=== PATIENT | female | born 1960 | race Caucasian/White ===

== ENCOUNTER 2019-12-24 17:53 | Inpatient (IN) ==
--- OUTSIDE RECORDS SUMMARY | 2019-12-24 17:55 | External Medical Summary | Continuity of Care Document ---
:1960 Author Name Joanna Hahn, Provider Address Unavailable Unavailable , Care Team Providers Name Role Phone Modesto Hahn, [email or web address] Jaramillo Unavailable Unavailable Problems Atrial flutter (427.32) (I48.92) Acute cholecystitis (575.0) (K81.0) Hypertension (401.9) (I10) Hyperlipidemia (272.4) (E78.5) Diabetes (250.00) (E11.9) Allergies and Adverse Reactions Lisinopril TABS (Allergy) Medications amLODIPine Besylate 2.5 MG Oral Tablet; TAKE 1 TABLET DAILY. Start: 27-Feb-2018 Refills: 0 Aspirin Low Dose 81 MG Oral Tablet Delayed Release; TAKE 1 T ABLET DAILY. Start: 27-Feb-2018 Refills: 0 Vitamin D3 75 MCG (3000 UT) Oral Tablet; daily Start: 27-Feb-2018 Refills: 0 Ciprofloxacin HCl - 500 MG Oral Tablet; TAKE 1 TABLET EVERY 12 HOURS DAILY. Start: 27-Feb-2018 Quantity: 20 Refills: 0 Doxepin HCl - 150 MG Oral Capsule; TAKE 1 CAPSULE AT BEDTIME NIGHTLY. Start: 27-Feb-2018 Refills: 0 Ferrous Sulfate 325 (65 Fe) MG Oral Tabl et Delayed Release; TAKE 1 TABLET DAILY. Start: 27-Feb-2018 Refills: 0 metFORMIN HCl - 1000 MG Oral Tablet; TAKE 1 TABLET EVERY 12 HOURS. Start: 27-Feb-2018 Refills: 0 Omeprazole 20 MG Oral Capsule Delayed Release; TAKE 1 CAPSUL E TWICE DAILY. Start: 27-Feb-2018 Refills: 0 Vitamin B Complex Oral Tablet; TAKE 1 TABLET DAILY. Start: 27-Feb-2018 Refills: 0 oxyCODONE HCl - 30 MG Oral Tablet; Twice daily Start: 27-Feb-2018 Refills: 0 Procedures History of Laparoscopic Cholecystectomy With Status: Completed 23-Feb-2018 0:00 Cholangiography Immunizations Immunizations not documented Family History Mother Family history of diabetes mellitus (V18.0) (Z83.3) Status: Active Father Family history of diabetes mellitus (V18.0) (Z83.3) Status: Active Social History - Smoking Status Never smoked tobacco Plan of Treatment Planned Observations Planned Goals not documented Results No Known Results Results not documented Encounters Appointment; Jarrod Salvador M.D. 04-Jun-2018 10:45 Encounter Diagnosis: Problem not documented Appointment; Franc Thorpe M.D. 27-Feb-2018 11:40 Encounter Diagnosis: Problem not documented Appointment; Jarrod Salvador M.D. 28-Jun-2018 14:15 Encounter Diagnosis: Problem not documented
--- OUTSIDE RECORDS SUMMARY | 2019-12-24 17:55 | External Medical Summary | Continuity of Care Document ---
:1960 Author Name Joanna Hahn, Provider Address Unavailable Unavailable , Care Team Providers Name Role Phone Modesto Hahn, [email or web address] Jaramillo Unavailable Unavailable Problems Acute cholecystitis (575.0) (K81.0) Diabetes (250.00) (E11.9) Hyperlipidemia (272.4) (E78.5) Hypertension (401.9) (I10) Atrial flutter (427.32) (I48.92) Allergies and Adverse Reactions Lisinopril TABS (Allergy) [...]
[2019-12-24] MEDS ORDERED: SODIUM CHLORIDE 0.9% 1000ML 1,000 ML IV ONE ×2 (18:12→20:00)
--- NOTE | 2019-12-24 18:15 | Emergency Department Note ---
Impression & Plan Acute pancreatitis, Leukocytosis, Abdominal pain, MIS (acute kidney injury) ED Provider Note NAME: ARIEL MENDOZA AGE: 59 SEX: F : 1960 ARRIVES VIA: Walk-In INFORMANT: Patient ED PROVIDER(S): Jarred Caballero DO CHIEF COMPLAINT: Abdominal pain HPI: Patient is a 59-year-old female who presents the ER for abdominal pain. It has been present since this past Sunday. She notes she feels as though she has to have a bowel movement but cannot. She gave herself an enema on Sunday and had a small bowel movement but still feels bloated and tender. Pain is periu mbilical. Patient denies any headache or neck pain. No chest pain or shortness of breath. No dysuria urgency or frequency. Patient notes that she did trip on the staff prior to arrival and fell. She did hit her head. She has no new pain that she can think of but notes that she has chronic head pain and neck pain and is tough to tell the difference. ROS: See above HPI for pertinent positives & negatives. A total of 10 systems reviewed and were otherwise negative. PAST MEDICAL HISTORY:See Below PAST SURGICAL HISTORY:See Below FAMILY HISTORY:See Below SOCIAL HISTORY:See Below HOME MEDICATIONS:See Below ALLERGIES:See Below VITALS:See Below PHYSICAL EXAMINATION: GENERAL: Sitting up in bed, alert, well appearing, well nourished, no distress, non-toxic HEAD: NC/AT EYE EXAM: normal conjunctiva. PERRL and EOM's grossly intact. OROPHARYNX: no exudate, no erythema, lips, buccal mucosa, and tongue normal and mucous membranes are moist NECK: supple, no nuchal rigidity, no adenopathy, non-tender LUNGS: Clear to auscultation. Normal chest wall mechanics HEART: no murmurs, S1 normal and S2 normal ABDOMEN: abdomen soft, non-tender, normo-active bowel sounds, no masses, no rebound or guarding. BACK: Back is symmetrical on inspection and there is no deformity, no midline tenderness, no CVA tenderness. SKIN: no rashes and no bruising UPPER EXTREMITIES: upper extremities are grossly normal. Abrasion over the left elbow. Full active and passive range of motion of bilateral shoulders, elbows wrist and grasp. No tenderness throughout the humerus or forearm. LOWER EXTREMITIES: No pitting edema. NEURO EXAM: Normal sensorium, cranial nerves II-XII grossly intact, normal speech, no gross weakness of arms, no gross weakness of legs. MEDICAL DECISION MAKING: Patient is a 59-year-old female presents ER for abdominal pain associated with nausea not feeling as though she wants to eat. Pain has been gradually getting worse. IV was established blood work was obtained. Labs show a leukocytosis of nearly 18,000. No significant anemia. BMP with mild hypokalemia. Creatinine was elevated at 1.8 of a baseline about 1. CO2 slightly low. Lipase was elev ated at 600. CT abdomen pelvis consistent with acute pancreatitis. UA was negative. Patient was given IV fluids and 2 dose of IV narcotics. She was updated bedside. Discussed with hospitalist admitted for further work-up. Triage Nursing notes reviewed. Prior medical records reviewed Vital Signs: reviewed and remarkable for Tachy Differential diagnosis: Differential diagnoses includes but is not limited to gastritis, peptic ulcer disease, GERD, gallbladder disease, pancreatitis, small bowel obstruction, acute coronary syndrome, pericarditis, ischemic bowel, irritable bowel disease, irritable bowel syndrome, appendicitis, diverticulitis, malignancy, hernia, urinary tract infection, torsion, perforation, trauma, infectious. ER treatment provided: See below Diagnostics interpreted by me: ECG: none Cardiac Monitoring: An order was placed for continuous cardiac monitoring. The monitor shows a rate of 92 with sinus rhythm. Laboratory studies: As stated above and show below. Imaging studies: Abdomen pelvis confirms acute pancreatitis Consultation(s): Discussed with the hospitalist for further evaluation ED COURSE: Procedures: none Critical Care: None Past Med/Surg History Medical History (Updated 12/24/19 @ 23:56 by Jarred Caballero DO) Chronic pain Diabetes GERD (gastroesophageal reflux disease) HTN (hypertension) Hyperlipidemia Hypertension associated with chronic kidney disease due to type 2 diabetes mellitus Obesity Peripheral autonomic neuropathy due to diabetes mellitus Surgical History (Updated 02/23/18 @ 13:27 by Oneil Wallace MD) H/O cervical spine surgery Previous section Status post lumbar spine surgery for decompression of spinal cord Social History Smoking Status: Never smoker Hx Alcohol Use: No Hx Substance Use: No Preferred Language: Fijian Communication Ability: Effective Active Directory Architect Required: No Beliefs That Will Affect Care: None Current Living Situation: Alone Other Information That Helps Us Care for You: No Feels Safe at Home: Yes Safety Concerns: Feels Safe At This Time Assistive Devices: None Allergies Allergies Allergy/AdvReac Type Severity Reaction Status Date / Time lisinopril AdvReac Unknown weight Verified 12/24/19 20:34 gain Home Meds Home Medications Medication Instructions Recorded Confirmed cholecalciferol (vitamin D3) 3,000 unit PO DAILY 02/23/18 12/24/19 doxepin 150 mg PO HS 02/23/18 12/24/19 ferrous sulfate [iron] 325 mg PO TID 02/23/18 12/24/19 metformin 1,000 mg PO BID 02/23/18 12/24/19 omeprazole 20 mg PO BID 02/23/18 12/24/19 alprazolam 0.5 mg PO DAILY PRN 12/24/19 12/24/19 aspirin [Aspirin Low Dose] 81 mg PO QAM 12/24/19 12/24/19 oxycodone [OxyContin] 30 mg PO Q12H 12/24/19 12/24/19 Results & Data (ED) Vital Signs Vital Signs - 24 hr 12/24/19 17:57 12/24/19 18:35 12/24/19 19:20 Temperature 36.8 C Temperature Source Oral Pulse Rate 120 H Pulse Rate [Apical] 90 Respiratory Rate 18 18 Blood Pressure 125/76 Blood Pressure [Right Arm] 169/96 H Blood Pressure Mean 92 Blood Pressure Mean [Right Arm] 120 Pulse Oximetry 96 97 Oxygen Delivery Method Room Air Room Air Room Air Sepsis Recent Fever Within 48 Hours No Sepsis New/Unexplained Change in Mental Status No Sepsis Action Taken by Nursing No Action Required 12/24/19 21:13 Temperature Temperature Source Pulse Rate Pulse Rate [Apical] 87 Respiratory Rate 18 Blood Pressure Blood Pressure [Right Arm] 147/89 H Blood Pressure Mean Blood Pressure Mean [Right Arm] 108 Pulse Oximetry 97 Oxygen Delivery Method Room Air Sepsis Recent Fever Within 48 Hours Sepsis New/Unexplained Change in Mental Status Sepsis Action Taken by Nursing Laboratory Data Result diagrams: 12/24/19 18:36 12/24/19 18:36 Lab Results 12/24/19 12/24/19 12/24/19 Range/Units 18:36 18:36 18:36 WBC 17.69 H (4.8-10.8) K/uL RBC 5.16 (4.2-5.4) M/uL Hgb 15.7 (12.0-16.0) g/dL Hct 45.2 (37-47) % MCV 87.6 (80-100) fL MCH 30.4 (25-34) pg MCHC 34.7 (32-36) g/dL RDW Std Deviation 44.8 (36.4-46.3) fL RDW Coeff of Génesis 14.9 H (11.5-14.5) % Plt Count 273 (130-400) K/uL MPV 10.2 (7.4-10.4) fL Immature Gran % (Auto) 0.5 % Neut % (Auto) 82.9 % Lymph % (Auto) 9.0 % [place] % (Auto) 7.4 % Eos % (Auto) 0.1 % Baso % (Auto) 0.1 % Neut # (Auto) 14.66 H (1.4-6.5) K/uL Lymph # (Auto) 1.60 (1.2-3.4) K/uL [place] # (Auto) 1.31 H (0.11-0.59) K/uL Eos # (Auto) 0.02 (0-0.5) K/uL Baso # (Auto) 0.02 (0-0.2) K/uL Immature Gran # (Auto) 0.08 H (0.00-0.02) K/uL Sodium 133 L (136-145) mmol/L Potassium 3.7 (3.5-5.1) mmol/L Chloride 99 (98-107) mmol/L Carbon Dioxide 20 L (21-32) mmol/L Anion Gap 14.0 H (3-11) BUN 19 H (7-18) mg/dl Creatinine 1.88 H (0.6-1.2) mg/dl Est Cr Clr Drug Dosing 33.8 ml/min Est GFR ( Amer) 33.5 Est GFR (Non-Af Amer) 28.9 BUN/Creatinine Ratio 9.9 L (10-20) Glucose 268 H (70-99) mg/dl Calcium 10.0 (8.5-10.1) mg/dl Total Bilirubin 0.6 (0.2-1) mg/dl AST 27 (15-37) U/L ALT 61 (12-78) U/L Alkaline Phosphatase 167 H (45-117) U/L Total Protein 8.4 H (6.4-8.2) gm/dl Albumin 3.4 (3.4-5.0) gm/dl Globulin 5.0 H (2.5-4.0) gm/dl Albumin/Globulin Ratio 0.7 L (0.9-2) Lipase 601 H (73-393) U/L Urine Color Dark Yellow Urine Appearance Cloudy A (Clear) Urine pH 5.0 (4.5-7.5) Ur Specific [place] 1.026 (1.000-1.030) Urine Protein 2+ H (Negative) Urine Glucose (UA) 2+ H (Negative) Urine Ketones 1+ H (Negative) Urine Blood Negative (Negative) Urine Nitrite Negative (Negative) Urine Bilirubin 2+ H (Negative) Urine Urobilinogen Negative (Negative) Ur Leukocyte Esterase Negative (Negative) Urine WBC (Auto) 1-5 (0-5) /hpf Urine RBC (Auto) 10-30 H (0-4) /hpf U Hyaline Cast (Auto) 1-5 (0-5) /lpf U Epithel Cells (Auto) >30 H (0-5) /lpf Urine Bacteria (Auto) Negative (Negative) Granular Casts 1-5 H (0) /lpf Administered Medications Hydromorphone HCl (Hydromorphone Inj 1 Mg/Ml Syringe) 1 mg IV Q2H PRN PRN Reason: Pain Stop: 01/07/20 21:44 Last Admin: 12/24/19 22:47 Dose: 1 mg Documented by: [id number] Lactated Ringer's (Lr) 1,000 mls @ 215 mls/hr IV .Q4H40M JACQUELINE Stop: 01/23/20 21:44 Last Admin: 12/24/19 22:35 Dose: 215 mls/hr Documented by: [id number] Discontinued Medications Hydromorphone HCl (Hydromorphone Inj 1 Mg/Ml Syringe) 1 mg IV NOW STA Stop: 12/24/19 20:56 Last Admin: 12/24/19 20:58 Dose: 1 mg Documented by: [id number] Sodium Chloride (Nss 1000ml) 1,000 mls @ 999 mls/hr IV .Q1H1M ONE Stop: 12/24/19 19:12 Last Infusion: 12/24/19 20:01 Dose: 0 mls/hr Documented by: [id number] Admin: 12/24/19 18:44 Dose: 999 mls/hr Documented by: [id number] Sodium Chloride (Nss 1000ml) 1,000 mls @ 999 mls/hr IV .Q1H1M ONE Stop: 12/24/19 21:00 Last Infusion: 12/24/19 21:09 Dose: 0 mls/hr Documented by: [id number] Admin: 12/24/19 20:06 Dose: 999 mls/hr Documented by: [id number] Morphine Sulfate (Morphine Sulfate 10 Mg/Ml Carp/Vial) 6 mg IV NOW STA Stop: 12/24/19 20:01 Last Admin: 12/24/19 20:06 Dose: 6 mg Documented by: [id number] Discharge Plan Visit Data Chief Complaint: Abdominal Pain Stated Complaint: BLOCKAGE IN COLON, REF BY ED Provider: Jarred Caballero Discharge Problem: Acute pancreatitis, Leukocytosis, Abdominal pain, MIS (acute kidney injury) Patient Disposition: Admitted As Inpatient Discharge Instructions Interventions: ED Discharge Assessment Last Done: 12/24/19 22:57 Discharge Problem: Acute pancreatitis Qualifiers: Pancreatitis type: unspecified pancreatitis type Acute pancreatitis complication: unspecified Qualified Code(s): K85.90 - Acute pancreatitis without necrosis or infection, unspecified Leukocytosis Qualifiers: Leukocytosis type: unspecified Qualified Code(s): D72.829 - Elevated white blood cell count, unspecified Abdominal pain Qualifiers: Abdominal location: unspecified location Qualified Code(s): R10.9 - Unspecified abdominal pain
[2019-12-24 18:45] LABS: Basophils # (auto) 0.02 K/uL (0-0.2); Basophils % (auto) 0.1 %; Eosinophils # (auto) 0.02 K/uL (0-0.5); Eosinophils % (auto) 0.1 %; Hematocrit (blood only) 45.2 % (37-47); Hemoglobin 15.7 g/dL (12.0-16.0); Immature Granulocytes # (auto) 0.08 K/uL (0.00-0.02); Immature Granulocytes % (auto) 0.5 %; Mean Corpuscular Hemoglobin 30.4 pg (25-34); Mean Corpuscular Hgb Conc 34.7 g/dL (32-36); Mean Corpuscular Volume 87.6 fL (80-100); Mean Platelet Volume 10.2 fL (7.4-10.4); Monocytes # (auto) 1.31 K/uL (0.11-0.59); Monocytes % (auto) 7.4 %; Neutrophils # (auto) 14.66 K/uL (1.4-6.5); Neutrophils % (auto) 82.9 %; Platelet Count 273 K/uL (130-400); RDW Coefficient of Variation 14.9 % (11.5-14.5); RDW Standard Deviation 44.8 fL (36.4-46.3); Red Blood Count 5.16 M/uL (4.2-5.4); White Blood Count 17.69 K/uL (4.8-10.8)
[2019-12-24 18:48] LABS: Appearance Urine Cloudy (Clear); Bacteria Urine Automated Negative (Negative); Blood Urine Negative (Negative); Color Urine Dark Yellow; Epithelial Cell Urine Auto >30 /lpf (0-5); Glucose Urine UA 2+ (Negative); Ketones Urine 1+ (Negative); Leukocyte Esterase Urine Negative (Negative); Nitrite Urine Negative (Negative); Protein Urine 2+ (Negative); Specific Gravity Urine 1.026 (1.000-1.030); Urobilinogen Urine Negative (Negative)
[2019-12-24 18:56] LABS: Bilirubin Urine 2+ (Negative); Ictotest Urine Positive (Negative)
[2019-12-24 19:01] LABS: Albumin Level 3.4 gm/dl (3.4-5.0); BUN Creatinine Ratio 9.9 (10-20); Creatinine Clr Calc Pharmacy 33.8 ml/min; Est GFR (African American) 33.5; Est GFR (Non-African American) 28.9; Potassium 3.7 mmol/L (3.5-5.1)
[2019-12-24 19:04] LABS: Albumin Globulin Ratio 0.7 (0.9-2); Bilirubin,Total 0.6 mg/dl (0.2-1); Total Protein 8.4 gm/dl (6.4-8.2)
--- NOTE | 2019-12-24 19:47 | CT Scan Report ---
CT head/brain wo con CLINICAL HISTORY: Head pain status post trauma COMPARISON STUDY: No previous studies for comparison. TECHNIQUE: Axial CT of the brain is performed from the vertex to the skull base. IV contrast was not administered for this examination. A dose lowering technique was utilized adhering to the principles of ALARA. CT DOSE: FINDINGS: No intra or extra-axial mass lesions are visualized. There is no CT evidence of acute cortical infarc tion. There is no evidence of midline shift. There is no acute hemorrhage. No calvarial fractures ar e visualized. There are minor white matter hypodensities likely on a small vessel basis. There is mild frontal lobe atrophy There is no evidence of pathologic ventricular dilatation. There is no evidence of acute sinusitis IMPRESSION: No acute intracranial findings ACT 112: Negative or not required by law. Electronically signed by: Oracio Perez M.D. 12/24/2019 7:46 PM
--- NOTE | 2019-12-24 19:49 | CT Scan Report ---
CT OF THE CERVICAL SPINE CLINICAL HISTORY: Neck pain status post trauma COMPARISON STUDY: No previous studies for comparison. CT DOSE: TECHNIQUE: CT scan of the cervical spine was performed from the skull base to the thoracic inlet. Joelle ges are reviewed in the axial, sagittal, and coronal planes. IV contrast was not administered for thi s examination. A dose lowering technique was utilized adhering to the principles of ALARA. FINDINGS: The visualized portions of the lung apices reveal no evidence of pneumothorax. The prevertebral soft tissues are normal. No fractures or subluxations are visualized. There are multilevel degenerative changes. There are postsurgical changes of a C5-6 fusion. IMPRESSION: No evidence of acute fracture or traumatic subluxation. ACT 112: Negative or not required by law. Electronically signed by: Oracio Perez M.D. 12/24/2019 7:48 PM
--- NOTE | 2019-12-24 19:55 | CT Scan Report ---
CT SCAN OF THE ABDOMEN AND PELVIS WITHOUT CONTRAST CLINICAL HISTORY: Abdominal pain status post trauma COMPARISON STUDY: CT scan dated 02/23/2018 TECHNIQUE: CT scan of the abdomen and pelvis was performed from the lung bases to the proximal femurs . Images are reviewed in the axial, sagittal, and coronal planes. IV contrast was not administered fo r this examination. A dose lowering technique was utilized adhering to the principles of ALARA. CT DOSE: 2035.07 mGy.cm FINDINGS: Lower chest: There are basilar atelectatic changes. There is mild elevation of the right hemidiaphrag m Liver: There is hepatic steatosis. There is a 1 cm left lobe hepatic hypodensity, unchanged from Dece mber 2018, likely representing a cyst. Gallbladder: Surgically absent. There is mild prominence of the common bile duct likely secondary to a reservoir effect Spleen: Normal in size and attenuation. Pancreas: Atrophic. There is infiltration of peripancreatic fat suspicious for pancreatitis. Please c orrelate with amylase and lipase Adrenal glands: Unremarkable. Kidneys: No renal, ureteral, or bladder calculi are visualized Bowel: There are no transition zones indicate bowel obstruction. The appendix appears normal. There i s no acute diverticulitis. There are scattered colonic diverticula Peritoneum: There is no intraperitoneal free air or abdominal ascites. Vasculature: The abdominal aorta is normal in course and caliber. Adenopathy: None. Pelvic viscera: The pelvic viscera are unremarkable in appearance Skeletal structures: No acute fractures are visualized. There is a chronic bony defect involving the right iliac wing. IMPRESSION: 1. No evidence of acute intra-abdominal or pelvic injury given the limitations of a noncontrast study 2. No evidence of bowel obstruction. No evidence of free air 3. Diverticulosis. No evidence of acute diverticulitis 4. Normal appendix 5. Pancreatic atrophy. Infiltration of the peripancreatic fat suspicious for acute pancreatitis. Rosina elation with lipase and amylase recommended 6. Hepatic steatosis ACT 112: Negative or not required by law. Electronically signed by: Oracio Perez M.D. 12/24/2019 7:53 PM
[2019-12-24] MEDS ORDERED: MoRPHine SULFATE 10 MG/ML CARP/VIAL IV STA (20:00)
[2019-12-24] MEDS ORDERED: HYDROmorphone INJ 1 MG/ML SYRINGE IV STA (20:55)
--- NOTE | 2019-12-24 20:59 | XRay Report ---
XR chest 1V portable CLINICAL HISTORY: Renal failure COMPARISON STUDY: February 23, 2018 FINDINGS: There is elevation/eventration right hemidiaphragm. The heart is normal in size. There is n o failure. There is no focal pulmonary consolidation. There are mild right basilar atelectatic change s. IMPRESSION: 1. Elevation/eventration right hemidiaphragm 2. Otherwise unremarkable AP portable chest ACT 112: Negative or not required by law. Electronically signed by: Oracio Perez M.D. 12/24/2019 8:58 PM
[2019-12-24] MEDS ORDERED: ACETAMINOPHEN 325 MG TAB PO PRN (21:30)
[2019-12-24] MEDS ORDERED: ONDANSETRON INJ 2 MG/ML 2 ML VIAL IV PRN (21:30)
[2019-12-24] MEDS ORDERED: ENOXAPARIN INJ 40 MG/0.4 ML SYR SQ SCH (21:45)
[2019-12-24] MEDS: LACTATED RINGER'S 1,000 ML IV SCH (22:35)
[2019-12-24] MEDS: HYDROmorphone INJ 1 MG/ML SYRINGE IV PRN (22:47)
[2019-12-25] MEDS: HYDROmorphone INJ 1 MG/ML SYRINGE IV PRN ×6 (00:39→17:59)
[2019-12-25] MEDS: ALPRAZolam 0.5 MG TABLET PO PRN (02:30)
[2019-12-25] MEDS: LACTATED RINGER'S 1,000 ML IV SCH ×5 (03:45→22:29)
--- NOTE | 2019-12-25 03:54 | History & Physical Report ---
Date of Service December 25, 2019 Assessment & Plan (1) Leukocytosis: Adwoa Méndez is a 59 year old woman with PMH of anxiety depression, cholecystits s.p cholecystectomy in 2018 who presents with abdominal pain and constipation Abdominal pain Appears to be secondary to pancreatitis, evidence of acute pancreatitis on CT scan and also similar symptoms in the past and atrophy of pancreas may be an acute on chronic exacerbation, no alcohol use, no gall bladder, no recent covid diagnosis Will order MRCP to evaluate for CBD sludge stone, or stricture NPO, LR at 215 mls/hour dilaudid for pain control Will schedule miralax for her constipation Will slowly advance diet as tolerated npo currently sips and chips MIS Likely pre renal seconary to patient's decreased PO intake Aggressively rehydrating will recheck BMP in am Chest discomfort palpitations Will admit to telemetry and check a troponin Patient actively exhibiting symptoms and normal on monitor resolved with her home alprazolam, will continue ot monitor DVT PPx: Lovenox F/E/N: LR 215 mls/hour Dispo: Admit to telemetry for monitoring of her palpitations will slowly advance diet as tolerated (2) MIS (acute kidney injury): (3) Acute pancreatitis: (4) HTN (hypertension): (5) Electrolyte imbalance: (6) Elevated lipase: Admission and Anticipated Discharge Date Admission Date: December 24, 2019 History of Present Illness Chief Complaint: Abdominal pain Primary Care Provider: Hanna Powers Adwoa Méndez is a 59 year old woman with a past medical history significant for anxiety and depression, chronic pain on 90 MME per day. history of being on over 200 MME's per day who presents with abdominal pain. Patient has had about a week of abdominal pain, pain is epigastric but has moved around her abdomen, occasionally moving to her back. She has also not had a bowel movement in several days despite normally having trouble controlling her bowels. She has not been eating or drinking much, did have a singe non bloody non bilious vomiting episode. Has no other concerns at present. She does relate that she has had almost identical symptoms several times since her gallbladder was removed in 2018. On presentation to ED patient was tachycardic otherwise vital signs WNL. Labwork significant for elevated white count of 17.69, creatinine and BUN mildy elevated at 1.88 and 19 respectively, alk phos elevated at 167, lipase elevated to 601. Urine protein ketones and bilirubin.CT scan significant for Pancreatic atrophy. Infiltration of the peripancreatic fat suspicious for acute pancreatitis. She denies fevers, chills, shortness of breath, chest pain, cough, sick contacts, or any other concerning symptoms on review. On second evaluation of patient she tells me that for a long time she has had palpitations at night and she has been feeling very anxious and having palpitations, on monitor she is sinus rhythm in the 80's-90's ECG without any acute or concerning changes. Allergies Allergy/AdvReac Type Severity Reaction Status Date / Time lisinopril AdvReac Unknown weight Verified 12/24/19 20:34 gain Home Medications Home Medications Medication Instructions Recorded Confirmed Type cholecalciferol (vitamin D3) 3,000 unit PO DAILY 02/23/18 12/24/19 History doxepin 150 mg PO HS 02/23/18 12/24/19 History ferrous sulfate [iron] 325 mg PO TID 02/23/18 12/24/19 History metformin 1,000 mg PO BID 02/23/18 12/24/19 History omeprazole 20 mg PO BID 02/23/18 12/24/19 History alprazolam 0.5 mg PO DAILY PRN 12/24/19 12/24/19 History aspirin [Aspirin Low Dose] 81 mg PO QAM 12/24/19 12/24/19 History oxycodone [OxyContin] 30 mg PO Q12H 12/24/19 12/24/19 History Past Med/Surg History Medical History Chronic pain Diabetes GERD (gastroesophageal reflux disease) HTN (hypertension) Hyperlipidemia Hypertension associated with chronic kidney disease due to type 2 diabetes mellitus Obesity Peripheral autonomic neuropathy due to diabetes mellitus Surgical History H/O cervical spine surgery Previous section Status post lumbar spine surgery for decompression of spinal cord Family History Other Family history non-contributory Social History Smoking Status: Never smoker Hx Alcohol Use: No Hx Substance Use: No Preferred Language: Telugu Communication Ability: Effective 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: No Beliefs That Will Affect Care: None Current Living Situation: Alone Other Information That Helps Us Care for You: No Feels Safe at Home: Yes Safety Concerns: Feels Safe At This Time Assistive Devices: None Review of Systems Review of Systems: All systems reviewed & are unremarkable except as noted in HPI & below Physical Exam Physical Exam: Constitutional: Anxious appearing obese woman appearing stated age resting uncomfortably in bed, No AMS Eyes: PERRLA, EOMMI bilaterally ENMT: NAD Respiratory: Regular rate, no increased work of breathing, lung sounds vesicular in all lung [place] Cardiovascular: Regular rate and rhythm, no murmurs, rubs skips or gallops no peripheral edema GI: Abdomen soft but quite exquisitely tender particular epigastrically but pain globally, no rebound tenderness no masses palpated Skin: Warm dry well perfused no rashes Neuro: AA&Ox4 no focal abnormalities walking and moving all four limbs equally, no deficits Results & Data Results & Data ([facility]) Vital Signs (Past 12 Hours) Vital Signs Temp Pulse Pulse Resp BP BP Pulse Ox 12/25/19 02:27 36.7 C 94 H 16 185/113 H 98 12/25/19 01:20 94 H 12/25/19 01:00 160/88 H 12/24/19 23:28 36.4 C L 92 H 20 185/124 H 96 12/24/19 22:57 95 H 18 179/127 H 98 12/24/19 22:50 94 H 18 181/127 H 98 12/24/19 22:12 91 H 18 185/118 H 98 12/24/19 21:13 87 18 147/89 H 97 12/24/19 19:20 90 18 169/96 H 97 12/24/19 17:57 36.8 C 120 H 18 125/76 96 Code Status & VTE Plan VTE Prophylaxis Plan VTE Prophylaxis will be ordered: Yes Supervising Physician Co-Signing Physician Notes Attending Attestation & Admission Note: Pt seen/examined, chart reviewed, admission care plan d/w resident Amor Naqvi MD. I agree w/ the zamora components of admission documentation. 59yo female with history of cholecystectomy presents with several days of constant upper abdominal pain. Associated with anorexia and nausea. Patient retrospectively realizes she has had several episodes of abdominal pain since her cholecystectomy that are similar to her current symptoms. However, the pain over the last few days has been the most severe episode in the last 2 years. Denies etoh use. Additionally c/o tachycardia, palpitations, and irregular heart beating. Episodes can last minutes to nearly all day. She has an associated chest discomfort with these spells. Has never had outpatient monitoring for such. PMH, PSH, allergies, meds, sochx, famhx - reviewed VSS, no fever gen - uncomfortable appearing, dehydrated mouth - MM extremely dry heart - RRR, s1 s2, no murmur chest - mildly reproducible chest wall tenderness to palpation lungs - CTA b/l abd - very tender to palpation over the RUQ and epigastric region, no peritoneal signs, mildly distended, BS+, no HSM ext - no edema labs - lipase 600 leukocytosis LFTs wnl except alk phos mildly high u/a notable for POSITIVE BILIRUBIN which would support biliary cause of pancreatitis CT abd/pelvis - peripancreatic inflammation A/P: 1. acute pancreatitis, etiology uncertain, ?CBD stone or stricture or other biliary tract pathology? 2. chronic, frequent episodes of palpitations 3. chronic, frequent episodes of chest pain associated with #2 4. anxiety 5. cholecystectomy state; of note - op note from 02/2018 shows that she had intra-op cholangiogram with concern for distal CBD stone; this was followed by MRCP which was nondiagnostic; never had an ERCP per records 6. DM #1 - copious LR; NPO; lipase in am; triglycerides in am; MRCP now - r/o CBD ston e, stricture, etc. May need GI consult and consideration of ERCP if MRCP shows CBD abnormalities. #2 - telemetry, repeat trop in am; suggest 30-day event monitor if telemetry fails to reveal any dysrhythmia while here Andrew Pantoja MD Resident Activity Tracking Resident Involvement: Resident Care Provided Care Provided: Adult Hospital Medicine (1) Leukocytosis Leukocytosis type: unspecified Qualified Code(s): D72.829 - Elevated white blood cell count, unspecified (2) Acute pancreatitis Acute pancreatitis complication: unspecified Pancreatitis type: unspecified pancreatitis type Qualified Code(s): K85.90 - Acute pancreatitis without necrosis or infection, unspecified
[2019-12-25 04:51] LABS: Basophils # (auto) 0.02 K/uL (0-0.2); Basophils % (auto) 0.1 %; Eosinophils # (auto) 0.05 K/uL (0-0.5); Eosinophils % (auto) 0.3 %; Hematocrit (blood only) 37.7 % (37-47); Hemoglobin 12.7 g/dL (12.0-16.0); Immature Granulocytes # (auto) 0.05 K/uL (0.00-0.02); Immature Granulocytes % (auto) 0.3 %; Lymphocytes # (auto) 1.56 K/uL (1.2-3.4); Lymphocytes % (auto) 9.9 %; Mean Corpuscular Hemoglobin 29.9 pg (25-34); Mean Corpuscular Hgb Conc 33.7 g/dL (32-36); Mean Corpuscular Volume 88.7 fL (80-100); Mean Platelet Volume 9.9 fL (7.4-10.4); Monocytes # (auto) 1.06 K/uL (0.11-0.59); Monocytes % (auto) 6.7 %; Neutrophils # (auto) 13.07 K/uL (1.4-6.5); Neutrophils % (auto) 82.7 %; Platelet Count 225 K/uL (130-400); RDW Coefficient of Variation 14.9 % (11.5-14.5); RDW Standard Deviation 46.9 fL (36.4-46.3); Red Blood Count 4.25 M/uL (4.2-5.4); White Blood Count 15.81 K/uL (4.8-10.8)
[2019-12-25 05:30] LABS: Alanine Aminotransferase 43 U/L (12-78); Albumin Globulin Ratio 0.6 (0.9-2); Albumin Level 2.5 gm/dl (3.4-5.0); Alkaline Phosphatase 129 U/L (45-117); Aspartate Aminotransferase 20 U/L (15-37); Bilirubin,Total 0.5 mg/dl (0.2-1); Blood Urea Nitrogen 15 mg/dl (7-18); Calcium 8.7 mg/dl (8.5-10.1); Carbon Dioxide 23 mmol/L (21-32); Chloride 105 mmol/L (98-107); Creatinine Clr Calc Pharmacy 56.4 ml/min; Est GFR (Non-African American) 53.5; Globulin 3.9 gm/dl (2.5-4.0); Glucose 170 mg/dl (70-99); Sodium 137 mmol/L (136-145); Total Protein 6.4 gm/dl (6.4-8.2); Troponin I < 0.015 ng/ml (0-0.045)
--- NOTE | 2019-12-25 07:38 | Billing Data ---
Date of Service December 24, 2019 Coding Level of Care Code 36301 Initial Inpt Care Lvl 3
--- NOTE | 2019-12-25 07:55 | Magnetic Resonance Report ---
MRCP CLINICAL HISTORY: Pancreatitis. COMPARISON STUDY: Abdominal CT dated 12/24/2019. MRCP dated 02/23/2018. TECHNIQUE: Abdominal MRCP is performed utilizing various T2-weighted sequences in the axial and coron al planes. 3-D reformats are created and assessed. IV contrast was not administered for this examinat ion. FINDINGS: The gallbladder is surgically absent. There is mild intrahepatic biliary ductal dilatation. The commo n bile duct is dilated measuring up to 1.3 cm in diameter. No intraluminal filling defects are identi fied to suggest choledocholithiasis. A small dilated cystic duct remnant is noted. Pancreas divisum i s noted. The pancreatic duct is normal in caliber. The liver is enlarged measuring 19.9 cm in length. The unenhanced spleen, adrenal glands, and kidneys are grossly normal. The pancreas is atrophic. Mild peripancreatic infiltration and fluid is consiste nt with the reported history of acute pancreatitis. No peripancreatic Fluid collection is seen. There is no upper abdominal ascites. The abdominal aorta is normal in caliber. No bowel obstruction is see n. Heart is normal in size and without pericardial effusion. No pleural effusion is identified. The b kim structures are grossly unremarkable. IMPRESSION: 1. Status post cholecystectomy. 2. There is intra- and extrahepatic biliary ductal dilatation, likely related to previous cholecystec maria [place] carmen. 3. There is no evidence of choledocholithiasis. 4. Pancreas divisum. 5. Findings are consistent with acute pancreatitis. Dictated: 12/25/2019 7:13 AM Transcribed: 12/25/2019 7:51 AM Gemma [id number] [email or web address] Electronically signed by: Austyn Neil M.D. 12/25/2019 7:54 AM
[2019-12-25 08:21] LABS: Estimated Average Glucose 214 mg/dl; Hemoglobin A1C 9.1 % (4.5-5.6)
[2019-12-25] MEDS ORDERED: GLUCOSE 40% GEL 15 GM TUBE PO PRN (08:57)
[2019-12-25] MEDS ORDERED: GLUCAGON FOR INJ 1 MG VIAL SQ PRN (08:57)
[2019-12-25] MEDS ORDERED: DEXTROSE 50% 50 ML SYRINGE IV PRN (08:57)
[2019-12-25] MEDS ORDERED: CARBOHYDRATES FOR HYPOGLYCEMIA PO PRN (08:57)
[2019-12-25] MEDS ORDERED: GLUCOSE 10 TABS/TUBE PO PRN (08:57)
[2019-12-25] MEDS ORDERED: Nursing to Pharmacy Communication SCH (09:45)
[2019-12-25] MEDS ORDERED: oxyCODONE HCL 15 MG TABCR (OxyCONTIN) PO SCH (10:00)
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
[2019-12-25] MEDS: INSULIN GLARGINE SOLOSTAR 100 UNITS/ML 3 ML PEN SC SCH (10:16)
[2019-12-25] MEDS: ENOXAPARIN INJ 40 MG/0.4 ML SYR SQ SCH (10:16)
[2019-12-25] MEDS: PANTOprazole 40 MG TAB PO SCH ×2 (10:17→21:00)
[2019-12-25] MEDS: ASPIRIN 81 MG ECTAB PO SCH (10:18)
[2019-12-25] MEDS: CHOLECALCIFEROL 1,000 UNITS 25 MCG TAB PO SCH (10:18)
[2019-12-25] MEDS ORDERED: HYDROmorphone INJ 0.5 MG/0.5 ML SYR IV STA (10:27)
[2019-12-25] MEDS ORDERED: INSULIN ASPART 100 UNITS/ML 3 ML PEN SC SCH (11:30)
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
[2019-12-25] MEDS: POLYETHYLENE (MIRALAX) 17 GM PACK PO SCH (13:11)
[2019-12-25] MEDS: INSULIN ASPART 100 UNITS/ML 3 ML PEN SC SCH ×3 (13:14→23:55)
[2019-12-25] MEDS: oxyCODONE HCL 15 MG TABCR (OxyCONTIN) PO SCH ×2 (15:01→21:00)
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
[2019-12-25] MEDS ORDERED: NALOXONE HCL 0.4 MG/1 ML VIAL/CARP IV PRN (15:54)
[2019-12-25] MEDS ORDERED: hydrALAZINE HCL 20 MG/ML VIAL IV PRN (15:55)
--- NOTE | 2019-12-25 17:44 | Electrocardiogram Report ---
Test Reason : Blood Pressure : / mmHG Vent. Rate : 091 BPM Atrial Rate : 091 BPM P-R Int : 126 ms QRS Dur : 086 ms QT Int : 354 ms P-R-T Axes : 020 032 040 degrees QTc Int : 435 ms Normal sinus rhythm Nonspecific T wave abnormality Abnormal ECG When compared with ECG of 23-FEB-2018 00:38, No significant change was found Confirmed by Jarrod Salvador ([id number]) on 12/25/2019 5:44:07 PM Referred By: Hanna Powers Confirmed By:Irvin Salvador
[2019-12-25] MEDS: DOXEPIN HCL 75 MG CAPSULE PO SCH (20:59)
[2019-12-26] MEDS: LACTATED RINGER'S 1,000 ML IV SCH ×5 (02:41→23:54)
[2019-12-26] MEDS: HYDROmorphone INJ 1 MG/ML SYRINGE IV PRN ×6 (02:41→23:58)
[2019-12-26] MEDS: INSULIN ASPART 100 UNITS/ML 3 ML PEN SC SCH ×4 (06:21→21:21)
[2019-12-26 08:10] LABS: Basophils # (auto) 0.03 K/uL (0-0.2); Basophils % (auto) 0.3 %; Eosinophils # (auto) 0.17 K/uL (0-0.5); Eosinophils % (auto) 1.8 %; Hematocrit (blood only) 34.6 % (37-47); Hemoglobin 11.5 g/dL (12.0-16.0); Immature Granulocytes # (auto) 0.03 K/uL (0.00-0.02); Immature Granulocytes % (auto) 0.3 %; Lymphocytes # (auto) 1.57 K/uL (1.2-3.4); Lymphocytes % (auto) 16.5 %; Mean Corpuscular Hemoglobin 29.6 pg (25-34); Mean Corpuscular Hgb Conc 33.2 g/dL (32-36); Mean Corpuscular Volume 89.2 fL (80-100); Monocytes # (auto) 0.64 K/uL (0.11-0.59); Monocytes % (auto) 6.7 %; Neutrophils # (auto) 7.07 K/uL (1.4-6.5); Neutrophils % (auto) 74.4 %; Platelet Count 207 K/uL (130-400); RDW Coefficient of Variation 14.6 % (11.5-14.5); RDW Standard Deviation 46.5 fL (36.4-46.3); Red Blood Count 3.88 M/uL (4.2-5.4); White Blood Count 9.51 K/uL (4.8-10.8)
[2019-12-26 08:45] LABS: Albumin Level 2.1 gm/dl (3.4-5.0); BUN Creatinine Ratio 11.9 (10-20); Bilirubin Direct 0.1 mg/dl (0-0.2); Bilirubin,Total 0.4 mg/dl (0.2-1); Calcium 8.9 mg/dl (8.5-10.1); Creatinine Clr Calc Pharmacy 81.7 ml/min; Est GFR (African American) 97.1; Est GFR (Non-African American) 83.8; Magnesium 1.4 mg/dl (1.8-2.4); Phosphorus 2.7 mg/dl (2.5-4.9); Potassium 3.4 mmol/L (3.5-5.1); Total Protein 5.5 gm/dl (6.4-8.2)
[2019-12-26] MEDS: oxyCODONE HCL 15 MG TABCR (OxyCONTIN) PO SCH ×3 (08:50→20:51)
[2019-12-26] MEDS: PANTOprazole 40 MG TAB PO SCH ×2 (08:51→20:52)
[2019-12-26] MEDS: ASPIRIN 81 MG ECTAB PO SCH (08:51)
[2019-12-26] MEDS: ENOXAPARIN INJ 40 MG/0.4 ML SYR SQ SCH (08:51)
[2019-12-26] MEDS: POLYETHYLENE (MIRALAX) 17 GM PACK PO SCH (08:52)
[2019-12-26] MEDS: CHOLECALCIFEROL 1,000 UNITS 25 MCG TAB PO SCH (08:52)
[2019-12-26 08:58] LABS: Folate (Folic Acid) 12.18 ng/ml (>5.38)
[2019-12-26] MEDS: POTASSIUM CHLORIDE / WTR 10 MEQ/100 ML PLCT IV SCH ×2 (10:34→12:05)
[2019-12-26] MEDS: MAGNESIUM SULFATE / D5W 1 GM/100 ML BAG IV SCH ×2 (10:34→12:08)
[2019-12-26] MEDS: INSULIN GLARGINE SOLOSTAR 100 UNITS/ML 3 ML PEN SC SCH (10:35)
--- NOTE | 2019-12-26 11:48 | Electrocardiogram Report ---
Test Reason : Blood Pressure : / mmHG Vent. Rate : 084 BPM Atrial Rate : 084 BPM P-R Int : 128 ms QRS Dur : 094 ms QT Int : 362 ms P-R-T Axes : 029 045 050 degrees QTc Int : 427 ms Sinus rhythm with Premature atrial complexes Incomplete right bundle branch block Nonspecific T wave abnormality Abnormal ECG When compared with ECG of 25-DEC-2019 02:22, Premature atrial complexes are now Present Incomplete right bundle branch block is now Present Confirmed by Jarrod Salvador ([id number]) on 12/26/2019 11:48:40 AM Referred By: Hanna Powers Confirmed By:Irvin Salvador
--- NOTE | 2019-12-26 13:32 | Gastroenterology Progress Note ---
Date of Service December 26, 2019 Assessment & Plan (1) Acute pancreatitis: Improving. NPO until not needing IV narcotics then start clears Pdivisum can increase risk of pancreatitis but nothing acute to do. Trigs normal. ETOH none. Metformin and Crestor can cause but only case reports so doubt etiology. . On DC recommend going to [facility] for EUS to look for pancreas lesion and they can address Pdivisum also (pt has a fhx of pancreas cancer also). . Admission and Anticipated Discharge Date Admission Date: December 24, 2019 Subjective cc abd pain HPI Pt states overall abd pain improved but still needing IV narcotics to keep under control. Urine output 61 ml/hour in last 24 hours. Physical Exam Gastrointestinal (Abdomen): pos bs soft, no guarding nor rebound Results & Data ([facility]) Vital Signs (Past 12 Hours) Vital Signs Temp Pulse Resp BP Pulse Ox 12/26/19 07:24 37.1 C 82 18 159/88 H 96 (1) Acute pancreatitis Acute pancreatitis complication: unspecified Pancreatitis type: unspecified pancreatitis type Qualified Code(s): K85.90 - Acute pancreatitis without necrosis or infection, unspecified
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
[2019-12-26] MEDS ORDERED: Nursing to Pharmacy Communication SCH (15:15)
[2019-12-26] MEDS: METOPROLOL TARTRATE 25 MG TAB PO SCH ×2 (15:51→20:55)
[2019-12-26] MEDS: CYANOCOBALAMIN 1000 MCG/ML VIAL IM SCH (15:52)
--- NOTE | 2019-12-26 16:36 | Medical Student Progress Note ---
Date of Service December 26, 2019 Assessment & Plan (1) Acute pancreatitis: Pancreatic enzymes are back to normal levels Patient given IV fluids and pain management while in the hospital Metabolic panel ordered for tomorrow to ensure electrolytes are not being depleted. On MRI the patient has pancreas divisium Patient seen by GI who recommend: No actions can be taken right now but the patient could make an appointment with a pancreatic specialist at [place] after discharge to see what her options are. Patient can begin oral intake of clear liquids as tolerated. Acute pancreatitis complication: unspecified Pancreatitis type: unspecified pancreatitis type Qualified Code(s): K85.90 - Acute pancreatitis without necrosis or infection, unspecified (2) MIS (acute kidney injury): Most likely due to dehydration BUN and creatinine had returned to normal limits by yesterday. Continue to rehydrate and maintain fluids. Metabolic panel for tomorrow to ensure patient's electrolytes are remaining stable. (3) Heart palpitations: Begin metoprolol (4) Diabetes: Possibly poorly controlled in the past and now exacerbated by the stress on the pancreas. Diabetes management patient education. Continue on long-acting insulin (5) HTN (hypertension): Begin metoprolol (6) Chronic pain: Patient's home dose of oxycodone resumed (90mg per day) Chronic pain type: due to trauma Qualified Code(s): G89.21 - Chronic pain due to trauma (7) B12 deficiency: Patient's B12 was low at approximately 130 Begin IM injections of B12 while in the hospital Discharge with oral B12 supplements Admission and Anticipated Discharge Date Admission Date: December 24, 2019 Patient can be discharged when she no longer needs IV hydration or pain management. Subjective Patient is a 59 year old woman with a past medical history significant for anxiety and depression, chronic pain, diabetes, and cholecystectomy presented to the ED two nights ago with 4 days of severe abdominal pain. On presentation to ED patient had an elevated white count of 17.69, creatinine and BUN elevated at 1.88 and 19, and lipase elevated to 601. CT scan showed infiltration of the peripancreatic fat suspicious for acute pancreatitis. She was admitted for acute pancreatitis and has been being treated with IV fluids and IV narcotics. The patient is diabetic and her glucose was 268 on admission. After counseling and beginning long-acting insulin her fasting glucose is now at approximately 100. The patient mentioned that her primary care physician had been concerned about her B12 levels but that she had not been able to start supplements. Her B12 was checked and found to be low at 130. In the ED the patient reported that she has had heart palpitations at night for a long time, so she was admitted to telemetry. On the monitor overnight she was in sinus rhythm in the 80s-90s with no concerning changes, and she was moved to a non-telemetry floor. After being moved she reported experiencing an episode, and a second EKG was done. That EKG showed premature atrial complexes and an incomplete right bundle branch block. This morning the patient says that she is doing better compared to yesterday, but that she is still in a great deal of pain and that her pain medication is wearing off quickly. She is most concerned with her pain, and also wants to know what can be done to prevent episodes like this from recurring in the future. She says that she intends to maintain her health better and to take her medications in the future. Review of Systems Respiratory: The patient reports no shortness of breath, but some lightheadedness when she sits up, which she attributes to having spent so much time lying down. Cardiovascular: Additional Comments: Patient was very distressed by her overnight episode of premature atrial contraction, but other than that incident reports no chest pain or palpitations. Gastrointestinal: Patient reports still feeling a great deal of epigastric pain. Genitourinary: Patient is urinating frequently. She reports no pain, itching, or burning with urination. Musculoskeletal: Patient's back is very painful, both from her chronic pain and from her recent fall. Physical Exam Constitutional: WD/WN, vitals as above Eyes: PERRL, conjunctivae normal, anicteric sclerae Neck: normal visual inspection and trachea midline Respiratory: normal respiratory effort, lungs clear to auscultation Cardiovascular: RRR, no murmur, no edema Gastrointestinal (Abdomen): Still very tender to palpation globally, and particularly epigastrically. Soft with no guarding. Musculoskeletal: Patient has some bruises and scrapes from her fall, but no difficulty moving. Her cervical spine CT showed no fractures. Neurologic: PERRL, EOMI, accommodation nl, no face palsy, no dysarthria Psychiatric: A+Ox3, euthymic affect Patient somewhat anxious about her health. Results & Data ([facility]) Vital Signs (Past 12 Hours) Vital Signs Temp Pulse Resp BP Pulse Ox 12/26/19 15:30 36.8 C 92 H 16 157/79 H 97 12/26/19 07:24 37.1 C 82 18 159/88 H 96
[2019-12-26] MEDS: DOXEPIN HCL 75 MG CAPSULE PO SCH (20:52)
[2019-12-27] MEDS: HYDROmorphone INJ 1 MG/ML SYRINGE IV PRN ×5 (03:24→15:41)
[2019-12-27] MEDS: LACTATED RINGER'S 1,000 ML IV SCH ×4 (03:24→16:20)
[2019-12-27 07:00] LABS: Basophils # (auto) 0.03 K/uL (0-0.2); Basophils % (auto) 0.4 %; Eosinophils # (auto) 0.22 K/uL (0-0.5); Eosinophils % (auto) 3.3 %; Hemoglobin 10.5 g/dL (12.0-16.0); Immature Granulocytes # (auto) 0.02 K/uL (0.00-0.02); Immature Granulocytes % (auto) 0.3 %; Lymphocytes # (auto) 1.56 K/uL (1.2-3.4); Lymphocytes % (auto) 23.1 %; Mean Corpuscular Hemoglobin 29.2 pg (25-34); Mean Corpuscular Hgb Conc 32.8 g/dL (32-36); Mean Corpuscular Volume 89.1 fL (80-100); Mean Platelet Volume 9.4 fL (7.4-10.4); Monocytes # (auto) 0.47 K/uL (0.11-0.59); Neutrophils # (auto) 4.44 K/uL (1.4-6.5); Neutrophils % (auto) 65.9 %; Platelet Count 195 K/uL (130-400); RDW Coefficient of Variation 14.5 % (11.5-14.5); RDW Standard Deviation 46.6 fL (36.4-46.3); Red Blood Count 3.59 M/uL (4.2-5.4); White Blood Count 6.74 K/uL (4.8-10.8)
[2019-12-27 07:29] LABS: BUN Creatinine Ratio 9.8 (10-20); Calcium 8.8 mg/dl (8.5-10.1); Creatinine Clr Calc Pharmacy 80.7 ml/min; Est GFR (African American) 95.6; Est GFR (Non-African American) 82.5; Magnesium 1.7 mg/dl (1.8-2.4); Potassium 3.5 mmol/L (3.5-5.1)
[2019-12-27] MEDS: METOPROLOL TARTRATE 25 MG TAB PO SCH ×2 (08:21→21:12)
[2019-12-27] MEDS: oxyCODONE HCL 15 MG TABCR (OxyCONTIN) PO SCH ×3 (08:21→21:16)
[2019-12-27] MEDS: POLYETHYLENE (MIRALAX) 17 GM PACK PO SCH (08:22)
[2019-12-27] MEDS: CHOLECALCIFEROL 1,000 UNITS 25 MCG TAB PO SCH (08:22)
[2019-12-27] MEDS: PANTOprazole 40 MG TAB PO SCH ×2 (08:22→21:11)
[2019-12-27] MEDS: ASPIRIN 81 MG ECTAB PO SCH (08:22)
[2019-12-27] MEDS: ENOXAPARIN INJ 40 MG/0.4 ML SYR SQ SCH (08:23)
[2019-12-27] MEDS: INSULIN GLARGINE SOLOSTAR 100 UNITS/ML 3 ML PEN SC SCH (08:34)
[2019-12-27] MEDS: INSULIN ASPART 100 UNITS/ML 3 ML PEN SC SCH ×4 (08:35→21:13)
[2019-12-27] MEDS: CYANOCOBALAMIN 1000 MCG/ML VIAL IM SCH (09:45)
[2019-12-27] MEDS ORDERED: MAGNESIUM SULFATE / D5W 1 GM/100 ML BAG IV ONE (10:15)
[2019-12-27] MEDS ORDERED: PNEUMOCOCCAL Polysaccharide Vaccine 25mcg/0.5mL vial/Syr IM ONE (10:15)
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
[2019-12-27] MEDS: ALPRAZolam 0.5 MG TABLET PO PRN (12:41)
[2019-12-27] MEDS ORDERED: LORazepam 0.5 MG/1 ML VIAL IV PRN (14:03)
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
[2019-12-27] MEDS: hydrALAZINE HCL 20 MG/ML VIAL IV PRN (14:07)
[2019-12-27] MEDS ORDERED: OPTIRAY 320 125ml IV ONE (14:52)
--- NOTE | 2019-12-27 15:14 | CT Scan Report ---
CT ANGIOGRAPHY OF THE CHEST, PULMONARY EMBOLUS PROTOCOL CLINICAL HISTORY: Chest pain. Evaluate for pulmonary embolus. COMPARISON STUDY: Chest radiograph December 24, 2019. TECHNIQUE: Following IV administration of 119 mL of Optiray-320, helical axial images of the chest we re obtained utilizing the pulmonary embolus protocol. Maximal intensity projections and sagittal and coronal reformats were viewed on an independent 3D workstation. IV contrast was administered withou t complication. Automated exposure control was utilized for the study. A dose lowering technique wa s utilized adhering to the principles of ALARA. CT DOSE: 456.33 mGy.cm FINDINGS: Elevation of the right hemidiaphragm is noted. This exam is mildly compromised by motion a rtifact however no pulmonary emboli are identified. There is no thoracic aortic dissection. The size of the heart is normal. There is no pericardial effusion. No pneumothorax is present. There is a trac e right pleural effusion. No consolidation is identified to suggest pneumonia. Mild interlobular sept al thickening is most evident within the right lower lobe. Central airways are patent. Bony thorax is unremarkable. Visualized portions of the upper abdomen demonstrate peripancreatic infiltration which is similar to prior CT. The gallbladder surgically absent. Biliary ductal dilatation is again noted. IMPRESSION: 1. No pulmonary emboli identified although exam mildly compromised by motion artifact. 2. Mild interstitial pulmonary edema. Trace right pleural effusion. 3. Peripancreatic infiltration consistent with acute pancreatitis, similar to prior CT. ACT 112: Negative or not required by law. Electronically signed by: Mynor Garza M.D. 12/27/2019 3:13 PM
[2019-12-27] MEDS ORDERED: HYDROmorphone INJ 0.5 MG/0.5 ML SYR IV STA (16:51)
[2019-12-27] MEDS ORDERED: LABETALOL HCL IV 5 MG/ML 20ML IV ONE (17:30)
[2019-12-27] MEDS ORDERED: LORazepam 0.5 MG/1 ML VIAL IV ONE (17:45)
--- NOTE | 2019-12-27 17:46 | Gastroenterology Progress Note ---
Date of Service December 27, 2019 Assessment & Plan (1) Acute pancreatitis: abd pain shortness of breath Clearly something different happening acutely this afternoon. I looked over I and O and she is positive 3 liters over 24 hours and 12 liters for the admission. She could be third spacing to the point of causing abdominal compartment syndrome which can cause abdominal pain and shortness of breath and which requires urgent surgical intervention if that is the case. Ischemic bowel is in the differential. I spoke with Dr Howe about the above gave recommendations she said she would order: surgery consult to assess for compartment syndrome along with measuring bladder pressure. Would also check CBC, CMP, lipase, lactic acid and CT a/p. LR has been cut back to 100 ml/hour already. Admission and Anticipated Discharge Date Admission Date: December 24, 2019 Subjective cc abd pain and chest pain HPI Pt states woke up this am and felt better with regard to abd pain but at about 1400 had sever chest and abd pain and shortness of breath. CTA of chest showed pancreatitis but neg for PE. She is very uncomfortable appearing. Physical Exam Gastrointestinal (Abdomen): pos bs, epigastric guarding but no rebound, moderate distension. Results & Data ([facility]) Vital Signs (Past 12 Hours) Vital Signs Temp Pulse Resp BP BP Pulse Ox 12/27/19 16:57 112 H 194/96 H 12/27/19 15:23 36.9 C 108 H 18 174/92 H 97 12/27/19 14:23 175/99 H 12/27/19 13:45 36.6 C 85 24 180/105 H 96 12/27/19 09:39 81 18 154/92 H 93 12/27/19 08:46 36.6 C 72 18 174/99 H 180/105 H 96 (1) Acute pancreatitis Acute pancreatitis complication: unspecified Pancreatitis type: unspecified pancreatitis type Qualified Code(s): K85.90 - Acute pancreatitis without necros is or infection, unspecified
[2019-12-27 18:05] LABS: Basophils # (auto) 0.02 K/uL (0-0.2); Basophils % (auto) 0.2 %; Hematocrit (blood only) 40.4 % (37-47); Hemoglobin 13.5 g/dL (12.0-16.0); Immature Granulocytes # (auto) 0.02 K/uL (0.00-0.02); Immature Granulocytes % (auto) 0.2 %; Lymphocytes # (auto) 1.12 K/uL (1.2-3.4); Lymphocytes % (auto) 11.7 %; Mean Corpuscular Hemoglobin 30.1 pg (25-34); Mean Corpuscular Hgb Conc 33.4 g/dL (32-36); Mean Corpuscular Volume 90.2 fL (80-100); Mean Platelet Volume 10.5 fL (7.4-10.4); Monocytes # (auto) 0.56 K/uL (0.11-0.59); Monocytes % (auto) 5.9 %; Neutrophils # (auto) 7.73 K/uL (1.4-6.5); Platelet Count 252 K/uL (130-400); RDW Coefficient of Variation 14.8 % (11.5-14.5); RDW Standard Deviation 47.4 fL (36.4-46.3); Red Blood Count 4.48 M/uL (4.2-5.4); White Blood Count 9.55 K/uL (4.8-10.8)
[2019-12-27 18:10] LABS: Albumin Level 2.9 gm/dl (3.4-5.0); BUN Creatinine Ratio 6.5 (10-20); Calcium 9.1 mg/dl (8.5-10.1); Creatinine Clr Calc Pharmacy 60.7 ml/min; Est GFR (African American) 67.8; Est GFR (Non-African American) 58.5; Potassium 3.3 mmol/L (3.5-5.1)
[2019-12-27 18:18] LABS: Albumin Globulin Ratio 0.8 (0.9-2); Bilirubin,Total 0.5 mg/dl (0.2-1); Globulin 3.8 gm/dl (2.5-4.0); Total Protein 6.7 gm/dl (6.4-8.2)
[2019-12-27] MEDS ORDERED: ALBUMIN 25% 50 ML IV SCH (19:30)
[2019-12-27] MEDS ORDERED: IOVERSOL 100ml IV ONE (19:59)
[2019-12-27] MEDS: TROLAMINE SALICYLATE 10% CRM 255 APPLN/85 GM TUBE EXT SCH (21:00)
--- NOTE | 2019-12-27 21:09 | Critical Care Consultation ---
Date of Consultation December 27, 2019 Assessment & Plan (1) Admitted to intensive care unit: Impression: 59-year-old female being treated for acute pancreatitis was transferred to the ICU for concern for abdominal compartment syndrome. Neuro - Anxiety and depression History of suicidal ideationwas evaluated by psychiatry on this admission and patient denies active suicidal ideation Cardiac - Chest pain/palpitationunsure of etiology at this time -EKG unremarkable, troponin negative -Maximize electrolytes -Continue to monitor on telemetry HTNwas started on MTP 12.5 twice daily, continue -PRN hydralazine and labetalol -Significant hypertension with systolics 180s has significantly improved following pain meds, was likely pain related Respiratory - No history respiratory disease, pulse ox within normal limits on room air, no respiratory distress CTA chest negative for PE, mild interstitial pulmonary edema, trace right pleural effusion No need for diuresis at this time, however patient is fluid positive several liters since admission -We will monitor closely as she is higher risk for developing ARDS-like picture with acute pancreatitis GI - Acute pancreatitisappears to be stable, likely acute on chronic as CT demonstrates pancreatic atrophy -MRCP confirmed pancreas divisum -Lipase now within normal limits -GI following, recommends follow-up with [facility] on discharge for potential EUS, patient with family history of pancreatic cancer -Continue n.p.o. -Continue IV fluid resuscitation Transaminitis -s/p cholecystectomy 03/07 -CT findings demonstrate biliary duct dilation post cholecystectomy and common bile duct measuring 15 mm. No choledocholithiasis identified. Mild fatty infiltration of the liver -MRCP 12/23 also without evidence of choledocholithiasis -No bilirubinemia; elevated AST, ALT and alkaline phosphatase -Monitoring with questionable abdominal compartment syndrome, continue to trend LFTs for now Concern for abdominal compartment syndromeevaluated by general surgery and determined to not currently be candidate for surgical intervention -Initial intra-abdominal pressure reading was 21, however repeat after patient was relaxed was 3. Question accuracy of initial reading? -We will continue to trend LFTs, lactate, and creatinine to evaluate for multisystem organ involved -Lactate has since cleared -We will continue to monitor routine intra-abdominal pressures overnight in the ICU RENAL/LYTES - Creatinine currently within normal limits, continue to monitor Monitor electrolytes with routine BMPs and replete as indicated Normosol at 150 mL/h Lactic acidosisresolved, unsure of etiology, consider transient ischemia? - Jernigan inserted for her abdominal pressure monitoringmonitor strict I's and O's ENDO - DM type II uncontrolledhemoglobin A1c 9.1 on this admission -Holding home dose metformin, transitioned to sliding scale -Currently euglycemic -ICU hyperglycemic protocol HEME - H&H within normal limits, monitor routine CBCs ID - Patient started on Zosyn after developing fever and lactic acidosis, leukocytosis -No evidence of infectious pulmonary process on CT chest -No evidence of pancreatic necrosis on CT abdomen -Blood cultures and UA pending LINES/IV ACCESS - Peripheral IVs, DVT PROPHYLAXIS - SCDs, Lovenox Thank you for allowing us to participate in the care of this patient. Please refer to my attending physician's documentation for any further recommendations. (2) Chest pain: (3) Depression with anxiety: (4) GERD (gastroesophageal reflux disease): (5) B12 deficiency: (6) Fatty liver: (7) Pancreas divisum: (8) Heart palpitations: (9) DVT prophylaxis: (10) Opioid dependence: (11) Diabetes mellitus type 2 in obese: (12) Leukocytosis: (13) MIS (acute kidney injury): (14) Acute pancreatitis: (15) HTN (hypertension): (16) Elevated lipase: (17) Abdominal pain: (18) Abnormal LFTs: (19) Diabetes: (20) Chronic pain: Supervising Physician Co-Signing Physician Notes Discussed with hospitalists and CC JULISSA. See my progress note from 12/27. Doubt ACS - bladder pressure not reliable in patients not sedated or on NM blockade and significant rapid swings not consistent. Pt without renal or respiratory failure. History of Present Illness Attending Physician: Yolette Tovar MD History of Present Illness Ms. Méndez is a 59-year-old female with PMH of HTN, cholecystectomy, uncontrolled DM type II, fibromyalgia, opioid dependence, and history of suicidal ideation who was admitted 12/23 after presenting the ED with abdominal. She was found to have acute pancreatitis on CT with elevated lipase. MRCP revealed pancreas divisum and atrophy of pancreas. She was admitted to the floor and lipase has since down trended. As of this afternoon the patient had started to report 10 out of 10 substernal chest and upper gastric abdominal pain. She was hypertensive, and was found to have elevated lactate, and up trend and LFTs. EKG was unremarkable and troponin negative. There was concern for abdominal compartment syndrome patient was transported to the ICU to obtain intra-abdominal pressure. Initial reported intra-abdominal pressure was 21 and the patient was taken to CT. Her CT abdomen/pelvis was consistent with acute pancreatitis, but otherwise unremarkable. She was exhibiting guarding on abdominal exam, and decision was made to admit patient to ICU for serial intra- abdominal pressure, and close monitoring. She was evaluated by general surgery, but no current indication for surgical intervention. On arrival to ICU, patient is fairly anxious, and reports pain in multiple areas of the chest and abdomen in which she exhibits guarding. She is very tense on abdominal exam but abdomen is soft with the patient relaxes. She reports chest shoulder and neck pain which is been ongoing from her recent fall a few weeks ago. She states that her abdominal pain is predominantly upper midline and abdomen is tender to palpation all over. She denies recent illness/sickness, headaches or dizziness, nausea or vomiting or diarrhea, current shortness of breath or cough. She does report intermittent episodes of palpitations that been ongoing for a while. She denies infections, wounds or ulcers. She denies frequency or burning in urine. She did receive pain medication shortly after arriving to the ICU and became much more relaxed. Repeat intra-abdominal pressure was taken while the patient was relaxed which read 3. Repeat labs revealed lactate of 0.7. Patient is currently hemodynamically stable and may likely downgrade from ICU status in the a.m. if there are no acute events overnight. Allergies Allergy/AdvReac Type Severity Reaction Status Date / Time lisinopril AdvReac Mild weight Verified 12/27/19 15:04 gain Home Medications Home Medications Medication Instructions Recorded Confirmed Type cholecalciferol (vitamin D3) 3,000 unit PO DAILY 02/23/18 12/24/19 History doxepin 150 mg PO HS 02/23/18 12/24/19 History ferrous sulfate [iron] 325 mg PO TID 02/23/18 12/24/19 History metformin 1,000 mg PO BID 02/23/18 12/24/19 History omeprazole 20 mg PO BID 02/23/18 12/24/19 History alprazolam 0.5 mg PO DAILY PRN 12/24/19 12/24/19 History aspirin [Aspirin Low Dose] 81 mg PO QAM 12/24/19 12/24/19 History oxycodone [OxyContin] 30 mg PO TID 12/24/19 12/25/19 History Patient History Medical History Chronic pain Depression with anxiety Diabetes Diabetes mellitus type 2 in obese Fatty liver GERD (gastroesophageal reflux disease) Heart palpitations HTN (hypertension) Hyperlipidemia Hypertension associated with chronic kidney disease due to type 2 diabetes mellitus Obesity Opioid dependence PAC (premature atrial contraction) Pancreas divisum Peripheral autonomic neuropathy due to diabetes mellitus Proteinuria Surgical History H/O cervical spine surgery Previous section Status post lumbar spine surgery for decompression of spinal cord Family History Other Family history non-contributory Social History Smoking Status: Never smoker Hx Alcohol Use: No Hx Substance Use: No Preferred Language: Vietnamese Communication Ability: Effective Curb Supervisor Required: No Beliefs That Will Affect Care: None Current Living Situation: Alone Other Information That Helps Us Care for You: No Feels Safe at Home: Yes Safety Concerns: Feels Safe At This Time Assistive Devices: Glasses Review of Systems Review of Systems: All systems reviewed & are unremarkable except as noted in HPI & below Physical Exam Constitutional: + acute distress and + disheveled Eyes: PERRL, conjunctivae normal, anicteric sclerae ENMT: external ear and nose normal, oropharynx normal Neck: trachea midline, no thyromegaly Respiratory: normal respiratory effort, lungs clear to auscultation no labored breathing, no cough and not tachypneic Auscultation: no crackles and no wheezes Cardiovascular: RRR, no murmur, no edema Heart Sounds: normal S1 and normal S2 Vessels: no JVD Extremities: no edema Gastrointestinal (Abdomen): Normal bowel sounds, abdomen soft, tender with light palpation in all 4 quadrants Skin: no rashes, warm and dry Neurologic: PERRL, EOMI, accommodation nl, no face palsy, no dysarthria Psychiatric: Orientation: oriented x 3 Affect: + anxious affect Genitourinary: Indwelling Jernigan catheter present Results & Data Results & Data ([facility]) Vital Signs (Past 12 Hours) Vital Signs Temp Pulse Resp BP BP Pulse Ox 12/27/19 20:10 38.8 C H 111 H 18 167/103 H 97 12/27/19 16:57 112 H 194/96 H 12/27/19 15:23 36.9 C 108 H 18 174/92 H 97 12/27/19 14:23 175/99 H 12/27/19 13:45 36.6 C 85 24 180/105 H 96 12/27/19 09:39 81 18 154/92 H 93 Coding Level of Care Code 77399 Office/OBS Consult Lvl 5 Diagnoses Admitted to intensive care unit Z78.9 Chest pain R07.9 Depression with anxiety F41.8 GERD (gastroesophageal reflux disease) K21.9 B12 deficiency E53.8 Fatty liver K76.0 Pancreas divisum Q45.3 Heart palpitations R00.2 DVT prophylaxis Z29.9 Opioid dependence F11.20 Diabetes mellitus type 2 in obese E11.69; E66.9 Leukocytosis D72.829 Leukocytosis type: unspecified MIS (acute kidney injury) N17.9 Acute pancreatitis K85.90 Acute pancreatitis complication: unspecified Pancreatitis type: unspecified pancreatitis type HTN (hypertension) I10 Elevated lipase R74.8 Abdominal pain R10.9 Abdominal location: unspecified location Abnormal LFTs R94.5 Diabetes E11.9 Chronic pain G89.21 Chronic pain type: due to trauma (1) Chronic pain Chronic pain type: due to trauma Qualified Code(s): G89.21 - Chronic pain due to trauma (2) Leukocytosis Leukocytosis type: unspecified Qualified Code(s): D72.829 - Elevated white blood cell count, unspecified (3) Abdominal pain Abdominal location: unspecified location Qualified Code(s): R10.9 - Unspecified abdominal pain (4) Acute pancreatitis Acute pancreatitis complication: unspecified Pancreatitis type: unspecified pancreatitis type Qualified Code(s): K85.90 - Acute pancreatitis without necrosis or infection, unspecified
[2019-12-27] MEDS: DOXEPIN HCL 75 MG CAPSULE PO SCH (21:14)
[2019-12-27] MEDS ORDERED: PIPERACILL/TAZOBAC CONSULT ACTIVE PRN (23:05)
--- NOTE | 2019-12-27 23:19 | Surgery Consultation ---
Date of Consultation December 27, 2019 Assessment & Plan (1) Pancreas divisum: This patient has pancreatitis. There is laboratory evidence of hypovolemia with an increase in her hemoglobin by 3 over the day. Her creatinine also increased. Her abdominal exam is soft. There is no distention. There is no ascites. Initially she had bladder pressures of 15-16 however it is not clear as to whether or not she was tensing her abdomen. Her repeat pressures while completely relaxed after pain medicine were 3. I very much doubt intra-abdominal compartment syndrome. I do not feel that there is any need for surgical intervention. We will continue to follow. History of Present Illness Reason for Consultation: Pancreatitis with escalating pain Requesting Physician: Yolette Tovar MD Attending Physician: Yolette Tovar MD History of Present Illness I have been asked by Dr. Tovar to see this 59-year-old female who was admitted with upper abdominal pain and found to have pancreatitis. She has pancreas divisum. Obtaining a history was difficult from the patient and the history was obtained from Dr. Tovar and from the medical record. The patient had been having some discomfort for the last 6 days. It had escalated over the last few days and she presented to the emergency room. At that time she had an elevated white blood cell count with some elevated LFTs as well as an elevated lipase and a CAT scan showed mild pancreatitis. She has been doing well until this afternoon. She began to develop pain and described in the lower sternal area and subxiphoid area. She complained that it was sharp. There was some back pain. It radiated towards the left than the right. She had nausea on occasion. There was no vomiting. Allergies Allergy/AdvReac Type Severity Reaction Status Date / Time lisinopril AdvReac Mild weight Verified 12/27/19 15:04 gain Home Medications Home Medications Medication Instructions Recorded Confirmed Type cholecalciferol (vitamin D3) 3,000 unit PO DAILY 02/23/18 12/24/19 History doxepin 150 mg PO HS 02/23/18 12/24/19 History ferrous sulfate [iron] 325 mg PO TID 02/23/18 12/24/19 History metformin 1,000 mg PO BID 02/23/18 12/24/19 History omeprazole 20 mg PO BID 02/23/18 12/24/19 History alprazolam 0.5 mg PO DAILY PRN 12/24/19 12/24/19 History aspirin [Aspirin Low Dose] 81 mg PO QAM 12/24/19 12/24/19 History oxycodone [OxyContin] 30 mg PO TID 12/24/19 12/25/19 History Patient History Medical History Chronic pain Depression with anxiety Diabetes Diabetes mellitus type 2 in obese Fatty liver GERD (gastroesophageal reflux disease) Heart palpitations HTN (hypertension) Hyperlipidemia Hypertension associated with chronic kidney disease due to type 2 diabetes mellitus Obesity Opioid dependence PAC (premature atrial contraction) Pancreas divisum Peripheral autonomic neuropathy due to diabetes mellitus Proteinuria Surgical History H/O cervical spine surgery Previous section Status post lumbar spine surgery for decompression of spinal cord Family History Other Family history non-contributory Social History Smoking Status: Never smoker Hx Alcohol Use: No Hx Substance Use: No Preferred Language: Estonian Communication Ability: Effective Administrative Processor Required: No Beliefs That Will Affect Care: None Current Living Situation: Alone Other Information That Helps Us Care for You: No Feels Safe at Home: Yes Safety Concerns: Feels Safe At This Time Assistive Devices: Glasses Physical Exam Constitutional: + ill appearing Neck: trachea midline Respiratory: normal respiratory effort, lungs clear to auscultation Cardiovascular: Rate/Rhythm: regular rate and regular rhythm Gastrointestinal (Abdomen): Patient with tense her abdomen with the exam. When I was able to distract her and get her to relax her abdomen was soft. There was tenderness in the upper abdomen but not the lower abdomen. There was no evidence of peritoneal irritation. Her bowel sounds were present. Skin: no rashes, warm and dry Lymphatic: no cervical lymphadenopathy Results & Data ([facility]) Vital Signs (Past 12 Hours) Vital Signs Temp Pulse Pulse Resp BP BP BP 12/27/19 21:00 111 H 24 168/99 H 12/27/19 20:35 37.7 C H 109 H 19 157/102 H 12/27/19 20:10 38.8 C H 111 H 18 167/103 H 12/27/19 16:57 112 H 194/96 H 12/27/19 15:23 36.9 C 108 H 18 174/92 H 12/27/19 14:23 175/99 H 12/27/19 13:45 36.6 C 85 24 180/105 H Pulse Ox 12/27/19 21:00 95 12/27/19 20:35 95 12/27/19 20:10 97 12/27/19 16:57 12/27/19 15:23 97 12/27/19 14:23 12/27/19 13:45 96
[2019-12-27 23:24] LABS: Appearance Urine Clear (Clear); Bilirubin Urine Negative (Negative); Blood Urine Negative (Negative); Color Urine Yellow; Glucose Urine UA Negative (Negative); Ketones Urine Negative (Negative); Leukocyte Esterase Urine Negative (Negative); Nitrite Urine Negative (Negative); Protein Urine Negative (Negative); Specific Gravity Urine 1.029 (1.000-1.030); Urobilinogen Urine Negative (Negative); pH Urine 8.5 (4.5-7.5)
[2019-12-27 23:40] LABS: Basophils # (auto) 0.03 K/uL (0-0.2); Basophils % (auto) 0.3 %; Eosinophils # (auto) 0.02 K/uL (0-0.5); Eosinophils % (auto) 0.2 %; Hematocrit (blood only) 32.4 % (37-47); Hemoglobin 10.9 g/dL (12.0-16.0); Immature Granulocytes # (auto) 0.01 K/uL (0.00-0.02); Immature Granulocytes % (auto) 0.1 %; Lymphocytes # (auto) 1.49 K/uL (1.2-3.4); Lymphocytes % (auto) 13.2 %; Mean Corpuscular Hemoglobin 29.8 pg (25-34); Mean Corpuscular Hgb Conc 33.6 g/dL (32-36); Mean Corpuscular Volume 88.5 fL (80-100); Mean Platelet Volume 9.6 fL (7.4-10.4); Monocytes # (auto) 0.83 K/uL (0.11-0.59); Monocytes % (auto) 7.3 %; Neutrophils # (auto) 8.92 K/uL (1.4-6.5); Neutrophils % (auto) 78.9 %; Platelet Count 208 K/uL (130-400); RDW Coefficient of Variation 14.7 % (11.5-14.5); RDW Standard Deviation 46.5 fL (36.4-46.3); Red Blood Count 3.66 M/uL (4.2-5.4)
[2019-12-27] MEDS ORDERED: PIPERACILLIN/TAZOBACTAM 4.5 GM in DEXTROSE 5% 100 ML IV ONE (23:45)
[2019-12-28] MEDS ORDERED: ICU PROTOCOL FOR HYPERGLYCEMIA PRN (00:16)
[2019-12-28] MEDS: NORMOSOL-R 1,000 ML IV SCH ×4 (00:34→21:36)
[2019-12-28] MEDS ORDERED: PIPERACILLIN/TAZOBACTAM 3.375 GM in DEXTROSE 5% 100 ML IV SCH (04:00)
[2019-12-28 05:37] LABS: Basophils # (auto) 0.03 K/uL (0-0.2); Basophils % (auto) 0.4 %; Eosinophils # (auto) 0.06 K/uL (0-0.5); Eosinophils % (auto) 0.7 %; Hemoglobin 11.8 g/dL (12.0-16.0); Immature Granulocytes # (auto) 0.03 K/uL (0.00-0.02); Immature Granulocytes % (auto) 0.4 %; Lymphocytes # (auto) 1.32 K/uL (1.2-3.4); Lymphocytes % (auto) 16.1 %; Mean Corpuscular Hemoglobin 29.4 pg (25-34); Mean Corpuscular Hgb Conc 32.8 g/dL (32-36); Mean Corpuscular Volume 89.8 fL (80-100); Mean Platelet Volume 10.2 fL (7.4-10.4); Monocytes # (auto) 0.77 K/uL (0.11-0.59); Monocytes % (auto) 9.4 %; Neutrophils # (auto) 5.99 K/uL (1.4-6.5); Platelet Count 199 K/uL (130-400); RDW Coefficient of Variation 14.9 % (11.5-14.5); RDW Standard Deviation 47.3 fL (36.4-46.3); Red Blood Count 4.01 M/uL (4.2-5.4)
[2019-12-28 06:04] LABS: Albumin Globulin Ratio 0.6 (0.9-2); Albumin Level 2.3 gm/dl (3.4-5.0); BUN Creatinine Ratio 5.8 (10-20); Bilirubin Direct 0.3 mg/dl (0-0.2); Bilirubin,Total 0.7 mg/dl (0.2-1); Calcium 8.9 mg/dl (8.5-10.1); Creatinine Clr Calc Pharmacy 59.2 ml/min; Est GFR (African American) 64.1; Est GFR (Non-African American) 55.3; Globulin 3.9 gm/dl (2.5-4.0); Magnesium 1.7 mg/dl (1.8-2.4); Phosphorus 4.4 mg/dl (2.5-4.9); Total Protein 6.2 gm/dl (6.4-8.2)
[2019-12-28] MEDS: MAGNESIUM SULFATE / D5W 1 GM/100 ML BAG IV SCH ×2 (06:37→08:40)
[2019-12-28] MEDS: INSULIN ASPART 100 UNITS/ML 3 ML PEN SC SCH ×4 (07:01→21:38)
--- NOTE | 2019-12-28 07:41 | Critical Care Progress Note ---
Date of Service December 28, 2019 Assessment & Plan (1) Admitted to intensive care unit: Impression: 59-year-old female admitted with pancreatitis. She is brought to the ICU due to increasing pain and concern for abdominal compartment syndrome. Jernigan catheter was placed on arrival. Bladder pressures were checked and initially reported at 20 however I suspect that was not accurate as when the patient was more relaxed they decreased down to 3. Her pain is resolved this morning. She had a fever overnight and was started on Zosyn Recommendations: 1. No evidence of abdominal compartment syndrome. The patient's pain is resolved. The reported increased bladder pressures are likely unreliable as the patient was not relaxed when these were checked. In order for these numbers to be valid, the patient typically has to be sedated, very low relaxed, or ideally paralyzed with neuromuscular blockade. Her wide swings in bladder pressures would argue that the level of 20 was spurious. In addition her symptoms have resolved this morning without any significant intervention which again would argue against ACS. I think she can return to the floor. No surgical intervention required. Would defer diuretics to the patient's primary service. 2. Pancreatitis: Patient does have stranding noted on her CT scan but no evidence of phlegmon. Antibiotics are typically not indicated for acute pancreatitis and will discontinue Zosyn. Fever certainly can be attributable to pancreatitis. Additional work-up management per GI and hospitalist service. 3. Chronic pain issues: Management per primary service. 4. Abdominal pain with transient lactic acidosis. Etiology is unclear at this point in time. Clearance of lactate may be adversely affected by hepatic steatohepatitis. Other etiologies including transient bowel ischemia would be on the differential and management is deferred to the hospitalist and GI service. She does not appear septic and I do not think serial lactates are warranted in the absence of abdominal pain, hypotension, or tachycardia. 5. Recommend advancing diet as tolerated. 6. Abnormal LFTs: Management per GI and hospitalist service. The patient is appropriate for transfer out of the intensive care unit. Will discuss with the hospitalist and have them reassume care. We will sign off. Feel free to contact us with questions or concerns. (2) Chest pain: (3) Depression with anxiety: (4) GERD (gastroesophageal reflux disease): (5) B12 deficiency: (6) Fatty liver: (7) Pancreas divisum: (8) Heart palpitations: (9) DVT prophylaxis: (10) Opioid dependence: (11) Diabetes mellitus type 2 in obese: (12) Leukocytosis: (13) MIS (acute kidney injury): (14) Acute pancreatitis: (15) HTN (hypertension): (16) Elevated lipase: (17) Abdominal pain: (18) Abnormal LFTs: (19) Diabetes: (20) Chronic pain: Admission and Anticipated Discharge Date Admission Date: December 24, 2019 Subjective Patient seen and examined. EMR reviewed. Discussed with patient and critical care JULISSA as well as hospitalist. The patient reports that her abdominal pain is markedly better/resolved. She is now complaining of bilateral neck pain and some pleuritic pain when she takes a deep breath. She also feels substernal discomfort and chronic back pain. She is not nauseated or vomiting. She denies any palpitations syncope or p resyncope. Review of Systems Review of Systems: Please refer to progress notes. No changes Physical Exam Constitutional: WD/WN, vitals as above Neck: trachea midline, no thyromegaly Respiratory: normal respiratory effort, lungs clear to auscultation Cardiovascular: RRR, no murmur, no edema Gastrointestinal (Abdomen): normal bowel sounds, soft, nontender, no hepatosplenomegaly Musculoskeletal: Extremities: extremities normal to inspection Skin: no rashes, warm and dry Neurologic: Nonfocal exam Lymphatic: no cervical lymphadenopathy Results & Data Results & Data ([facility]) Vital Signs (Past 12 Hours) Vital Signs Temp Pulse Pulse Resp BP BP Pulse Ox 12/28/19 06:30 83 19 95 12/28/19 06:00 81 19 141/79 H 97 12/28/19 05:30 78 20 97 12/28/19 05:00 72 16 109/66 96 12/28/19 04:30 71 17 97 12/28/19 04:00 36.7 C 72 22 122/74 96 12/28/19 03:30 70 15 95 12/28/19 03:00 69 13 121/87 95 12/28/19 02:30 67 13 97 12/28/19 02:00 68 15 117/74 96 12/28/19 01:30 72 13 97 12/28/19 01:00 70 14 115/83 96 12/28/19 00:30 74 15 94 12/28/19 00:00 37.1 C 79 15 99/67 L 94 12/27/19 23:30 80 16 94 12/27/19 23:00 83 17 88/65 L 92 12/27/19 22:30 86 17 92 12/27/19 22:00 89 16 127/78 92 12/27/19 21:30 109 H 23 94 12/27/19 21:00 111 H 24 168/99 H 95 12/27/19 20:35 37.7 C H 109 H 19 157/102 H 95 12/27/19 20:10 38.8 C H 111 H 18 167/103 H 97 Pulse Ox 12/28/19 06:30 12/28/19 06:00 12/28/19 05:30 12/28/19 05:00 12/28/19 04:30 12/28/19 04:00 12/28/19 03:30 12/28/19 03:00 12/28/19 02:30 12/28/19 02:00 12/28/19 01:30 12/28/19 01:00 12/28/19 00:30 12/28/19 00:00 12/27/19 23:30 12/27/19 23:00 12/27/19 22:30 12/27/19 22:00 12/27/19 21:30 12/27/19 21:00 95 12/27/19 20:35 12/27/19 20:10 Laboratory Results 12/28/19 05:27 12/28/19 05:27 Lactate 2.7 AST and ALT 173 and 124 respectively decreased from 289 and 138 yesterday. Alk phos down to 272 Lipase down to [address] of the abdomen reviewed. No clear pancreatic cyst or phlegmon. Per ipancreatic stranding noted. Coding Level of Care Code 28181 Subseq Hosp Care Lvl 3 Diagnoses Admitted to intensive care unit Z78.9 Chest pain R07.9 Depression with anxiety F41.8 GERD (gastroesophageal reflux disease) K21.9 B12 deficiency E53.8 Fatty liver K76.0 Pancreas divisum Q45.3 Heart palpitations R00.2 DVT prophylaxis Z29.9 Opioid dependence F11.20 Diabetes mellitus type 2 in obese E11.69; E66.9 Leukocytosis D72.829 Leukocytosis type: unspecified MIS (acute kidney injury) N17.9 Acute pancreatitis K85.90 Acute pancreatitis complication: unspecified Pancreatitis type: unspecified pancreatitis type HTN (hypertension) I10 Elevated lipase R74.8 Abdominal pain R10.9 Abdominal location: unspecified location Abnormal LFTs R94.5 Diabetes E11.9 Chronic pain G89.21 Chronic pain type: due to trauma (1) Leukocytosis Leukocytosis type: unspecified Qualified Code(s): D72.829 - Elevated white blood cell count, unspecified (2) Acute pancreatitis Acute pancreatitis complication: unspecified Pancreatitis type: unspecified pancreatitis type Qualified Code(s): K85.90 - Acute pancreatitis without necrosis or infection, unspecified (3) Abdominal pain Abdominal location: unspecified location Qualified Code(s): R10.9 - Unspecified abdominal pain (4) Chronic pain Chronic pain type: due to trauma Qualified Code(s): G89.21 - Chronic pain due to trauma
[2019-12-28] MEDS: INSULIN GLARGINE SOLOSTAR 100 UNITS/ML 3 ML PEN SC SCH ×2 (07:56→21:37)
[2019-12-28] MEDS ORDERED: Nursing to Pharmacy Communication SCH (08:00)
--- NOTE | 2019-12-28 08:28 | Hospitalist Progress Note ---
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 atelectasis. Liver: The contrast-enhanced liver is normal in size, contour, and attenuation. There is mild to moderate intrahepatic biliary ductal dilatation. The hepatic veins and portal veins are patent. Gallbladder: Surgically absent noting clips in the gallbladder fossa. Spleen: Normal in size and attenuation. Pancreas: The pancreas is edematous and heterogeneous. There is peripancreatic stranding and fluid, and the findings are consistent with acute pancreatitis. This is similar to 12/24/2019 examination. There is no evidence of necrosis. The splenic vein is patent. No organized peripancreatic fluid collection is seen. Adrenal glands: Unremarkable. Kidneys: The contrast enhanced kidneys demonstrate mild cortical atrophy and are without hydronephrosis. The kidneys enhance indication excrete symmetrically. Abdominal vasculature: The abdominal aorta is normal in course and caliber. Bowel: There is mild colonic diverticulosis without CT evidence of acute diverticulitis. No bowel obstruction is seen. Fecal retention is noted in the right colon. The appendix is well-visualized and normal. Peritoneum: There is no intraperitoneal free air or abdominal ascites. Lymphadenopathy: None. Pelvic viscera: The bladder is decompressed around a Jernigan catheter Jael Jacki evaluated. Excreted IV contrast is present within the bladder. The uterus and adnexa are normal as imaged. Skeletal structures: The skeletal structures are osteopenic. Mild lumbosacral spondylosis is observed. No lytic or blastic lesions are seen. IMPRESSION: 1. Findings are consistent with acute pancreatitis. This is similar in appearance to previous. 2. There is no CT evidence of necrosis. No organized peripancreatic fluid collection is identified. 3. Findings remain highly suggestive of pericarditis. 4. Trace pleural effusions. 5. Intrahepatic biliary ductal dilatation is unchanged. 6. Additional findings as above. PG Care Time/CCT Total # of Minutes Spent Total Time Spent with Patient: Total time spent is greater than 50% in coordination of care (as documented) at patient's floor/unit and/or counseling patient: Coding Level of Care Code 43145 Subseq Hosp Care Lvl 3 Diagnoses Acute pancreatitis K85.90 Acute pancreatitis complication: unspecified Pancreatitis type: unspecified pancreatitis type Leukocytosis D72.829 Leukocytosis type: unspecified MIS (acute kidney injury) N17.9 HTN (hypertension) I10 Electrolyte imbalance E87.8 Diabetes mellitus type 2 in obese E11.69; E66.9 Chronic pain G89.21 Chronic pain type: due to trauma Opioid dependence F11.20 Heart palpitations R00.2 Pancreas divisum Q45.3 Fatty liver K76.0 Proteinuria R80.9 Depression with anxiety F41.8 GERD (gastroesophageal reflux disease) K21.9 PAC (premature atrial contraction) I49.1 B12 deficiency E53.8 Chest pain R07.9 Hypomagnesemia E83.42 Abnormal LFTs R94.5 DVT prophylaxis Z29.9 (1) Chronic pain Chronic pain type: due to trauma Qualified Code(s): G89.21 - Chronic pain due to trauma (2) Leukocytosis Leukocytosis type: unspecified Qualified Code(s): D72.829 - Elevated white blood cell count, unspecified (3) Acute pancreatitis Acute pancreatitis complication: unspecified Pancreatitis type: unspecified pancreatitis type Qualified Code(s): K85.90 - Acute pancreatitis without necrosis or infection, unspecified
[2019-12-28] MEDS: ENOXAPARIN INJ 40 MG/0.4 ML SYR SQ SCH (08:41)
[2019-12-28] MEDS: ASPIRIN 81 MG ECTAB PO SCH (08:41)
[2019-12-28] MEDS: METOPROLOL TARTRATE 25 MG TAB PO SCH ×2 (08:41→21:35)
[2019-12-28] MEDS: CYANOCOBALAMIN 1000 MCG/ML VIAL IM SCH (08:44)
[2019-12-28] MEDS: PANTOprazole 40 MG TAB PO SCH ×2 (08:44→21:35)
[2019-12-28] MEDS: TROLAMINE SALICYLATE 10% CRM 255 APPLN/85 GM TUBE EXT SCH ×2 (08:44→21:37)
[2019-12-28] MEDS: POLYETHYLENE (MIRALAX) 17 GM PACK PO SCH (08:48)
--- NOTE | 2019-12-28 08:58 | CT Scan Report ---
CT SCAN OF THE ABDOMEN AND PELVIS WITH IV CONTRAST CLINICAL HISTORY: Pancreatitis. COMPARISON STUDY: Abdominal CT dated 12/24/2019. MRCP dated 12/24/2019. TECHNIQUE: Following the IV administration of 93 cc of Optiray 320, CT scan of the abdomen and pelvi s is performed from the lung bases to the proximal femora. Images are reviewed in the axial, sagittal , and coronal planes. IV contrast was administered without complication. A dose lowering technique wa s utilized adhering to the principles of ALARA. CT DOSE: 692.38 mGy.cm FINDINGS: Lung bases: The heart is normal in size. There is a small pleural effusion with associated pericardia l thickening and enhancement. There is mild surrounding inflammation and the appearance suggests zuleika carditis. A small hiatal hernia is observed. There are trace pleural effusions with dependent atelect asis. Liver: The contrast-enhanced liver is normal in size, contour, and attenuation. There is mild to mode rate intrahepatic biliary ductal dilatation. The hepatic veins and portal veins are patent. Gallbladder: Surgically absent noting clips in the gallbladder fossa. Spleen: Normal in size and attenuation. Pancreas: The pancreas is edematous and heterogeneous. There is peripancreatic stranding and fluid, a nd the findings are consistent with acute pancreatitis. This is similar to 12/24/2019 examination. The re is no evidence of necrosis. The splenic vein is patent. No organized peripancreatic fluid collecti on is seen. Adrenal glands: Unremarkable. Kidneys: The contrast enhanced kidneys demonstrate mild cortical atrophy and are without hydronephros is. The kidneys enhance indication excrete symmetrically. Abdominal vasculature: The abdominal aorta is normal in course and caliber. Bowel: There is mild colonic diverticulosis without CT evidence of acute diverticulitis. No bowel obs truction is seen. Fecal retention is noted in the right colon. The appendix is well-visualized and n ormal. Peritoneum: There is no intraperitoneal free air or abdominal ascites. Lymphadenopathy: None. Pelvic viscera: The bladder is decompressed around a Jernigan catheter Jael T evaluated. Excreted IV con trast is present within the bladder. The uterus and adnexa are normal as imaged. Skeletal structures: The skeletal structures are osteopenic. Mild lumbosacral spondylosis is observed . No lytic or blastic lesions are seen. IMPRESSION: 1. Findings are consistent with acute pancreatitis. This is similar in appearance to previous. 2. There is no CT evidence of necrosis. No organized peripancreatic fluid collection is identified. 3. Findings remain highly suggestive of pericarditis. 4. Trace pleural effusions. 5. Intrahepatic biliary ductal dilatation is unchanged. 6. Additional findings as above. ACT 112: Negative or not required by law. Electronically signed by: Austyn Neil M.D. 12/28/2019 8:57 AM
[2019-12-28] MEDS: oxyCODONE HCL 15 MG TABCR (OxyCONTIN) PO SCH ×3 (10:27→21:38)
--- NOTE | 2019-12-28 12:14 | Electrocardiogram Report ---
Test Reason : Blood Pressure : / mmHG Vent. Rate : 093 BPM Atrial Rate : 093 BPM P-R Int : 146 ms QRS Dur : 082 ms QT Int : 346 ms P-R-T Axes : 006 010 030 degrees QTc Int : 430 ms Normal sinus rhythm Nonspecific T wave abnormality Abnormal ECG When compared with ECG of 25-DEC-2019 21:03, Premature atrial complexes are no longer Present Incomplete right bundle branch block is no longer Present Confirmed by Jose Cruz Wheeler ([id number]) on 12/28/2019 12:14:34 PM Referred By: Hanna Powers Confirmed By:Jose Cruz Wheeler
--- NOTE | 2019-12-28 13:28 | Surgery Progress Note ---
Date of Service December 28, 2019 Assessment & Plan (1) Acute pancreatitis: Has known pancreas divisum. CT shows no evidence of necrosis, MRCP shows no choledocholithiasis. She is s/p cholecystectomy. Main issue appears to be pain control. Currently, no indications for surgical intervention. Will sign off. Please call with questions. Present on Admission?: Yes Admission and Anticipated Discharge Date Admission Date: December 24, 2019 Subjective complaining of pain that starts in abdomen, radiates to spine in between should er blades and then up into her neck on both sides. This is worse if she tries to take a deep breath and she has only been able to take shallow breaths. No nausea. Physical Exam Constitutional: WD/WN, vitals as above Neck: trachea midline Respiratory: normal respiratory effort, lungs clear to auscultation Cardiovascular: RRR, no murmur, no edema Gastrointestinal (Abdomen): Inspection/Auscultation: abdomen normal to inspection; abdomen not distended Percussion/Palpation: + abdomen tender (epigastric with guarding) Neurologic: moves all extremities; no focal motor deficits Psychiatric: Orientation: alert and oriented x 3 Results & Data ([facility]) Vital Signs (Past 12 Hours) Vital Signs Temp Pulse Resp BP Pulse Ox 12/28/19 11:39 80 12/28/19 09:00 79 23 179/99 H 97 12/28/19 08:00 36.9 C 77 23 147/80 H 94 12/28/19 07:00 78 19 145/82 H 94 12/28/19 06:30 83 19 95 12/28/19 06:00 81 19 141/79 H 97 12/28/19 05:30 78 20 97 12/28/19 05:00 72 16 109/66 96 12/28/19 04:30 71 17 97 12/28/19 04:00 36.7 C 72 22 122/74 96 12/28/19 03:30 70 15 95 12/28/19 03:00 69 13 121/87 95 12/28/19 02:30 67 13 97 12/28/19 02:00 68 15 117/74 96 12/28/19 01:30 72 13 97 Laboratory Results Abnormal lab results 12/27/19 12/27/19 12/27/19 Range/Units 17:19 17:19 18:34 WBC (4.8-10.8) K/uL RBC (4.2-5.4) M/uL Hgb (12.0-16.0) g/dL Hct (37-47) % RDW Std Deviation 47.4 H (36.4-46.3) fL RDW Coeff of Génesis 14.8 H (11.5-14.5) % MPV 10.5 H (7.4-10.4) fL Neut # (Auto) 7.73 H (1.4-6.5) K/uL Lymph # (Auto) 1.12 L (1.2-3.4) K/uL [place] # (Auto) (0.11-0.59) K/uL Immature Gran # (Auto) (0.00-0.02) K/uL Potassium 3.3 L (3.5-5.1) mmol/L BUN (7-18) mg/dl BUN/Creatinine Ratio 6.5 L (10-20) Glucose 100 H (70-99) mg/dl POC Glucose (70-99) mg/dl Lactate 3.6 H* (0.4-2.0) mmol/L Magnesium (1.8-2.4) mg/dl Direct Bilirubin (0-0.2) mg/dl AST 289 H (15-37) U/L ALT 138 H (12-78) U/L Alkaline Phosphatase 354 H D (45-117) U/L Total Protein (6.4-8.2) gm/dl Albumin 2.9 L (3.4-5.0) gm/dl Albumin/Globulin Ratio 0.8 L (0.9-2) Urine pH (4.5-7.5) 12/27/19 12/27/19 12/28/19 Range/Units 23:00 23:27 05:10 WBC 11.30 H (4.8-10.8) K/uL RBC 3.66 L (4.2-5.4) M/uL Hgb 10.9 L (12.0-16.0) g/dL Hct 32.4 L (37-47) % RDW Std Deviation 46.5 H (36.4-46.3) fL RDW Coeff of Génesis 14.7 H (11.5-14.5) % MPV (7.4-10.4) fL Neut # (Auto) 8.92 H (1.4-6.5) K/uL Lymph # (Auto) (1.2-3.4) K/uL [place] # (Auto) 0.83 H (0.11-0.59) K/uL Immature Gran # (Auto) (0.00-0.02) K/uL Potassium (3.5-5.1) mmol/L BUN (7-18) mg/dl BUN/Creatinine Ratio (10-20) Glucose (70-99) mg/dl POC Glucose (70-99) mg/dl Lactate 2.6 H* (0.4-2.0) mmol/L Magnesium (1.8-2.4) mg/dl Direct Bilirubin (0-0.2) mg/dl AST (15-37) U/L ALT (12-78) U/L Alkaline Phosphatase (45-117) U/L Total Protein (6.4-8.2) gm/dl Albumin (3.4-5.0) gm/dl Albumin/Globulin Ratio (0.9-2) Urine pH 8.5 H (4.5-7.5) 12/28/19 12/28/19 12/28/19 Range/Units 05:27 05:27 06:46 WBC (4.8-10.8) K/uL RBC 4.01 L (4.2-5.4) M/uL Hgb 11.8 L (12.0-16.0) g/dL Hct 36.0 L (37-47) % RDW Std Deviation 47.3 H (36.4-46.3) fL RDW Coeff of Génesis 14.9 H (11.5-14.5) % MPV (7.4-10.4) fL Neut # (Auto) (1.4-6.5) K/uL Lymph # (Auto) (1.2-3.4) K/uL [place] # (Auto) 0.77 H (0.11-0.59) K/uL Immature Gran # (Auto) 0.03 H (0.00-0.02) K/uL Potassium (3.5-5.1) mmol/L BUN 6 L (7-18) mg/dl BUN/Creatinine Ratio 5.8 L (10-20) Glucose 112 H (70-99) mg/dl POC Glucose 121 H (70-99) mg/dl Lactate (0.4-2.0) mmol/L Magnesium 1.7 L (1.8-2.4) mg/dl Direct Bilirubin 0.3 H D (0-0.2) mg/dl AST 173 H (15-37) U/L ALT 124 H (12-78) U/L Alkaline Phosphatase 272 H (45-117) U/L Total Protein 6.2 L (6.4-8.2) gm/dl Albumin 2.3 L (3.4-5.0) gm/dl Albumin/Globulin Ratio 0.6 L (0.9-2) Urine pH (4.5-7.5) 12/28/19 Range/Units 12:03 WBC (4.8-10.8) K/uL RBC (4.2-5.4) M/uL Hgb (12.0-16.0) g/dL Hct (37-47) % RDW Std Deviation (36.4-46.3) fL RDW Coeff of Génesis (11.5-14.5) % MPV (7.4-10.4) fL Neut # (Auto) (1.4-6.5) K/uL Lymph # (Auto) (1.2-3.4) K/uL [place] # (Auto) (0.11-0.59) K/uL Immature Gran # (Auto) (0.00-0.02) K/uL Potassium (3.5-5.1) mmol/L BUN (7-18) mg/dl BUN/Creatinine Ratio (10-20) Glucose (70-99) mg/dl POC Glucose 171 H (70-99) mg/dl Lactate (0.4-2.0) mmol/L Magnesium (1.8-2.4) mg/dl Direct Bilirubin (0-0.2) mg/dl AST (15-37) U/L ALT (12-78) U/L Alkaline Phosphatase (45-117) U/L Total Protein (6.4-8.2) gm/dl Albumin (3.4-5.0) gm/dl Albumin/Globulin Ratio (0.9-2) Urine pH (4.5-7.5) (1) Acute pancreatitis Acute pancreatitis complication: unspecified Pancreatitis type: unspecified pancreatitis type Qualified Code(s): K85.90 - Acute pancreatitis without necrosis or infection, unspecified
--- NOTE | 2019-12-28 13:45 | Gastroenterology Progress Note ---
Date of Service December 28, 2019 Assessment & Plan (1) Acute pancreatitis: clinically pancreatisi is stable. abd pain--unclear worsening yesterday but stable today shortness of breath--unclear worsening but stable today elevated LFTs--unclear etiollogy but better today elevated lactic acid--unclear etiology--fluctutating Discussed with DR Tovar above and mention of pericarditis. Dr Tovar is ordering an echo. Admission and Anticipated Discharge Date Admission Date: December 24, 2019 Subjective cc abd pain HPI Son with patient for H and P. Abd pain and chest pain present but much better than yesterday. Per others notes the repeat bladder pressure were low. CT a/p final report pancreatitis same as admit but no fluid collections or evidence of necrotizing pancreaitis, pericarditis suggested. LFTS better this am. Lactic acid normalzed then up to 2.6 this am. Fever last night but none since. Abx given once dose last night and now DCed. Physical Exam Respiratory: normal respiratory effort, lungs clear to auscultation Gastrointestinal (Abdomen): pos bs, soft, mild epi guarding but no rebound, Results & Data ([facility]) Vital Signs (Past 12 Hours) Vital Signs Temp Pulse Resp BP Pulse Ox 12/28/19 11:39 80 12/28/19 09:00 79 23 179/99 H 97 12/28/19 08:00 36.9 C 77 23 147/80 H 94 12/28/19 07:00 78 19 145/82 H 94 12/28/19 06:30 83 19 95 12/28/19 06:00 81 19 141/79 H 97 12/28/19 05:30 78 20 97 12/28/19 05:00 72 16 109/66 96 12/28/19 04:30 71 17 97 12/28/19 04:00 36.7 C 72 22 122/74 96 12/28/19 03:30 70 15 95 12/28/19 03:00 69 13 121/87 95 12/28/19 02:30 67 13 97 12/28/19 02:00 68 15 117/74 96 (1) Acute pancreatitis Acute pancreatitis complication: unspecified Pancreatitis type: unspecified pancreatitis type Qualified Code(s): K85.90 - Acute pancreatitis without necrosis or infection, unspecified
[2019-12-28] MEDS: KETOROLAC TROMETHAMINE 15 MG/ML VIAL IV PRN (15:09)
[2019-12-28] MEDS: HYDROmorphone INJ 1 MG/ML SYRINGE IV PRN (19:27)
[2019-12-28] MEDS: DOXEPIN HCL 75 MG CAPSULE PO SCH (21:35)
[2019-12-29 00:28] LABS: Albumin Globulin Ratio 0.5 (0.9-2); Albumin Level 1.9 gm/dl (3.4-5.0); BUN Creatinine Ratio 6.9 (10-20); Bilirubin,Total 0.4 mg/dl (0.2-1); Calcium 8.3 mg/dl (8.5-10.1); Creatinine Clr Calc Pharmacy 67.1 ml/min; Est GFR (African American) 74.6; Est GFR (Non-African American) 64.4; Globulin 3.5 gm/dl (2.5-4.0); Potassium 3.3 mmol/L (3.5-5.1); Total Protein 5.4 gm/dl (6.4-8.2)
[2019-12-29] MEDS: NORMOSOL-R 1,000 ML IV SCH ×3 (05:01→20:13)
[2019-12-29] MEDS: DOCUSATE SODIUM/SENNA 50/8.6MG TAB PO SCH (08:39)
[2019-12-29] MEDS: INSULIN ASPART 100 UNITS/ML 3 ML PEN SC SCH ×4 (08:39→20:34)
[2019-12-29] MEDS: ASPIRIN 81 MG ECTAB PO SCH (08:39)
[2019-12-29] MEDS: PANTOprazole 40 MG TAB PO SCH ×2 (08:39→20:16)
[2019-12-29] MEDS: CYANOCOBALAMIN 1000 MCG/ML VIAL IM SCH (08:39)
[2019-12-29] MEDS: ENOXAPARIN INJ 40 MG/0.4 ML SYR SQ SCH (08:48)
[2019-12-29] MEDS: METOPROLOL TARTRATE 25 MG TAB PO SCH ×2 (08:50→20:16)
[2019-12-29 08:51] LABS: Basophils # (auto) 0.02 K/uL (0-0.2); Basophils % (auto) 0.3 %; Eosinophils # (auto) 0.11 K/uL (0-0.5); Eosinophils % (auto) 1.6 %; Hematocrit (blood only) 32.6 % (37-47); Hemoglobin 10.5 g/dL (12.0-16.0); Immature Granulocytes # (auto) 0.04 K/uL (0.00-0.02); Immature Granulocytes % (auto) 0.6 %; Lymphocytes # (auto) 1.13 K/uL (1.2-3.4); Lymphocytes % (auto) 16.7 %; Mean Corpuscular Hemoglobin 29.2 pg (25-34); Mean Corpuscular Hgb Conc 32.2 g/dL (32-36); Mean Corpuscular Volume 90.6 fL (80-100); Monocytes # (auto) 0.59 K/uL (0.11-0.59); Monocytes % (auto) 8.7 %; Neutrophils # (auto) 4.89 K/uL (1.4-6.5); Neutrophils % (auto) 72.1 %; Platelet Count 188 K/uL (130-400); RDW Coefficient of Variation 14.7 % (11.5-14.5); RDW Standard Deviation 47.3 fL (36.4-46.3); White Blood Count 6.78 K/uL (4.8-10.8)
[2019-12-29] MEDS: oxyCODONE HCL 15 MG TABCR (OxyCONTIN) PO SCH ×3 (08:52→20:14)
[2019-12-29] MEDS: KETOROLAC TROMETHAMINE 15 MG/ML VIAL IV PRN ×2 (08:52→16:41)
[2019-12-29] MEDS: POLYETHYLENE (MIRALAX) 17 GM PACK PO SCH (09:03)
[2019-12-29 09:22] LABS: BUN Creatinine Ratio 7.3 (10-20); Calcium 8.7 mg/dl (8.5-10.1); Creatinine Clr Calc Pharmacy 67.1 ml/min; Est GFR (African American) 74.6; Est GFR (Non-African American) 64.4; Potassium 3.6 mmol/L (3.5-5.1)
--- NOTE | 2019-12-29 09:24 | Gastroenterology Progress Note ---
Date of Service December 29, 2019 Assessment & Plan (1) Acute pancreatitis: clinically pancreatitis is stable. abd pain--denies pain, mild generalized tenderness with exam shortness of breath--denies elevated LFTs--unclear etiology but improved today - AST 80, ALT 103, Alk phos 266 elevated lactic acid--unclear etiology--normal today Please refer to supervising physician addendum for further recommendations. Admission and Anticipated Discharge Date Admission Date: December 24, 2019 Supervising Physician Co-Signing Physician Notes I have seen and examined the patient. I agree with CHANDAN Falcon note except as below. Pt states abd pain improved and she is tolerating diet. She states has seen what she thought was eggs in stool that might be parasites couple times in the past. Abd pos bs, soft, mild epi guarding but no rebound pancreaitis--improved-outpt EUS ? stool parasite--check stool for O/P Subjective Patient sleeping and wakens without difficulty. Denies GI complaints. Denies abdominal pain, nausea, vomiting. Last bowel movement on 12/28/2019 without melena or hematachezia. Denies fever or chills. Labs as below. Biggest complaints this morning of neck and back pain. Pericarditis suggested on CT A/P - patient reports toradol has been helpful for pain. Review of Systems Review of Systems: All systems reviewed & are unremarkable except as noted in Subjective Physical Exam Constitutional: WD/WN, vitals as above Neck: normal visual inspection and trachea midline Respiratory: normal respiratory effort, lungs clear to auscultation Cardiovascular: RRR, no murmur, no edema Gastrointestinal (Abdomen): Inspection/Auscultation: normal bowel sounds Percussion/Palpation: + abdomen tender (mild generalized tenderness with percussion and palpation) and abdomen soft; no guarding and abdomen not rigid Psychiatric: A+Ox3, euthymic affect Results & Data ([facility]) Vital Signs (Past 12 Hours) Vital Signs Temp Pulse Pulse Resp BP BP Pulse Ox 12/29/19 07:54 36.8 C 81 16 115/76 97 12/29/19 07:19 75 12/29/19 03:39 36.6 C 72 18 132/68 96 12/29/19 01:31 72 12/28/19 23:11 36.9 C 78 18 124/76 93 Laboratory Results - last 24 hr 12/28/19 12/28/19 12/28/19 05:27 12:03 16:58 WBC RBC Hgb Hct MCV MCH MCHC RDW Std Deviation RDW Coeff of Génesis Plt Count MPV Immature Gran % (Auto) Neut % (Auto) Lymph % (Auto) [place] % (Auto) Eos % (Auto) Baso % (Auto) Neut # (Auto) Lymph # (Auto) [place] # (Auto) Eos # (Auto) Baso # (Auto) Immature Gran # (Auto) Sodium Potassium Chloride Carbon Dioxide Anion Gap BUN Creatinine Est Cr Clr Drug Dosing Est GFR ( Amer) Est GFR (Non-Af Amer) BUN/Creatinine Ratio Glucose POC Glucose 171 H 197 H Lactate Calcium Total Bilirubin AST ALT Alkaline Phosphatase Total Creatine Kinase Troponin I < 0.015 Total Protein Albumin Globulin Albumin/Globulin Ratio Lipase COVID-19 Eval Order COVID-19 PCR 12/28/19 12/28/19 12/28/19 20:59 21:55 21:55 WBC RBC Hgb Hct MCV MCH MCHC RDW Std Deviation RDW Coeff of Génesis Plt Count MPV Immature Gran % (Auto) Neut % (Auto) Lymph % (Auto) [place] % (Auto) Eos % (Auto) Baso % (Auto) Neut # (Auto) Lymph # (Auto) [place] # (Auto) Eos # (Auto) Baso # (Auto) Immature Gran # (Auto) Sodium Potassium Chloride Carbon Dioxide Anion Gap BUN Creatinine Est Cr Clr Drug Dosing Est GFR ( Amer) Est GFR (Non-Af Amer) BUN/Creatinine Ratio Glucose POC Glucose 144 H Lactate Calcium Total Bilirubin AST ALT Alkaline Phosphatase Total Creatine Kinase Troponin I Total Protein Albumin Globulin Albumin/Globulin Ratio Lipase COVID-19 Eval Order Covid19 Done at [facility] COVID-19 PCR NEGATIVE 12/28/19 12/29/19 12/29/19 23:46 08:41 08:41 WBC 6.78 RBC 3.60 L Hgb 10.5 L Hct 32.6 L MCV 90.6 MCH 29.2 MCHC 32.2 RDW Std Deviation 47.3 H RDW Coeff of Génesis 14.7 H Plt Count 188 MPV 10.0 Immature Gran % (Auto) 0.6 Neut % (Auto) 72.1 Lymph % (Auto) 16.7 [place] % (Auto) 8.7 Eos % (Auto) 1.6 Baso % (Auto) 0.3 Neut # (Auto) 4.89 Lymph # (Auto) 1.13 L [place] # (Auto) 0.59 Eos # (Auto) 0.11 Baso # (Auto) 0.02 Immature Gran # (Auto) 0.04 H Sodium 140 141 Potassium 3.3 L D 3.6 Chloride 107 109 H Carbon Dioxide 26 25 Anion Gap 8.0 8.0 BUN 7 7 Creatinine 0.97 0.97 Est Cr Clr Drug Dosing 67.1 67.1 Est GFR ( Amer) 74.6 74.6 Est GFR (Non-Af Amer) 64.4 64.4 BUN/Creatinine Ratio 6.9 L 7.3 L Glucose 138 H 113 H POC Glucose Lactate Calcium 8.3 L 8.7 Total Bilirubin 0.4 Pending AST 127 H 80 H ALT 114 H 103 H Alkaline Phosphatase 263 H Pending Total Creatine Kinase 117 Troponin I Total Protein 5.4 L Pending Albumin 1.9 L 2.0 L Globulin 3.5 Pending Albumin/Globulin Ratio 0.5 L Pending Lipase 117 COVID-19 Eval Order COVID-19 PCR 12/29/19 12/29/19 08:41 08:43 WBC RBC Hgb Hct MCV MCH MCHC RDW Std Deviation RDW Coeff of Génesis Plt Count MPV Immature Gran % (Auto) Neut % (Auto) Lymph % (Auto) [place] % (Auto) Eos % (Auto) Baso % (Auto) Neut # (Auto) Lymph # (Auto) [place] # (Auto) Eos # (Auto) Baso # (Auto) Immature Gran # (Auto) Sodium Potassium Chloride Carbon Dioxide Anion Gap BUN Creatinine Est Cr Clr Drug Dosing Est GFR ( Amer) Est GFR (Non-Af Amer) BUN/Creatinine Ratio Glucose POC Glucose 125 H Lactate 0.8 Calcium Total Bilirubin AST ALT Alkaline Phosphatase Total Creatine Kinase Troponin I Total Protein Albumin Globulin Albumin/Globulin Ratio Lipase COVID-19 Eval Order COVID-19 PCR (1) Acute pancreatitis Acute pancreatitis complication: unspecified Pancreatitis type: unspecified pancreatitis type Qualified Code(s): K85.90 - Acute pancreatitis without necrosis or infection, unspecified
[2019-12-29 09:25] LABS: Albumin Globulin Ratio 0.6 (0.9-2); Bilirubin,Total 0.4 mg/dl (0.2-1); Globulin 3.6 gm/dl (2.5-4.0); Total Protein 5.6 gm/dl (6.4-8.2)
[2019-12-29] MEDS: TROLAMINE SALICYLATE 10% CRM 255 APPLN/85 GM TUBE EXT SCH ×2 (10:24→20:20)
[2019-12-29] MEDS ORDERED: COLCHICINE 0.6 MG TAB PO ONE (11:32)
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
--- NOTE | 2019-12-29 12:06 | XCELERA ---
[id number]
[2019-12-29 17:51] LABS: Adenovirus PCR Not Detected (NotDetected); Bordetella parapertussis PCR Not Detected (NotDetected); Bordetella pertussis PCR Not Detected (NotDetected); Chlamydia pneumoniae PCR Not Detected (NotDetected); Coronavirus 229E PCR Not Detected (NotDetected); Coronavirus CoV-2 (COVID19)PCR Not Detected (NotDetected); Coronavirus HKU1 PCR Not Detected (NotDetected); Coronavirus NL63 PCR Not Detected (NotDetected); Coronavirus OC43PCR Not Detected (NotDetected); Human Metapneumovirus PCR Not Detected (NotDetected); Influenza A PCR Not Detected (NotDetected); Influenza B PCR Not Detected (NotDetected); Mycoplasma pneumoniae PCR Not Detected (NotDetected); Parainfluenza Virus 1 PCR Not Detected (NotDetected); Parainfluenza Virus 2 PCR Not Detected (NotDetected); Parainfluenza Virus 3 PCR Not Detected (NotDetected); Parainfluenza Virus 4 PCR Not Detected (NotDetected); Respiratory Syncytial VirusPCR Not Detected (NotDetected); Rhinovirus/Enterovirus PCR Not Detected (NotDetected)
[2019-12-29] MEDS: COLCHICINE 0.6 MG TAB PO SCH (20:17)
[2019-12-29] MEDS: DOXEPIN HCL 75 MG CAPSULE PO SCH (20:17)
[2019-12-29] MEDS: IBUPROFEN 600 MG TAB PO SCH (20:18)
[2019-12-29] MEDS: INSULIN GLARGINE SOLOSTAR 100 UNITS/ML 3 ML PEN SC SCH (20:33)
[2019-12-30] MEDS: HYDROmorphone INJ 1 MG/ML SYRINGE IV PRN (03:26)
[2019-12-30] MEDS: NORMOSOL-R 1,000 ML IV SCH (05:33)
--- NOTE | 2019-12-30 08:41 | Gastroenterology Progress Note ---
Date of Service December 30, 2019 Assessment & Plan (1) Acute pancreatitis: clinically pancreatitis is stable. Needs outpatient EUS abd pain--denies pain, mild generalized tenderness with exam, pressure increases when sitting up - improved from 12/29/2019 shortness of breath--denies elevated LFTs--unclear etiology, last checked 12/29/2019 Spoke to nursing and requested next stool sample sent for o&p as ordered. Please refer to supervising physician addendum for further recommendations. Admission and Anticipated Discharge Date Admission Date: December 24, 2019 Subjective Patient sleeping and wakens without difficulty. Denies GI complaints. Denies abdominal pain, nausea, vomiting. States abdomen is tender but physical exam is improved from yesterday. Notes some pressure in abdomen when sitting up. Last bowel movement on 12/29/2019 was loose without melena or hematochezia. Stool sample was not sent for o&p testing. Denies fever or chills. Labs as below. States she would like discharged. Review of Systems Review of Systems: All systems reviewed & are unremarkable except as noted in Subjective Physical Exam Constitutional: WD/WN, vitals as above Neck: normal visual inspection and trachea midline Respiratory: normal respiratory effort, lungs clear to auscultation Cardiovascular: RRR, no murmur, no edema Gastrointestinal (Abdomen): Inspection/Auscultation: normal bowel sounds Percussion/Palpation: + abdomen tender (mild generalized tenderness w/ palpation - improved from 12/29/2019) and abdomen soft; no guarding and abdomen not rigid Psychiatric: A+Ox3, euthymic affect Results & Data ([facility]) Vital Signs (Past 12 Hours) Vital Signs Temp Pulse Pulse Resp BP BP Pulse Ox 12/30/19 07:53 36.4 C L 62 18 137/94 97 12/30/19 07:20 63 12/30/19 03:00 36.4 C L 58 L 16 106/66 96 12/30/19 01:27 58 L 12/30/19 00:22 36.3 C L 57 L 16 119/76 97 Laboratory Results - last 24 hr 12/29/19 12/29/19 12/29/19 08:41 08:41 08:41 WBC 6.78 RBC 3.60 L Hgb 10.5 L Hct 32.6 L MCV 90.6 MCH 29.2 MCHC 32.2 RDW Std Deviation 47.3 H RDW Coeff of Génesis 14.7 H Plt Count 188 MPV 10.0 Immature Gran % (Auto) 0.6 Neut % (Auto) 72.1 Lymph % (Auto) 16.7 [place] % (Auto) 8.7 Eos % (Auto) 1.6 Baso % (Auto) 0.3 Neut # (Auto) 4.89 Lymph # (Auto) 1.13 L [place] # (Auto) 0.59 Eos # (Auto) 0.11 Baso # (Auto) 0.02 Immature Gran # (Auto) 0.04 H Sodium 141 Potassium 3.6 Chloride 109 H Carbon Dioxide 25 Anion Gap 8.0 BUN 7 Creatinine 0.97 Est Cr Clr Drug Dosing 67.1 Est GFR ( Amer) 74.6 Est GFR (Non-Af Amer) 64.4 BUN/Creatinine Ratio 7.3 L Glucose 113 H POC Glucose Lactate 0.8 Calcium 8.7 Total Bilirubin 0.4 AST 80 H ALT 103 H Alkaline Phosphatase 266 H Total Protein 5.6 L Albumin 2.0 L Globulin 3.6 Albumin/Globulin Ratio 0.6 L Lipase 117 Adenovirus (PCR) B. pertussis DNA (PCR) B.parapertussis DNA PCR C. pneumoniae DNA (PCR) Coronavirus OC43 (PCR) Coronavirus HKU1 (PCR) Coronavirus 229E (PCR) COVID-19 PCR Coronavirus NL63 (PCR) Human Metapneumovir PCR Influenza Type A (PCR) Influenza Type B (PCR) M. pneumoniae (PCR) Parainfluenza 1 (PCR) Parainfluenza 2 (PCR) Parainfluenza 3 (PCR) Parainfluenza 4 (PCR) RSV (PCR) Entero/Rhino (PCR) 12/29/19 12/29/19 12/29/19 08:43 11:48 16:50 WBC RBC Hgb Hct MCV MCH MCHC RDW Std Deviation RDW Coeff of Génesis Plt Count MPV Immature Gran % (Auto) Neut % (Auto) Lymph % (Auto) [place] % (Auto) Eos % (Auto) Baso % (Auto) Neut # (Auto) Lymph # (Auto) [place] # (Auto) Eos # (Auto) Baso # (Auto) Immature Gran # (Auto) Sodium Potassium Chloride Carbon Dioxide Anion Gap BUN Creatinine Est Cr Clr Drug Dosing Est GFR ( Amer) Est GFR (Non-Af Amer) BUN/Creatinine Ratio Glucose POC Glucose 125 H 168 H 80 Lactate Calcium Total Bilirubin AST ALT Alkaline Phosphatase Total Protein Albumin Globulin Albumin/Globulin Ratio Lipase Adenovirus (PCR) B. pertussis DNA (PCR) B.parapertussis DNA PCR C. pneumoniae DNA (PCR) Coronavirus OC43 (PCR) Coronavirus HKU1 (PCR) Coronavirus 229E (PCR) COVID-19 PCR Coronavirus NL63 (PCR) Human Metapneumovir PCR Influenza Type A (PCR) Influenza Type B (PCR) M. pneumoniae (PCR) Parainfluenza 1 (PCR) Parainfluenza 2 (PCR) Parainfluenza 3 (PCR) Parainfluenza 4 (PCR) RSV (PCR) Entero/Rhino (PCR) 12/29/19 12/30/19 16:50 07:45 WBC RBC Hgb Hct MCV MCH MCHC RDW Std Deviation RDW Coeff of Génesis Plt Count MPV Immature Gran % (Auto) Neut % (Auto) Lymph % (Auto) [place] % (Auto) Eos % (Auto) Baso % (Auto) Neut # (Auto) Lymph # (Auto) [place] # (Auto) Eos # (Auto) Baso # (Auto) Immature Gran # (Auto) Sodium Potassium Chloride Carbon Dioxide Anion Gap BUN Creatinine Est Cr Clr Drug Dosing Est GFR ( Amer) Est GFR (Non-Af Amer) BUN/Creatinine Ratio Glucose POC Glucose 113 H Lactate Calcium Total Bilirubin AST ALT Alkaline Phosphatase Total Protein Albumin Globulin Albumin/Globulin Ratio Lipase Adenovirus (PCR) Not Detected B. pertussis DNA (PCR) Not Detected B.parapertussis DNA PCR Not Detected C. pneumoniae DNA (PCR) Not Detected Coronavirus OC43 (PCR) Not Detected Coronavirus HKU1 (PCR) Not Detected Coronavirus 229E (PCR) Not Detected COVID-19 PCR Not Detected Coronavirus NL63 (PCR) Not Detected Human Metapneumovir PCR Not Detected Influenza Type A (PCR) Not Detected Influenza Type B (PCR) Not Detected M. pneumoniae (PCR) Not Detected Parainfluenza 1 (PCR) Not Detected Parainfluenza 2 (PCR) Not Detected Parainfluenza 3 (PCR) Not Detected Parainfluenza 4 (PCR) Not Detected RSV (PCR) Not Detected Entero/Rhino (PCR) Not Detected (1) Acute pancreatitis Acute pancreatitis complication: unspecified Pancreatitis type: unspecified pancreatitis type Qualified Code(s): K85.90 - Acute pancreatitis without necrosis or infection, unspecified
[2019-12-30 08:49] LABS: Basophils # (auto) 0.02 K/uL (0-0.2); Basophils % (auto) 0.4 %; Eosinophils # (auto) 0.25 K/uL (0-0.5); Eosinophils % (auto) 4.6 %; Hematocrit (blood only) 33.2 % (37-47); Hemoglobin 10.3 g/dL (12.0-16.0); Immature Granulocytes # (auto) 0.03 K/uL (0.00-0.02); Immature Granulocytes % (auto) 0.5 %; Lymphocytes # (auto) 1.45 K/uL (1.2-3.4); Lymphocytes % (auto) 26.4 %; Mean Corpuscular Hemoglobin 28.6 pg (25-34); Mean Corpuscular Volume 92.2 fL (80-100); Mean Platelet Volume 10.4 fL (7.4-10.4); Monocytes # (auto) 0.43 K/uL (0.11-0.59); Monocytes % (auto) 7.8 %; Neutrophils # (auto) 3.31 K/uL (1.4-6.5); Neutrophils % (auto) 60.3 %; Platelet Count 218 K/uL (130-400); RDW Standard Deviation 49.8 fL (36.4-46.3); White Blood Count 5.49 K/uL (4.8-10.8)
[2019-12-30] MEDS: INSULIN ASPART 100 UNITS/ML 3 ML PEN SC SCH ×4 (08:58→20:53)
[2019-12-30] MEDS: ENOXAPARIN INJ 40 MG/0.4 ML SYR SQ SCH (08:59)
[2019-12-30] MEDS: PANTOprazole 40 MG TAB PO SCH ×2 (09:00→20:53)
[2019-12-30] MEDS: ASPIRIN 81 MG ECTAB PO SCH (09:00)
[2019-12-30] MEDS: DOCUSATE SODIUM/SENNA 50/8.6MG TAB PO SCH (09:01)
[2019-12-30] MEDS: METOPROLOL TARTRATE 25 MG TAB PO SCH ×2 (09:01→20:52)
[2019-12-30] MEDS: COLCHICINE 0.6 MG TAB PO SCH ×2 (09:01→20:52)
[2019-12-30] MEDS: TROLAMINE SALICYLATE 10% CRM 255 APPLN/85 GM TUBE EXT SCH ×3 (09:02→20:58)
[2019-12-30] MEDS: IBUPROFEN 600 MG TAB PO SCH ×2 (09:02→20:53)
[2019-12-30] MEDS: oxyCODONE HCL 15 MG TABCR (OxyCONTIN) PO SCH ×3 (09:09→21:37)
[2019-12-30] MEDS: POLYETHYLENE (MIRALAX) 17 GM PACK PO SCH (09:10)
[2019-12-30 09:14] LABS: Albumin Level 1.9 gm/dl (3.4-5.0); BUN Creatinine Ratio 7.6 (10-20); C Reactive Protein 12.4 mg/dl (0-0.29); Calcium 8.8 mg/dl (8.5-10.1); Creatinine Clr Calc Pharmacy 64.1 ml/min; Est GFR (African American) 68.6; Est GFR (Non-African American) 59.2; Potassium 3.5 mmol/L (3.5-5.1)
[2019-12-30 09:16] LABS: Albumin Globulin Ratio 0.5 (0.9-2); Bilirubin,Total 0.3 mg/dl (0.2-1); Globulin 3.8 gm/dl (2.5-4.0); Total Protein 5.7 gm/dl (6.4-8.2)
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
--- NOTE | 2019-12-30 13:02 | XRay Report ---
XR abdomen 2V w PA chest CLINICAL HISTORY: bloating, pain, severe constipation?? COMPARISON STUDY: No previous studies for comparison. FINDINGS: Erect chest reveals or alignment elevation of the right hemidiaphragm. There is blunting of both lateral costophrenic angles. There is no free air. Erect and supine views the abdomen reveal zapata rgical clips in the right upper quadrant consistent with a prior cholecystectomy. There are no abnorm ally dilated loops of large or small bowel. There are scattered colonic air-fluid levels on the erect study. There is a benign-appearing lytic focus/fenestration within the right iliac bone. IMPRESSION: No evidence of bowel obstruction. No evidence of free air. ACT 112: Negative or not required by law. Electronically signed by: Oracio Perez M.D. 12/30/2019 1:00 PM
[2019-12-30] MEDS ORDERED: oxyCODONE HCL IR 5 MG TAB (IMMEDIATE RELEASE) PO PRN (18:41)
[2019-12-30] MEDS: SUCRALFATE 1 GM/10 ML UDC PO SCH (20:50)
[2019-12-30] MEDS: DOXEPIN HCL 75 MG CAPSULE PO SCH (20:52)
[2019-12-30] MEDS: INSULIN GLARGINE SOLOSTAR 100 UNITS/ML 3 ML PEN SC SCH (20:54)
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
[2019-12-31 06:41] LABS: Basophils # (auto) 0.05 K/uL (0-0.2); Eosinophils # (auto) 0.16 K/uL (0-0.5); Eosinophils % (auto) 3.1 %; Hematocrit (blood only) 32.8 % (37-47); Hemoglobin 10.6 g/dL (12.0-16.0); Immature Granulocytes # (auto) 0.03 K/uL (0.00-0.02); Immature Granulocytes % (auto) 0.6 %; Lymphocytes % (auto) 33.2 %; Mean Corpuscular Hemoglobin 29.6 pg (25-34); Mean Corpuscular Hgb Conc 32.3 g/dL (32-36); Mean Corpuscular Volume 91.6 fL (80-100); Mean Platelet Volume 10.3 fL (7.4-10.4); Monocytes # (auto) 0.54 K/uL (0.11-0.59); Monocytes % (auto) 10.5 %; Neutrophils # (auto) 2.64 K/uL (1.4-6.5); Neutrophils % (auto) 51.6 %; Platelet Count 268 K/uL (130-400); RDW Coefficient of Variation 14.9 % (11.5-14.5); RDW Standard Deviation 49.1 fL (36.4-46.3); Red Blood Count 3.58 M/uL (4.2-5.4); White Blood Count 5.12 K/uL (4.8-10.8)
[2019-12-31 07:15] LABS: BUN Creatinine Ratio 6.9 (10-20); Calcium 9.1 mg/dl (8.5-10.1); Creatinine Clr Calc Pharmacy 53.8 ml/min; Est GFR (African American) 56.6; Est GFR (Non-African American) 48.8; Magnesium 1.9 mg/dl (1.8-2.4); Potassium 3.3 mmol/L (3.5-5.1)
[2019-12-31 07:18] LABS: Albumin Globulin Ratio 0.5 (0.9-2); Bilirubin,Total 0.3 mg/dl (0.2-1); Globulin 3.9 gm/dl (2.5-4.0); Total Protein 5.9 gm/dl (6.4-8.2)
[2019-12-31] MEDS ORDERED: POTASSIUM CHLORIDE CRTAB 20 MEQ TABCR PO STA (08:22)
--- NOTE | 2019-12-31 09:06 | Gastroenterology Progress Note ---
Date of Service December 31, 2019 Assessment & Plan (1) Acute pancreatitis: clinically pancreatitis is stable. Needs outpatient EUS in 4-6 weeks. Will arrange outpatient office visit for follow-up. Abd pain--denies pain, mild generalized tenderness with exam, pressure increases when sitting up, lipase WNL shortness of breath--denies elevated LFTs--unclear etiology, alk phos 243 today Stool for o&p collected - results pending Please refer to supervising physician addendum for further recommendations. Admission and Anticipated Discharge Date Admission Date: December 24, 2019 Subjective Patient sleeping and wakens without difficulty. Denies GI complaints. Denies abdominal pain, nausea, vomiting. States abdomen is tender but continues to improve. Notes some pressure in abdomen when sitting up. Reports increased abdominal tenderness last night. Has been tolerating po regular diet. She has not eaten yet this morning as she reports she did not sleep well last night. Last bowel movement on 12/30/2019 was loose without melena or hematochezia. Denies fever. Reports she feels cold this morning "in her bones". Review of Systems Review of Systems: All systems reviewed & are unremarkable except as noted in Subjective Physical Exam Constitutional: WD/WN, vitals as above Neck: normal visual inspection and trachea midline Respiratory: normal respiratory effort, lungs clear to auscultation Cardiovascular: RRR, no murmur, no edema Gastrointestinal (Abdomen): Inspection/Auscultation: normal bowel sounds Percussion/Palpation: + abdomen tender (mild generalized tenderness w/ palpation - improved from 12/29/2019) and abdomen soft; no guarding and abdomen not rigid Psychiatric: A+Ox3, euthymic affect Results & Data ([facility]) Vital Signs (Past 12 Hours) Vital Signs Temp Pulse Pulse Resp BP BP Pulse Ox 12/31/19 07:44 36.5 C 72 16 185/111 H 97 12/31/19 07:24 62 12/31/19 07:20 79 12/31/19 04:00 36.5 C 62 18 150/99 H 97 12/31/19 01:28 63 12/30/19 23:21 36.7 C 64 18 122/71 95 Abnormal lab results 12/30/19 12/30/19 12/30/19 Range/Units 08:26 11:38 16:42 RBC (4.2-5.4) M/uL Hgb (12.0-16.0) g/dL Hct (37-47) % RDW Std Deviation (36.4-46.3) fL RDW Coeff of Génesis (11.5-14.5) % Immature Gran # (Auto) (0.00-0.02) K/uL Potassium (3.5-5.1) mmol/L Chloride 111 H (98-107) mmol/L Creatinine (0.6-1.2) mg/dl BUN/Creatinine Ratio 7.6 L (10-20) Glucose 151 H (70-99) mg/dl POC Glucose 140 H 115 H (70-99) mg/dl Alkaline Phosphatase 251 H (45-117) U/L C-Reactive Protein 12.40 H (0-0.29) mg/dl Total Protein 5.7 L (6.4-8.2) gm/dl Albumin 1.9 L (3.4-5.0) gm/dl Albumin/Globulin Ratio 0.5 L (0.9-2) 12/31/19 12/31/19 12/31/19 Range/Units 06:18 06:18 07:59 RBC 3.58 L (4.2-5.4) M/uL Hgb 10.6 L (12.0-16.0) g/dL Hct 32.8 L (37-47) % RDW Std Deviation 49.1 H (36.4-46.3) fL RDW Coeff of Génesis 14.9 H (11.5-14.5) % Immature Gran # (Auto) 0.03 H (0.00-0.02) K/uL Potassium 3.3 L (3.5-5.1) mmol/L Chloride 113 H (98-107) mmol/L Creatinine 1.22 H (0.6-1.2) mg/dl BUN/Creatinine Ratio 6.9 L (10-20) Glucose (70-99) mg/dl POC Glucose 100 H (70-99) mg/dl Alkaline Phosphatase 243 H (45-117) U/L C-Reactive Protein (0-0.29) mg/dl Total Protein 5.9 L (6.4-8.2) gm/dl Albumin 2.0 L (3.4-5.0) gm/dl Albumin/Globulin Ratio 0.5 L (0.9-2) 12/30/2019: chest/abdomen x-ray obtained due to complaints of bloating demonstrated no evidence of bowel obstruction. No evidence of free air. (1) Acute pancreatitis Acute pancreatitis complication: unspecified Pancreatitis type: unspecified pancreatitis type Qualified Code(s): K85.90 - Acute pancreatitis without necrosis or infection, unspecified
[2019-12-31] MEDS: COLCHICINE 0.6 MG TAB PO SCH (09:23)
[2019-12-31] MEDS: PANTOprazole 40 MG TAB PO SCH (09:23)
[2019-12-31] MEDS: IBUPROFEN 600 MG TAB PO SCH (09:24)
[2019-12-31] MEDS: ASPIRIN 81 MG ECTAB PO SCH (09:24)
[2019-12-31] MEDS: DOCUSATE SODIUM/SENNA 50/8.6MG TAB PO SCH (09:24)
[2019-12-31] MEDS: METOPROLOL TARTRATE 25 MG TAB PO SCH (09:24)
[2019-12-31] MEDS: INSULIN ASPART 100 UNITS/ML 3 ML PEN SC SCH ×2 (09:25→12:06)
[2019-12-31] MEDS: SUCRALFATE 1 GM/10 ML UDC PO SCH ×2 (09:25→13:25)
[2019-12-31] MEDS: POLYETHYLENE (MIRALAX) 17 GM PACK PO SCH (09:26)
[2019-12-31] MEDS: ENOXAPARIN INJ 40 MG/0.4 ML SYR SQ SCH (09:26)
[2019-12-31] MEDS: TROLAMINE SALICYLATE 10% CRM 255 APPLN/85 GM TUBE EXT SCH (09:27)
[2019-12-31] MEDS: oxyCODONE HCL 15 MG TABCR (OxyCONTIN) PO SCH ×2 (09:32→13:49)
--- NOTE | 2019-12-31 09:44 | Cardiology Progress Note ---
Date of Service December 31, 2019 Assessment & Plan (1) Chest pain: Ms. Méndez is a 59 year old female with a history of Hypertension, Type 2 Diabetes Mellitus, Depression, Anxiety, GERD, Chronic Pain Syndrome, Opioid Dependence, s/p Cholecystectomy, and Obesity who was admitted to [facility] on with an acute pancreatitis. Yesterday I met this patient for the first time. She described to me 3 different types of chest pain - sharp chest pain at the medial and lateral border of the left breast -- comes and goes at random, no associated symptoms, and not exertional. She also described a more generalized chest pain that occurs after she would have one of her "breathing spells" and this discomfort could be very intense and last up to 24 hours and it was reproducible when she touched or pushed on her chest. No associated nausea, vomiting, or diaphoresis. It was not worse with exertion, but could on occasion have a pleuritic component -- but not on a consistent basis. Her third chest discomfort is described as palpitations and she describes it as her "heart booming" -- usually wake her up from sleep. No associated symptoms with these palpitations. Her Non-Cardiac Chest Pain appears to be predominantly musculoskeletal in origin. Any semblance to pericarditis/serositis may be related to the inflammatory process associated with pancreatitis or other auto-immune / auto- inflammatory conditions -- which would respond to NSAIDs. Her C-reactive protein and ESR were elevated yesterday. Further evaluation is underway for auto-immune and inflammatory conditions. Recommend the following: -- Continue Ibuprofen 600 mg t.i.d. x 4 to 6 weeks. -- Continue Colchicine 0.6 mg q day to b.i.d. for the time being. (2) Heart palpitations: -- Appear to correlate with both PAC's and NSR at normal rates. -- Continue beta shira therapy. (3) Premature atrial contractions: -- Increase Metoprolol Tartrate to 50 mg b.i.d. to lessen PAC's / palpitations and to treat elevated BP. Admission and Anticipated Discharge Date Admission Date: December 24, 2019 Subjective Ms. Méndez is being seen in [facility], and is currently lying in bed. She continues to experience midepigastric fullness that gets worse when she sits upright -- it feels like "everything is being squashed together in there". Her lower anterior chest is still sore to the touch. Patient feels that her palpitations are better with Metoprolol. Telemetry demonstrated an occasional PAC overnight. Physical Exam Physical Exam: GENERAL: Patient in no acute distress, lying in bed flat on her back with minimal elevation of the head of the bed. HEENT: Head is atraumatic, normocephalic. EOM's intact. Facies symmetric. No perioral cyanosis. NECK: No JVD. JVP is at the level of the clavicle sitting upright. Carotid upstrokes are + 2 bilaterally. No bruits are noted. CHEST/LUNGS: Clear to auscultation throughout all lung [place]. No wheezes, rales, or crackles. CVS: S1 and S2 are regular without obvious murmurs, gallops, or rubs. PMI is nonpalpable. No lifts, heaves, or thrills. No abdominal aortic or renal bruits. Diffuse tenderness to palpation in the lower anterior chest. ABDOMINAL EXAM: Bowel sounds are present. Tenderness to palpation in the mid- epigastrium. EXTREMITIES: No clubbing or cyanosis. No edema. NEUROLOGIC EXAM: Patient is awake, alert, interactive, and oriented. Answers questions appropriately. Speech is clear. Results & Data ([facility]) Vital Signs (Past 12 Hours) Vital Signs Temp Pulse Pulse Resp BP BP Pulse Ox 12/31/19 07:44 36.5 C 72 16 185/111 H 97 12/31/19 07:24 62 12/31/19 07:20 79 12/31/19 04:00 36.5 C 62 18 150/99 H 97 12/31/19 01:28 63 12/30/19 23:21 36.7 C 64 18 122/71 95 Laboratory Results Laboratory Results - last 24 hr 12/30/19 12/30/19 12/30/19 10:00 11:38 16:42 WBC RBC Hgb Hct MCV MCH MCHC RDW Std Deviation RDW Coeff of Génesis Plt Count MPV Immature Gran % (Auto) Neut % (Auto) Lymph % (Auto) [place] % (Auto) Eos % (Auto) Baso % (Auto) Neut # (Auto) Lymph # (Auto) [place] # (Auto) Eos # (Auto) Baso # (Auto) Immature Gran # (Auto) Sodium Potassium Chloride Carbon Dioxide Anion Gap BUN Creatinine Est Cr Clr Drug Dosing Est GFR ( Amer) Est GFR (Non-Af Amer) BUN/Creatinine Ratio Glucose POC Glucose 140 H 115 H Calcium Magnesium Total Bilirubin AST ALT Alkaline Phosphatase Total Protein Albumin Globulin Albumin/Globulin Ratio Lipase Stool Comments Pending PATSY Screen 12/31/19 12/31/19 12/31/19 06:18 06:18 06:18 WBC 5.12 RBC 3.58 L Hgb 10.6 L Hct 32.8 L MCV 91.6 MCH 29.6 MCHC 32.3 RDW Std Deviation 49.1 H RDW Coeff of Génesis 14.9 H Plt Count 268 MPV 10.3 Immature Gran % (Auto) 0.6 Neut % (Auto) 51.6 Lymph % (Auto) 33.2 [place] % (Auto) 10.5 Eos % (Auto) 3.1 Baso % (Auto) 1.0 Neut # (Auto) 2.64 Lymph # (Auto) 1.70 [place] # (Auto) 0.54 Eos # (Auto) 0.16 Baso # (Auto) 0.05 Immature Gran # (Auto) 0.03 H Sodium 144 Potassium 3.3 L Chloride 113 H Carbon Dioxide 26 Anion Gap 6.0 BUN 8 Creatinine 1.22 H Est Cr Clr Drug Dosing 53.8 Est GFR ( Amer) 56.6 Est GFR (Non-Af Amer) 48.8 BUN/Creatinine Ratio 6.9 L Glucose 91 POC Glucose Calcium 9.1 Magnesium 1.9 Total Bilirubin 0.3 AST 34 ALT 66 Alkaline Phosphatase 243 H Total Protein 5.9 L Albumin 2.0 L Globulin 3.9 Albumin/Globulin Ratio 0.5 L Lipase 208 Stool Comments PATSY Screen Pending 12/31/19 07:59 WBC RBC Hgb Hct MCV MCH MCHC RDW Std Deviation RDW Coeff of Génesis Plt Count MPV Immature Gran % (Auto) Neut % (Auto) Lymph % (Auto) [place] % (Auto) Eos % (Auto) Baso % (Auto) Neut # (Auto) Lymph # (Auto) [place] # (Auto) Eos # (Auto) Baso # (Auto) Immature Gran # (Auto) Sodium Potassium Chloride Carbon Dioxide Anion Gap BUN Creatinine Est Cr Clr Drug Dosing Est GFR ( Amer) Est GFR (Non-Af Amer) BUN/Creatinine Ratio Glucose POC Glucose 100 H Calcium Magnesium Total Bilirubin AST ALT Alkaline Phosphatase Total Protein Albumin Globulin Albumin/Globulin Ratio Lipase Stool Comments PATSY Screen Medications Administered Active Medications Generic Name Dose Route Start Last Admin Trade Name Flashq PRN Reason Stop Dose Admin Aspirin 81 mg 12/25/19 09:00 12/31/19 09:24 Aspirin 81 Mg Ectab PO 01/24/20 08:59 81 mg QAM JACQUELINE Administration Colchicine 0.6 mg 12/29/19 21:00 12/31/19 09:23 Colchicine 0.6 Mg Tab PO 01/28/20 20:59 0.6 mg BID JACQUELINE Administration Dextrose 25 - 50 ml 12/25/19 08:57 Dextrose 50% 50 Ml Syringe IV 01/24/20 08:56 UD PRN Hypoglycemia Protocol Protocol Doxepin HCl 150 mg 12/25/19 21:00 12/30/19 20:52 Doxepin Hcl 75 Mg Capsule PO 01/24/20 20:59 150 mg HS JACQUELINE Administration Enoxaparin Sodium 40 mg 12/25/19 09:00 12/31/19 09:26 Enoxaparin Inj 40 Mg/0.4 Ml Syr SQ 01/24/20 08:59 40 mg Q24H JACQUELINE Administration Glucagon 1 mg 12/25/19 08:57 Glucagon For Inj 1 Mg Vial SQ 01/24/20 08:56 UD PRN Hypoglycemia Protocol Protocol Glucose 4 - 8 tabs 12/25/19 08:57 Glucose 10 Tabs/Tube PO 01/24/20 08:56 UD PRN Hypoglycemia Protocol Protocol Glucose 15 - 30 gm 12/25/19 08:57 Glucose 40% Gel 15 Gm Tube PO 01/24/20 08:56 UD PRN Hypoglycemia Protocol Protocol Hydralazine HCl 10 mg 12/27/19 14:04 12/27/19 14:07 Hydralazine Hcl 20 Mg/Ml Vial IV 01/24/20 15:54 10 mg Q8 PRN Administration SBP>180 Lorazepam 0.5 mg in 1 mls @ 1 mls/min 12/27/19 14:03 12/27/19 15:41 Ativan IV 01/26/20 14:02 1 mls/min Q4H PRN Administration anxiety Ibuprofen 600 mg 12/29/19 21:00 12/31/19 09:24 Ibuprofen 600 Mg Tab PO 01/28/20 20:59 600 mg BID JACQUELINE Administration Insulin Aspart 0 units 12/26/19 16:30 12/31/19 09:25 Insulin Aspart 100 Units/Ml 3 Ml Pen SC 01/25/20 16:29 Not Given ACHS JACQUELINE Insulin Glargine 8 units 12/28/19 21:00 12/30/19 20:54 Insulin Glargine Solostar 100 Units/Ml 3 Ml Pen SC 01/27/20 20:59 8 units HS JACQUELINE Administration Metoprolol Tartrate 25 mg 12/28/19 21:00 12/31/19 09:24 Metoprolol Tartrate 25 Mg Tab PO 01/27/20 20:59 25 mg BID JACQUELINE Administration Miscellaneous 15 - 30 gm 12/25/19 08:57 Carbohydrates For Hypoglycemia PO 01/24/20 08:56 UD PRN Hypoglycemia Protocol Naloxone HCl 0.4 mg 12/25/19 15:54 Naloxone Hcl 0.4 Mg/1 Ml Vial/Carp IV 01/24/20 15:53 Q15M PRN opioid overdose Ondansetron HCl 4 mg 12/24/19 21:30 Ondansetron Inj 2 Mg/Ml 2 Ml Vial IV 01/23/20 21:29 Q6H PRN Nausea Oxycodone HCl 30 mg 12/25/19 14:00 12/31/19 09:32 Oxycodone Hcl 15 Mg Tabcr (Oxycontin) PO 01/08/20 13:59 30 mg TID JACQUELINE Administration Oxycodone HCl 5 mg 12/30/19 18:41 12/30/19 19:44 Oxycodone Hcl Ir 5 Mg Tab (Immediate Release) PO 01/13/20 18:40 5 mg Q4H PRN Administration Pain Pantoprazole Sodium 40 mg 12/25/19 09:00 12/31/19 09:23 Pantoprazole 40 Mg Tab PO 01/24/20 08:59 40 mg BID JACQUELINE Administration Polyethylene Glycol 17 gm 12/25/19 09:00 12/31/19 09:26 Polyethylene (Miralax) 17 Gm Pack PO 01/24/20 08:59 Not Given DAILY JACQUELINE Senna/Docusate Sodium 1 tab 12/29/19 09:00 12/31/19 09:24 Docusate Sodium/Senna 50/8.6mg Tab PO 01/28/20 08:59 Not Given QAM JACQUELINE Sucralfate 1 gm 10/13/20 21:00 12/31/19 09:25 Sucralfate 1 Gm/10 Ml Udc PO 01/29/20 20:59 1 gm QID JACQUELINE Administration Trolamine Salicylate 1 appln 12/27/19 18:10 12/31/19 09:27 Trolamine Salicylate 10% Crm 255 Appln/85 Gm Tube EXT 01/26/20 18:09 Not Given BID JACQUELINE PG Care Time/CCT Total # of Minutes Spent Total Time Spent with Patient: Total time spent is greater than 50% in coordination of care (as documented) at patient's floor/unit and/or counseling patient: Coding Level of Care Code 09712 Subseq Hosp Care Lvl 3 Diagnoses Chest pain R07.81 Chest pain type: pleurodynia Heart palpitations R00.2 Premature atrial contractions I49.1 (1) Chest pain Chest pain type: pleurodynia Qualified Code(s): R07.81 - Pleurodynia
[2019-12-31] MEDS: hydrALAZINE HCL 20 MG/ML VIAL IV PRN (11:22)
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
[2020-01-01 15:21] LABS: Anti Nuclear Antibody Screen POSITIVE (NEGATIVE)
[2020-01-02 14:02] LABS: ANA Pattern Nuclear, Speckled; ANA Pattern 2 Nuclear, Homogeneous; ANA Titer 1:40 titer; ANA Titer 2 1:40 titer
--- NOTE | 2020-01-13 10:05 | Coding Query ---
To promote full compliance with coding requirements relating to patient care, provider participation is requested in all cases of vehicle service attendant uncertainty. Please assist us with the question(s) below: Coding Question(s): The diagnosis below was documented in the Addendum on Progress Note 12/25/19, then subsequently fell off all further documentation. Please indicate if it is still a possible diagnosis or ruled out. Physician's Response(s): SIRS of non-infectious origin w acute organ dysfunction evidenced by ARF ( x ) Diagnosed and POA ( ) Diagnosed and not POA ( ) Ruled out ( ) Other (please specify) MTDD
== END 2019-12-31 14:49 | disposition home or self-care (01) | DRG 438 ==
LOC: ED 17:53 → SUATTDRO 21:46 → 2S 21:46 → 3N 12-25 15:26 → 2S 12-27 18:45 → 1E 12-27 20:32 → 2W 12-28 08:26

== ENCOUNTER 2021-02-03 17:55 | Inpatient (IN) ==
[2021-02-03 18:50] LABS: Basophils # (auto) 0.05 K/uL (0-0.2); Basophils % (auto) 0.8 %; Eosinophils % (auto) 1.7 %; Hemoglobin 11.8 g/dL (12.0-16.0); Immature Granulocytes # (auto) 0.01 K/uL (0.00-0.02); Immature Granulocytes % (auto) 0.2 %; Lymphocytes # (auto) 0.93 K/uL (1.2-3.4); Lymphocytes % (auto) 15.7 %; Mean Corpuscular Hemoglobin 29.1 pg (25-34); Mean Corpuscular Hgb Conc 32.8 g/dL (32-36); Mean Corpuscular Volume 88.7 fL (80-100); Mean Platelet Volume 10.3 fL (7.4-10.4); Monocytes # (auto) 0.31 K/uL (0.11-0.59); Monocytes % (auto) 5.2 %; Neutrophils # (auto) 4.54 K/uL (1.4-6.5); Neutrophils % (auto) 76.4 %; Platelet Count 258 K/uL (130-400); RDW Coefficient of Variation 14.5 % (11.5-14.5); Red Blood Count 4.06 M/uL (4.2-5.4); White Blood Count 5.94 K/uL (4.8-10.8)
[2021-02-03 18:58] LABS: Alanine Aminotransferase 16 U/L (12-78); Albumin Level 2.9 gm/dl (3.4-5.0); Aspartate Aminotransferase 17 U/L (15-37); BUN Creatinine Ratio 6.3 (10-20); Blood Urea Nitrogen 10 mg/dl (7-18); Calcium 6.8 mg/dl (8.5-10.1); Carbon Dioxide 23 mmol/L (21-32); Chloride 107 mmol/L (98-107); Est GFR (African American) 42.7 ml/min; Est GFR (Non-African American) 36.8 ml/min; Glucose 169 mg/dl (70-99); Potassium 3.7 mmol/L (3.5-5.1); Sodium 139 mmol/L (136-145)
[2021-02-03 19:12] LABS: Albumin Globulin Ratio 0.8 (0.9-2); Alkaline Phosphatase 83 U/L (45-117); Bilirubin,Total 0.3 mg/dl (0.2-1); Globulin 3.7 gm/dl (2.5-4.0); Total Protein 6.6 gm/dl (6.4-8.2); Troponin I < 0.015 ng/ml (0-0.045)
--- NOTE | 2021-02-03 19:12 | Emergency Department Note ---
History of Present Illness General Chief complaint: Syncope Stated complaint: TINGLING & NUMBNESS ALL OVER, Time Seen by Provider: 02/03/21 18:48 Source: patient Mode of arrival: ambulatory Limitations: no limitations History of Present Illness Provider complaint: Paresthesias, syncope Onset (ago): day(s) 6 Treatments prior to arrival: none This is a 60-year-old female presents the emergency department with multiple complaints. Patient states over the weekend her heart rate was very high and she began having episodes of passing out. Patient believes she passed at least five times. She states since those episodes she has had a slight dull headache as well as numbness and tingling all over her body. She states the tingling initially started in one of her arms, however quickly became diffuse. She denies any recent change in medications or diet. Patient states her sugar last night was 120. Patient states she now feels "foggy" and feels as though she is "out of her body". Patient lives alone, none the syncopal events are witnessed. Patient states the all happened with changing from sitting to a standing position, and she would very quickly feel lightheaded, vision would go black and next thing she knew she was on the floor. Patient denies waking up noting any incontinence or soreness to her tongue as if she had bit it. Patient denies any history of seizures. Pt seen during a time of high acuity and national emergency pandemic while wearing PPE. Home Medications Medication Instructions Recorded Confirmed Type doxepin 75 mg capsule 150 mg PO HS 02/23/18 02/03/21 History metformin 1,000 mg tablet 1,000 mg PO BID 02/23/18 02/03/21 History alprazolam 0.5 mg tablet 0.5 mg PO DAILY PRN 12/24/19 02/03/21 History blood sugar diagnostic (OneTouch #10 ea 12/31/19 02/03/21 Rx Verio test strips) lancets 33 gauge (OneTouch Delica #100 ea 12/31/19 02/03/21 Rx Lancets) oxycodone 5 mg tablet 5 mg PO Q4H PRN #20 tab 12/31/19 02/03/21 Rx pen needle, diabetic 32 gauge x #100 ea 12/31/19 02/03/21 Rx 5/32" (BD Nati 2nd Gen Pen Needle) polyethylene glycol 3350 17 gram 17 g PO DAILY #30 packet 12/31/19 02/03/21 Rx oral powder packet (Miralax) aspirin 81 mg tablet,delayed 81 mg PO DAILY 02/03/21 02/03/21 History release omeprazole 20 mg capsule,delayed 20 mg PO BID 02/03/21 02/03/21 History release oxycodone 30 mg tablet,crush 30 mg PO Q8 02/03/21 02/03/21 History resistant,extended release 12 hr (OxyContin) Allergies Allergy/AdvReac Type Severity Reaction Status Date / Time lisinopril AdvReac Mild weight Verified 02/03/21 20:24 gain Past Med/Surg History Medical History (Updated 02/05/21 @ 18:57 by Saskia Calixto DO) Abnormal LFTs Acute cholecystitis due to biliary calculus Acute pancreatitis B12 deficiency Chronic pain Hyperlipidemia Hypertension associated with chronic kidney disease due to type 2 diabetes mellitus Obesity Pericarditis Peripheral autonomic neuropathy due to diabetes mellitus Surgical History H/O cervical spine surgery Previous section Status post lumbar spine surgery for decompression of spinal cord Family History Other Family history non-contributory Social History Smoking Status: Never smoker Hx Alcohol Use: No Hx Substance Use: No Preferred Language: Greenlandic Communication Ability: Effective Associate Professor Of Kinesiology Required: No Beliefs That Will Affect Care: None Current Living Situation: Family Feels Safe at Home: Yes Safety Concerns: Feels Safe At This Time Assistive Devices: None Review of Systems A total of 10 systems reviewed and were otherwise negative All systems reviewed & are unremarkable except as noted in HPI & below Physical Exam Vital Signs Vital Signs - 24 hr 02/04/21 20:00 02/04/21 21:40 02/04/21 22:19 Temperature 36.6 C 36.6 C Temperature Source Oral Oral Pulse Rate - Lying Pulse Rate - Sitting Pulse Rate - Standing Pulse Rate 78 Pulse Rate [Left] 75 73 Respiratory Rate 20 18 Respiratory Pattern Blood Pressure - Lying Blood Pressure - Sitting Blood Pressure- Standing Blood Pressure [Left Arm] 132/87 159/103 H Blood Pressure Mean [Left Arm] 102 121 Blood Pressure Position [Left Arm] Lying Lying Pulse Oximetry 97 94 Oxygen Delivery Method Room Air Room Air 02/04/21 22:20 02/04/21 23:36 02/05/21 03:11 Temperature Temperature Source Pulse Rate - Lying Pulse Rate - Sitting Pulse Rate - Standing Pulse Rate 72 Pulse Rate [Left] 68 Respiratory Rate Respiratory Pattern Regular Blood Pressure - Lying Blood Pressure - Sitting Blood Pressure- Standing Blood Pressure [Left Arm] 96/64 L Blood Pressure Mean [Left Arm] 74 Blood Pressure Position [Left Arm] Lying Pulse Oximetry 94 Oxygen Delivery Method Room Air Room Air 02/05/21 03:31 02/05/21 07:45 02/05/21 11:06 Temperature 36.4 C L 36.6 C 36.7 C Temperature Source Oral Oral Oral Pulse Rate - Lying 67 Pulse Rate - Sitting 73 Pulse Rate - Standing 72 Pulse Rate Pulse Rate [Left] 67 67 64 Respiratory Rate 20 18 16 Respiratory Pattern Blood Pressure - Lying 98/67 L Blood Pressure - Sitting 112/79 Blood Pressure- Standing 115/80 Blood Pressure [Left Arm] 98/67 L 117/76 97/63 L Blood Pressure Mean [Left Arm] 77 89 74 Blood Pressure Position [Left Arm] Lying Lying Lying Pulse Oximetry 97 97 95 Oxygen Delivery Method Room Air Room Air Room Air 02/05/21 15:05 Temperature 37.0 C Temperature Source Oral Pulse Rate - Lying Pulse Rate - Sitting Pulse Rate - Standing Pulse Rate Pulse Rate [Left] 72 Respiratory Rate 18 Respiratory Pattern Blood Pressure - Lying Blood Pressure - Sitting Blood Pressure- Standing Blood Pressure [Left Arm] 123/91 Blood Pressure Mean [Left Arm] 101 Blood Pressure Position [Left Arm] Lying Pulse Oximetry 96 Oxygen Delivery Method Room Air GENERAL: alert, anxious appearing, well nourished, no distress, non-toxic EYE EXAM: normal conjunctiva, PERRL and EOM's grossly intact OROPHARYNX: no exudate, no erythema, lips, buccal mucosa, and tongue normal and mucous membranes are moist NECK: supple, no nuchal rigidity, no adenopathy, non-tender LUNGS: Clear to auscultation. Normal chest wall mechanics, no w/r/r HEART: no murmurs, S1 normal and S2 normal ABDOMEN: abdomen soft, non-tender, normo-active bowel sounds, no masses, no rebound or guarding. BACK: Back is symmetrical on inspection and there is no deformity, no midline tenderness, no CVA tenderness. SKIN: no rashes and no bruising UPPER EXTREMITIES: upper extremities are grossly normal. FROM, nml pulses b/l. LOWER EXTREMITIES: No pitting edema. FROM, nml pulses b/l. NEURO EXAM: Normal sensorium, cranial nerves II-XII grossly intact, normal speech, no gross weakness of arms, no gross weakness of legs. Gross sensation intact. Course Course 2214: Pt updated on results at this time. IV Magnesium being started. DIscussed need for additional imaging given finding of PE on imaging of neck. Given normal renal function and pt being hydrated with IVF, I do feel it is safe to give additional IV dye to determine extent of PE mentioned. Trop negative, VS stable otherwise. I do not suspect saddle or massive PE at this time or right heart strain. Case discussed with hospitalist. Will defer initiation of anticoagulation pending additional imaging and their evaluation. Patient admits to noncompliance with prior recommendations of PCP and prior ER evaluations. Administered Medications Acetaminophen (Acetaminophen 325 Mg Tab) 650 mg PO Q4H PRN PRN Reason: Pain or Fever Stop: 03/06/21 00:20 Last Admin: 02/04/21 05:43 Dose: 650 mg Documented by: [id number] Aspirin (Aspirin 81 Mg Ectab) 81 mg PO DAILY JACQUELINE Stop: 03/06/21 08:59 Last Admin: 02/05/21 09:15 Dose: 81 mg Documented by: [id number] Admin: 02/04/21 09:04 Dose: 81 mg Documented by: [id number] Doxepin HCl (Doxepin Hcl 75 Mg Capsule) 150 mg PO HS JACQUELINE Stop: 03/06/21 20:59 Last Admin: 02/04/21 22:13 Dose: 150 mg Documented by: [id number] Fluoxetine HCl (Fluoxetine Hcl 10 Mg Cap) 10 mg PO QAM JACQUELINE Stop: 03/06/21 08:59 Last Admin: 02/05/21 09:13 Dose: Not Given Documented by: [id number] Admin: 02/04/21 09:04 Dose: Not Given Documented by: [id number] Insulin Aspart (Insulin Aspart 100 Units/Ml 3 Ml Pen) 0 units SC ACHS JACQUELINE Stop: 03/06/21 07:29 Last Admin: 02/05/21 17:12 Dose: 3 units Documented by: [id number] Cosigned by: [id number] Admin: 02/05/21 13:37 Dose: 3 units Documented by: [id number] Cosigned by: [id number] Admin: 02/05/21 09:19 Dose: 3 units Documented by: [id number] Cosigned by: [id number] Admin: 02/04/21 22:16 Dose: 1 units Documented by: [id number] Cosigned by: [id number] Admin: 02/04/21 17:09 Dose: 2 units Documented by: [id number] Cosigned by: [id number] Admin: 02/04/21 13:39 Dose: 1 units Documented by: [id number] Cosigned by: [id number] Admin: 02/04/21 08:53 Dose: 2 units Documented by: [id number] Cosigned by: [id number] Metoprolol Tartrate (Metoprolol Tartrate 25 Mg Tab) 25 mg PO BID JACQUELINE Stop: 03/06/21 09:59 Last Admin: 02/05/21 09:16 Dose: 25 mg Documented by: [id number] Admin: 02/04/21 22:14 Dose: 25 mg Documented by: [id number] Admin: 02/04/21 10:29 Dose: 25 mg Documented by: [id number] Oxycodone HCl (Oxycodone Hcl 20 Mg Tabcr (Oxycontin)) 60 mg PO BID JACQUELINE Stop: 02/18/21 08:59 Last Admin: 02/05/21 09:14 Dose: 60 mg Documented by: [id number] Admin: 02/04/21 20:17 Dose: 60 mg Documented by: [id number] Admin: 02/04/21 09:49 Dose: 60 mg Documented by: [id number] Polyethylene Glycol (Polyethylene (Miralax) 17 Gm Pack) 17 gm PO DAILY JACQUELINE Stop: 03/06/21 08:59 Last Admin: 02/05/21 09:15 Dose: 17 gm Documented by: [id number] Admin: 02/04/21 09:04 Dose: Not Given Documented by: [id number] Pravastatin Sodium (Pravastatin Sod 40 Mg Tab) 40 mg PO DAILY@1700 JACQUELINE Stop: 03/07/21 16:59 Last Admin: 02/05/21 17:11 Dose: 40 mg Documented by: [id number] Rivaroxaban (Rivaroxaban 15 Mg Tab) 15 mg PO BID JACQUELINE Stop: 02/24/21 21:01 Last Admin: 02/05/21 09:16 Dose: 15 mg Documented by: [id number] Admin: 02/04/21 22:15 Dose: 15 mg Documented by: [id number] Admin: 02/04/21 09:04 Dose: 15 mg Documented by: [id number] Discontinued Medications Ergocalciferol (Ergocalciferol 50,000 Units 1250 Mcg Cap) 50,000 units PO NOW STA Stop: 02/04/21 17:07 Last Admin: 02/04/21 22:40 Dose: 50,000 units Documented by: [id number] Gadobutrol (Gadobutrol 65ml Vial) 8.5 ml IV ONCE ONE Stop: 02/04/21 01:04 Last Admin: 02/04/21 01:03 Dose: 8.5 ml Documented by: [id number] Hydralazine HCl (Hydralazine Hcl 20 Mg/Ml Vial) 5 mg IV NOW STA Stop: 02/03/21 22:59 Last Admin: 02/03/21 23:37 Dose: 5 mg Documented by: [id number] Sodium Chloride (Nss 1000ml) 1,000 mls @ 125 mls/hr IV .Q8H JACQUELINE Stop: 03/05/21 19:14 Last Infusion: 02/04/21 15:54 Dose: 0 mls/hr Documented by: [id number] Admin: 02/04/21 13:38 Dose: 125 mls/hr Documented by: [id number] Infusion: 02/04/21 13:29 Dose: 125 mls/hr Documented by: [id number] Admin: 02/04/21 05:29 Dose: 125 mls/hr Documented by: [id number] Infusion: 02/04/21 03:54 Dose: 125 mls/hr Documented by: [id number] Admin: 02/03/21 19:54 Dose: 125 mls/hr Documented by: [id number] Magnesium Sulfate/Dextrose (Magnesium Sulfate / D5w) 1 gm in 100 mls @ 100 mls/hr IV Q1H JACQUELINE Stop: 02/03/21 23:20 Last Infusion: 02/04/21 00:39 Dose: 0 mls/hr Documented by: [id number] Admin: 02/03/21 22:57 Dose: 100 mls/hr Documented by: [id number] Infusion: 02/03/21 22:57 Dose: 0 mls/hr Documented by: [id number] Admin: 02/03/21 21:43 Dose: 100 mls/hr Documented by: [id number] Heparin Sodium/Dextrose (Heparin Sodium/Dextrose) 25,000 units in 500 mls @ 23 mls/hr IV .[id number] JACQUELINE; Protocol Stop: 03/06/21 02:29 Last Admin: 02/04/21 03:21 Dose: Not Given Documented by: [id number] Calcium Gluconate 2,000 mg/ (Sodium Chloride) 70 mls @ 240 mls/hr IV NOW STA Stop: 02/04/21 17:28 Last Infusion: 02/04/21 23:21 Dose: 0 mls/hr Documented by: [id number] Admin: 02/04/21 22:41 Dose: 240 mls/hr Documented by: [id number] Magnesium Sulfate/Dextrose (Magnesium Sulfate / D5w) 1 gm in 100 mls @ 50 mls/hr IV Q2H [facility] Stop: 02/04/21 21:14 Last Admin: 02/05/21 07:21 Dose: Not Given Documented by: [id number] Admin: 02/05/21 07:21 Dose: Not Given Documented by: [id number] Calcium Gluconate 2,000 mg/ (Sodium Chloride) 70 mls @ 240 mls/hr IV NOW STA Stop: 02/04/21 22:00 Last Infusion: 02/04/21 22:35 Dose: 0 mls/hr Documented by: [id number] Admin: 02/04/21 22:10 Dose: 240 mls/hr Documented by: [id number] Magnesium Sulfate/Dextrose (Magnesium Sulfate / D5w) 1 gm in 100 mls @ 50 mls/hr IV Q2H [facility] Stop: 02/05/21 01:59 Last Infusion: 02/05/21 02:40 Dose: 0 mls/hr Documented by: [id number] Admin: 02/05/21 00:39 Dose: 50 mls/hr Documented by: [id number] Infusion: 02/05/21 00:39 Dose: 0 mls/hr Documented by: [id number] Infusion: 02/04/21 23:20 Dose: 50 mls/hr Documented by: [id number] Admin: 02/04/21 22:31 Dose: 50 mls/hr Documented by: [id number] Influenza Virus Vaccine Quadrival (Fluarix Quadrivalent 0.5 Ml Syr) 0.5 ml IM .ONCE ONE Stop: 02/04/21 08:01 Last Admin: 02/05/21 15:09 Dose: Not Given Documented by: [id number] Ioversol (Optiray 320 125ml) 121 ml IV ONCE ONE Stop: 02/03/21 20:11 Last Admin: 02/03/21 20:11 Dose: 1 ml Documented by: [id number] Ioversol (Optiray 320 125ml) 120 ml IV ONCE ONE Stop: 02/04/21 01:48 Last Admin: 02/04/21 01:47 Dose: 120 ml Documented by: [id number] Critical Care Time Critical Care Time: Yes Total Critical Care Time: 42 Critical care of 42 min performed to assess and manage high likelihood of life- threatening syncope, pulmonary embolism, hypomagnesemia, involving labs and imaging performed with assessment to evaluate syncope diagnosis with frequent reassessment. This time includes bedside time, treatment discussions with patient/family/consultants, documentation time and excludes procedure time. Medical Decision Making Differential Diagnosis Differential diagnosis includes etiologies such as vasovagal event, infection, hypoglycemia, electrolyte abnormalities, cardiac sources, intracerebral event, toxicologic, neurologic, as well as others were entertained. Medical Records Attestation: I reviewed the patient's medical records. Home Medications Current Medication List: was personally reviewed by me Laboratory Data Attestation: I reviewed the patient's lab results. Result diagrams: 02/05/21 03:38 02/05/21 17:21 Lab Results 02/03/21 02/03/21 02/03/21 Range/Units 02:41 18:13 18:13 WBC 5.94 (4.8-10.8) K/uL RBC 4.06 L (4.2-5.4) M/uL Hgb 11.8 L (12.0-16.0) g/dL Hct 36.0 L (37-47) % MCV 88.7 (80-100) fL MCH 29.1 (25-34) pg MCHC 32.8 (32-36) g/dL RDW Std Deviation 47.0 H (36.4-46.3) fL RDW Coeff of Génesis 14.5 (11.5-14.5) % Plt Count 258 (130-400) K/uL MPV 10.3 (7.4-10.4) fL Immature Gran % (Auto) 0.2 % Neut % (Auto) 76.4 % Lymph % (Auto) 15.7 % [place] % (Auto) 5.2 % Eos % (Auto) 1.7 % Baso % (Auto) 0.8 % Neut # (Auto) 4.54 (1.4-6.5) K/uL Lymph # (Auto) 0.93 L (1.2-3.4) K/uL [place] # (Auto) 0.31 (0.11-0.59) K/uL Eos # (Auto) 0.10 (0-0.5) K/uL Baso # (Auto) 0.05 (0-0.2) K/uL Immature Gran # (Auto) 0.01 (0.00-0.02) K/uL ESR (0-30) mm/hr APTT 26.9 (21.0-31.0) Seconds PTT Ratio 1.0 Sodium 139 (136-145) mmol/L Potassium 3.7 (3.5-5.1) mmol/L Chloride 107 (98-107) mmol/L Carbon Dioxide 23 (21-32) mmol/L Anion Gap 9.0 (3-11) BUN 10 (7-18) mg/dl Creatinine 1.53 H (0.6-1.2) mg/dl Est Cr Clr Drug Dosing 42.0 ml/min Est GFR ( Amer) 42.7 ml/min Est GFR (Non-Af Amer) 36.8 ml/min BUN/Creatinine Ratio 6.3 L (10-20) Glucose 169 H (70-99) mg/dl POC Glucose (70-99) mg/dl Estimat Average Glucose mg/dl Hemoglobin A1c (4.5-5.6) % Calcium 6.8 L (8.5-10.1) mg/dl Ionized Calcium (1.12-1.32) mmol/L Phosphorus (2.5-4.9) mg/dl Magnesium 0.8 L* (1.8-2.4) mg/dl Iron (35-150) mcg/dl TIBC (250-450) mcg/dl Transferrin (200-360) mg/dl Ferritin (8-388) ng/ml Total Bilirubin 0.3 (0.2-1) mg/dl AST 17 (15-37) U/L ALT 16 (12-78) U/L Alkaline Phosphatase 83 (45-117) U/L Troponin I < 0.015 (0-0.045) ng/ml C-Reactive Protein 0.89 H (0-0.29) mg/dl Total Protein 6.6 (6.4-8.2) gm/dl Albumin 2.9 L (3.4-5.0) gm/dl Globulin 3.7 (2.5-4.0) gm/dl Albumin/Globulin Ratio 0.8 L (0.9-2) Prealbumin (20-40) mg/dl Triglycerides (0-150) mg/dl Cholesterol (0-200) mg/dl LDL Cholesterol, Calc mg/dl VLDL Cholesterol, Calc mg/dl HDL Cholesterol mg/dl Cholesterol/HDL Ratio Lipase (73-393) U/L Vitamin B12 (193-986) pg/ml 25-OH Vitamin D Total (30-100) ng/ml Folate (>5.38) ng/ml TSH 1.730 (0.300-4.500) uIu/ml PTH Intact (18.4-80.1) pg/ml Urine Color Urine Appearance (Clear) Urine pH (4.5-7.5) Ur Specific [place] (1.000-1.030) Urine Protein (Negative) Urine Glucose (UA) (Negative) Urine Ketones (Negative) Urine Blood (Negative) Urine Nitrite (Negative) Urine Bilirubin (Negative) Urine Urobilinogen (Negative) Ur Leukocyte Esterase (Negative) SARS-CoV-2, RNA, NAAT (NEGATIVE) 02/03/21 02/03/21 02/03/21 Range/Units 18:13 19:25 22:20 WBC (4.8-10.8) K/uL RBC (4.2-5.4) M/uL Hgb (12.0-16.0) g/dL Hct (37-47) % MCV (80-100) fL MCH (25-34) pg MCHC (32-36) g/dL RDW Std Deviation (36.4-46.3) fL RDW Coeff of Génesis (11.5-14.5) % Plt Count (130-400) K/uL MPV (7.4-10.4) fL Immature Gran % (Auto) % Neut % (Auto) % Lymph % (Auto) % [place] % (Auto) % Eos % (Auto) % Baso % (Auto) % Neut # (Auto) (1.4-6.5) K/uL Lymph # (Auto) (1.2-3.4) K/uL [place] # (Auto) (0.11-0.59) K/uL Eos # (Auto) (0-0.5) K/uL Baso # (Auto) (0-0.2) K/uL Immature Gran # (Auto) (0.00-0.02) K/uL ESR 15 (0-30) mm/hr APTT (21.0-31.0) Seconds PTT Ratio Sodium (136-145) mmol/L Potassium (3.5-5.1) mmol/L Chloride (98-107) mmol/L Carbon Dioxide (21-32) mmol/L Anion Gap (3-11) BUN (7-18) mg/dl Creatinine (0.6-1.2) mg/dl Est Cr Clr Drug Dosing ml/min Est GFR ( Amer) ml/min Est GFR (Non-Af Amer) ml/min BUN/Creatinine Ratio (10-20) Glucose (70-99) mg/dl POC Glucose (70-99) mg/dl Estimat Average Glucose mg/dl Hemoglobin A1c (4.5-5.6) % Calcium (8.5-10.1) mg/dl Ionized Calcium (1.12-1.32) mmol/L Phosphorus (2.5-4.9) mg/dl Magnesium (1.8-2.4) mg/dl Iron (35-150) mcg/dl TIBC (250-450) mcg/dl Transferrin (200-360) mg/dl Ferritin (8-388) ng/ml Total Bilirubin (0.2-1) mg/dl AST (15-37) U/L ALT (12-78) U/L Alkaline Phosphatase (45-117) U/L Troponin I (0-0.045) ng/ml C-Reactive Protein (0-0.29) mg/dl Total Protein (6.4-8.2) gm/dl Albumin (3.4-5.0) gm/dl Globulin (2.5-4.0) gm/dl Albumin/Globulin Ratio (0.9-2) Prealbumin (20-40) mg/dl Triglycerides (0-150) mg/dl Cholesterol (0-200) mg/dl LDL Cholesterol, Calc mg/dl VLDL Cholesterol, Calc mg/dl HDL Cholesterol mg/dl Cholesterol/HDL Ratio Lipase (73-393) U/L Vitamin B12 (193-986) pg/ml 25-OH Vitamin D Total (30-100) ng/ml Folate (>5.38) ng/ml TSH (0.300-4.500) uIu/ml PTH Intact (18.4-80.1) pg/ml Urine Color Yellow Urine Appearance Clear (Clear) Urine pH 6.5 (4.5-7.5) Ur Specific [place] 1.004 (1.000-1.030) Urine Protein Negative (Negative) Urine Glucose (UA) Negative (Negative) Urine Ketones Negative (Negative) Urine Blood Negative (Negative) Urine Nitrite Negative (Negative) Urine Bilirubin Negative (Negative) Urine Urobilinogen Negative (Negative) Ur Leukocyte Esterase Negative (Negative) SARS-CoV-2, RNA, NAAT NEGATIVE (NEGATIVE) 02/04/21 02/04/21 02/04/21 Range/Units 05:30 06:29 06:29 WBC 7.18 (4.8-10.8) K/uL RBC 3.99 L (4.2-5.4) M/uL Hgb 11.5 L (12.0-16.0) g/dL Hct 35.2 L (37-47) % MCV 88.2 (80-100) fL MCH 28.8 (25-34) pg MCHC 32.7 (32-36) g/dL RDW Std Deviation 47.4 H (36.4-46.3) fL RDW Coeff of Génesis 14.6 H (11.5-14.5) % Plt Count 269 (130-400) K/uL MPV 9.9 (7.4-10.4) fL Immature Gran % (Auto) 0.3 % Neut % (Auto) 66.7 % Lymph % (Auto) 23.4 % [place] % (Auto) 7.7 % Eos % (Auto) 1.3 % Baso % (Auto) 0.6 % Neut # (Auto) 4.80 (1.4-6.5) K/uL Lymph # (Auto) 1.68 (1.2-3.4) K/uL [place] # (Auto) 0.55 (0.11-0.59) K/uL Eos # (Auto) 0.09 (0-0.5) K/uL Baso # (Auto) 0.04 (0-0.2) K/uL Immature Gran # (Auto) 0.02 (0.00-0.02) K/uL ESR (0-30) mm/hr APTT (21.0-31.0) Seconds PTT Ratio Sodium 137 (136-145) mmol/L Potassium 3.5 (3.5-5.1) mmol/L Chloride 104 (98-107) mmol/L Carbon Dioxide 22 (21-32) mmol/L Anion Gap 11.0 (3-11) BUN 8 (7-18) mg/dl Creatinine 1.25 H (0.6-1.2) mg/dl Est Cr Clr Drug Dosing 49.0 ml/min Est GFR ( Amer) 54.5 ml/min Est GFR (Non-Af Amer) 47.0 ml/min BUN/Creatinine Ratio 6.1 L (10-20) Glucose 125 H (70-99) mg/dl POC Glucose 133 H (70-99) mg/dl Estimat Average Glucose mg/dl Hemoglobin A1c (4.5-5.6) % Calcium 6.7 L (8.5-10.1) mg/dl Ionized Calcium (1.12-1.32) mmol/L Phosphorus 4.3 (2.5-4.9) mg/dl Magnesium 1.7 L (1.8-2.4) mg/dl Iron (35-150) mcg/dl TIBC (250-450) mcg/dl Transferrin (200-360) mg/dl Ferritin (8-388) ng/ml Total Bilirubin 0.4 (0.2-1) mg/dl AST 17 (15-37) U/L ALT 15 (12-78) U/L Alkaline Phosphatase 69 (45-117) U/L Troponin I (0-0.045) ng/ml C-Reactive Protein (0-0.29) mg/dl Total Protein 6.2 L (6.4-8.2) gm/dl Albumin 2.7 L (3.4-5.0) gm/dl Globulin 3.5 (2.5-4.0) gm/dl Albumin/Globulin Ratio 0.8 L (0.9-2) Prealbumin (20-40) mg/dl Triglycerides 111 (0-150) mg/dl Cholesterol 217 H (0-200) mg/dl LDL Cholesterol, Calc 110 mg/dl VLDL Cholesterol, Calc 22 mg/dl HDL Cholesterol 85 mg/dl Cholesterol/HDL Ratio 3 Lipase 72 L (73-393) U/L Vitamin B12 (193-986) pg/ml 25-OH Vitamin D Total (30-100) ng/ml Folate (>5.38) ng/ml TSH (0.300-4.500) uIu/ml PTH Intact (18.4-80.1) pg/ml Urine Color Urine Appearance (Clear) Urine pH (4.5-7.5) Ur Specific [place] (1.000-1.030) Urine Protein (Negative) Urine Glucose (UA) (Negative) Urine Ketones (Negative) Urine Blood (Negative) Urine Nitrite (Negative) Urine Bilirubin (Negative) Urine Urobilinogen (Negative) Ur Leukocyte Esterase (Negative) SARS-CoV-2, RNA, NAAT (NEGATIVE) 02/04/21 02/04/21 02/04/21 Range/Units 06:29 08:26 12:09 WBC (4.8-10.8) K/uL RBC (4.2-5.4) M/uL Hgb (12.0-16.0) g/dL Hct (37-47) % MCV (80-100) fL MCH (25-34) pg MCHC (32-36) g/dL RDW Std Deviation (36.4-46.3) fL RDW Coeff of Génesis (11.5-14.5) % Plt Count (130-400) K/uL MPV (7.4-10.4) fL Immature Gran % (Auto) % Neut % (Auto) % Lymph % (Auto) % [place] % (Auto) % Eos % (Auto) % Baso % (Auto) % Neut # (Auto) (1.4-6.5) K/uL Lymph # (Auto) (1.2-3.4) K/uL [place] # (Auto) (0.11-0.59) K/uL Eos # (Auto) (0-0.5) K/uL Baso # (Auto) (0-0.2) K/uL Immature Gran # (Auto) (0.00-0.02) K/uL ESR (0-30) mm/hr APTT (21.0-31.0) Seconds PTT Ratio Sodium (136-145) mmol/L Potassium (3.5-5.1) mmol/L Chloride (98-107) mmol/L Carbon Dioxide (21-32) mmol/L Anion Gap (3-11) BUN (7-18) mg/dl Creatinine (0.6-1.2) mg/dl Est Cr Clr Drug Dosing ml/min Est GFR ( Amer) ml/min Est GFR (Non-Af Amer) ml/min BUN/Creatinine Ratio (10-20) Glucose (70-99) mg/dl POC Glucose 124 H 138 H (70-99) mg/dl Estimat Average Glucose 171 mg/dl Hemoglobin A1c 7.6 H (4.5-5.6) % Calcium (8.5-10.1) mg/dl Ionized Calcium (1.12-1.32) mmol/L Phosphorus (2.5-4.9) mg/dl Magnesium (1.8-2.4) mg/dl Iron (35-150) mcg/dl TIBC (250-450) mcg/dl Transferrin (200-360) mg/dl Ferritin (8-388) ng/ml Total Bilirubin (0.2-1) mg/dl AST (15-37) U/L ALT (12-78) U/L Alkaline Phosphatase (45-117) U/L Troponin I (0-0.045) ng/ml C-Reactive Protein (0-0.29) mg/dl Total Protein (6.4-8.2) gm/dl Albumin (3.4-5.0) gm/dl Globulin (2.5-4.0) gm/dl Albumin/Globulin Ratio (0.9-2) Prealbumin (20-40) mg/dl Triglycerides (0-150) mg/dl Cholesterol (0-200) mg/dl LDL Cholesterol, Calc mg/dl VLDL Cholesterol, Calc mg/dl HDL Cholesterol mg/dl Cholesterol/HDL Ratio Lipase (73-393) U/L Vitamin B12 (193-986) pg/ml 25-OH Vitamin D Total (30-100) ng/ml Folate (>5.38) ng/ml TSH (0.300-4.500) uIu/ml PTH Intact (18.4-80.1) pg/ml Urine Color Urine Appearance (Clear) Urine pH (4.5-7.5) Ur Specific [place] (1.000-1.030) Urine Protein (Negative) Urine Glucose (UA) (Negative) Urine Ketones (Negative) Urine Blood (Negative) Urine Nitrite (Negative) Urine Bilirubin (Negative) Urine Urobilinogen (Negative) Ur Leukocyte Esterase (Negative) SARS-CoV-2, RNA, NAAT (NEGATIVE) 02/04/21 02/04/21 02/04/21 Range/Units 14:49 14:49 14:49 WBC (4.8-10.8) K/uL RBC (4.2-5.4) M/uL Hgb (12.0-16.0) g/dL Hct (37-47) % MCV (80-100) fL MCH (25-34) pg MCHC (32-36) g/dL RDW Std Deviation (36.4-46.3) fL RDW Coeff of G[place]nes[place] (11.5-14.5) % Plt Count (130-400) K/uL MPV (7.4-10.4) fL Immature Gran % (Auto) % Neut % (Auto) % Lymph % (Auto) % [place] % (Auto) % Eos % (Auto) % Baso % (Auto) % Neut # (Auto) (1.4-6.5) K/uL Lymph # (Auto) (1.2-3.4) K/uL [place] # (Auto) (0.11-0.59) K/uL Eos # (Auto) (0-0.5) K/uL Baso # (Auto) (0-0.2) K/uL Immature Gran # (Auto) (0.00-0.02) K/uL ESR (0-30) mm/hr APTT (21.0-31.0) Seconds PTT Ratio Sodium (136-145) mmol/L Potassium (3.5-5.1) mmol/L Chloride (98-107) mmol/L Carbon Dioxide (21-32) mmol/L Anion Gap (3-11) BUN (7-18) mg/dl Creatinine (0.6-1.2) mg/dl Est Cr Clr Drug Dosing ml/min Est GFR ( Amer) ml/min Est GFR (Non-Af Amer) ml/min BUN/Creatinine Ratio (10-20) Glucose (70-99) mg/dl POC Glucose (70-99) mg/dl Estimat Average Glucose mg/dl Hemoglobin A1c (4.5-5.6) % Calcium (8.5-10.1) mg/dl Ionized Calcium 0.88 L (1.12-1.32) mmol/L Phosphorus (2.5-4.9) mg/dl Magnesium (1.8-2.4) mg/dl Iron (35-150) mcg/dl TIBC (250-450) mcg/dl Transferrin (200-360) mg/dl Ferritin (8-388) ng/ml Total Bilirubin (0.2-1) mg/dl AST (15-37) U/L ALT (12-78) U/L Alkaline Phosphatase (45-117) U/L Troponin I (0-0.045) ng/ml C-Reactive Protein (0-0.29) mg/dl Total Protein (6.4-8.2) gm/dl Albumin (3.4-5.0) gm/dl Globulin (2.5-4.0) gm/dl Albumin/Globulin Ratio (0.9-2) Prealbumin (20-40) mg/dl Triglycerides (0-150) mg/dl Cholesterol (0-200) mg/dl LDL Cholesterol, Calc mg/dl VLDL Cholesterol, Calc mg/dl HDL Cholesterol mg/dl Cholesterol/HDL Ratio Lipase (73-393) U/L Vitamin B12 215 (193-986) pg/ml 25-OH Vitamin D Total 7.7 L (30-100) ng/ml Folate 7.70 (>5.38) ng/ml TSH (0.300-4.500) uIu/ml PTH Intact (18.4-80.1) pg/ml Urine Color Urine Appearance (Clear) Urine pH (4.5-7.5) Ur Specific [place] (1.000-1.030) Urine Protein (Negative) Urine Glucose (UA) (Negative) Urine Ketones (Negative) Urine Blood (Negative) Urine Nitrite (Negative) Urine Bilirubin (Negative) Urine Urobilinogen (Negative) Ur Leukocyte Esterase (Negative) SARS-CoV-2, RNA, NAAT (NEGATIVE) 02/04/21 02/04/21 02/04/21 Range/Units 14:49 16:30 16:57 WBC (4.8-10.8) K/uL RBC (4.2-5.4) M/uL Hgb (12.0-16.0) g/dL Hct (37-47) % MCV (80-100) fL MCH (25-34) pg MCHC (32-36) g/dL RDW Std Deviation (36.4-46.3) fL RDW Coeff of Génesis (11.5-14.5) % Plt Count (130-400) K/uL MPV (7.4-10.4) fL Immature Gran % (Auto) % Neut % (Auto) % Lymph % (Auto) % [place] % (Auto) % Eos % (Auto) % Baso % (Auto) % Neut # (Auto) (1.4-6.5) K/uL Lymph # (Auto) (1.2-3.4) K/uL [place] # (Auto) (0.11-0.59) K/uL Eos # (Auto) (0-0.5) K/uL Baso # (Auto) (0-0.2) K/uL Immature Gran # (Auto) (0.00-0.02) K/uL ESR (0-30) mm/hr APTT (21.0-31.0) Seconds PTT Ratio Sodium (136-145) mmol/L Potassium (3.5-5.1) mmol/L Chloride (98-107) mmol/L Carbon Dioxide (21-32) mmol/L Anion Gap (3-11) BUN (7-18) mg/dl Creatinine (0.6-1.2) mg/dl Est Cr Clr Drug Dosing ml/min Est GFR ( Amer) ml/min Est GFR (Non-Af Amer) ml/min BUN/Creatinine Ratio (10-20) Glucose (70-99) mg/dl POC Glucose 171 H (70-99) mg/dl Estimat Average Glucose mg/dl Hemoglobin A1c (4.5-5.6) % Calcium (8.5-10.1) mg/dl Ionized Calcium (1.12-1.32) mmol/L Phosphorus (2.5-4.9) mg/dl Magnesium (1.8-2.4) mg/dl Iron (35-150) mcg/dl TIBC (250-450) mcg/dl Transferrin (200-360) mg/dl Ferritin (8-388) ng/ml Total Bilirubin (0.2-1) mg/dl AST (15-37) U/L ALT (12-78) U/L Alkaline Phosphatase (45-117) U/L Troponin I 1.130 H* (0-0.045) ng/ml C-Reactive Protein (0-0.29) mg/dl Total Protein (6.4-8.2) gm/dl Albumin (3.4-5.0) gm/dl Globulin (2.5-4.0) gm/dl Albumin/Globulin Ratio (0.9-2) Prealbumin (20-40) mg/dl Triglycerides (0-150) mg/dl Cholesterol (0-200) mg/dl LDL Cholesterol, Calc mg/dl VLDL Cholesterol, Calc mg/dl HDL Cholesterol mg/dl Cholesterol/HDL Ratio Lipase (73-393) U/L Vitamin B12 (193-986) pg/ml 25-OH Vitamin D Total (30-100) ng/ml Folate (>5.38) ng/ml TSH (0.300-4.500) uIu/ml PTH Intact 421.7 H (18.4-80.1) pg/ml Urine Color Urine Appearance (Clear) Urine pH (4.5-7.5) Ur Specific [place] (1.000-1.030) Urine Protein (Negative) Urine Glucose (UA) (Negative) Urine Ketones (Negative) Urine Blood (Negative) Urine Nitrite (Negative) Urine Bilirubin (Negative) Urine Urobilinogen (Negative) Ur Leukocyte Esterase (Negative) SARS-CoV-2, RNA, NAAT (NEGATIVE) 02/04/21 02/04/21 02/04/21 Range/Units 16:57 20:33 20:33 WBC (4.8-10.8) K/uL RBC (4.2-5.4) M/uL Hgb (12.0-16.0) g/dL Hct (37-47) % MCV (80-100) fL MCH (25-34) pg MCHC (32-36) g/dL RDW Std Deviation (36.4-46.3) fL RDW Coeff of Génesis (11.5-14.5) % Plt Count (130-400) K/uL MPV (7.4-10.4) fL Immature Gran % (Auto) % Neut % (Auto) % Lymph % (Auto) % [place] % (Auto) % Eos % (Auto) % Baso % (Auto) % Neut # (Auto) (1.4-6.5) K/uL Lymph # (Auto) (1.2-3.4) K/uL [place] # (Auto) (0.11-0.59) K/uL Eos # (Auto) (0-0.5) K/uL Baso # (Auto) (0-0.2) K/uL Immature Gran # (Auto) (0.00-0.02) K/uL ESR (0-30) mm/hr APTT (21.0-31.0) Seconds PTT Ratio Sodium 140 (136-145) mmol/L Potassium 4.1 D (3.5-5.1) mmol/L Chloride 110 H (98-107) mmol/L Carbon Dioxide 21 (21-32) mmol/L Anion Gap 9.0 (3-11) BUN 9 (7-18) mg/dl Creatinine 1.41 H (0.6-1.2) mg/dl Est Cr Clr Drug Dosing 43.4 ml/min Est GFR ( Amer) 47.1 ml/min Est GFR (Non-Af Amer) 40.7 ml/min BUN/Creatinine Ratio 6.5 L (10-20) Glucose 143 H (70-99) mg/dl POC Glucose (70-99) mg/dl Estimat Average Glucose mg/dl Hemoglobin A1c (4.5-5.6) % Calcium 7.8 L D (8.5-10.1) mg/dl Ionized Calcium 1.00 L (1.12-1.32) mmol/L Phosphorus (2.5-4.9) mg/dl Magnesium 1.7 L (1.8-2.4) mg/dl Iron 53 (35-150) mcg/dl TIBC 188 L (250-450) mcg/dl Transferrin 151 L (200-360) mg/dl Ferritin 244.6 (8-388) ng/ml Total Bilirubin (0.2-1) mg/dl AST (15-37) U/L ALT (12-78) U/L Alkaline Phosphatase (45-117) U/L Troponin I 1.060 H* (0-0.045) ng/ml C-Reactive Protein (0-0.29) mg/dl Total Protein (6.4-8.2) gm/dl Albumin (3.4-5.0) gm/dl Globulin (2.5-4.0) gm/dl Albumin/Globulin Ratio (0.9-2) Prealbumin 14.7 L (20-40) mg/dl Triglycerides (0-150) mg/dl Cholesterol (0-200) mg/dl LDL Cholesterol, Calc mg/dl VLDL Cholesterol, Calc mg/dl HDL Cholesterol mg/dl Cholesterol/HDL Ratio Lipase (73-393) U/L Vitamin B12 (193-986) pg/ml 25-OH Vitamin D Total (30-100) ng/ml Folate (>5.38) ng/ml TSH (0.300-4.500) uIu/ml PTH Intact (18.4-80.1) pg/ml Urine Color Urine Appearance (Clear) Urine pH (4.5-7.5) Ur Specific [place] (1.000-1.030) Urine Protein (Negative) Urine Glucose (UA) (Negative) Urine Ketones (Negative) Urine Blood (Negative) Urine Nitrite (Negative) Urine Bilirubin (Negative) Urine Urobilinogen (Negative) Ur Leukocyte Esterase (Negative) SARS-CoV-2, RNA, NAAT (NEGATIVE) 02/05/21 02/05/21 02/05/21 Range/Units 03:38 03:38 03:38 WBC 7.66 (4.8-10.8) K/uL RBC 3.90 L (4.2-5.4) M/uL Hgb 11.8 L (12.0-16.0) g/dL Hct 34.9 L (37-47) % MCV 89.5 (80-100) fL MCH 30.3 (25-34) pg MCHC 33.8 (32-36) g/dL RDW Std Deviation 48.3 H (36.4-46.3) fL RDW Coeff of Génesis 15.0 H (11.5-14.5) % Plt Count 292 (130-400) K/uL MPV 10.0 (7.4-10.4) fL Immature Gran % (Auto) 0.3 % Neut % (Auto) 52.5 % Lymph % (Auto) 39.0 % [place] % (Auto) 5.9 % Eos % (Auto) 1.6 % Baso % (Auto) 0.7 % Neut # (Auto) 4.03 (1.4-6.5) K/uL Lymph # (Auto) 2.99 (1.2-3.4) K/uL [place] # (Auto) 0.45 (0.11-0.59) K/uL Eos # (Auto) 0.12 (0-0.5) K/uL Baso # (Auto) 0.05 (0-0.2) K/uL Immature Gran # (Auto) 0.02 (0.00-0.02) K/uL ESR (0-30) mm/hr APTT (21.0-31.0) Seconds PTT Ratio Sodium 139 (136-145) mmol/L Potassium 4.2 (3.5-5.1) mmol/L Chloride 109 H (98-107) mmol/L Carbon Dioxide 22 (21-32) mmol/L Anion Gap 8.0 (3-11) BUN 13 (7-18) mg/dl Creatinine 1.62 H (0.6-1.2) mg/dl Est Cr Clr Drug Dosing 37.8 ml/min Est GFR ( Amer) 39.9 ml/min Est GFR (Non-Af Amer) 34.4 ml/min BUN/Creatinine Ratio 7.8 L (10-20) Glucose 167 H (70-99) mg/dl POC Glucose (70-99) mg/dl Estimat Average Glucose mg/dl Hemoglobin A1c (4.5-5.6) % Calcium 8.4 L (8.5-10.1) mg/dl Ionized Calcium (1.12-1.32) mmol/L Phosphorus (2.5-4.9) mg/dl Magnesium Cancelled (1.8-2.4) mg/dl Iron (35-150) mcg/dl TIBC (250-450) mcg/dl Transferrin (200-360) mg/dl Ferritin (8-388) ng/ml Total Bilirubin 0.3 (0.2-1) mg/dl AST 17 (15-37) U/L ALT 16 (12-78) U/L Alkaline Phosphatase 69 (45-117) U/L Troponin I 0.869 H* (0-0.045) ng/ml C-Reactive Protein (0-0.29) mg/dl Total Protein 6.0 L (6.4-8.2) gm/dl Albumin 2.6 L (3.4-5.0) gm/dl Globulin 3.4 (2.5-4.0) gm/dl Albumin/Globulin Ratio 0.8 L (0.9-2) Prealbumin (20-40) mg/dl Triglycerides (0-150) mg/dl Cholesterol (0-200) mg/dl LDL Cholesterol, Calc mg/dl VLDL Cholesterol, Calc mg/dl HDL Cholesterol mg/dl Cholesterol/HDL Ratio Lipase (73-393) U/L Vitamin B12 (193-986) pg/ml 25-OH Vitamin D Total (30-100) ng/ml Folate (>5.38) ng/ml TSH (0.300-4.500) uIu/ml PTH Intact (18.4-80.1) pg/ml Urine Color Urine Appearance (Clear) Urine pH (4.5-7.5) Ur Specific [place] (1.000-1.030) Urine Protein (Negative) Urine Glucose (UA) (Negative) Urine Ketones (Negative) Urine Blood (Negative) Urine Nitrite (Negative) Urine Bilirubin (Negative) Urine Urobilinogen (Negative) Ur Leukocyte Esterase (Negative) SARS-CoV-2, RNA, NAAT (NEGATIVE) 02/05/21 02/05/21 02/05/21 Range/Units 03:38 08:42 11:35 WBC (4.8-10.8) K/uL RBC (4.2-5.4) M/uL Hgb (12.0-16.0) g/dL Hct (37-47) % MCV (80-100) fL MCH (25-34) pg MCHC (32-36) g/dL RDW Std Deviation (36.4-46.3) fL RDW Coeff of Génesis (11.5-14.5) % Plt Count (130-400) K/uL MPV (7.4-10.4) fL Immature Gran % (Auto) % Neut % (Auto) % Lymph % (Auto) % [place] % (Auto) % Eos % (Auto) % Baso % (Auto) % Neut # (Auto) (1.4-6.5) K/uL Lymph # (Auto) (1.2-3.4) K/uL [place] # (Auto) (0.11-0.59) K/uL Eos # (Auto) (0-0.5) K/uL Baso # (Auto) (0-0.2) K/uL Immature Gran # (Auto) (0.00-0.02) K/uL ESR (0-30) mm/hr APTT (21.0-31.0) Seconds PTT Ratio Sodium (136-145) mmol/L Potassium (3.5-5.1) mmol/L Chloride (98-107) mmol/L Carbon Dioxide (21-32) mmol/L Anion Gap (3-11) BUN (7-18) mg/dl Creatinine (0.6-1.2) mg/dl Est Cr Clr Drug Dosing ml/min Est GFR ( Amer) ml/min Est GFR (Non-Af Amer) ml/min BUN/Creatinine Ratio (10-20) Glucose (70-99) mg/dl POC Glucose 180 H (70-99) mg/dl Estimat Average Glucose mg/dl Hemoglobin A1c (4.5-5.6) % Calcium (8.5-10.1) mg/dl Ionized Calcium 1.09 L (1.12-1.32) mmol/L Phosphorus (2.5-4.9) mg/dl Magnesium (1.8-2.4) mg/dl Iron (35-150) mcg/dl TIBC (250-450) mcg/dl Transferrin (200-360) mg/dl Ferritin (8-388) ng/ml Total Bilirubin (0.2-1) mg/dl AST (15-37) U/L ALT (12-78) U/L Alkaline Phosphatase (45-117) U/L Troponin I 0.543 H* (0-0.045) ng/ml C-Reactive Protein (0-0.29) mg/dl Total Protein (6.4-8.2) gm/dl Albumin (3.4-5.0) gm/dl Globulin (2.5-4.0) gm/dl Albumin/Globulin Ratio (0.9-2) Prealbumin (20-40) mg/dl Triglycerides (0-150) mg/dl Cholesterol (0-200) mg/dl LDL Cholesterol, Calc mg/dl VLDL Cholesterol, Calc mg/dl HDL Cholesterol mg/dl Cholesterol/HDL Ratio Lipase (73-393) U/L Vitamin B12 (193-986) pg/ml 25-OH Vitamin D Total (30-100) ng/ml Folate (>5.38) ng/ml TSH (0.300-4.500) uIu/ml PTH Intact (18.4-80.1) pg/ml Urine Color Urine Appearance (Clear) Urine pH (4.5-7.5) Ur Specific [place] (1.000-1.030) Urine Protein (Negative) Urine Glucose (UA) (Negative) Urine Ketones (Negative) Urine Blood (Negative) Urine Nitrite (Negative) Urine Bilirubin (Negative) Urine Urobilinogen (Negative) Ur Leukocyte Esterase (Negative) SARS-CoV-2, RNA, NAAT (NEGATIVE) ECG Data Attestation: I personally reviewed and interpreted this ECG as follows: Indication: + syncope and + weakness Rate (beats per minute): 89 Rhythm: + normal sinus ECG Intervals/blocks: + Normal QRS and + Normal QT ECG [place]: + Normal ECG ST segments: + Nonspecific ST abnormalities MDM Narrative This is a 60-year-old female presents emergency department complaining of multiple syncopal events over the weekend and persistent weakness and paresthesias. Patient found to have abnormal electrolytes including significant hypomagnesemia. She did appear clinically dehydrated initially was started on IV fluids, IV magnesium was added. Initial neuro imaging performed to rule out [employer] etiology of the syncope did reveal a narrowed area however no acute ICH or CVA. There was mention on the angiography of the neck of a PE. Given need for admission, case was discussed with hospitalist however I did add a CT angiography of the chest to better evaluate the PE. Initiation of anticoagulati on was deferred until results of this were known and the hospitalist planned to follow this up. No ectopy or dysrhythmia noted on telemetry despite patient reporting a sense of racing heart over the weekend. It is unclear if the episodes of syncope could have been precipitated by dysrhythmia. Mild elevation of the patient's creatinine likely consistent with dehydration as she reports poor p.o. intake. I am less suspicious of recurrent seizures over the weekend. No tachycardia or hypoxia noted while monitored in the emergency room, troponin negative. I do not suspect saddle PE or right heart strain. No evidence for bacteremia/sepsis. An order was placed for continuous cardiac monitoring. The monitor shows a rate of _88__ with _normal sinus_ rhythm. Impression & Plan Syncope, Hypomagnesemia, Pulmonary embolism, Hypocalcemia, Palpitations Discharge Plan Visit Data Chief Complaint: Syncope Stated Complaint: [employer]INGL[employer] NUMBNESS ALL OVER, Discharge Problem: Syncope, Hypomagnesemia, Pulmonary embolism, Hypocalcemia, Palpitations Patient Disposition: Admitted As Inpatient Discharge Instructions Interventions: ED Discharge Assessment Last Done: 02/04/21 00:33
[2021-02-03 19:37] LABS: Appearance Urine Clear (Clear); Bilirubin Urine Negative (Negative); Blood Urine Negative (Negative); Color Urine Yellow; Glucose Urine UA Negative (Negative); Ketones Urine Negative (Negative); Leukocyte Esterase Urine Negative (Negative); Nitrite Urine Negative (Negative); Protein Urine Negative (Negative); Specific Gravity Urine 1.004 (1.000-1.030); Urobilinogen Urine Negative (Negative); pH Urine 6.5 (4.5-7.5)
[2021-02-03 19:42] LABS: Magnesium 0.8 mg/dl (1.8-2.4)
[2021-02-03] MEDS: SODIUM CHLORIDE 0.9% 1000ML 1,000 ML IV SCH (19:54)
[2021-02-03] MEDS ORDERED: OPTIRAY 320 125ml IV ONE (20:10)
--- NOTE | 2021-02-03 20:30 | CT Scan Report ---
UNENHANCED CT OF THE BRAIN; CT ANGIOGRAM OF THE BRAIN; CT ANGIOGRAM OF THE NECK CLINICAL HISTORY: Syncope. Paresthesias. COMPARISON STUDY: CT of the brain dated 12/24/2019. TECHNIQUE: Unenhanced axial CT scan of the brain is performed. Subsequently, following the IV adminis tration of 121 of [address] [address], CT angiogram of the head and neck was performed from the aortic arch t o the vertex. Images are reviewed in the axial, sagittal, and coronal planes. 3-D MIPS images are cre ated and assessed. IV contrast was administered without complication. All measurements were calculate d based on NASCET criteria. A dose lowering technique was utilized adhering to the principles of ALA RA. CT DOSE: 1138.24 mGy.cm FINDINGS: Brain parenchyma: The brain parenchyma is normal in appearance. There is no hemorrhage, mass effect, or evidence of acute territorial ischemia by CT criteria. There is no evidence of enhancing mass lesi on on the angiogram phase images. The ventricles, sulci, and cisterns are normal in configuration. Gr ay-white matter differentiation is preserved. No extra-axial fluid collection is seen. Thoracic aorta: Visualized portions of the thoracic aorta are normal in caliber. The aortic arch demo nstrates bovine variant anatomy. Right carotid arterial system: The right common carotid artery is widely patent, as are the right int ernal and external carotid arteries. Left carotid arterial system: The left common carotid artery is widely patent, as are the left international guest coordinator al and external carotid arteries. Vertebral arteries: The vertebral arteries are widely patent bilaterally and codominant. Subclavian arteries: Widely patent bilaterally. Intracranial vasculature: The internal carotid arteries are patent at the skull base, as are the ante rior and middle cerebral arteries bilaterally. There is focal high-grade stenosis within the A2 segme nt of the left anterior cerebral artery, best seen on axial image #130. The vertebrobasilar system an d posterior cerebral arteries are widely patent. The vertebral arteries are codominant. 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 No focal vess el cut off is seen throughout the intracranial circulation. Jugular veins: Patent bilaterally. Dural sinuses: Patent. Upper chest: Segmental and subsegmental pulmonary emboli are seen within branches of the right upper lobe pulmonary artery (axial image #40 of the neck angiogram). Upper lobe lung parenchyma is clear as imaged. Soft tissues: The visualized pharyngeal soft tissues are normal in appearance noting angiographic pha se technique. The oropharyngeal airway appears widely patent. The salivary and thyroid glands are nor mal in appearance. No cervical lymphadenopathy is seen. Skeletal structures: The calvarium appears intact. The cervical spine is maintained noting mild spond ylosis. There is bony fusion at C5-C6. No lytic or blastic lesion is seen. Orbits: The bony orbits are intact. Orbital contents are normal as visualized. Sinuses and mastoids: The paranasal sinuses are clear. There are trace mastoid effusions. IMPRESSION: 1. There are pulmonary emboli within segmental and subsegmental branches of the right upper lobe pulm onary artery. 2. There is no hemorrhage, mass effect, or evidence of acute territorial ischemia by CT criteria. 3. Unremarkable CT angiogram of the neck. 4. 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 5. 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 6. The remaining intracranial vessels are patent. ACT 112: Negative or not required by law. Electronically signed by: Austyn Neil M.D. 02/03/2021 8:29 PM
[2021-02-03] MEDS: MAGNESIUM SULFATE / D5W 1 GM/100 ML BAG IV SCH ×2 (21:43→22:57)
[2021-02-03] MEDS ORDERED: hydrALAZINE HCL 20 MG/ML VIAL IV STA (22:58)
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
[2021-02-04 00:18] LABS: C Reactive Protein 0.89 mg/dl (0-0.29)
[2021-02-04] MEDS ORDERED: ALPRAZolam 0.5 MG TABLET PO PRN (00:21)
[2021-02-04] MEDS ORDERED: ONDANSETRON INJ 2 MG/ML 2 ML VIAL IV PRN (00:21)
[2021-02-04] MEDS ORDERED: NITROGLYCERIN SL 0.4 MG/TAB TAB SL PRN (00:21)
[2021-02-04] MEDS ORDERED: GLUCOSE 40% GEL 15 GM TUBE PO PRN (00:21)
[2021-02-04] MEDS ORDERED: GLUCAGON FOR INJ 1 MG VIAL SQ PRN (00:21)
[2021-02-04] MEDS ORDERED: DEXTROSE 50% 50 ML SYRINGE IV PRN (00:21)
[2021-02-04] MEDS ORDERED: CARBOHYDRATES FOR HYPOGLYCEMIA PO PRN (00:21)
[2021-02-04] MEDS ORDERED: ACETAMINOPHEN 325 MG TAB PO PRN (00:21)
[2021-02-04] MEDS ORDERED: GLUCOSE 10 TABS/TUBE PO PRN (00:21)
[2021-02-04] MEDS ORDERED: GADOBUTROL 65ML VIAL IV ONE (01:03)
[2021-02-04] MEDS ORDERED: OPTIRAY 320 125ml IV ONE (01:47)
[2021-02-04] MEDS ORDERED: Heparin IV Adult Wt-Based Standard *NO* Bolus Protocol IV ONE (02:08)
[2021-02-04] MEDS ORDERED: HEPARIN SODIUM/DEXTROSE 25,000 UNITS/500 ML BAG IV SCH (02:30)
[2021-02-04 02:49] LABS: Partial Thromboplastin Time 26.9 Seconds (21.0-31.0)
[2021-02-04] MEDS: SODIUM CHLORIDE 0.9% 1000ML 1,000 ML IV SCH ×2 (05:29→13:38)
[2021-02-04 06:43] LABS: Basophils # (auto) 0.04 K/uL (0-0.2); Basophils % (auto) 0.6 %; Eosinophils # (auto) 0.09 K/uL (0-0.5); Eosinophils % (auto) 1.3 %; Hematocrit (blood only) 35.2 % (37-47); Hemoglobin 11.5 g/dL (12.0-16.0); Immature Granulocytes # (auto) 0.02 K/uL (0.00-0.02); Immature Granulocytes % (auto) 0.3 %; Lymphocytes # (auto) 1.68 K/uL (1.2-3.4); Lymphocytes % (auto) 23.4 %; Mean Corpuscular Hemoglobin 28.8 pg (25-34); Mean Corpuscular Hgb Conc 32.7 g/dL (32-36); Mean Corpuscular Volume 88.2 fL (80-100); Mean Platelet Volume 9.9 fL (7.4-10.4); Monocytes # (auto) 0.55 K/uL (0.11-0.59); Monocytes % (auto) 7.7 %; Neutrophils % (auto) 66.7 %; Platelet Count 269 K/uL (130-400); RDW Coefficient of Variation 14.6 % (11.5-14.5); RDW Standard Deviation 47.4 fL (36.4-46.3); Red Blood Count 3.99 M/uL (4.2-5.4); White Blood Count 7.18 K/uL (4.8-10.8)
[2021-02-04 07:13] LABS: Potassium 3.5 mmol/L (3.5-5.1)
--- NOTE | 2021-02-04 07:58 | Ultrasound Report ---
US venous doppler LE BI CLINICAL HISTORY: PE, dvt COMPARISON: None available at the time of this dictation. TECHNIQUE: Bilateral lower extremity real-time compression venous ultrasound with Color Doppler imagi ng. Utilizing real-time ultrasonic imaging multiple real time high-resolution ultrasonic images with comp ression and noncompression maneuvers of the deep venous system in addition to color doppler imaging w ere performed from the common femoral vein through the proximal calf veins. FINDINGS: Currently there is normal compressibility of the deep venous system from the common femoral vein thro ugh the proximal calf veins. No current evidence of acute thrombosis is identified. Impression: No evidence of deep venous thrombus. ACT 112: Negative or not required by law. Electronically signed by: Diogo Leal M.D. 02/04/2021 7:57 AM
[2021-02-04] MEDS ORDERED: FLUARIX QUADRIVALENT 0.5 ML SYR IM ONE (08:00)
--- NOTE | 2021-02-04 08:17 | Magnetic Resonance Report ---
MRI OF THE BRAIN COMBO CLINICAL HISTORY: Visual changes. COMPARISON STUDY: CT of the brain dated 02/03/2021. TECHNIQUE: MRI of the brain was performed utilizing various T1 and T2-weighted sequences in the axial , sagittal, and coronal planes. Contrast-enhanced sequences were acquired following the administratio n of 8.5 cc of Gadavist. FINDINGS: Brain parenchyma: There is mild microangiopathic change. The brain parenchyma is otherwise normal in appearance. There is no hemorrhage or mass effect. There is no restricted diffusion to suggest acute ischemia. No enhancing mass lesion is identified on the postcontrast images. Dewey-white matter differ entiation is preserved. No extra-axial fluid collection is seen. The cerebellar tonsils are normal in configuration. Ventricles, sulci, and cisterns: Normal in configuration. Pituitary and sella: Partially empty sella is incidentally noted. Intracranial vasculature: Normal flow voids are maintained at the skull base. Orbits: The bony orbits are grossly intact. Orbital contents are normal in appearance. Sinuses and mastoids: There is mild mucosal thickening in the right frontal sinus. The remaining para nasal sinuses are clear. There are trace mastoid effusions. Calvarium: Unremarkable. Cervical cord: Partially visualized cervical spinal cord is normal in morphology and signal intensity . IMPRESSION: No acute intracranial abnormality. ACT 112: Negative or not required by law. Electronically signed by: Austyn Neil M.D. 02/04/2021 8:15 AM
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
[2021-02-04 08:30] LABS: Albumin Level 2.7 gm/dl (3.4-5.0); BUN Creatinine Ratio 6.1 (10-20); Calcium 6.7 mg/dl (8.5-10.1); Est GFR (African American) 54.5 ml/min; Magnesium 1.7 mg/dl (1.8-2.4)
[2021-02-04 08:33] LABS: Albumin Globulin Ratio 0.8 (0.9-2); Bilirubin,Total 0.4 mg/dl (0.2-1); Globulin 3.5 gm/dl (2.5-4.0); Phosphorus 4.3 mg/dl (2.5-4.9); Total Protein 6.2 gm/dl (6.4-8.2)
[2021-02-04 08:39] LABS: Estimated Average Glucose 171 mg/dl; Hemoglobin A1C 7.6 % (4.5-5.6)
[2021-02-04] MEDS: INSULIN ASPART 100 UNITS/ML 3 ML PEN SC SCH ×4 (08:53→22:16)
[2021-02-04] MEDS: FLUoxetine HCL 10 MG CAP PO SCH (09:04)
[2021-02-04] MEDS: ASPIRIN 81 MG ECTAB PO SCH (09:04)
[2021-02-04] MEDS: RIVAROXABAN 15 MG TAB PO SCH ×2 (09:04→22:15)
[2021-02-04] MEDS: POLYETHYLENE (MIRALAX) 17 GM PACK PO SCH (09:04)
--- NOTE | 2021-02-04 09:12 | XCELERA ---
[id number]
--- NOTE | 2021-02-04 09:21 | CT Scan Report ---
CHEST CTA for PULMONARY ARTERIES CT DOSE: 322.74 mGy.cm HISTORY: Mid sternal chest pain. Assess for pulmonary embolus. TECHNIQUE: Multiaxial CT images of the chest were performed following the intravenous administration of contrast to evaluate the pulmonary arteries. Maximal intensity projection images were also obtaine d. A dose lowering technique was utilized adhering to the principles of ALARA. COMPARISON STUDY: Chest CT 08/25/2020. FINDINGS: Cholecystectomy. The visualized spleen and adrenal glands are unremarkable. Stable 1.3 cm c yst within the left hepatic lobe. No pleural effusions. The heart is normal in size. No lymphadenopat hy within the chest. Normal esophagus. Normal caliber thoracic aorta with no evidence for dissection. There is a single small acute pulmonary embolus seen within a subsegmental branch of the right upper lobe on image 208. No central pulmonary emboli identified. Trace pericardial fluid is noted. No frac tures within the visualized osseous structures. No pneumothorax. The central airways are patent. Ther e is mild diffuse bronchial wall thickening. Mild peripheral interstitial thickening with mild interl obular septal thickening at the lung bases. This could represent mild congestive change or a chronic interstitial process. IMPRESSION: 1. A single subsegmental pulmonary embolus seen within the right upper lobe. No central pulmonary emb milagros identified. 2. Mild peripheral interstitial thickening with mild interlobular thickening at the lung bases. This could represent mild congestive change or a chronic interstitial process. 3. No focal lung consolidations to suggest pneumonia. 4. Trace pericardial effusion. ACT 112: Negative or not required by law. Electronically signed by: Brigido Ontiveros M.D. 02/04/2021 9:20 AM
[2021-02-04] MEDS: oxyCODONE HCL 20 MG TABCR (OxyCONTIN) PO SCH ×2 (09:49→20:17)
--- NOTE | 2021-02-04 09:56 | Cardiology Consultation ---
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 02/03/21 21:52 CHEST CTA for PULMONARY ARTERIES CT DOSE: 322.74 mGy.cm HISTORY: Mid sternal chest pain. Assess for pulmonary embolus. TECHNIQUE: Multiaxial CT images of the chest were performed following the intravenous administration of contrast to evaluate the pulmonary arteries. Maximal intensity projection images were also obtained. A dose lowering technique was utilized adhering to the principles of ALARA. COMPARISON STUDY: Chest CT 08/25/2020. FINDINGS: Cholecystectomy. The visualized spleen and adrenal glands are unremarkable. Stable 1.3 cm cyst within the left hepatic lobe. No pleural effusions. The heart is normal in size. No lymphadenopathy within the chest. Normal esophagus. Normal caliber thoracic aorta with no evidence for dissection. There is a single small acute pulmonary embolus seen within a subsegmental branch of the right upper lobe on image 208. No central pulmonary emboli identified. Trace pericardial fluid is noted. No fractures within the visualized osseous structures. No pneumothorax. The central airways are patent. There is mild diffuse bronchial wall thickening. Mild peripheral interstitial thickening with mild interlobular septal thickening at the lung bases. This could represent mild congestive change or a chronic interstitial process. IMPRESSION: 1. A single subsegmental pulmonary embolus seen within the right upper lobe. No central pulmonary emboli identified. 2. Mild peripheral interstitial thickening with mild interlobular thickening at the lung bases. This could represent mild congestive change or a chronic interstitial process. 3. No focal lung consolidations to suggest pneumonia. 4. Trace pericardial effusion. Venous Doppler Study 02/03/21 23:27 US venous doppler LE BI CLINICAL HISTORY: PE, dvt COMPARISON: None available at the time of this dictation. TECHNIQUE: Bilateral lower extremity real-time compression venous ultrasound with Color Doppler imaging. Utilizing real-time ultrasonic imaging multiple real time high-resolution ultrasonic images with compression and noncompression maneuvers of the deep venous system in addition to color doppler imaging were performed from the common femoral vein through the proximal calf veins. FINDINGS: Currently there is normal compressibility of the deep venous system from the common femoral vein through the proximal calf veins. No current evidence of acute thrombosis is identified. Impression: No evidence of deep venous thrombus. Brain MRI 02/04/21 23:09 MRI OF THE BRAIN COMBO CLINICAL HISTORY: Visual changes. COMPARISON STUDY: CT of the brain dated 02/03/2021. TECHNIQUE: MRI of the brain was performed utilizing various T1 and T2-weighted sequences in the axial, sagittal, and coronal planes. Contrast-enhanced sequences were acquired following the administration of 8.5 cc of Gadavist. FINDINGS: Brain parenchyma: There is mild microangiopathic change. The brain parenchyma is otherwise normal in appearance. There is no hemorrhage or mass effect. There is no restricted diffusion to suggest acute ischemia. No enhancing mass lesion is identified on the postcontrast images. Dewey-white matter differentiation is preserved. No extra-axial fluid collection is seen. The cerebellar tonsils are normal in configuration. Ventricles, sulci, and cisterns: Normal in configuration. Pituitary and sella: Partially empty sella is incidentally noted. Intracranial vasculature: Normal flow voids are maintained at the skull base. Orbits: The bony orbits are grossly intact. Orbital contents are normal in appearance. Sinuses and mastoids: There is mild mucosal thickening in the right frontal sinus. The remaining paranasal sinuses are clear. There are trace mastoid effusions. Calvarium: Unremarkable. Cervical cord: Partially visualized cervical spinal cord is normal in morphology and signal intensity. IMPRESSION: No acute intracranial abnormality. Telemetry: Sinus rhythm with PVCs. No arrhythmia. Echo: Normal LV size with mildly reduced systolic function. EF 45-50%. Septal akinesis. Mild AI. Mild MR. Normal RVSP. Compared to prior study on 09/16/20, septal wall motion abnormality is new and LV systolic function has declined slightly. ECGs: Normal sinus rhythm. No acute ST-T wave abnormality. PG Care Time/CCT Total # of Minutes Spent Total Time Spent with Patient: Total time spent is greater than 50% in coordination of care (as documented) at patient's floor/unit and/or counseling patient: Coding Level of Care Code 96008 Inpt Consult Level 4 Diagnoses Syncope R55
[2021-02-04] MEDS: METOPROLOL TARTRATE 25 MG TAB PO SCH ×2 (10:29→22:14)
[2021-02-04 16:17] LABS: Folate (Folic Acid) 7.7 ng/ml (>5.38)
[2021-02-04] MEDS ORDERED: ERGOCALCIFEROL 50,000 UNITS 1250 MCG CAP PO STA (17:06)
[2021-02-04] MEDS ORDERED: CALCIUM GLUCONATE 10% 2,000 MG in SODIUM CHLORIDE 0.9% 50 ML IV STA ×2 (17:11→21:43)
[2021-02-04 17:28] LABS: Ferritin 244.6 ng/ml (8-388); Prealbumin 14.7 mg/dl (20-40)
--- NOTE | 2021-02-04 18:25 | Electrocardiogram Report ---
Test Reason : Blood Pressure : / mmHG Vent. Rate : 081 BPM Atrial Rate : 081 BPM P-R Int : 136 ms QRS Dur : 078 ms QT Int : 416 ms P-R-T Axes : 028 047 092 degrees QTc Int : 483 ms Poor data quality, interpretation may be adversely affected Normal sinus rhythm Nonspecific ST and T wave abnormality Prolonged QT Abnormal ECG When compared with ECG of 03-FEB-2021 18:06, No significant change was found Confirmed by Juan Fletcher ([id number]) on 02/04/2021 6:24:53 PM Referred By: REFERRED SELF Confirmed By:Juan Fletcher
--- NOTE | 2021-02-04 18:30 | Electrocardiogram Report ---
Test Reason : Blood Pressure : / mmHG Vent. Rate : 089 BPM Atrial Rate : 089 BPM P-R Int : 134 ms QRS Dur : 076 ms QT Int : 384 ms P-R-T Axes : 018 018 063 degrees QTc Int : 467 ms Normal sinus rhythm Nonspecific ST abnormality Anterior leads Nonspecific T wave abnormality Lateral leads Abnormal ECG When compared with ECG of 27-DEC-2019 14:18, Nonspecific T wave abnormality no longer evident in Inferior leads Confirmed by Juan Fletcher ([id number]) on 02/04/2021 6:29:50 PM Referred By: REFERRED SELF Confirmed By:Juan Fletcher
--- NOTE | 2021-02-04 21:01 | Billing Data ---
Date of Service February 04, 2021 Coding Level of Care Code INT OBSERVATION CARE 70M LVL 3
[2021-02-04 21:06] LABS: BUN Creatinine Ratio 6.5 (10-20); Calcium 7.8 mg/dl (8.5-10.1); Creatinine Clr Calc Pharmacy 43.4 ml/min; Est GFR (African American) 47.1 ml/min; Est GFR (Non-African American) 40.7 ml/min; Magnesium 1.7 mg/dl (1.8-2.4); Potassium 4.1 mmol/L (3.5-5.1)
[2021-02-04 21:19] LABS: Troponin I 1.06 ng/ml (0-0.045)
[2021-02-04] MEDS: DOXEPIN HCL 75 MG CAPSULE PO SCH (22:13)
[2021-02-04] MEDS: MAGNESIUM SULFATE / D5W 1 GM/100 ML BAG IV SCH (22:31)
[2021-02-05] MEDS: MAGNESIUM SULFATE / D5W 1 GM/100 ML BAG IV SCH ×2 (00:39→07:21)
[2021-02-05 04:02] LABS: Basophils # (auto) 0.05 K/uL (0-0.2); Basophils % (auto) 0.7 %; Eosinophils # (auto) 0.12 K/uL (0-0.5); Eosinophils % (auto) 1.6 %; Hematocrit (blood only) 34.9 % (37-47); Hemoglobin 11.8 g/dL (12.0-16.0); Immature Granulocytes # (auto) 0.02 K/uL (0.00-0.02); Immature Granulocytes % (auto) 0.3 %; Lymphocytes # (auto) 2.99 K/uL (1.2-3.4); Mean Corpuscular Hemoglobin 30.3 pg (25-34); Mean Corpuscular Hgb Conc 33.8 g/dL (32-36); Mean Corpuscular Volume 89.5 fL (80-100); Monocytes # (auto) 0.45 K/uL (0.11-0.59); Monocytes % (auto) 5.9 %; Neutrophils # (auto) 4.03 K/uL (1.4-6.5); Neutrophils % (auto) 52.5 %; Platelet Count 292 K/uL (130-400); RDW Standard Deviation 48.3 fL (36.4-46.3); White Blood Count 7.66 K/uL (4.8-10.8)
[2021-02-05 04:18] LABS: Albumin Level 2.6 gm/dl (3.4-5.0); BUN Creatinine Ratio 7.8 (10-20); Calcium 8.4 mg/dl (8.5-10.1); Creatinine Clr Calc Pharmacy 37.8 ml/min; Est GFR (African American) 39.9 ml/min; Est GFR (Non-African American) 34.4 ml/min; Potassium 4.2 mmol/L (3.5-5.1)
[2021-02-05 04:21] LABS: Albumin Globulin Ratio 0.8 (0.9-2); Bilirubin,Total 0.3 mg/dl (0.2-1); Globulin 3.4 gm/dl (2.5-4.0)
[2021-02-05] MEDS: FLUoxetine HCL 10 MG CAP PO SCH (09:13)
[2021-02-05] MEDS: oxyCODONE HCL 20 MG TABCR (OxyCONTIN) PO SCH ×2 (09:14→20:16)
[2021-02-05] MEDS: POLYETHYLENE (MIRALAX) 17 GM PACK PO SCH (09:15)
[2021-02-05] MEDS: ASPIRIN 81 MG ECTAB PO SCH (09:15)
[2021-02-05] MEDS: METOPROLOL TARTRATE 25 MG TAB PO SCH ×2 (09:16→20:16)
[2021-02-05] MEDS: RIVAROXABAN 15 MG TAB PO SCH ×2 (09:16→20:17)
[2021-02-05] MEDS: INSULIN ASPART 100 UNITS/ML 3 ML PEN SC SCH ×4 (09:19→20:19)
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
[2021-02-05 17:01] LABS: BUN Creatinine Ratio 9.6 (10-20); Calcium 8.4 mg/dl (8.5-10.1); Creatinine Clr Calc Pharmacy 37.6 ml/min; Est GFR (African American) 40.5 ml/min; Est GFR (Non-African American) 34.9 ml/min
[2021-02-05] MEDS: PRAVASTATIN SOD 40 MG TAB PO SCH (17:11)
[2021-02-05 17:51] LABS: Magnesium 2.1 mg/dl (1.8-2.4)
[2021-02-05] MEDS: DOXEPIN HCL 75 MG CAPSULE PO SCH (22:34)
[2021-02-06 06:06] LABS: Basophils # (auto) 0.06 K/uL (0-0.2); Eosinophils # (auto) 0.15 K/uL (0-0.5); Eosinophils % (auto) 2.5 %; Hematocrit (blood only) 32.6 % (37-47); Hemoglobin 10.4 g/dL (12.0-16.0); Immature Granulocytes # (auto) 0.01 K/uL (0.00-0.02); Immature Granulocytes % (auto) 0.2 %; Lymphocytes # (auto) 2.82 K/uL (1.2-3.4); Lymphocytes % (auto) 47.9 %; Mean Corpuscular Hemoglobin 28.5 pg (25-34); Mean Corpuscular Hgb Conc 31.9 g/dL (32-36); Mean Corpuscular Volume 89.3 fL (80-100); Mean Platelet Volume 9.8 fL (7.4-10.4); Monocytes # (auto) 0.43 K/uL (0.11-0.59); Monocytes % (auto) 7.3 %; Neutrophils # (auto) 2.42 K/uL (1.4-6.5); Neutrophils % (auto) 41.1 %; Platelet Count 241 K/uL (130-400); RDW Coefficient of Variation 14.5 % (11.5-14.5); RDW Standard Deviation 47.5 fL (36.4-46.3); Red Blood Count 3.65 M/uL (4.2-5.4); White Blood Count 5.89 K/uL (4.8-10.8)
[2021-02-06 06:38] LABS: Albumin Level 2.4 gm/dl (3.4-5.0); BUN Creatinine Ratio 11.5 (10-20); Calcium 8.2 mg/dl (8.5-10.1); Creatinine Clr Calc Pharmacy 39.8 ml/min; Est GFR (African American) 43.4 ml/min; Est GFR (Non-African American) 37.4 ml/min; Potassium 4.2 mmol/L (3.5-5.1)
[2021-02-06 06:40] LABS: Albumin Globulin Ratio 0.8 (0.9-2); Bilirubin,Total 0.4 mg/dl (0.2-1); Total Protein 5.4 gm/dl (6.4-8.2)
[2021-02-06] MEDS: INSULIN ASPART 100 UNITS/ML 3 ML PEN SC SCH ×3 (09:12→18:33)
[2021-02-06] MEDS: RIVAROXABAN 15 MG TAB PO SCH (09:13)
[2021-02-06] MEDS: METOPROLOL TARTRATE 25 MG TAB PO SCH (09:13)
[2021-02-06] MEDS: FLUoxetine HCL 10 MG CAP PO SCH (09:14)
[2021-02-06] MEDS: ASPIRIN 81 MG ECTAB PO SCH (09:14)
[2021-02-06] MEDS: oxyCODONE HCL 20 MG TABCR (OxyCONTIN) PO SCH (09:32)
--- NOTE | 2021-02-06 10:14 | Hospitalist Progress Note ---
Date of Service February 06, 2021 Assessment & Plan (1) Syncope: (2) Hypomagnesemia: (3) PE (pulmonary thromboembolism): (4) PTSD (post-traumatic stress disorder): (5) Diabetes mellitus type 2, uncontrolled: (6) Hypertension associated with chronic kidney disease due to type 2 diabetes mellitus: (7) Paresthesia: (8) Hypocalcemia: (9) Low vitamin D level: (10) Anemia: Admission and Anticipated Discharge Date Admission Date: February 05, 2021 Results & Data Results & Data ([facility]) Vital Signs (Past 12 Hours) Vital Signs Temp Pulse Pulse Resp BP Pulse Ox 02/06/21 07:11 36.4 C L 63 18 101/65 96 02/06/21 03:22 36.6 C 64 18 99/62 L 91 02/05/21 22:26 36.7 C 70 18 123/84 98 02/05/21 22:19 60 Laboratory Results 02/06/21 02/06/21 02/06/21 Range/Units 07:21 05:47 05:47 WBC (4.8-10.8) K/uL RBC (4.2-5.4) M/uL Hgb (12.0-16.0) g/dL Hct (37-47) % MCV (80-100) fL MCH (25-34) pg MCHC (32-36) g/dL RDW Std Deviation (36.4-46.3) fL RDW Coeff of Génesis (11.5-14.5) % Plt Count (130-400) K/uL MPV (7.4-10.4) fL Immature Gran % (Auto) % Neut % (Auto) % Lymph % (Auto) % [place] % (Auto) % Eos % (Auto) % Baso % (Auto) % Neut # (Auto) (1.4-6.5) K/uL Lymph # (Auto) (1.2-3.4) K/uL [place] # (Auto) (0.11-0.59) K/uL Eos # (Auto) (0-0.5) K/uL Baso # (Auto) (0-0.2) K/uL Immature Gran # (Auto) (0.00-0.02) K/uL Sodium 139 (136-145) mmol/L Potassium 4.2 (3.5-5.1) mmol/L Chloride 110 H (98-107) mmol/L Carbon Dioxide 25 (21-32) mmol/L Anion Gap 4.0 (3-11) BUN 17 (7-18) mg/dl Creatinine 1.51 H (0.6-1.2) mg/dl Est Cr Clr Drug Dosing 39.8 ml/min Est GFR ( Amer) 43.4 ml/min Est GFR (Non-Af Amer) 37.4 ml/min BUN/Creatinine Ratio 11.5 (10-20) Glucose 125 H (70-99) mg/dl POC Glucose 126 H (70-99) mg/dl Calcium 8.2 L (8.5-10.1) mg/dl Ionized Calcium 1.19 (1.12-1.32) mmol/L Magnesium Total Bilirubin 0.4 (0.2-1) mg/dl AST 14 L (15-37) U/L ALT 13 (12-78) U/L Alkaline Phosphatase 61 (45-117) U/L Total Protein 5.4 L (6.4-8.2) gm/dl Albumin 2.4 L (3.4-5.0) gm/dl Globulin 3.0 (2.5-4.0) gm/dl Albumin/Globulin Ratio 0.8 L (0.9-2) 02/06/21 02/05/21 02/05/21 Range/Units 05:47 20:09 17:21 WBC 5.89 (4.8-10.8) K/uL RBC 3.65 L (4.2-5.4) M/uL Hgb 10.4 L (12.0-16.0) g/dL Hct 32.6 L (37-47) % MCV 89.3 (80-100) fL MCH 28.5 (25-34) pg MCHC 31.9 L (32-36) g/dL RDW Std Deviation 47.5 H (36.4-46.3) fL RDW Coeff of Génesis 14.5 (11.5-14.5) % Plt Count 241 (130-400) K/uL MPV 9.8 (7.4-10.4) fL Immature Gran % (Auto) 0.2 % Neut % (Auto) 41.1 % Lymph % (Auto) 47.9 % [place] % (Auto) 7.3 % Eos % (Auto) 2.5 % Baso % (Auto) 1.0 % Neut # (Auto) 2.42 (1.4-6.5) K/uL Lymph # (Auto) 2.82 (1.2-3.4) K/uL [place] # (Auto) 0.43 (0.11-0.59) K/uL Eos # (Auto) 0.15 (0-0.5) K/uL Baso # (Auto) 0.06 (0-0.2) K/uL Immature Gran # (Auto) 0.01 (0.00-0.02) K/uL Sodium (136-145) mmol/L Potassium 4.0 (3.5-5.1) mmol/L Chloride (98-107) mmol/L Carbon Dioxide (21-32) mmol/L Anion Gap (3-11) BUN (7-18) mg/dl Creatinine (0.6-1.2) mg/dl Est Cr Clr Drug Dosing ml/min Est GFR ( Amer) ml/min Est GFR (Non-Af Amer) ml/min BUN/Creatinine Ratio (10-20) Glucose (70-99) mg/dl POC Glucose 194 H (70-99) mg/dl Calcium (8.5-10.1) mg/dl Ionized Calcium (1.12-1.32) mmol/L Magnesium 2.1 Total Bilirubin (0.2-1) mg/dl AST (15-37) U/L ALT (12-78) U/L Alkaline Phosphatase (45-117) U/L Total Protein (6.4-8.2) gm/dl Albumin (3.4-5.0) gm/dl Globulin (2.5-4.0) gm/dl Albumin/Globulin Ratio (0.9-2) 02/05/21 02/05/21 02/05/21 Range/Units 16:38 16:24 16:24 WBC (4.8-10.8) K/uL RBC (4.2-5.4) M/uL Hgb (12.0-16.0) g/dL Hct (37-47) % MCV (80-100) fL MCH (25-34) pg MCHC (32-36) g/dL RDW Std Deviation (36.4-46.3) fL RDW Coeff of Génesis (11.5-14.5) % Plt Count (130-400) K/uL MPV (7.4-10.4) fL Immature Gran % (Auto) % Neut % (Auto) % Lymph % (Auto) % [place] % (Auto) % Eos % (Auto) % Baso % (Auto) % Neut # (Auto) (1.4-6.5) K/uL Lymph # (Auto) (1.2-3.4) K/uL [place] # (Auto) (0.11-0.59) K/uL Eos # (Auto) (0-0.5) K/uL Baso # (Auto) (0-0.2) K/uL Immature Gran # (Auto) (0.00-0.02) K/uL Sodium 138 (136-145) mmol/L Potassium (3.5-5.1) mmol/L Chloride 109 H (98-107) mmol/L Carbon Dioxide 23 (21-32) mmol/L Anion Gap 6.0 (3-11) BUN 15 (7-18) mg/dl Creatinine 1.60 H (0.6-1.2) mg/dl Est Cr Clr Drug Dosing 37.6 ml/min Est GFR ( Amer) 40.5 ml/min Est GFR (Non-Af Amer) 34.9 ml/min BUN/Creatinine Ratio 9.6 L (10-20) Glucose 111 H (70-99) mg/dl POC Glucose 105 H (70-99) mg/dl Calcium 8.4 L (8.5-10.1) mg/dl Ionized Calcium 1.06 L (1.12-1.32) mmol/L Magnesium Total Bilirubin (0.2-1) mg/dl AST (15-37) U/L ALT (12-78) U/L Alkaline Phosphatase (45-117) U/L Total Protein (6.4-8.2) gm/dl Albumin (3.4-5.0) gm/dl Globulin (2.5-4.0) gm/dl Albumin/Globulin Ratio (0.9-2) 02/05/21 02/05/21 Range/Units 11:35 03:38 WBC (4.8-10.8) K/uL RBC (4.2-5.4) M/uL Hgb (12.0-16.0) g/dL Hct (37-47) % MCV (80-100) fL MCH (25-34) pg MCHC (32-36) g/dL RDW Std Deviation (36.4-46.3) fL RDW Coeff of Génesis (11.5-14.5) % Plt Count (130-400) K/uL MPV (7.4-10.4) fL Immature Gran % (Auto) % Neut % (Auto) % Lymph % (Auto) % [place] % (Auto) % Eos % (Auto) % Baso % (Auto) % Neut # (Auto) (1.4-6.5) K/uL Lymph # (Auto) (1.2-3.4) K/uL [place] # (Auto) (0.11-0.59) K/uL Eos # (Auto) (0-0.5) K/uL Baso # (Auto) (0-0.2) K/uL Immature Gran # (Auto) (0.00-0.02) K/uL Sodium (136-145) mmol/L Potassium (3.5-5.1) mmol/L Chloride (98-107) mmol/L Carbon Dioxide (21-32) mmol/L Anion Gap (3-11) BUN (7-18) mg/dl Creatinine (0.6-1.2) mg/dl Est Cr Clr Drug Dosing ml/min Est GFR ( Amer) ml/min Est GFR (Non-Af Amer) ml/min BUN/Creatinine Ratio (10-20) Glucose (70-99) mg/dl POC Glucose 180 H (70-99) mg/dl Calcium (8.5-10.1) mg/dl Ionized Calcium (1.12-1.32) mmol/L Magnesium Cancelled Total Bilirubin (0.2-1) mg/dl AST (15-37) U/L ALT (12-78) U/L Alkaline Phosphatase (45-117) U/L Total Protein (6.4-8.2) gm/dl Albumin (3.4-5.0) gm/dl Globulin (2.5-4.0) gm/dl Albumin/Globulin Ratio (0.9-2) :
[2021-02-06] MEDS: POLYETHYLENE (MIRALAX) 17 GM PACK PO SCH (10:16)
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
[2021-02-06] MEDS ORDERED: hydrOXYzine HCl 25 MG TAB PO PRN (11:20)
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
[2021-02-06] MEDS: PRAVASTATIN SOD 40 MG TAB PO SCH (17:05)
--- NOTE | 2021-02-06 17:43 | Communication Note ---
Date of Service: February 06, 2021 By CMS guidelines, a determination that the admission or continued stay is not medically necessary has been made by a member of the UR committee and a ph ysician for this hospital stay, therefore a Code 44 will be completed and the Inpatient admission will be changed to outpatient.
--- NOTE | 2021-02-06 17:49 | Communication Note ---
Date of Service: February 06, 2021 By CMS guidelines, a determination that the admission or continued stay is not medically necessary has been made by a member of the UR committee and sofiya christianson for this hospital stay, therefore a Code 44 will be completed and the Inpatient admission will be changed to outpatient. Yolette Tovar M.D.
[2021-02-07 23:31] LABS: Anti Cardiolipin Ab IgG <2.0 GPL-U/mL; Anti Cardiolipin Ab IgM <2.0 MPL-U/mL; Anti-Thrombin III Activity 101 % normal (80-135); Protein S Functional(Activity) 102 % (60-140)
[2021-02-08 00:21] LABS: B2 Glycoprotein IgG <2.0 U/mL (<20.0); B2 Glycoprotein IgM <2.0 U/mL (<20.0)
[2021-02-09 07:52] LABS: PTT LA Screen 25 sec (<=40)
[2021-02-10 17:37] LABS: Factor 5 Mutation NEGATIVE
== END 2021-02-06 18:36 | disposition home or self-care (01) | DRG 640 ==
LOC: ED 17:55 → EDINP 17:55 → SUATTDRO 22:51 → 2N 02-04 00:33

== ENCOUNTER 2021-04-06 09:22 | Inpatient (IN) ==
--- NOTE | 2021-04-06 10:03 | XRay Report ---
XR chest 1V portable CLINICAL HISTORY: Atypical chest pain. COMPARISON STUDY: Chest radiograph December 30, 2019. CT of the chest February 04, 2021. FINDINGS: Elevation of the right hemidiaphragm is unchanged. Lungs are clear. There is no pneumothora x or pleural effusion. Cardiac size is normal. Mediastinal contours are normal. There is no evidence for pulmonary edema. IMPRESSION: No acute cardiopulmonary findings. No change in appearance of the chest. ACT 112: Negative or not required by law. Electronically signed by: Mynor Garza M.D. 04/06/2021 10:02 AM
--- NOTE | 2021-04-06 10:30 | CT Scan Report ---
HEAD CT NONCONTRAST CT DOSE: 614.27 mGy.cm HISTORY: confusion, headache TECHNIQUE: Multiaxial CT images of the head were performed without the use of intravenous contrast. A utomated exposure control was utilized for this study. A dose lowering technique was utilized adheri ng to the principles of ALARA. Comparison: Head CT 02/03/2021. Findings: The paranasal sinuses and mastoid air cells are clear. The calvarium and skull base are int act. The ventricles and sulci are within normal limits. There is no mass, hematoma, midline shift, or acute infarct. Mild periventricular white matter hypodensity is nonspecific but favors microvascular ischemic change. This is unchanged compared to the prior study. Impression: No significant change compared to the prior study. No acute intracranial abnormality. ACT 112: Negative or not required by law. Electronically signed by: Brigido Ontiveros M.D. 04/06/2021 10:28 AM
[2021-04-06 10:52] LABS: Basophils # (auto) 0.03 K/uL (0-0.2); Basophils % (auto) 0.3 %; Eosinophils # (auto) 0.08 K/uL (0-0.5); Eosinophils % (auto) 0.8 %; Hematocrit (blood only) 35.8 % (37-47); Hemoglobin 11.8 g/dL (12.0-16.0); Immature Granulocytes # (auto) 0.04 K/uL (0.00-0.02); Immature Granulocytes % (auto) 0.4 %; Lymphocytes # (auto) 1.16 K/uL (1.2-3.4); Mean Corpuscular Hemoglobin 28.5 pg (25-34); Mean Corpuscular Volume 86.5 fL (80-100); Monocytes # (auto) 0.56 K/uL (0.11-0.59); Monocytes % (auto) 5.3 %; Neutrophils # (auto) 8.64 K/uL (1.4-6.5); Neutrophils % (auto) 82.2 %; Platelet Count 228 K/uL (130-400); RDW Coefficient of Variation 13.9 % (11.5-14.5); RDW Standard Deviation 43.9 fL (36.4-46.3); Red Blood Count 4.14 M/uL (4.2-5.4); White Blood Count 10.51 K/uL (4.8-10.8)
[2021-04-06 10:59] LABS: INR 1.1 (0.9-1.1); Prothrombin Time 11.5 Seconds (9.0-12.0)
[2021-04-06 11:16] LABS: Troponin I < 0.03 ng/ml (0-0.04)
[2021-04-06] MEDS ORDERED: SODIUM CHLORIDE 0.9% 500 ML IV ONE (11:24)
[2021-04-06] MEDS ORDERED: ACETAMINOPHEN 1,000 MG/100 ML VIAL IV STA (11:24)
[2021-04-06 11:36] LABS: Alanine Aminotransferase 9 U/L (7-52); Albumin Globulin Ratio 1.3 (0.9-2); Albumin Level 3.7 gm/dl (3.4-5.0); Alkaline Phosphatase 65 U/L (34-104); Anion Gap 13 (3-11); Aspartate Aminotransferase 17 U/L (13-39); BUN Creatinine Ratio 7.3 (10-20); Bilirubin,Total 0.3 mg/dl (0.2-1.0); Blood Urea Nitrogen 10 mg/dl (6-23); Calcium 5.8 mg/dl (8.5-10.1); Carbon Dioxide 24 mmol/L (21-32); Chloride 103 mmol/L (98-107); Creatinine Clr Calc Pharmacy 43.5 ml/min; Est GFR (African American) 48.8 ml/min; Est GFR (Non-African American) 42.1 ml/min; Globulin 2.8 gm/dl (2.5-4.0); Glucose 126 mg/dl (70-99(Fasting)); Lipase 12 U/L (11-82); Magnesium 0.6 mg/dl (1.7-2.4); Phosphorus 3.9 mg/dl (2.5-4.9); Potassium 3.2 mmol/L (3.5-5.1); Sodium 140 mmol/L (136-145); Total Protein 6.5 gm/dl (6.0-8.3)
[2021-04-06] MEDS ORDERED: CALCIUM GLUCONATE 1,000 MG/60 ML BAG IV STA ×2 (12:13→13:31)
[2021-04-06] MEDS: MAGNESIUM SULFATE / D5W 1 GM/100 ML BAG IV SCH ×2 (12:52→14:11)
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
[2021-04-06 12:54] LABS: Appearance Urine Clear (Clear); Bilirubin Urine Negative (Negative); Blood Urine Negative (Negative); Color Urine Yellow; Glucose Urine UA Negative (Negative); Ketones Urine Negative (Negative); Leukocyte Esterase Urine Negative (Negative); Nitrite Urine Negative (Negative); Protein Urine Negative (Negative); Specific Gravity Urine 1.006 (1.000-1.030); Urobilinogen Urine Negative (Negative); pH Urine 6.5 (4.5-7.5)
[2021-04-06] MEDS: POTASSIUM CHLORIDE / WTR 10 MEQ/100 ML PLCT IV SCH ×2 (13:21→14:47)
--- NOTE | 2021-04-06 14:05 | Electrocardiogram Report ---
Test Reason : Blood Pressure : / mmHG Vent. Rate : 075 BPM Atrial Rate : 075 BPM P-R Int : 156 ms QRS Dur : 082 ms QT Int : 426 ms P-R-T Axes : 004 022 061 degrees QTc Int : 475 ms Normal sinus rhythm Nonspecific ST abnormality Abnormal ECG When compared with ECG of 04-FEB-2021 02:45, No significant change was found Confirmed by Greg Russo ([id number]) on 04/06/2021 2:04:37 PM Referred By: REFERRED SELF Confirmed By:Greg Russo
[2021-04-06] MEDS ORDERED: GLUCOSE 40% GEL 15 GM TUBE PO PRN (15:37)
[2021-04-06] MEDS ORDERED: GLUCOSE 10 TABS/TUBE PO PRN (15:37)
[2021-04-06] MEDS ORDERED: DEXTROSE 50% 50 ML SYRINGE IV PRN (15:37)
[2021-04-06] MEDS ORDERED: CARBOHYDRATES FOR HYPOGLYCEMIA PO PRN (15:37)
[2021-04-06] MEDS ORDERED: GLUCAGON FOR INJ 1 MG VIAL SQ PRN (15:37)
--- NOTE | 2021-04-06 16:44 | Emergency Department Note ---
Impression & Plan Metabolic encephalopathy, Hypomagnesemia, Hypocalcemia, Hypokalemia, Renal insufficiency ED Provider Note NAME: ARIEL MENDOZA AGE: 60 SEX: F ARRIVES VIA: Ambulance INFORMANT: Patient ED PROVIDER(S): Jourdan De La O MD CHIEF COMPLAINT: Confusion PLAN: Disposition: Admit MEDICAL DECISION MAKING: The patient is a pleasant 60-year-old woman with a past medical history of CKD, hypertension, PE, GERD, vitamin D deficiency, electrolyte abnormalities who presents to the emergency department from home for evaluation of progressive confusion over the past several days where she contacted her son over the phone tempting to describe that she was feeling unwell and confused. Patient is a poor historian. She denies fevers, chills, cough, congestion, GI or symptoms. On arrival the patient is uncomfortable but no acute distress, afebrile with BP 200s/100s with otherwise stable vital signs. She appears clinically dry. She has no focal neurologic deficits. She does exhibit mild confusion but she is alert to self and place. Reflexes within normal limits. There is no clonus. EKG without overt acute ischemia. Chest x-ray negative for acute cardiopulmonary process. WBC and platelets within normal limits. H/H similar to prior range values. Chemistry without metabolic acidosis. Creatinine 1.3 similar to prior range of values. Potassium 3.2, calcium 5.8 with albumin of 3.7, magnesium 0.6 with repletion provided. LFTs are unremarkable. Troponin negative/undetectable. Lipase is not elevated. TSH within normal limits. UA without convincing evidence of infection. COVID-19, RNA, NAAT test was negative. CT of the head was negative for acute process. Given the patient's significant electrolyte abnormalities the patient's confusion and altered mental status certainly is likely related to these. Patient is in agreement with plan for admission for further management. Case was d/w Dr. Allen, [facility] hospitalist who will evaluate the patient for admission. Triage Nursing notes reviewed and agree them. Prior medical records reviewed Vital Signs: reviewed and remarkable for hypertension. Differential diagnosis: Infection, hypoglycemia, electrolyte abnormalities, overdose, toxicologic, cardiac sources, intracerebral event, neurologic, trauma, as well as other pathologies. ER treatment provided: See below. Diagnostics interpreted by me: ECG: Normal sinus rhythm, 75 bpm, no ectopy, nonspecific ST abnormality, no overt ST elevation or depression, QTC 475, QRS 82. Cardiac Monitoring: An order for continuous cardiac monitoring was placed and demonstrated normal sinus rhythm, 75 bpm, no ectopy. Laboratory studies: See below Imaging studies: See below Consultation(s): Case was d/w Dr. Allen, [facility] hospitalist who will evaluate the patient for admission. HPI: The patient is a pleasant 60-year-old woman with a past medical history of CKD, hypertension, PE GERD, vitamin D deficiency, electrolyte abnormalities who presents to the emergency department from home for evaluation of progressive confusion over the past several days where she contacted her son over the phone tempting to describe that she was feeling unwell and confused. Patient is a poor historian. She denies fevers, chills, cough, congestion, GI or symptoms. ROS: See above HPI for pertinent positives & negatives. A total of 10 systems reviewed and were otherwise negative. PAST MEDICAL HISTORY:See Below PAST SURGICAL HISTORY:See Below FAMILY HISTORY:See Below SOCIAL HISTORY:See Below HOME MEDICATIONS:See Below ALLERGIES:See Below VITALS:See Below PHYSICAL EXAMINATION: GENERAL: Awake, alert, fatigued-appearing, in no distress HENT: Normocephalic, atraumatic. Oropharynx with dry mucous membranes and otherwise unremarkable. EYES: Normal conjunctiva. Sclera non-icteric. EOMI. No nystamgus. PEARRL. NECK: Supple. No nuchal rigidity. FROM. No JVD. RESPIRATORY: Clear to auscultation. CARDIAC: Regular rate, normal rhythm. Extremities warm and well perfused. Pulses equal. ABDOMEN: Soft, non-distended. No tenderness to palpation. No rebound or guarding. No masses. RECTAL: Deferred. MUSCULOSKELETAL: Chest examination reveals no tenderness. The back is symmetrical on inspection without obvious abnormality. There is no CVA t enderness to palpation. No joint edema. LOWER EXTREMITIES: Calves are equal size bilaterally and non-tender. No edema. No discoloration. NEURO: No focal sensory or motor deficits noted. 5/5 strength and SILT x 4 extremities. Mildly tremulous. Reflexes within normal limits. There is no clonus. SKIN: No rash or jaundice noted. ED COURSE: Critical Care: I have personally spent greater than 75 minutes of critical care time in the direct management of this patient. This includes bedside care, interpretation of diagnostic studies, and testing, discussion with consultants, patient, and family members, and other required patient management activities. This 75 minutes is in excess of all separately billable procedures. Jourdan De La O MD Past Med/Surg History Medical History Abnormal LFTs Acute cholecystitis due to biliary calculus Acute pancreatitis B12 deficiency Chronic pain Hyperlipidemia Hypertension associated with chronic kidney disease due to type 2 diabetes mellitus MDD (major depressive disorder), recurrent episode, moderate Obesity Pericarditis Peripheral autonomic neuropathy due to diabetes mellitus Surgical History H/O cervical spine surgery Previous section Status post lumbar spine surgery for decompression of spinal cord Family History Other Family history non-contributory Social History Smoking Status: Never smoker Hx Alcohol Use: No Hx Substance Use: No Preferred Language: Welsh Communication Ability: Effective Road Supervisor Required: No Beliefs That Will Affect Care: None Current Living Situation: Alone Feels Safe at Home: Yes Safety Concerns: Feels Safe At This Time Assistive Devices: None Allergies Allergies Allergy/AdvReac Type Severity Reaction Status Date / Time lisinopril AdvReac Mild weight Verified 04/06/21 12:11 gain Home Meds Home Medications Medication Instructions Recorded Confirmed doxepin 75 mg capsule 150 mg PO HS 02/23/18 04/06/21 metformin 1,000 mg tablet 1,000 mg PO BID 02/23/18 04/06/21 aspirin 81 mg tablet,delayed 81 mg PO DAILY 02/03/21 04/06/21 release omeprazole 20 mg capsule,delayed 20 mg PO BID 02/03/21 04/06/21 release benazepril 5 mg tablet 0 mg PO DAILY 04/06/21 04/06/21 oxycodone 30 mg tablet,crush 30 mg PO Q12H 04/06/21 04/06/21 resistant,extended release 12 hr (OxyContin) Previous Rx's Medication Instructions Recorded blood sugar diagnostic (OneTouch #10 ea 12/31/19 Verio test strips) lancets 33 gauge (OneTouch Delica #100 ea 12/31/19 Lancets) pen needle, diabetic 32 gauge x #100 ea 12/31/1932" (BD Nati 2nd Gen Pen Needle) polyethylene glycol 3350 17 gram 17 g PO DAILY #30 packet 12/31/19 oral powder packet (Miralax) Results & Data (ED) Vital Signs Vital Signs - 24 hr 04/06/21 09:25 04/06/21 10:55 04/06/21 12:43 Temperature 36.6 C Temperature Source Oral Pulse Rate 78 Pulse Rate [Right Finger] 78 71 Respiratory Rate 12 16 18 Respiratory Effort / Characteristics Non-Labored Non-Labored Respiratory Depth Normal Normal Blood Pressure 202/129 H Blood Pressure [Right Arm] 192/107 H 161/101 H Blood Pressure Mean 153 Blood Pressure Mean [Right Arm] 135 121 Pulse Oximetry 97 94 97 Oxygen Delivery Method Room Air Room Air Room Air Sepsis Recent Fever Within 48 Hours No Sepsis New/Unexplained Change in Mental Status N/A Sepsis Action Taken by Nursing No Action Required Laboratory Data Attestation: I reviewed the patient's lab results. Result diagrams: 04/06/21 10:52 04/06/21 18:09 Lab Results 04/06/21 04/06/21 04/06/21 Range/Units 10:38 10:52 10:52 WBC (4.8-10.8) K/uL RBC (4.2-5.4) M/uL Hgb (12.0-16.0) g/dL Hct (37-47) % MCV (80-100) fL MCH (25-34) pg MCHC (32-36) g/dL RDW Std Deviation (36.4-46.3) fL RDW Coeff of Génesis (11.5-14.5) % Plt Count (130-400) K/uL MPV (7.4-10.4) fL Immature Gran % (Auto) % Neut % (Auto) % Lymph % (Auto) % [place] % (Auto) % Eos % (Auto) % Baso % (Auto) % Neut # (Auto) (1.4-6.5) K/uL Lymph # (Auto) (1.2-3.4) K/uL [place] # (Auto) (0.11-0.59) K/uL Eos # (Auto) (0-0.5) K/uL Baso # (Auto) (0-0.2) K/uL Immature Gran # (Auto) (0.00-0.02) K/uL PT (9.0-12.0) Seconds INR (0.9-1.1) Sodium 140 (136-145) mmol/L Potassium 3.2 L (3.5-5.1) mmol/L Chloride 103 (98-107) mmol/L Carbon Dioxide 24 (21-32) mmol/L Anion Gap 13 H (3-11) BUN 10 (6-23) mg/dl Creatinine 1.37 H (0.6-1.2) mg/dl Est Cr Clr Drug Dosing 43.5 ml/min Est GFR ( Amer) 48.8 ml/min Est GFR (Non-Af Amer) 42.1 ml/min BUN/Creatinine Ratio 7.3 L (10-20) Glucose 126 H (70-99(Fasting)) mg/dl Calcium 5.8 L* (8.5-10.1) mg/dl Phosphorus 3.9 (2.5-4.9) mg/dl Magnesium 0.6 L* (1.7-2.4) mg/dl Total Bilirubin 0.3 (0.2-1.0) mg/dl AST 17 (13-39) U/L ALT 9 (7-52) U/L Alkaline Phosphatase 65 (34-104) U/L Troponin I < 0.03 (0-0.04) ng/ml Total Protein 6.5 (6.0-8.3) gm/dl Albumin 3.7 (3.4-5.0) gm/dl Globulin 2.8 (2.5-4.0) gm/dl Albumin/Globulin Ratio 1.3 (0.9-2) Lipase 12 (11-82) U/L TSH 1.538 (0.300-4.500) uIu/ml Urine Color Urine Appearance (Clear) Urine pH (4.5-7.5) Ur Specific [place] (1.000-1.030) Urine Protein (Negative) Urine Glucose (UA) (Negative) Urine Ketones (Negative) Urine Blood (Negative) Urine Nitrite (Negative) Urine Bilirubin (Negative) Urine Urobilinogen (Negative) Ur Leukocyte Esterase (Negative) SARS-CoV-2, RNA, NAAT NEGATIVE (NEGATIVE) 04/06/21 04/06/21 04/06/21 Range/Units 10:52 10:52 12:44 WBC 10.51 (4.8-10.8) K/uL RBC 4.14 L (4.2-5.4) M/uL Hgb 11.8 L (12.0-16.0) g/dL Hct 35.8 L (37-47) % MCV 86.5 (80-100) fL MCH 28.5 (25-34) pg MCHC 33.0 (32-36) g/dL RDW Std Deviation 43.9 (36.4-46.3) fL RDW Coeff of Génesis 13.9 (11.5-14.5) % Plt Count 228 (130-400) K/uL MPV 10.0 (7.4-10.4) fL Immature Gran % (Auto) 0.4 % Neut % (Auto) 82.2 % Lymph % (Auto) 11.0 % [place] % (Auto) 5.3 % Eos % (Auto) 0.8 % Baso % (Auto) 0.3 % Neut # (Auto) 8.64 H (1.4-6.5) K/uL Lymph # (Auto) 1.16 L (1.2-3.4) K/uL [place] # (Auto) 0.56 (0.11-0.59) K/uL Eos # (Auto) 0.08 (0-0.5) K/uL Baso # (Auto) 0.03 (0-0.2) K/uL Immature Gran # (Auto) 0.04 H (0.00-0.02) K/uL PT 11.5 (9.0-12.0) Seconds INR 1.1 (0.9-1.1) Sodium (136-145) mmol/L Potassium (3.5-5.1) mmol/L Chloride (98-107) mmol/L Carbon Dioxide (21-32) mmol/L Anion Gap (3-11) BUN (6-23) mg/dl Creatinine (0.6-1.2) mg/dl Est Cr Clr Drug Dosing ml/min Est GFR ( Amer) ml/min Est GFR (Non-Af Amer) ml/min BUN/Creatinine Ratio (10-20) Glucose (70-99(Fasting)) mg/dl Calcium (8.5-10.1) mg/dl Phosphorus (2.5-4.9) mg/dl Magnesium (1.7-2.4) mg/dl Total Bilirubin (0.2-1.0) mg/dl AST (13-39) U/L ALT (7-52) U/L Alkaline Phosphatase (34-104) U/L Troponin I (0-0.04) ng/ml Total Protein (6.0-8.3) gm/dl Albumin (3.4-5.0) gm/dl Globulin (2.5-4.0) gm/dl Albumin/Globulin Ratio (0.9-2) Lipase (11-82) U/L TSH (0.300-4.500) uIu/ml Urine Color Yellow Urine Appearance Clear (Clear) Urine pH 6.5 (4.5-7.5) Ur Specific [place] 1.006 (1.000-1.030) Urine Protein Negative (Negative) Urine Glucose (UA) Negative (Negative) Urine Ketones Negative (Negative) Urine Blood Negative (Negative) Urine Nitrite Negative (Negative) Urine Bilirubin Negative (Negative) Urine Urobilinogen Negative (Negative) Ur Leukocyte Esterase Negative (Negative) SARS-CoV-2, RNA, NAAT (NEGATIVE) Administered Medications Calcium Carbonate (Calcium Carbonate 1250mg Tab) 2,500 mg PO BID [facility] Stop: 05/06/21 20:59 Last Admin: 04/06/21 21:29 Dose: 2,500 mg Documented by: [id number] Doxepin HCl (Doxepin Hcl 75 Mg Capsule) 150 mg PO HS [facility] Stop: 05/06/21 20:59 Last Admin: 04/06/21 21:31 Dose: 150 mg Documented by: [id number] Insulin Aspart (Insulin Aspart Per Unit) 0 units SC ACHS [facility] Stop: 05/06/21 16:29 Last Admin: 04/06/21 20:37 Dose: Not Given Documented by: [id number] Cosigned by: [id number] Admin: 04/06/21 18:29 Dose: Not Given Documented by: [id number] Cosigned by: [id number] Magnesium Oxide (Magnesium Oxide 400 Mg Tab) 400 mg PO BID [facility] Stop: 05/06/21 20:59 Last Admin: 04/06/21 21:28 Dose: 400 mg Documented by: [id number] Oxycodone HCl (Oxycodone Hcl 10 Mg Tabcr (Oxycontin)) 30 mg PO BID [facility] Stop: 04/20/21 20:59 Last Admin: 04/06/21 21:30 Dose: 30 mg Documented by: [id number] Pantoprazole Sodium (Pantoprazole 40 Mg Tab) 40 mg PO BID [facility] Stop: 05/06/21 20:59 Last Admin: 04/06/21 21:31 Dose: 40 mg Documented by: [id number] Discontinued Medications Ergocalciferol (Ergocalciferol 50,000 Units 1250 Mcg Cap) 50,000 units PO ONE ONE Stop: 04/06/21 19:49 Last Admin: 04/06/21 21:31 Dose: 50,000 units Documented by: [id number] Sodium Chloride (Nss) 500 mls @ 999 mls/hr IV .Q31M ONE Stop: 04/06/21 11:54 Last Infusion: 04/06/21 13:16 Dose: 0 mls/hr Documented by: [id number] Admin: 04/06/21 11:34 Dose: 999 mls/hr Documented by: [id number] Acetaminophen (Ofirmev) 1,000 mg in 100 mls @ 400 mls/hr IV NOW STA Stop: 04/06/21 11:38 Last Infusion: 04/06/21 13:16 Dose: 0 mls/hr Documented by: [id number] Admin: 04/06/21 11:33 Dose: 400 mls/hr Documented by: [id number] Magnesium Sulfate/Dextrose (Magnesium Sulfate / D5w) 1 gm in 100 mls @ 100 mls/hr IV Q1H [facility] Stop: 04/06/21 14:13 Last Infusion: 04/06/21 15:25 Dose: 0 mls/hr Documented by: [id number] Admin: 04/06/21 14:11 Dose: 100 mls/hr Documented by: [id number] Infusion: 04/06/21 13:52 Dose: 100 mls/hr Documented by: [id number] Admin: 04/06/21 12:52 Dose: 100 mls/hr Documented by: [id number] Potassium Chloride (K Papa / Wtr) 10 meq in 100 mls @ 100 mls/hr IV Q1H [facility]; Protocol Stop: 04/06/21 14:14 Last Infusion: 04/06/21 16:25 Dose: 0 mls/hr Documented by: [id number] Admin: 04/06/21 14:47 Dose: 100 mls/hr Documented by: [id number] Infusion: 04/06/21 14:21 Dose: 100 mls/hr Documented by: [id number] Admin: 04/06/21 13:21 Dose: 100 mls/hr Documented by: [id number] Calcium Gluconate () 1,000 mg in 60 mls @ 240 mls/hr IV NOW STA Stop: 04/06/21 12:27 Last Infusion: 04/06/21 13:16 Dose: 0 mls/hr Documented by: [id number] Admin: 04/06/21 12:52 Dose: 240 mls/hr Documented by: [id number] Calcium Gluconate () 1,000 mg in 60 mls @ 240 mls/hr IV NOW STA Stop: 04/06/21 13:45 Last Infusion: 04/06/21 14:47 Dose: 0 mls/hr Documented by: [id number] Admin: 04/06/21 14:12 Dose: 240 mls/hr Documented by: [id number] Magnesium Sulfate/Dextrose (Magnesium Sulfate / D5w) 1 gm in 100 mls @ 50 mls /hr IV ONE ONE Stop: 04/06/21 21:45 Last Admin: 04/06/21 21:28 Dose: 50 mls/hr Documented by: [id number] Calcium Gluconate 1,000 mg/ (Dextrose) 60 mls @ 240 mls/hr IV NOW ONE Stop: 04/06/21 20:05 Last Infusion: 04/06/21 21:43 Dose: 0 mls/hr Documented by: [id number] Admin: 04/06/21 21:27 Dose: 240 mls/hr Documented by: [id number] Imaging Data Radiologist's Impression: Chest X-Ray 04/06/21 09:30 XR chest 1V portable CLINICAL HISTORY: Atypical chest pain. COMPARISON STUDY: Chest radiograph December 30, 2019. CT of the chest February 04, 2021. FINDINGS: Elevation of the right hemidiaphragm is unchanged. Lungs are clear. There is no pneumothorax or pleural effusion. Cardiac size is normal. Mediastinal contours are normal. There is no evidence for pulmonary edema. IMPRESSION: No acute cardiopulmonary findings. No change in appearance of the chest. ACT 112: Negative or not required by law. Electronically signed by: Mynor Garza M.D. 04/06/2021 10:[address] 04/06/21 09:[address] DOSE: 614.27 mGy.cm HISTORY: confusion, headache TECHNIQUE: Multiaxial CT images of the head were performed without the use of intravenous contrast. Automated exposure control was utilized for this study. A dose lowering technique was utilized adhering to the principles of ALARA. Comparison: Head CT 02/03/2021. Findings: The paranasal sinuses and mastoid air cells are clear. The calvarium and skull base are intact. The ventricles and sulci are within normal limits. There is no mass, hematoma, midline shift, or acute infarct. Mild periventricular white matter hypodensity is nonspecific but favors microvascular ischemic change. This is unchanged compared to the prior study. Impression: No significant change compared to the prior study. No acute intracranial abnormality. ACT 112: Negative or not required by law. Electronically signed by: Brigido Ontiveros M.D. 04/06/2021 10:28 AM Discharge Plan Visit Data Chief Complaint: Hypertension Stated Complaint: HTN; dizzy; confusion ED Provider: Jourdan De La O Discharge Problem: Metabolic encephalopathy, Hypomagnesemia, Hypocalcemia, Hypokalemia, Renal insu fficiency Patient Disposition: Admitted As Inpatient Discharge Instructions Interventions: ED Discharge Assessment Last Done: 04/06/21 18:15
[2021-04-06] MEDS: INSULIN ASPART PER UNIT SC SCH ×2 (18:29→20:37)
[2021-04-06 18:46] LABS: BUN Creatinine Ratio 6.5 (10-20); Calcium 6.5 mg/dl (8.5-10.1); Creatinine Clr Calc Pharmacy 48.5 ml/min; Est GFR (African American) 55.6 ml/min; Magnesium 1.6 mg/dl (1.7-2.4); Potassium 4.2 mmol/L (3.5-5.1)
[2021-04-06] MEDS ORDERED: MAGNESIUM SULFATE / D5W 1 GM/100 ML BAG IV ONE (19:46)
[2021-04-06] MEDS ORDERED: ERGOCALCIFEROL 50,000 UNITS 1250 MCG CAP PO ONE (19:48)
[2021-04-06] MEDS ORDERED: CALCIUM GLUCONATE 10% 1,000 MG in DEXTROSE 5% 50 ML IV ONE (19:51)
[2021-04-06] MEDS ORDERED: STAT IV STA (19:51)
[2021-04-06] MEDS: MAGNESIUM OXIDE 400 MG TAB PO SCH (21:28)
[2021-04-06] MEDS: CALCIUM CARBONATE 1250MG TAB PO SCH (21:29)
[2021-04-06] MEDS: oxyCODONE HCL 10 MG TABCR (OxyCONTIN) PO SCH (21:30)
[2021-04-06] MEDS: DOXEPIN HCL 75 MG CAPSULE PO SCH (21:31)
[2021-04-06] MEDS: PANTOprazole 40 MG TAB PO SCH (21:31)
[2021-04-07 00:46] LABS: BUN Creatinine Ratio 6.7 (10-20); Calcium 6.8 mg/dl (8.5-10.1); Creatinine Clr Calc Pharmacy 44.2 ml/min; Est GFR (African American) 49.7 ml/min; Est GFR (Non-African American) 42.9 ml/min; Potassium 3.7 mmol/L (3.5-5.1)
[2021-04-07] MEDS ORDERED: POTASSIUM CHLORIDE CRTAB 20 MEQ TABCR PO STA (00:55)
[2021-04-07] MEDS ORDERED: STAT IV STA ×3 (00:55→07:53)
[2021-04-07] MEDS ORDERED: CALCIUM GLUCONATE 10% 1,000 MG in DEXTROSE 5% 50 ML IV ONE ×3 (01:00→08:30)
[2021-04-07] MEDS ORDERED: CALCIUM GLUCONATE 10% 1,000 MG in SODIUM CHLORIDE 0.9% 50 ML IV ONE (01:15)
[2021-04-07 07:15] LABS: BUN Creatinine Ratio 7.6 (10-20); Creatinine Clr Calc Pharmacy 45.2 ml/min; Est GFR (African American) 51.1 ml/min; Magnesium 1.8 mg/dl (1.7-2.4); Potassium 4.7 mmol/L (3.5-5.1)
[2021-04-07] MEDS: INSULIN ASPART PER UNIT SC SCH ×4 (08:02→21:16)
[2021-04-07] MEDS: oxyCODONE HCL 10 MG TABCR (OxyCONTIN) PO SCH ×2 (08:44→20:47)
[2021-04-07] MEDS: FLUoxetine HCL 20 MG CAP PO SCH (08:45)
[2021-04-07] MEDS: METOPROLOL TARTRATE 25 MG TAB PO SCH ×2 (08:45→20:47)
[2021-04-07] MEDS: RIVAROXABAN 20 MG TAB PO SCH (08:45)
[2021-04-07] MEDS ORDERED: BENAZEPRIL 5 MG PO SCH (09:00)
[2021-04-07] MEDS: PANTOprazole 40 MG TAB PO SCH ×2 (10:44→20:47)
[2021-04-07] MEDS: ASPIRIN 81 MG ECTAB PO SCH (10:44)
[2021-04-07] MEDS: CALCIUM CARBONATE 1250MG TAB PO SCH ×2 (10:44→20:47)
[2021-04-07] MEDS: MAGNESIUM OXIDE 400 MG TAB PO SCH ×2 (10:44→20:48)
[2021-04-07] MEDS: CHOLECALCIFEROL 1,000 UNITS 25 MCG TAB PO SCH (10:45)
--- NOTE | 2021-04-07 13:48 | Hospitalist Progress Note ---
Date of Service April 07, 2021 Assessment & Plan (1) Hypomagnesemia: Plan: Mg 0.6 ml/dL on admission, replace with Mg sulphate 2g IV, repeat labs every 6 hours and replace as necessary Likely contributing towards hypocalcemia as below. - Likely due to poor PO intake and self-neglect as per psychiatry note from 01/2021. - Improved with IV repletion (2) Hypocalcemia: Plan: Prior Vit D def. 7.7 ng/ml in January. Only mildly better at 9.9 this admission. - Continue calcium gluconate repletion as needed. (3) Metabolic encephalopathy: Plan: Suspect secondary to electrolyte abnormalities as above - Resolved. (4) Syncope: Plan: Suspect due to electrolyte abnormalities as above. (5) Hypertension associated with chronic kidney disease due to type 2 diabetes mellitus: Plan: Has not picked up the benzapril recently. However is on metoprolol tartrate recently prescribed not on med rec list. - Started on metoprolol tartrate 25mg PO BID but likely need additional medications - Hydralazine PRN for sBP > 180 (6) Generalized anxiety disorder with panic attacks: Plan: Fluoxetine found on patients outpatient list. - Continue home fluoxetine (7) MDD (major depressive disorder), recurrent episode, moderate: Plan: - Continue fluoxetine as above. (8) Diabetes mellitus type 2, uncontrolled: Plan: HbA1C 7.6% in January. - Hold metformin - Sliding scale insulin -> BSs have been 90 - 120 in last 24 hours. (9) Chronic kidney disease, stage 3: Plan: Cr baseline ~1.3. - At baseline - Monitor (10) B12 deficiency: Plan: Noted previously levels < 400; likely contributing towards mental status. - Repeat B12 level and recommend treatment if < 400 (11) GERD (gastroesophageal reflux disease): Plan: - Switch omeprazole to pantoprazole per hospital formulary (12) Pulmonary embolism: Plan: Diagnosed with January but patient clearly not taking medication. Prescribed the starter pack again in March. She should be still taking Xarelto however not initially on med rec list. - Continue Xarelto 20mg PO daily Admission and Anticipated Discharge Date Admission Date: April 06, 2021 Subjective Feeling better today. Thinking more clearly. Stronger. Reports no fevers/chills, chest pain, shortness of breath, abdominal pain, nausea, or vomiting. Physical Exam Constitutional: WD/WN, vitals as above Eyes: EOM intact bilaterally; no conjunctival abnormality ENMT: external ear and nose normal, oropharynx normal Neck: trachea midline, no thyromegaly normal visual inspection Respiratory: normal respiratory effort, lungs clear to auscultation no respiratory distress Cardiovascular: RRR, no murmur, no edema Gastrointestinal (Abdomen): Inspection/Auscultation: abdomen normal to inspection; abdomen not distended Musculoskeletal: no cyanosis or clubbing, extremities motor strength 5/5 Skin: no rashes, warm and dry Neurologic: moves all extremities and awake Psychiatric: Orientation: alert, oriented to person and cooperative Results & Data Results & Data ([facility]) Vital Signs (Past 12 Hours) Vital Signs Temp Pulse Pulse Resp BP BP Pulse Ox 04/07/21 11:04 36.7 C 73 20 154/99 H 94 04/07/21 10:07 58 L 04/07/21 07:15 36.4 C L 63 16 162/93 H 96 04/07/21 05:06 162/99 H 04/07/21 03:42 177/111 H 04/07/21 03:40 63 PG Care Time/CCT Total # of Minutes Spent Total Time Spent with Patient: Total time spent is greater than 50% in coordination of care (as documented) at patient's floor/unit and/or counseling patient: Coding Level of Care Code 86750 Subseq Hosp Care Lvl 3 Diagnoses Hypomagnesemia E83.42 Hypocalcemia E83.51 Metabolic encephalopathy G93.41 Syncope R55 Generalized anxiety disorder with panic attacks F41.1; F41.0 MDD (major depressive disorder), recurrent episode, moderate F33.1 Diabetes mellitus type 2, uncontrolled E11.65 Chronic kidney disease, stage 3 N18.30 B12 deficiency E53.8 GERD (gastroesophageal reflux disease) K21.9 Pulmonary embolism I26.99 Acute cor pulmonale presence: without acute cor pulmonale Chronicity: acute Pulmonary embolism type: unspecified Hypertension associated with chronic kidney disease due to type 2 diabetes mellitus E11.22; I12.9 (1) Pulmonary embolism Acute cor pulmonale presence: without acute cor pulmonale Chronicity: acute Pulmonary embolism type: unspecified Qualified Code(s): I26.99 - Other pulmonary embolism without acute cor pulmonale
[2021-04-07] MEDS: DOXEPIN HCL 75 MG CAPSULE PO SCH (20:47)
[2021-04-08 07:45] LABS: Hematocrit (blood only) 36.3 % (37-47); Hemoglobin 11.7 g/dL (12.0-16.0); Mean Corpuscular Hgb Conc 32.2 g/dL (32-36); Mean Corpuscular Volume 90.1 fL (80-100); Mean Platelet Volume 10.4 fL (7.4-10.4); Platelet Count 251 K/uL (130-400); RDW Coefficient of Variation 14.2 % (11.5-14.5); RDW Standard Deviation 46.8 fL (36.4-46.3); Red Blood Count 4.03 M/uL (4.2-5.4)
[2021-04-08 08:03] LABS: Albumin Globulin Ratio 1.4 (0.9-2); Albumin Level 3.7 gm/dl (3.4-5.0); BUN Creatinine Ratio 11.3 (10-20); Bilirubin,Total 0.3 mg/dl (0.2-1.0); Calcium 8.6 mg/dl (8.5-10.1); Creatinine Clr Calc Pharmacy 35.5 ml/min; Est GFR (African American) 38.1 ml/min; Est GFR (Non-African American) 32.9 ml/min; Globulin 2.6 gm/dl (2.5-4.0); Magnesium 1.6 mg/dl (1.7-2.4); Phosphorus 4.8 mg/dl (2.5-4.9); Potassium 4.5 mmol/L (3.5-5.1); Total Protein 6.3 gm/dl (6.0-8.3)
[2021-04-08] MEDS: MAGNESIUM OXIDE 400 MG TAB PO SCH ×2 (08:20→21:17)
[2021-04-08] MEDS: CHOLECALCIFEROL 1,000 UNITS 25 MCG TAB PO SCH (08:20)
[2021-04-08] MEDS: CALCIUM CARBONATE 1250MG TAB PO SCH ×2 (08:20→21:17)
[2021-04-08] MEDS: RIVAROXABAN 20 MG TAB PO SCH (08:21)
[2021-04-08] MEDS: METOPROLOL TARTRATE 25 MG TAB PO SCH ×2 (08:21→21:22)
[2021-04-08] MEDS: ASPIRIN 81 MG ECTAB PO SCH (08:21)
[2021-04-08] MEDS: FLUoxetine HCL 20 MG CAP PO SCH (08:21)
[2021-04-08] MEDS: PANTOprazole 40 MG TAB PO SCH ×2 (08:21→21:17)
[2021-04-08] MEDS: oxyCODONE HCL 10 MG TABCR (OxyCONTIN) PO SCH ×2 (08:29→21:17)
[2021-04-08] MEDS: hydrALAZINE HCL 20 MG/ML VIAL IV PRN ×2 (08:37→20:16)
[2021-04-08] MEDS: INSULIN ASPART PER UNIT SC SCH ×5 (08:44→21:22)
[2021-04-08 09:26] LABS: Estimated Average Glucose 146 mg/dl; Hemoglobin A1C 6.7 % (4.5-5.6)
[2021-04-08] MEDS: CYANOCOBALAMIN 1000 MCG/ML VIAL IM SCH (14:02)
[2021-04-08] MEDS: NORMOSOL-R 1,000 ML IV SCH ×2 (14:03→23:35)
--- NOTE | 2021-04-08 14:20 | Hospitalist Progress Note ---
Date of Service April 08, 2021 Assessment & Plan (1) Hypomagnesemia: Plan: Mg 0.6 ml/dL on admission. Likely contributing towards hypocalcemia as below. - Likely due to poor PO intake and self-neglect as per psychiatry note from 01/2021. - Improved with IV repletion -> Will give more today. (2) Hypocalcemia: Plan: Prior Vit D def. 7.7 ng/ml in January. Only mildly better at 9.9 this admission. - Continue calcium gluconate repletion as needed. (3) Metabolic encephalopathy: Plan: Suspect secondary to electrolyte abnormalities as above - Will give thiamine as well in case there is some level of Wernicke's (4) Syncope: Plan: Suspect due to electrolyte abnormalities as above. (5) Hypertension associated with chronic kidney disease due to type 2 diabetes mellitus: Plan: Has not picked up the benzapril recently. However is on metoprolol tartrate recently prescribed not on med rec list. - Started on metoprolol tartrate 25mg PO BID but likely need additional medications - Hydralazine PRN for sBP > 180 (6) Generalized anxiety disorder with panic attacks: Plan: Fluoxetine found on patients outpatient list. - Continue home fluoxetine (7) MDD (major depressive disorder), recurrent episode, moderate: Plan: - Continue fluoxetine as above. (8) Diabetes mellitus type 2, uncontrolled: Plan: HbA1C 7.6% in January. - Hold metformin - Sliding scale insulin -> BSs have been 90 - 120 in last 24 hours. (9) Chronic kidney disease, stage 3: Plan: Cr baseline ~1.3. - Monitor -> Up today to 1.7 (10) B12 deficiency: Plan: Noted previously levels < 400; likely contributing towards mental status. - Repeat B12 level was 105. - Start cyanocobalamin 1,000 mcg IM daily while hospitalized. (11) GERD (gastroesophageal reflux disease): Plan: - Switch omeprazole to pantoprazole per hospital formulary (12) Pulmonary embolism: Plan: Diagnosed with January but patient clearly not taking medication. Prescribed the starter pack again in March. She should be still taking Xarelto however not initially on med rec list. - Continue Xarelto 20mg PO daily Admission and Anticipated Discharge Date Admission Date: April 06, 2021 Subjective Doing better today. Still feels like she has some tingling in arms and legs. Reports no fevers/chills, chest pain, shortness of breath, abdominal pain, nausea, or vomiting. Physical Exam Constitutional: WD/WN, vitals as above Eyes: EOM intact bilaterally; no conjunctival abnormality ENMT: external ear and nose normal, oropharynx normal Neck: trachea midline, no thyromegaly normal visual inspection Respiratory: normal respiratory effort, lungs clear to auscultation no respiratory distress Cardiovascular: RRR, no murmur, no edema Gastrointestinal (Abdomen): Inspection/Auscultation: abdomen normal to inspection; abdomen not distended Musculoskeletal: no cyanosis or clubbing, extremities motor strength 5/5 Skin: no rashes, warm and dry Neurologic: moves all extremities and awake Motor/Sensory: + sensory deficit (Loss of proprioception in toes) Psychiatric: Orientation: alert, oriented to person and cooperative Results & Data Results & Data ([facility]) Vital Signs (Past 12 Hours) Vital Signs Temp Pulse Pulse Resp BP BP Pulse Ox 04/08/21 10:17 145/84 H 04/08/21 08:00 66 04/08/21 07:25 36.3 C L 64 16 194/111 H 96 04/08/21 03:21 36.5 C 65 18 180/91 H 93 PG Care Time/CCT Total # of Minutes Spent Total Time Spent with Patient: Total time spent is greater than 50% in coordination of care (as documented) at patient's floor/unit and/or counseling patient: Coding Level of Care Code 34890 Subseq Hosp Care Lvl 2 Diagnoses Hypomagnesemia E83.42 Hypocalcemia E83.51 Metabolic encephalopathy G93.41 Syncope R55 Hypertension associated with chronic kidney disease due to type 2 diabetes mellitus E11.22; I12.9 Generalized anxiety disorder with panic attacks F41.1; F41.0 MDD (major depressive disorder), recurrent episode, moderate F33.1 Diabetes mellitus type 2, uncontrolled E11.65 Chronic kidney disease, stage 3 N18.30 B12 deficiency E53.8 GERD (gastroesophageal reflux disease) K21.9 Pulmonary embolism I26.99 Acute cor pulmonale presence: without acute cor pulmonale Chronicity: acute Pulmonary embolism type: unspecified (1) Pulmonary embolism Acute cor pulmonale presence: without acute cor pulmonale Chronicity: acute Pulmonary embolism type: unspecified Qualified Code(s): I26.99 - Other pulmonary embolism without acute cor pulmonale
[2021-04-08] MEDS: MAGNESIUM SULFATE / D5W 1 GM/100 ML BAG IV SCH ×4 (15:59→22:08)
[2021-04-08] MEDS: DOXEPIN HCL 75 MG CAPSULE PO SCH (21:17)
[2021-04-08] MEDS: THIAMINE HCL 100 MG TAB PO SCH (21:53)
[2021-04-09] MEDS: NORMOSOL-R 1,000 ML IV SCH ×2 (07:28→16:02)
[2021-04-09] MEDS: RIVAROXABAN 20 MG TAB PO SCH (07:29)
[2021-04-09] MEDS: ACETAMINOPHEN 325 MG TAB PO PRN (07:41)
[2021-04-09 08:16] LABS: Hematocrit (blood only) 34.2 % (37-47); Hemoglobin 10.9 g/dL (12.0-16.0); Mean Corpuscular Hemoglobin 28.3 pg (25-34); Mean Corpuscular Hgb Conc 31.9 g/dL (32-36); Mean Corpuscular Volume 88.8 fL (80-100); Mean Platelet Volume 9.9 fL (7.4-10.4); Platelet Count 246 K/uL (130-400); RDW Coefficient of Variation 14.3 % (11.5-14.5); RDW Standard Deviation 46.4 fL (36.4-46.3); Red Blood Count 3.85 M/uL (4.2-5.4); White Blood Count 5.76 K/uL (4.8-10.8)
[2021-04-09 08:38] LABS: Albumin Globulin Ratio 1.4 (0.9-2); Albumin Level 3.4 gm/dl (3.4-5.0); BUN Creatinine Ratio 15.9 (10-20); Bilirubin,Total 0.3 mg/dl (0.2-1.0); Calcium 7.9 mg/dl (8.5-10.1); Creatinine Clr Calc Pharmacy 45.2 ml/min; Est GFR (African American) 51.1 ml/min; Globulin 2.5 gm/dl (2.5-4.0); Magnesium 2.5 mg/dl (1.7-2.4); Phosphorus 3.7 mg/dl (2.5-4.9); Total Protein 5.9 gm/dl (6.0-8.3)
[2021-04-09] MEDS: INSULIN ASPART PER UNIT SC SCH ×4 (09:12→21:32)
[2021-04-09] MEDS: oxyCODONE HCL 10 MG TABCR (OxyCONTIN) PO SCH ×2 (09:22→20:56)
[2021-04-09] MEDS: METOPROLOL TARTRATE 25 MG TAB PO SCH ×2 (09:23→20:56)
[2021-04-09] MEDS: ASPIRIN 81 MG ECTAB PO SCH (09:23)
[2021-04-09] MEDS: PANTOprazole 40 MG TAB PO SCH ×2 (09:23→20:55)
[2021-04-09] MEDS: THIAMINE HCL 100 MG TAB PO SCH ×2 (09:23→20:56)
[2021-04-09] MEDS: FLUoxetine HCL 20 MG CAP PO SCH (09:23)
[2021-04-09] MEDS: CHOLECALCIFEROL 1,000 UNITS 25 MCG TAB PO SCH (09:24)
[2021-04-09] MEDS: MAGNESIUM OXIDE 400 MG TAB PO SCH ×2 (09:24→20:56)
[2021-04-09] MEDS: FOLIC ACID 1 MG TAB PO SCH (09:24)
[2021-04-09] MEDS: CALCIUM CARBONATE 1250MG TAB PO SCH ×2 (09:24→21:29)
[2021-04-09] MEDS: CYANOCOBALAMIN 1000 MCG/ML VIAL IM SCH (09:26)
[2021-04-09] MEDS: DOXEPIN HCL 75 MG CAPSULE PO SCH (20:56)
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
[2021-04-10] MEDS: CYANOCOBALAMIN 1000 MCG/ML VIAL IM SCH (08:02)
[2021-04-10] MEDS: CALCIUM CARBONATE 1250MG TAB PO SCH ×2 (08:02→21:01)
[2021-04-10] MEDS: oxyCODONE HCL 10 MG TABCR (OxyCONTIN) PO SCH ×2 (08:02→20:57)
[2021-04-10] MEDS: CHOLECALCIFEROL 5,000 UNITS 125 MCG TAB PO SCH (08:03)
[2021-04-10] MEDS: PANCREAZE (LIPASE 10,500U) CAP PO SCH ×3 (08:03→17:20)
[2021-04-10] MEDS: THIAMINE HCL 100 MG TAB PO SCH ×2 (08:03→20:58)
[2021-04-10] MEDS: PANTOprazole 40 MG TAB PO SCH ×2 (08:03→20:59)
[2021-04-10] MEDS: METOPROLOL TARTRATE 25 MG TAB PO SCH ×2 (08:04→20:59)
[2021-04-10] MEDS: FOLIC ACID 1 MG TAB PO SCH (08:04)
[2021-04-10] MEDS: RIVAROXABAN 20 MG TAB PO SCH (08:04)
[2021-04-10] MEDS: FLUoxetine HCL 20 MG CAP PO SCH (08:04)
[2021-04-10] MEDS: MAGNESIUM OXIDE 400 MG TAB PO SCH ×2 (08:04→21:00)
[2021-04-10] MEDS: ASPIRIN 81 MG ECTAB PO SCH (08:04)
[2021-04-10 08:17] LABS: BUN Creatinine Ratio 15.6 (10-20); Calcium 8.6 mg/dl (8.5-10.1); Creatinine Clr Calc Pharmacy 46.6 ml/min; Est GFR (Non-African American) 45.7 ml/min; Potassium 4.1 mmol/L (3.5-5.1)
[2021-04-10] MEDS: INSULIN ASPART PER UNIT SC SCH ×4 (08:33→21:10)
[2021-04-10] MEDS ORDERED: amLODIPine BESYLATE 5 MG TAB PO ONE (10:27)
[2021-04-10] MEDS ORDERED: MECLIZINE 12.5 MG TAB PO PRN (14:28)
--- NOTE | 2021-04-10 14:32 | Hospitalist Progress Note ---
Date of Service April 10, 2021 Assessment & Plan (1) Hypomagnesemia: Plan: Mg 0.6 ml/dL on admission. Extensive repletion, now normal. Paresthesias, weakness, etc likely heavily due in part to low mag. But ongoing symptoms at this point would be due to other factors. (2) Hypocalcemia: Plan: Resolved. Was likely multifactorial. Low vitamin D. Low mag. Etc -- all contributing. Replaced mag. Replacing low Vit D - increase Vit D replacement to 5000 IU daily. Also on calcium carbonate high-dose - will hold for now, but resume at a lower dose at discharge. BMP with calcium in am. (3) Metabolic encephalopathy: Plan: Improved, but not back to baseline. 2nd to B12 deficiency? 2nd to CLIENT EXPERIENCE SPECIALIST disturbance (stroke, thiamine deficiency, etc)? Cont B12 supplementation. Cont B1 supplementation. MRI brain ordered due to ongoing diplopia, vertigo, other symptoms. (4) Syncope: Plan: Suspect due to electrolyte abnormalities especially the low magnesium (critically low at presentation). Given the lack of prodrome would need to consider arrhythmia. STRONGLY consider 30-day event monitor post-d/c. (5) Hypertension associated with chronic kidney disease due to type 2 diabetes mellitus: Plan: Continue metoprolol BID. Add amlodipine 5mg daily, first dose now. (6) Generalized anxiety disorder with panic attacks: Plan: continue home fluoxetine consider titration (7) MDD (major depressive disorder), recurrent episode, moderate: Plan: Continue fluoxetine as above (8) Diabetes mellitus type 2, uncontrolled: Plan: HbA1C 7.6% in January Hold metformin Cont novolog Hba1c 6.7% this admission (9) Chronic kidney disease, stage 3: Plan: Cr baseline ~1.3. BMPs stable. (10) B12 deficiency: Plan: B12 level = 105. Cyanocobalamin 1,000 mcg IM daily while hospitalized. Would advise parenteral replacement as outpatient; uncertain if she is absorbing PO B12. Also concerned about compliance with PO meds at home. Folate is low-normal - replace 1mg daily x 30 days. (11) GERD (gastroesophageal reflux disease): Plan: Cont PPI (12) Pulmonary embolism: Plan: Diagnosed January 2021. Compliance with anticoagulation uncertain. Etiology of PE?? Concerning given her failure to thrive & weight loss. Continue Xarelto 20mg PO daily. (13) Diplopia: Plan: EOMI are intact on exam today. Uncertain why she is having this. Order MRI brain. Of note - has had multiple MRIs of the brain over the last year - all negative/normal. no signs of RAYSA from a Wernicke's state but cont thiamine - 200mg BID. Check sed rate, lyme, and PATSY (has h/o +PATSY in the past). Will also obtain neuro consultation. (14) Pancreatic atrophy: Plan: as seen on CTs. pancreatic insufficiency as cause of diarrhea and weight loss?? start creon 1 capsule TID w/ meals. refer to GI post-d/c. (15) Severe protein-calorie malnutrition: Plan: 30+ pounds of weight loss last year. 2nd to #14? other GI malabsorptive issue given her numerous electrolyte issues and vitamin deficiencies?? creon trial. needs GI w/u. prior CT a/p normal except for pancreatic atrophy. send pancreatic elastace. check giardia stool ag given chronic diarrhea. check c diff. (16) Vitamin D deficiency: Plan: vit D to 5000 IU daily. Plan: OT eval - home OT advised PT - patient declined it when they came to work with her lots of issues ongoing with no simple answers Admission and Anticipated Discharge Date Admission Date: April 06, 2021 Subjective like yesterday pt again w/ multiple complaints - 1. ongoing diplopia (oddly the nursing staff state she had not mentioned this to them) 2. vertigo - head movements lead to such; not a lightheaded feeling 3. feeling unsteady on feet 4. frontal-temporal headache - has history of such - has had photophobia, phonophobia, and nausea with past headaches 5. memory still a "bit off" and still having trouble recalling events, words she wants to say, etc 6. she is concerned about recent syncopal spells - they were NOT preceded by prodromal symptoms diarrhea improved eating better -- 100% OF MEALS she does state that at home she only eats 1 meal/day, often a TV dinner or something similar Review of Systems Review of Systems: gen - no fevers or chills cv - no cp pulm - no cough/congestion patient reports that [place]; doesn't recall tick bites; does go for walks outside when it is warm no prior h/o Lyme or tick-borne disease Physical Exam Physical Exam: gen - thought blocking/can't find answers to questions at times - maybe slightly better than yesterday; despite numerous complaints she looks comfortable eyes - EOMI, no nystagmus, no strabismus, PERRLA; same visual exam as yesterday mouth - MMM neck - no JVD heart - RRR, s1 s2 lungs - CTA b/l abd - soft NT ND BS+ ext - no edema, pulses 2+ b/l neuro - strength 5/5 x 4 exts, no facial droop; scant ataxia finger/nose/finger L hand; normal on right; gait not tested Results & Data Results & Data ([facility]) Vital Signs (Past 12 Hours) Vital Signs Temp Pulse Pulse Resp BP Pulse Ox 04/10/21 11:00 69 143/79 H 04/10/21 07:19 36.5 C 73 18 177/82 H 94 Laboratory Results bmp wnl; cr 1.28 PG Care Time/CCT Total # of Minutes Spent Total Time Spent with Patient: Total time spent is greater than 50% in coordination of care (as documented) at patient's floor/unit and/or counseling patient: Coding Level of Care Code 23901 Subseq Hosp Care Lvl 3 Diagnoses Hypomagnesemia E83.42 Hypocalcemia E83.51 Metabolic encephalopathy G93.41 Syncope R55 Hypertension associated with chronic kidney disease due to type 2 diabetes mellitus E11.22; I12.9 Generalized anxiety disorder with panic attacks F41.1; F41.0 MDD (major depressive disorder), recurrent episode, moderate F33.1 Diabetes mellitus type 2, uncontrolled E11.65 Chronic kidney disease, stage 3 N18.30 B12 deficiency E53.8 GERD (gastroesophageal reflux disease) K21.9 Pulmonary embolism I26.99 Acute cor pulmonale presence: without acute cor pulmonale Chronicity: acute Pulmonary embolism type: unspecified Diplopia H53.2 Pancreatic atrophy K86.89 Severe protein-calorie malnutrition E43 Vitamin D deficiency E55.9 (1) Pulmonary embolism Acute cor pulmonale presence: without acute cor pulmonale Chronicity: acute Pulmonary embolism type: unspecified Qualified Code(s): I26.99 - Other pulmonary embolism without acute cor pulmonale
[2021-04-10] MEDS ORDERED: LORazepam 0.5 MG TAB PO SCH (15:30)
--- NOTE | 2021-04-10 17:16 | Magnetic Resonance Report ---
MR brain wo con CLINICAL HISTORY: diplopia, vertigo; eval posterior CVA TECHNIQUE: Multiplanar and multisequence MR images of the brain were obtained without intravenous con trast. Comparison: Comparison is made to MRI brain 02/04/2021 FINDINGS: No abnormal restricted diffusion is identified. The white matter is unremarkable. The ventricular sys tem is normal in appearance. No extra axial fluid collections are seen. There are no masses, mass eff ect, or midline shift. The corpus callosum, pituitary gland, and cerebellar tonsils appear grossly u nremarkable. Flow voids of the major intracranial arterial vessels are identified. The imaged portions of the para nasal sinuses, mastoid air cells, and orbits are unremarkable. IMPRESSION: No acute abnormalities. ACT 112: Negative or not required by law. Electronically signed by: Diogo Leal M.D. 04/10/2021 5:14 PM
[2021-04-10] MEDS: DOXEPIN HCL 75 MG CAPSULE PO SCH (21:00)
[2021-04-11 07:09] LABS: Calcium 8.7 mg/dl (8.5-10.1); Creatinine Clr Calc Pharmacy 40.6 ml/min; Est GFR (African American) 44.8 ml/min; Est GFR (Non-African American) 38.7 ml/min
[2021-04-11] MEDS: hydrALAZINE HCL 20 MG/ML VIAL IV PRN (07:47)
[2021-04-11 08:09] LABS: Lyme Ab IgG w/WB Rflx Negative (Negative); Lyme Ab IgM w/WB Rflx Negative (Negative)
[2021-04-11] MEDS: ASPIRIN 81 MG ECTAB PO SCH (08:37)
[2021-04-11] MEDS: amLODIPine BESYLATE 5 MG TAB PO SCH (08:37)
[2021-04-11] MEDS: PANCREAZE (LIPASE 10,500U) CAP PO SCH ×3 (08:37→18:36)
[2021-04-11] MEDS: MAGNESIUM OXIDE 400 MG TAB PO SCH ×2 (08:37→20:25)
[2021-04-11] MEDS: FOLIC ACID 1 MG TAB PO SCH (08:37)
[2021-04-11] MEDS: oxyCODONE HCL 10 MG TABCR (OxyCONTIN) PO SCH ×2 (08:37→20:29)
[2021-04-11] MEDS: FLUoxetine HCL 20 MG CAP PO SCH (08:37)
[2021-04-11] MEDS: METOPROLOL TARTRATE 25 MG TAB PO SCH (08:38)
[2021-04-11] MEDS: RIVAROXABAN 20 MG TAB PO SCH (08:38)
[2021-04-11] MEDS: THIAMINE HCL 100 MG TAB PO SCH ×2 (08:38→20:24)
[2021-04-11] MEDS: CHOLECALCIFEROL 5,000 UNITS 125 MCG TAB PO SCH (08:38)
[2021-04-11] MEDS: CYANOCOBALAMIN 1000 MCG/ML VIAL IM SCH (08:38)
[2021-04-11] MEDS: PANTOprazole 40 MG TAB PO SCH ×2 (08:38→20:26)
[2021-04-11] MEDS: INSULIN ASPART PER UNIT SC SCH ×4 (08:48→21:35)
--- NOTE | 2021-04-11 09:49 | Neurology Consultation ---
Date of Consultation April 11, 2021 Assessment & Plan (1) Diplopia: (2) Dizziness: This patient reports persistent horizontal diplopia, worse at a distance, which has been present for the past few months. She does not have obvious ocular motility dysfunction on examination. Nonetheless, I am unable to completely exclude a 6th nerve palsy. Would recommend outpatient ophthalmology evaluation. There is no evidence of stroke or other [employer]ENT[employer]ID[employer] TE[employer]ER process that would otherwise explain this symptom. Although her reported symptom does not seem consistent with myasthenia gravis, I will order acetylcholine receptor antibodies. She has been experiencing some orthostatic dizziness recently although it appears as if she has had vertigo as well and in fact had an unremarkable brain MRI this past September for this issue. The symptom does not appear to be related to low blood pressure. She does complain of some associated right aural fullness, hearing loss, and tinnitus. Labyrinthitis or Mnire's disease not excluded. No evidence of vertebrobasilar insufficiency, brainstem, pontine, or midbrain stroke on MRI. Would recommend outpatient audiology and ENT evaluations. History of Present Illness Reason for Consultation: diplopia, vertigo Requesting Physician: Andrew Pantoja MD Attending Physician: Andrew Pantoja History of Present Illness The patient is a 60-year-old female who presented to the emergency department on April 06, 2021 for further evaluation and management of of persistent confusion which began several days prior. She was significantly hypertensive (202/129) upon initial evaluation but was otherwise stable, without obvious focal neurologic deficits. She was apparently confused but oriented to person and place. The patient does recall her confusion and having some difficulty making a phone call to her son, prior to her assessment in the emergency department. I see that she was evaluated in the hospital this past January for reported recurrent syncope. She was seen by cardiology at that time, symptoms felt to be orthostatic. It looks like she was started on a low-dose beta- shira. She was also found to have some wall motion abnormality on echocardiography of uncertain significance. She was to have additional follow- up with cardiology in this regard. She was also seen by psychiatry during her previous admission for several issues including major depressive disorder, generalized anxiety disorder with panic attacks, agoraphobia, and posttraumatic stress disorder. Looks like fluoxetine was started at that time. Patient has been complaining of diplopia and vertigo during this current admission. Upon further questioning, however, patient indicates that her diplopia began probably about 4 months ago and has been fairly persistent. She complains of horizontal diplopia, worse when looking at objects at a distance, improving with closing either eye. No associated vision loss or ocular pain. She also complains of a feeling of dizziness or vertigo that tends to occur when she sits upright in bed. No associated nausea or other neurologic symptoms. The symptom seems to improve with upright posture after a minute or so. Patient admits that her orthostatic dizziness is more recent, beginning probably within the past week or so although exact onset not entirely certain. Given these complaints, a brain MRI was completed yesterday. The study was unremarkable. No evidence of acute or subacute stroke. There is mild chronic microvascular ischemic change per my review. Specifically, no evidence of acute or chronic infarct within the brainstem, blas, or midbrain. CT angiography of the head and neck completed this past January revealed no significant abnormalities in the neck. 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 Of note, a brain MRI completed in September 2020 for vertigo was unremarkable. Allergies Allergy/AdvReac Type Severity Reaction Status Date / Time lisinopril AdvReac Mild weight Verified 04/06/21 12:11 gain Home Medications Medication Instructions Recorded Confirmed Type doxepin 75 mg capsule 150 mg PO HS 02/23/18 04/06/21 History metformin 1,000 mg tablet 1,000 mg PO BID 02/23/18 04/06/21 History blood sugar diagnostic (OneTouch #10 ea 12/31/19 02/03/21 Rx Verio test strips) lancets 33 gauge (OneTouch Delica #100 ea 12/31/19 02/03/21 Rx Lancets) pen needle, diabetic 32 gauge x #100 ea 12/31/19 02/03/21 Rx 5/32" (BD Nati 2nd Gen Pen Needle) polyethylene glycol 3350 17 gram 17 g PO DAILY #30 packet 12/31/19 04/06/21 Rx oral powder packet (Miralax) aspirin 81 mg tablet,delayed 81 mg PO DAILY 02/03/21 04/06/21 History release omeprazole 20 mg capsule,delayed 20 mg PO BID 02/03/21 04/06/21 History release benazepril 5 mg tablet 0 mg PO DAILY 04/06/21 04/06/21 History oxycodone 30 mg tablet,crush 30 mg PO Q12H 04/06/21 04/06/21 History resistant,extended release 12 hr (OxyContin) fluoxetine 20 mg capsule 20 mg PO DAILY 04/07/21 04/07/21 History metoprolol tartrate 25 mg tablet 25 mg PO BID 04/07/21 04/07/21 History Patient History Medical History Abnormal LFTs Acute cholecystitis due to biliary calculus Acute pancreatitis B12 deficiency Chronic pain Hyperlipidemia Hypertension associated with chronic kidney disease due to type 2 diabetes mellitus MDD (major depressive disorder), recurrent episode, moderate Obesity Pericarditis Peripheral autonomic neuropathy due to diabetes mellitus Surgical History H/O cervical spine surgery Previous section Status post lumbar spine surgery for decompression of spinal cord Family History Other Family history non-contributory Social History Smoking Status: Never smoker Hx Alcohol Use: No Hx Substance Use: No Preferred Language: Cuban Communication Ability: Effective Inspector Final Assembly Conveyor Line Required: No Beliefs That Will Affect Care: None Current Living Situation: Alone Feels Safe at Home: Yes Safety Concerns: Feels Safe At This Time Assistive Devices: None Review of Systems Constitutional: no fever and no chills Eyes: no blind spots and no diplopia Ear, Nose, Mouth, Throat: + ear pain, + tinnitus, + hearing loss and + dizziness Respiratory: no cough and no dyspnea Cardiovascular: no chest pain and no palpitations Gastrointestinal: no constipation and no diarrhea/loose stools Genitourinary: no urinary urgency and no urinary incontinence Musculoskeletal: no muscle weakness and no muscle atrophy Integumentary: no rash and no lesions Neurologic: as per Subjective / HPI Psychiatric: + depression and + anxiety Hematologic / Lymphatic: no easy bruising and no lymphadenopathy Exam (Neuro) Constitutional: well developed and well nourished; no acute distress Eyes: normal visual rowland by confrontation, PERRL, normal accommodation and EOM intact bilaterally; no fundoscopic abnormality, no nystagmus and no papilledema Cardiovascular: Vessels: normal carotid upstroke; no carotid bruit Neurologic: Oriented to:: Person, Place and Time Memory: Short Term Intact and Remote Intact Attention: Span Intact and Concentration Intact Language: Naming Objects and Repeating Phrases Speech Fluency: negative Dysarthria Speech Aphasia: negative Aphasia Fund of Knowledge: Current Events, Past History and Vocabulary Cranial Nerves: Normal II (Visual rowland full to confrontation, visual acuity normal), III, IV, (Pupils equal round reactive to light and accommodation, eye movements normal), V (Facial sensation intact), VII (There is no facial droop or weakness), VIII (Hearing intact), IX, X (Palate elevates to midline), XI (Shoulder shrug intact) and XII (Tongue protrudes to midline) Motor Strength: Normal Lower Extremities and Normal Upper Extremities; negative Pronator Drift Motor Tone: Normal Lower Extremities and Normal Upper Extremities Muscle Bulk/Involuntary Movements: No Involuntary Movements; negative Muscle Atrophy Sensation: Light Touch Intact, Pain/Temperature Intact, Vibration Intact and Proprioception Intact Coordination: Normal; negative Limited Balance, Dysdiadochokinesia, Finger-Nose Abnormal or Heel-Mack Abnormal Deep Tendon Reflexes: Rt Triceps: 1+, Lt Triceps: 1+, Rt Biceps: 1+, Lt Biceps: 1+, Rt Brachioradialis: 1+, Lt Brachioradialis: 1+, Rt Patellar: 1+, Lt Patellar: 1+, Rt Ankle: 1+ and Lt Ankle: 1+ Special Tests: negative Babinski Present Gait: Normal Station and Gait Details: This patient does not exhibit obvious deficits of ocular motility. However, she does report diplopia when looking at objects at a distance, also worse with both left and right gaze. I was able to have this patient sit up on the edge of the bed which did not appear to provoke significant vertigo. She remained upright without difficulty throughout the examination. Results & Data ([facility]) Vital Signs (Past 12 Hours) Vital Signs Temp Pulse Pulse Resp BP Pulse Ox 04/11/21 08:41 77 146/88 H 04/11/21 07:40 36.5 C 75 18 181/103 H 95 04/10/21 23:07 36.5 C 64 16 150/89 H 97 Laboratory Results WBC 5.76, hemoglobin 10.9, hematocrit 34.2, platelet count 246, ESR 22, sodium 139, potassium 4.0, BUN 22, creatinine 1.47, glucose 109, hemoglobin A1c 6.7, calcium 8.7, magnesium 2.5, AST 13, ALT 8, Lyme screening negative Diagnostic Findings MRI of the brain and recent CT angiography of the head and neck are as described in the history of present illness. Also noted: Brain MRI done in January 2021 for vision changes was unremarkable. Brain MRI done in September 2020 for vertigo was unremarkable. Electrocardiogram revealed a normal sinus rhythm. Echocardiogram done this past January revealed a new septal wall motion abnormality and slight decline in left ventricular systolic function. (Patient was previously evaluated by cardiology for this issue.) Coding Level of Care Code 09829 Initial Inpt Care Lvl 3 Diagnoses Diplopia H53.2 Dizziness R42
[2021-04-11] MEDS: MECLIZINE 12.5 MG TAB PO SCH ×2 (15:43→20:22)
[2021-04-11] MEDS: DOXEPIN HCL 75 MG CAPSULE PO SCH (20:24)
[2021-04-11] MEDS: METOPROLOL TARTRATE 50 MG TAB PO SCH (20:29)
--- NOTE | 2021-04-11 21:16 | Hospitalist Progress Note ---
Date of Service April 11, 2021 Assessment & Plan (1) Hypomagnesemia: Plan: Mg 0.6 ml/dL on admission. Extensive repletion, now normal. Etiology -- poor oral intake (1 meal/day at home, food is not nutritious, etc). She is eating much better here. She is denying any alcohol abuse. (2) Hypocalcemia: Plan: Resolved. total calcium level today 8.7. Was likely multifactorial. Low vitamin D. Low mag. Etc. BMP with calcium in am for stability. (3) Metabolic encephalopathy: Plan: Resolved. 2nd to B12 deficiency? 2nd to SIZER MACHINE disturbance (stroke, thiamine deficiency, etc)? Cont B12 supplementation. Cont B1 supplementation. MRI brain ordered due to ongoing diplopia, vertigo, other symptoms. MRI returned negative. Due to her diplopia, vertigo, etc I asked [facility] [place] her today. (4) Syncope: Plan: Suspect due to electrolyte abnormalities especially the low magnesium (critically low at presentation). Given the lack of prodrome would need to consider arrhythmia. STRONGLY consider 30-day event monitor post-d/c. (or loop recorder) (5) Hypertension associated with chronic kidney disease due to type 2 diabetes mellitus: Plan: Continue metoprolol BID. Added amlodipine 5mg daily. (6) Generalized anxiety disorder with panic attacks: Plan: continue home fluoxetine consider titration (7) MDD (major depressive disorder), recurrent episode, moderate: Plan: Continue fluoxetine as above (8) Diabetes mellitus type 2, uncontrolled: Plan: HbA1C 7.6% in January Hold metformin Cont novolog Hba1c 6.7% this admission (9) Chronic kidney disease, stage 3: Plan: Cr baseline ~1.3. BMPs stable. (10) B12 deficiency: Plan: B12 level = 105. Cyanocobalamin 1,000 mcg IM daily while hospitalized. Would advise parenteral replacement as outpatient; uncertain if she is absorbing PO B12. Also concerned about compliance with PO meds at home. Folate is low-normal - replace 1mg daily x 30 days. (11) GERD (gastroesophageal reflux disease): Plan: Cont PPI (12) Pulmonary embolism: Plan: Diagnosed January 2021. Compliance with anticoagulation uncertain. Etiology of PE?? Concerning given her failure to thrive & weight loss. Continue Xarelto 20mg PO daily. (13) Diplopia: Plan: etiology? MRI brain negative for brainstem stroke. No signs of RAYSA from a Wernicke's state but continue thiamine 200mg BID. Sed rate, lyme - both normal. PATSY pending (has h/o +PATSY in the past). Dr Painter saw in consult - sent myasthenia gravis labs. (14) Pancreatic atrophy: Plan: as seen on CTs. pancreatic insufficiency as cause of diarrhea and weight loss?? started creon 1 capsule TID w/ meals. refer to GI post-d/c. (15) Severe protein-calorie malnutrition: Plan: 30+ pounds of weight loss last year. 2nd to #14? other GI malabsorptive issue given her numerous electrolyte issues and vitamin deficiencies?? creon trial. needs GI w/u. prior CT a/p normal except for pancreatic atrophy. send pancreatic elastace. check giardia stool ag given chronic diarrhea. check c diff. (16) Vitamin D deficiency: Plan: vit D to 5000 IU daily. (17) Housing problems: Plan: will involve social work tomorrow to assist w/ these issues highly complex not safe to d/c yet without firmer plan in place Plan: OT eval - home OT advised PT - patient declined it when they came to work with her Admission and Anticipated Discharge Date Admission Date: April 06, 2021 Subjective patient continues with vertigo, double vision, dizziness appetite is robust no syncope or near-syncope no diarrhea; in fact, she now has constipation she discusses her numerous social issues that are affecting her outside the hospital she voices that she stopped paying her mortgage about a year ago in attempts to save more money [id number] she is concerned that by the time she discharges from the hospital she may not have her house any longer (ie eviction) I asked her how she will know if she has a safe place to live post-discharge - she said "I guess I will find out when I get home" I asked if someone in her family (or friends) could check to see if her housing situation is ok; again she said "maybe my son could check on the house" we discussed her diet and lack of good nutrition (eating 1 TV dinner/day, often skipping meals, etc) when asked about her passing out spells at home she has had at least 3-4 episodes in the last 4-6 weeks most recent ones had no prodromal symptoms Review of Systems Review of Systems: gen - no fevers, no chills cv - no orthopnea or chest pain pulm - no cough or dyspnea GI - no abd pain Physical Exam Physical Exam: gen - NAD, memory and thought process intact today eyes - EOMI mouth - MMM neck - no JVD heart - RRR, s1 s2, no murmur lungs - CTA b/l abd - soft NT ND BS+ ext - no edema, pulses 2+ b/l Results & Data [facility]) Vital Signs (Past 12 Hours) Vital Signs Temp Pulse Pulse Resp BP BP Pulse Ox 04/11/21 20:19 81 184/106 H 04/11/21 16:44 36.6 C 76 16 188/99 H 92 PG Care Time/CCT Total # of Minutes Spent Total Time Spent with Patient: Total time spent is greater than 50% in coordination of care (as documented) at patient's floor/unit and/or counseling patient: Coding Level of Care Code 44400 Subseq Hosp Care Lvl 3 Diagnoses Hypomagnesemia E83.42 Hypocalcemia E83.51 Metabolic encephalopathy G93.41 Syncope R55 Hypertension associated with chronic kidney disease due to type 2 diabetes mellitus E11.22; I12.9 Generalized anxiety disorder with panic attacks F41.1; F41.0 MDD (major depressive disorder), recurrent episode, moderate F33.1 Diabetes mellitus type 2, uncontrolled E11.65 Chronic kidney disease, stage 3 N18.30 B12 deficiency E53.8 GERD (gastroesophageal reflux disease) K21.9 Pulmonary embolism I26.99 Acute cor pulmonale presence: without acute cor pulmonale Chronicity: acute Pulmonary embolism type: unspecified Diplopia H53.2 Pancreatic atrophy K86.89 Severe protein-calorie malnutrition E43 Vitamin D deficiency E55.9 Housing problems Z59.9 (1) Pulmonary embolism Acute cor pulmonale presence: without acute cor pulmonale Chronicity: acute Pulmonary embolism type: unspecified Qualified Code(s): I26.99 - Other pulmonary embolism without acute cor pulmonale
[2021-04-12] MEDS: PANTOprazole 40 MG TAB PO SCH ×2 (08:28→21:17)
[2021-04-12] MEDS: oxyCODONE HCL 10 MG TABCR (OxyCONTIN) PO SCH ×2 (08:28→21:16)
[2021-04-12] MEDS: amLODIPine BESYLATE 5 MG TAB PO SCH (08:28)
[2021-04-12] MEDS: THIAMINE HCL 100 MG TAB PO SCH ×2 (08:29→21:17)
[2021-04-12] MEDS: FLUoxetine HCL 20 MG CAP PO SCH (08:29)
[2021-04-12] MEDS: PANCREAZE (LIPASE 10,500U) CAP PO SCH ×3 (08:29→17:45)
[2021-04-12] MEDS: MAGNESIUM OXIDE 400 MG TAB PO SCH ×2 (08:29→21:17)
[2021-04-12] MEDS: RIVAROXABAN 20 MG TAB PO SCH (08:29)
[2021-04-12] MEDS: FOLIC ACID 1 MG TAB PO SCH (08:29)
[2021-04-12] MEDS: MECLIZINE 12.5 MG TAB PO SCH (08:30)
[2021-04-12] MEDS: CYANOCOBALAMIN 1000 MCG/ML VIAL IM SCH (08:31)
[2021-04-12] MEDS: METOPROLOL TARTRATE 50 MG TAB PO SCH ×2 (08:31→21:17)
[2021-04-12] MEDS: INSULIN ASPART PER UNIT SC SCH ×4 (09:49→21:17)
[2021-04-12] MEDS: ASPIRIN 81 MG ECTAB PO SCH (11:51)
[2021-04-12] MEDS: CHOLECALCIFEROL 5,000 UNITS 125 MCG TAB PO SCH (11:51)
[2021-04-12] MEDS ORDERED: SODIUM CHLORIDE 0.9% 1000ML 1,000 ML IV ONE (12:05)
[2021-04-12 12:21] LABS: Anti Nuclear Antibody Screen POSITIVE (NEGATIVE)
[2021-04-12] MEDS: MECLIZINE HCL 25 MG TAB PO SCH ×2 (13:10→21:17)
[2021-04-12] MEDS: DOXEPIN HCL 75 MG CAPSULE PO SCH (21:16)
--- NOTE | 2021-04-12 23:45 | Hospitalist Progress Note ---
Date of Service April 12, 2021 Assessment & Plan (1) Diplopia: Plan: etiology still quite uncertain. MRI brain negative for brainstem stroke. No signs of RAYSA from a Wernicke's state but still giving thiamine 200mg BID. Sed rate, lyme - both normal. PATSY returned positive - but no signs of a lupus cerebritis. Dr Painter saw in consult - sent myasthenia gravis labs. Following discharge will send to ophtho. I offered to patch one of her eyes to extinguish the diplopia - she has consistently declined such. (2) Dizziness: Plan: Some of her symptoms are orthostatic in nature , and some of her symptoms are vertiginous. Increase meclizine to 25mg TID. Gave 1 L NS bolus today due to mild orthostasis. re-eval tomorrow. (3) Hypomagnesemia: Plan: Mg 0.6 ml/dL on admission. Extensive repletion, now normal. Etiology -- poor oral intake (1 meal/day at home, food is not nutritious, etc). She is eating much better here. She is denying any alcohol abuse. (4) Hypocalcemia: Plan: Resolved. Was likely multifactorial. Low vitamin D. Low mag. Etc. BMP with calcium in am for stability. (5) Metabolic encephalopathy: Plan: Resolved. 2nd to B12 deficiency? 2nd to OVEN STRIPPER disturbance (stroke, thiamine deficiency, etc)? Cont B12 supplementation. Cont B1 supplementation. MRI brain ordered due to ongoing diplopia, vertigo, other symptoms. MRI returned negative. Due to her diplopia, vertigo, etc I asked [facility] to evaluate - see their consult note. (6) Syncope: Plan: Suspect due to electrolyte abnormalities especially the low magnesium (critically low at presentation). Given the lack of prodrome would need to consider arrhythmia. STRONGLY consider 30-day event monitor post-d/c. (or loop recorder) (7) Hypertension associated with chronic kidney disease due to type 2 diabetes mellitus: Plan: Continue metoprolol BID. Added amlodipine 5mg daily. Modest orthostasis on orthostatic checks today - gave 1 L NS Bolus. re-eval tomorrow. (8) Generalized anxiety disorder with panic attacks: Plan: continue home fluoxetine consider titration (9) MDD (major depressive disorder), recurrent episode, moderate: Plan: Continue fluoxetine as above (10) Diabetes mellitus type 2, uncontrolled: Plan: HbA1C 7.6% in January metformin Cont novolog Hba1c 6.7% this admission (11) Chronic kidney disease, stage 3: Plan: Cr baseline ~1.3. BMPs have been stable. repeat BMP am. (12) B12 deficiency: Plan: B12 level = 105. Cyanocobalamin 1,000 mcg IM daily while hospitalized. Would advise parenteral replacement as outpatient; uncertain if she is absorbing PO B12. Also concerned about compliance with PO meds at home. Folate is low-normal - replace 1mg daily x 30 days. (13) GERD (gastroesophageal reflux disease): Plan: Cont PPI (14) Pulmonary embolism: Plan: Diagnosed January 2021. Compliance with anticoagulation uncertain. Etiology of PE?? Concerning given her failure to thrive & weight loss. Continue Xarelto 20mg PO daily. (15) Pancreatic atrophy: Plan: as seen on CTs. pancreatic insufficiency as cause of diarrhea and weight loss?? started creon 1 capsule TID w/ meals. refer to GI post-d/c. (16) Severe protein-calorie malnutrition: Plan: 30+ pounds of weight loss last year. 2nd to #14? other GI malabsorptive issue given her numerous electrolyte issues and vitamin deficiencies?? creon trial. needs GI w/u. prior CT a/p normal except for pancreatic atrophy. send pancreatic elastace when able along with c diff and giardia testing. (17) Vitamin D deficiency: Plan: vit D to 5000 IU daily. (18) Housing problems: Plan: much appreciation to social work for their assistance today Shruthi from case management will reach out to the pt's son to see if he can provide assistance to Ms Méndez post-discharge at minimum will need home health nursing, etc Plan: OT eval - home OT advised PT - patient declined it when they came to work with her but would benefit from home PT safety evaluation Admission and Anticipated Discharge Date Admission Date: April 06, 2021 Subjective pt sleeping upon arrival easily awakens reports ongoing dizziness/lightheadedness orthostatic BPs checked - 20-25 point drop with standing - gave NS Bolus 1 Liter x 1 also with ongoing vertigo/spinning diplopia unchanged the social work msw and I spoke with Ms Méndez about her after care we expressed concerns about her living situation, financial stability, ability to have sufficient nutrition at home, etc we inquired with her about whether her son could come stay with her for a couple of weeks post-d/c or if she could go and stay with him she didn't think that these would be options she reports not having paid her mortgage in over 12 months and she has been receiving letters from the bank threatening eviction from her home apparently she was given a list of local resources by the previous social work msw but she has yet to call any phone numbers on that sheet eating well per the nursing flowsheets - 100% of meals Review of Systems Review of Systems: gen - no fevers cv - no orthopnea or pain pulm - no cough or dyspnea neuro - ongoing diplopia, dizziness, and vertigo; no focal weakness GI - no emesis; hasn't had a BM in a few days; no diarrhea Physical Exam Physical Exam: gen - NAD, a/o x 3 today; affect wnl today mouth - MMM neck - no JVD heart - RRR, s1 s2, no murmur lungs - CTA b/l abd - soft NT ND BS+ ext - no edema, pulses 2+ b/l skin - turgor wnl Results & Data Results & Data ([facility]) Vital Signs (Past 12 Hours) Vital Signs Temp Pulse Resp BP Pulse Ox 04/12/21 21:03 36.6 C 67 16 132/82 94 04/12/21 15:22 36.7 C 65 16 124/79 96 Laboratory Results Laboratory Results - last 24 hr 04/11/21 04/12/21 04/12/21 06:27 08:02 12:05 POC Glucose 128 H 175 H PATSY Screen POSITIVE A 04/12/21 04/12/21 17:03 21:02 POC Glucose 149 H 176 H PATSY Screen PG Care Time/CCT Total # of Minutes Spent Total Time Spent with Patient: Total time spent is greater than 50% in coordination of care (as documented) at patient's floor/unit and/or counseling patient: Coding Level of Care Code 12812 Subseq Hosp Care Lvl 3 Diagnoses Hypomagnesemia E83.42 Hypocalcemia E83.51 Metabolic encephalopathy G93.41 Syncope R55 Hypertension associated with chronic kidney disease due to type 2 diabetes mellitus E11.22; I12.9 Generalized anxiety disorder with panic attacks F41.1; F41.0 MDD (major depressive disorder), recurrent episode, moderate F33.1 Diabetes mellitus type 2, uncontrolled E11.65 Chronic kidney disease, stage 3 N18.30 B12 deficiency E53.8 GERD (gastroesophageal reflux disease) K21.9 Pulmonary embolism I26.99 Acute cor pulmonale presence: without acute cor pulmonale Chronicity: acute Pulmonary embolism type: unspecified Diplopia H53.2 Pancreatic atrophy K86.89 Severe protein-calorie malnutrition E43 Vitamin D deficiency E55.9 Housing problems Z59.9 Dizziness R42 (1) Pulmonary embolism Acute cor pulmonale presence: without acute cor pulmonale Chronicity: acute Pulmonary embolism type: unspecified Qualified Code(s): I26.99 - Other pulmonary embolism without acute cor pulmonale
[2021-04-13] MEDS: INSULIN ASPART PER UNIT SC SCH ×4 (07:55→21:28)
[2021-04-13] MEDS: oxyCODONE HCL 10 MG TABCR (OxyCONTIN) PO SCH ×2 (08:25→21:27)
[2021-04-13] MEDS: MECLIZINE HCL 25 MG TAB PO SCH ×3 (08:26→21:27)
[2021-04-13] MEDS: FLUoxetine HCL 20 MG CAP PO SCH (08:26)
[2021-04-13] MEDS: PANTOprazole 40 MG TAB PO SCH ×2 (08:26→21:27)
[2021-04-13] MEDS: MAGNESIUM OXIDE 400 MG TAB PO SCH ×2 (08:26→21:27)
[2021-04-13] MEDS: THIAMINE HCL 100 MG TAB PO SCH ×2 (08:26→21:27)
[2021-04-13] MEDS: METOPROLOL TARTRATE 50 MG TAB PO SCH ×2 (08:26→21:28)
[2021-04-13] MEDS: CHOLECALCIFEROL 5,000 UNITS 125 MCG TAB PO SCH (08:26)
[2021-04-13] MEDS: CYANOCOBALAMIN 1000 MCG/ML VIAL IM SCH (08:27)
[2021-04-13] MEDS: FOLIC ACID 1 MG TAB PO SCH (08:27)
[2021-04-13] MEDS: amLODIPine BESYLATE 5 MG TAB PO SCH (08:27)
[2021-04-13] MEDS: ASPIRIN 81 MG ECTAB PO SCH (08:27)
[2021-04-13] MEDS: RIVAROXABAN 20 MG TAB PO SCH (08:27)
[2021-04-13] MEDS: PANCREAZE (LIPASE 10,500U) CAP PO SCH ×3 (08:27→17:15)
[2021-04-13] MEDS ORDERED: SODIUM CHLORIDE 0.9% 1000ML 500 ML IV ONE (11:15)
[2021-04-13 11:30] LABS: Hematocrit (blood only) 38.7 % (37-47); Hemoglobin 12.2 g/dL (12.0-16.0); Mean Corpuscular Hemoglobin 28.4 pg (25-34); Mean Corpuscular Hgb Conc 31.5 g/dL (32-36); Mean Corpuscular Volume 90.2 fL (80-100); Mean Platelet Volume 9.9 fL (7.4-10.4); Platelet Count 263 K/uL (130-400); RDW Coefficient of Variation 14.4 % (11.5-14.5); RDW Standard Deviation 47.2 fL (36.4-46.3); Red Blood Count 4.29 M/uL (4.2-5.4); White Blood Count 6.72 K/uL (4.8-10.8)
[2021-04-13 11:55] LABS: BUN Creatinine Ratio 13.9 (10-20); Creatinine Clr Calc Pharmacy 33.2 ml/min; Est GFR (African American) 35.1 ml/min; Est GFR (Non-African American) 30.3 ml/min; Magnesium 1.9 mg/dl (1.7-2.4); Potassium 4.6 mmol/L (3.5-5.1)
[2021-04-13 14:57] LABS: ANA Pattern Nuclear, Homogeneous; ANA Titer 1:40 titer
[2021-04-13 16:57] LABS: Appearance Urine Clear (Clear); Bacteria Urine Automated Negative (Negative); Bilirubin Urine Negative (Negative); Blood Urine Negative (Negative); Cast Urine Automated 0 /lpf (0-5); Color Urine Yellow; Glucose Urine UA Negative (Negative); Ketones Urine Negative (Negative); Leukocyte Esterase Urine Trace (Negative); Nitrite Urine Negative (Negative); Protein Urine Negative (Negative); RBC Urine Automated 0-4 /hpf (0-4); Specific Gravity Urine 1.009 (1.000-1.030); Urobilinogen Urine Negative (Negative); pH Urine 6.5 (4.5-7.5)
--- NOTE | 2021-04-13 20:35 | Hospitalist Progress Note ---
Date of Service April 13, 2021 Assessment & Plan (1) Diplopia: Plan: etiology uncertain. MRI brain negative for brainstem stroke. No signs of RAYSA from a Wernicke's state but still giving thiamine 200mg BID. Sed rate, lyme - both normal. PATSY returned positive - but no signs of a lupus cerebritis. Titer pending. Dr Painter saw in consult - sent myasthenia gravis labs. Those are pending. Following discharge will send to ophtho. I offered to patch one of her eyes to extinguish the diplopia - she has consistently declined such. (2) Dizziness: Plan: Some of her symptoms are orthostatic in nature , and some of her symptoms are vertiginous. Today it is mainly vertigo. Remains on meclizine 25mg TID. Will speak with PT about a vestibular evaluation. Vertigo presumably is peripheral in origin; can't rule out [employer] cause but again MRI brain neg. Random cortisol is only 6 - reasonably to do cosyntropin stimulation test to r/o adrenal insufficiency. Further, her MRI brain shows a partially empty sella. (3) Hypomagnesemia: Plan: Mg 0.6 ml/dL on admission. Extensive repletion, now normal. Etiology -- poor oral intake (1 meal/day at home, food is not nutritious, etc). She is eating much better here. She is denying any alcohol abuse. (4) Hypocalcemia: Plan: Resolved. Was likely multifactorial. Low vitamin D. Low mag. Etc. BMP with calcium in am for stability. (5) Metabolic encephalopathy: Plan: Resolved. 2nd to B12 deficiency? 2nd to [employer] disturbance (stroke, thiamine deficiency, etc)? Cont B12 supplementation. Cont B1 supplementation. MRI brain ordered due to ongoing diplopia, vertigo, other symptoms. MRI returned negative. Due to her diplopia, vertigo, etc I asked [facility] to evaluate - see their consult note. (6) Syncope: Plan: Suspect due to electrolyte abnormalities especially the low magnesium (critically low at presentation). Given the lack of prodrome would need to consider arrhythmia. STRONGLY consider 30-day event monitor post-d/c. (or loop recorder) (7) Hypertension associated with chronic kidney disease due to type 2 diabetes mellitus: Plan: Continue metoprolol BID. Continue amlodipine 5mg daily. BPs stable/controlled. (8) Generalized anxiety disorder with panic attacks: Plan: continue home fluoxetine consider titration OR consider psych consultation given her complex past psych history (9) MDD (major depressive disorder), recurrent episode, moderate: Plan: Continue fluoxetine as above (10) Diabetes mellitus type 2, uncontrolled: Plan: HbA1C 7.6% in January metformin Cont novolog Hba1c 6.7% this admission (11) Chronic kidney disease, stage 3: Plan: Cr baseline ~1.3. Today 1.8. uncertain why it melony. will check a u/a. repeat BMP am. (12) B12 deficiency: Plan: B12 level = 105. Cyanocobalamin 1,000 mcg IM daily while hospitalized. Would advise parenteral replacement as outpatient; uncertain if she is absorbing PO B12. Also concerned about compliance with PO meds at home. Folate is low-normal - replace 1mg daily x 30 days. (13) GERD (gastroesophageal reflux disease): Plan: Cont PPI (14) Pulmonary embolism: Plan: Diagnosed January 2021. Compliance with anticoagulation uncertain. Etiology of PE?? Concerning given her failure to thrive & weight loss. Continue Xarelto 20mg PO daily. (15) Pancreatic atrophy: Plan: as seen on CTs. pancreatic insufficiency as cause of diarrhea and weight loss?? started creon 1 capsule TID w/ meals. refer to GI post-d/c. (16) Severe protein-calorie malnutrition: Plan: 30+ pounds of weight loss last year. 2nd to #14? other GI malabsorptive issue given her numerous electrolyte issues and vitamin deficiencies?? creon trial. needs GI w/u. prior CT a/p normal except for pancreatic atrophy. send pancreatic elastace when able along with c diff and giardia testing. of note - she is eating robustly here without GI intolerance nor any diarrhea. (17) Vitamin D deficiency: Plan: vit D to 5000 IU daily. (18) Housing problems: Plan: much appreciation to social work for their assistance Plan: dispo - uncertain Admission and Anticipated Discharge Date Admission Date: April 06, 2021 Subjective pt without any new complaints vertigo brought on by positional changes is better but not resolved no lightheadedness today diplopia persists PT, OT advising rehab post-d/c pt states she has not talked with son about any post-discharge planning Review of Systems Review of Systems: gen - no fever, energy is ok cv - no orthopnea pulmonary - no cough or dyspnea GI - no abd pain today; no further diarrhea - if anything she is constipated; eating VERY well Physical Exam Physical Exam: gen - NAD, a/o x 3 today mouth - MMM neck - no JVD heart - RRR, s1 s2, no murmur lungs - CTA b/l abd - soft NT ND BS+ ext - no edema, pulses 2+ b/l skin - turgor wnl Results & Data Results & [facility] ([facility]) Vital Signs (Past 12 Hours) Vital Signs Temp Pulse Resp BP Pulse Ox 04/13/21 14:49 36.8 C 65 16 123/80 97 Laboratory Results Laboratory Results - last 24 hr 04/11/21 04/12/21 04/13/21 06:27 21:02 07:47 WBC RBC Hgb Hct MCV MCH MCHC RDW Std Deviation RDW Coeff of Génesis Plt Count MPV Sodium Potassium Chloride Carbon Dioxide Anion Gap BUN Creatinine Est Cr Clr Drug Dosing Est GFR ( Amer) Est GFR (Non-Af Amer) BUN/Creatinine Ratio Glucose POC Glucose 176 H 118 H Calcium Magnesium Random Cortisol Urine Color Urine Appearance Urine pH Ur Specific [place] Urine Protein Urine Glucose (UA) Urine Ketones Urine Blood Urine Nitrite Urine Bilirubin Urine Urobilinogen Ur Leukocyte Esterase Urine WBC (Auto) Urine RBC (Auto) U Hyaline Cast (Auto) U Epithel Cells (Auto) Urine Bacteria (Auto) PATSY Screen POSITIVE A PATSY Titer 1:40 H PATSY Pattern Nuclear, Homogeneous A 04/13/21 04/13/21 04/13/21 11:19 11:19 11:19 WBC 6.72 RBC 4.29 Hgb 12.2 Hct 38.7 MCV 90.2 MCH 28.4 MCHC 31.5 L RDW Std Deviation 47.2 H RDW Coeff of Génesis 14.4 Plt Count 263 MPV 9.9 Sodium 139 Potassium 4.6 Chloride 108 H Carbon Dioxide 23 Anion Gap 8 BUN 25 H Creatinine 1.80 H Est Cr Clr Drug Dosing 33.2 Est GFR ( Amer) 35.1 Est GFR (Non-Af Amer) 30.3 BUN/Creatinine Ratio 13.9 Glucose 198 H POC Glucose Calcium 9.0 Magnesium 1.9 Random Cortisol 6.03 Urine Color Urine Appearance Urine pH Ur Specific [place] Urine Protein Urine Glucose (UA) Urine Ketones Urine Blood Urine Nitrite Urine Bilirubin Urine Urobilinogen Ur Leukocyte Esterase Urine WBC (Auto) Urine RBC (Auto) U Hyaline Cast (Auto) U Epithel Cells (Auto) Urine Bacteria (Auto) PATSY Screen PATSY Titer PATSY Pattern 04/13/21 04/13/21 04/13/21 12:05 16:33 17:04 WBC RBC Hgb Hct MCV MCH MCHC RDW Std Deviation RDW Coeff of Génesis Plt Count MPV Sodium Potassium Chloride Carbon Dioxide Anion Gap BUN Creatinine Est Cr Clr Drug Dosing Est GFR ( Amer) Est GFR (Non-Af Amer) BUN/Creatinine Ratio Glucose POC Glucose 188 H 220 H Calcium Magnesium Random Cortisol Urine Color Yellow Urine Appearance Clear Urine pH 6.5 Ur Specific [place] 1.009 Urine Protein Negative Urine Glucose (UA) Negative Urine Ketones Negative Urine Blood Negative Urine Nitrite Negative Urine Bilirubin Negative Urine Urobilinogen Negative Ur Leukocyte Esterase Trace H Urine WBC (Auto) 10-30 H Urine RBC (Auto) 0-4 U Hyaline Cast (Auto) 0 U Epithel Cells (Auto) 5-10 H Urine Bacteria (Auto) Negative PATSY Screen PATSY Titer PATSY Pattern 04/13/21 20:32 WBC RBC Hgb Hct MCV MCH MCHC RDW Std Deviation RDW Coeff of Génesis Plt Count MPV Sodium Potassium Chloride Carbon Dioxide Anion Gap BUN Creatinine Est Cr Clr Drug Dosing Est GFR ( Amer) Est GFR (Non-Af Amer) BUN/Creatinine Ratio Glucose POC Glucose 155 H Calcium Magnesium Random Cortisol Urine Color Urine Appearance Urine pH Ur Specific [place] Urine Protein Urine Glucose (UA) Urine Ketones Urine Blood Urine Nitrite Urine Bilirubin Urine Urobilinogen Ur Leukocyte Esterase Urine WBC (Auto) Urine RBC (Auto) U Hyaline Cast (Auto) U Epithel Cells (Auto) Urine Bacteria (Auto) PATSY Screen PATSY Titer PATSY Pattern PG Care Time/CCT Total # of Minutes Spent Total Time Spent with Patient: Total time spent is greater than 50% in coordination of care (as documented) at patient's floor/unit and/or counseling patient: Coding Level of Care Code 72151 Subseq Hosp Care Lvl 2 Diagnoses Diplopia H53.2 Dizziness R42 Hypomagnesemia E83.42 Hypocalcemia E83.51 Metabolic encephalopathy G93.41 Syncope R55 Hypertension associated with chronic kidney disease due to type 2 diabetes mellitus E11.22; I12.9 Generalized anxiety disorder with panic attacks F41.1; F41.0 MDD (major depressive disorder), recurrent episode, moderate F33.1 Diabetes mellitus type 2, uncontrolled E11.65 Chronic kidney disease, stage 3 N18.30 B12 deficiency E53.8 GERD (gastroesophageal reflux disease) K21.9 Pulmonary embolism I26.99 Acute cor pulmonale presence: without acute cor pulmonale Chronicity: acute Pulmonary embolism type: unspecified Pancreatic atrophy K86.89 Severe protein-calorie malnutrition E43 Vitamin D deficiency E55.9 Housing problems Z59.9 (1) Pulmonary embolism Acute cor pulmonale presence: without acute cor pulmonale Chronicity: acute Pulmonary embolism type: unspecified Qualified Code(s): I26.99 - Other pulmonary embolism without acute cor pulmonale
[2021-04-13] MEDS: DOXEPIN HCL 75 MG CAPSULE PO SCH (21:27)
[2021-04-14] MEDS ORDERED: Nursing to Pharmacy Communication SCH ×2 (00:45→10:15)
[2021-04-14] MEDS ORDERED: INSULIN ASPART PER UNIT SC SCH (06:00)
[2021-04-14] MEDS ORDERED: COSYNTROPIN 1 MCG in SYRINGE 0 ML IV ONE (08:00)
[2021-04-14] MEDS: FOLIC ACID 1 MG TAB PO SCH (08:12)
[2021-04-14] MEDS: PANTOprazole 40 MG TAB PO SCH ×2 (08:12→21:27)
[2021-04-14] MEDS: MAGNESIUM OXIDE 400 MG TAB PO SCH ×2 (08:12→21:27)
[2021-04-14] MEDS: MECLIZINE HCL 25 MG TAB PO SCH ×3 (08:12→21:27)
[2021-04-14] MEDS: THIAMINE HCL 100 MG TAB PO SCH ×2 (08:12→21:27)
[2021-04-14] MEDS: amLODIPine BESYLATE 5 MG TAB PO SCH (08:13)
[2021-04-14] MEDS: PANCREAZE (LIPASE 10,500U) CAP PO SCH ×3 (08:13→16:48)
[2021-04-14] MEDS: METOPROLOL TARTRATE 50 MG TAB PO SCH ×2 (08:13→21:28)
[2021-04-14] MEDS: FLUoxetine HCL 20 MG CAP PO SCH (08:13)
[2021-04-14] MEDS: CHOLECALCIFEROL 5,000 UNITS 125 MCG TAB PO SCH (08:13)
[2021-04-14] MEDS: RIVAROXABAN 20 MG TAB PO SCH (08:13)
[2021-04-14] MEDS: ASPIRIN 81 MG ECTAB PO SCH (08:13)
[2021-04-14 08:38] LABS: BUN Creatinine Ratio 16.2 (10-20); Calcium 8.6 mg/dl (8.5-10.1); Creatinine Clr Calc Pharmacy 35.7 ml/min; Est GFR (African American) 38.4 ml/min; Est GFR (Non-African American) 33.1 ml/min; Potassium 4.1 mmol/L (3.5-5.1)
[2021-04-14] MEDS: oxyCODONE HCL 10 MG TABCR (OxyCONTIN) PO SCH ×2 (08:40→21:28)
[2021-04-14] MEDS: CYANOCOBALAMIN 1000 MCG/ML VIAL IM SCH (08:40)
[2021-04-14] MEDS: INSULIN ASPART PER UNIT SC SCH ×3 (12:48→21:28)
--- NOTE | 2021-04-14 13:00 | Psychiatric Consultation ---
Date of Consultation April 14, 2021 Impression / Recommendations Impression This is a 60 yo with a history of depression, anxiety, PTSD admitted medically. Diagnostically consistent with MDD, mild, RUMA and PTSD which has responded well to fluoxetine started about two months ago. Appropriate to consider dose titration to further target remaining depressive symptoms and she remains willing to do outpatient therapy which unfortunately fell through after her last discharge in part potentially due to issues with insurance coverage. Acute risk of self-harm is low given denial of active SI, strong deterrents, and improvement in depressive symptoms since starting fluoxetine and her willingness to engage in outpatient therapy. They are not interested in nor do they meet criteria for inpatient psychiatric hospitalization at this time. Sodium is normal; QTc is on higher end, would recommend repeat EKG in a few days after increasing fluoxetine dose. -Increase fluoxetine from 20mg qd to 30 mg qd -Repeat EKG in 2-3 days to ensure no significant change in QTc (SSRIs generally felt to be safe if QTc <500) -Can use hydroxyzine 25 mg daily prn for anxiety but try to avoid given QTc -psychiatric liason will attempt to establish outpatient therapy (1) MDD (major depressive disorder), recurrent episode, mild: (2) PTSD (post-traumatic stress disorder): (3) RUMA (generalized anxiety disorder): see impression Risk Factors Assessment Do You Have Access To A Gun?: No Psych History Identifying Data 60 yo woman with a history of PTSD, depression, anxiety and multiple medication conditions admitted for hypomagnesium, hypocalcemia, low B12, syncope and encephalopathy. Psychiatry was consulted for medication recommendations. Chief Complaint "I've been doing a lot better with the medication". History of Present Illness Adwoa is familiar to me as I previously saw her for a psych consult in Jan 2021. At that time we had referred her for outpatient therapy after discharge and started her on fluoxetine which was titrated to 20mg for anxiety, depression and PTSD. Adwoa has a history of extensive trauma throughout her life and this has lead to mood symptoms which recently have been further exacerbated in the context of multiple stressors including medical problems of increased dizziness, double vision and possible syncopal episodes. Her PHQ-9 score was 4 with 1 for Q9. She continues to have periods of intermittent passive SI but feels this has reduced since the fluoxetine was started in January and she has very strong deterrents for suicide including strong lutheran beliefs and wanting to be reunited with her family which she believes would only occur if she did not by suicide. She notes the therapy referral made during her last admission did not result in her receiving any follow-up calls for any appointment but she remains interested and willing to do therapy. Reviewed her recent symptoms and discussed how dissociative episodes can sometimes occur in the setting of trauma and PTSD but her description of events and visual changes/double vision/dizziness is less consistent with this. Past Psychiatric History Previous Psych Admissions: n/a Do You Have Access To A Gun?: No History of Previous Suicide Attempt: No Past Medication Trials: xanax, doxepin Allergies Allergy/AdvReac Type Severity Reaction Status Date / Time lisinopril AdvReac Mild weight Verified 04/06/21 12:11 gain Home Medications Medication Instructions Recorded Confirmed Type doxepin 75 mg capsule 150 mg PO HS 02/23/18 04/06/21 History metformin 1,000 mg tablet 1,000 mg PO BID 02/23/18 04/06/21 History blood sugar diagnostic (OneTouch #10 ea 12/31/19 02/03/21 Rx Verio test strips) lancets 33 gauge (OneTouch Delica #100 ea 12/31/19 02/03/21 Rx Lancets) pen needle, diabetic 32 gauge x #100 ea 12/31/19 02/03/21 Rx 5/32" (BD Nati 2nd Gen Pen Needle) polyethylene glycol 3350 17 gram 17 g PO DAILY #30 packet 12/31/19 04/06/21 Rx oral powder packet (Miralax) aspirin 81 mg tablet,delayed 81 mg PO DAILY 02/03/21 04/06/21 History release omeprazole 20 mg capsule,delayed 20 mg PO BID 02/03/21 04/06/21 History release benazepril 5 mg tablet 0 mg PO DAILY 04/06/21 04/06/21 History oxycodone 30 mg tablet,crush 30 mg PO Q12H 04/06/21 04/06/21 History resistant,extended release 12 hr (OxyContin) fluoxetine 20 mg capsule 20 mg PO DAILY 04/07/21 04/07/21 History metoprolol tartrate 25 mg tablet 25 mg PO BID 04/07/21 04/07/21 History Family History unknown as her parents when she was a child Substance Abuse History hx prescription OxyContin for chronic pain with no known hx of misuse nor abuse, no other known hx of substance use Personal History Living Arrangements: Home Employment Status: Disabled Beliefs That Will Affect Care: None Patient History Medical History Abnormal LFTs Acute cholecystitis due to biliary calculus Acute pancreatitis B12 deficiency Chronic pain Hyperlipidemia Hypertension associated with chronic kidney disease due to type 2 diabetes mellitus MDD (major depressive disorder), recurrent episode, moderate Obesity Pericarditis Peripheral autonomic neuropathy due to diabetes mellitus Surgical History H/O cervical spine surgery Previous section Status post lumbar spine surgery for decompression of spinal cord Family History Other Family history non-contributory Social History Smoking Status: Never smoker Hx Alcohol Use: No Hx Substance Use: No Preferred Language: [place] Communication Ability: Effective 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 Beliefs That Will Affect Care: None Current Living Situation: Alone Feels Safe at Home: Yes Safety Concerns: Feels Safe At This Time Assistive Devices: Glasses Physical Exam Psychiatric: Orientation: alert Apperance: appropriately dressed and appropriately groomed Eye Contact: good eye contact Motor Behavior: no abnormal motor movements Speech: normal rate/rhythm/volume of speech Affect: + constricted affect Mood: + depressed mood Thought Process: goal directed thought process Thought Content: reality based without delusions Suicidal Thoughts: denies suicidal thoughts Homicidal Thoughts: denies homicidal thoughts Hallucinations: no auditory hallucinations and no visual hallucinations Cognition: recent memory grossly intact, remote memory grossly intact, attention grossly intact and language grossly intact Estimated Intelligence: consistent with education level Insight: + fair insight Judgement: + fair judgement Vital Signs (Past 24 Hours): Last Vital Signs Temp 36.8 C 04/14/21 07:21 Pulse 64 04/14/21 07:21 Resp 16 04/14/21 07:21 BP 102/68 04/14/21 07:21 Pulse Ox 94 04/14/21 07:21 Review of Systems All systems reviewed & are unremarkable except as noted in HPI & below (double vision, dizziness, neck pain, nerve pain/tingling) Results & Data (PSY) Laboratory Results Na+ normal, glucose elevated, Cr elevated Diagnostic Findings EKG QTc 475 Medications Administered Acetaminophen (Acetaminophen 325 Mg Tab) 650 mg PO Q4H PRN PRN Reason: Pain or Fever Stop: 05/06/21 15:36 Last Admin: 04/09/21 07:41 Dose: 650 mg Documented by: [id number] Amlodipine Besylate (Amlodipine Besylate 5 Mg Tab) 5 mg PO QAM [facility] Stop: 05/11/21 08:59 Last Admin: 04/14/21 08:13 Dose: 5 mg Documented by: [id number] Admin: 04/13/21 08:27 Dose: 5 mg Documented by: [id number] Admin: 04/12/21 08:28 Dose: 5 mg Documented by: [id number] Admin: 04/11/21 08:37 Dose: 5 mg Documented by: [id number] Lipase/Protease/Amylase (Pancreaze (Lipase 10,500u) Cap) 1 cap PO TIDM [facility] Stop: 05/10/21 07:59 Last Admin: 04/14/21 12:46 Dose: 1 cap Documented by: [id number] Admin: 04/14/21 08:13 Dose: 1 cap Documented by: [id number] Admin: 04/13/21 17:15 Dose: 1 cap Documented by: [id number] Admin: 04/13/21 12:20 Dose: 1 cap Documented by: [id number] Admin: 04/13/21 08:27 Dose: 1 cap Documented by: [id number] Admin: 04/12/21 17:45 Dose: 1 cap Documented by: [id number] Admin: 04/12/21 13:10 Dose: 1 cap Documented by: [id number] Admin: 04/12/21 08:29 Dose: 1 cap Documented by: [id number] Admin: 04/11/21 18:36 Dose: 1 cap Documented by: [id number] Admin: 04/11/21 12:53 Dose: 1 cap Documented by: [id number] Admin: 04/11/21 08:37 Dose: 1 cap Documented by: [id number] Admin: 04/10/21 17:20 Dose: 1 cap Documented by: [id number] Admin: 04/10/21 11:00 Dose: 1 cap Documented by: [id number] Admin: 04/10/21 08:03 Dose: 1 cap Documented by: [id number] Aspirin (Aspirin 81 Mg Ectab) 81 mg PO DAILY JACQUELINE Stop: 05/07/21 08:59 Last Admin: 04/14/21 08:13 Dose: 81 mg Documented by: [id number] Admin: 04/13/21 08:27 Dose: 81 mg Documented by: [id number] Admin: 04/12/21 11:51 Dose: 81 mg Documented by: [id number] Admin: 04/11/21 08:37 Dose: 81 mg Documented by: [id number] Admin: 04/10/21 08:04 Dose: 81 mg Documented by: [id number] Admin: 04/09/21 09:23 Dose: 81 mg Documented by: [id number] Admin: 04/08/21 08:21 Dose: 81 mg Documented by: [id number] Admin: 04/07/21 10:44 Dose: 81 mg Documented by: [id number] Cyanocobalamin (Cyanocobalamin 1000 Mcg/Ml Vial) 1,000 mcg IM QAM JACQUELINE Stop: 05/08/21 12:29 Last Admin: 04/14/21 08:40 Dose: 1,000 mcg Documented by: [id number] Admin: 04/13/21 08:27 Dose: 1,000 mcg Documented by: [id number] Admin: 04/12/21 08:31 Dose: 1,000 mcg Documented by: [id number] Admin: 04/11/21 08:38 Dose: 1,000 mcg Documented by: [id number] Admin: 04/10/21 08:02 Dose: 1,000 mcg Documented by: [id number] Admin: 04/09/21 09:26 Dose: 1,000 mcg Documented by: [id number] Admin: 04/08/21 14:02 Dose: 1,000 mcg Documented by: [id number] Doxepin HCl (Doxepin Hcl 75 Mg Capsule) 150 mg PO HS JACQUELINE Stop: 05/06/21 20:59 Last Admin: 04/13/21 21:27 Dose: 150 mg Documented by: [id number] Admin: 04/12/21 21:16 Dose: 150 mg Documented by: [id number] Admin: 04/11/21 20:24 Dose: 150 mg Documented by: [id number] Admin: 04/10/21 21:00 Dose: 150 mg Documented by: [id number] Admin: 04/09/21 20:56 Dose: 150 mg Documented by: [id number] Admin: 04/08/21 21:17 Dose: 150 mg Documented by: [id number] Admin: 04/07/21 20:47 Dose: 150 mg Documented by: [id number] Admin: 04/06/21 21:31 Dose: 150 mg Documented by: [id number] Fluoxetine HCl (Fluoxetine Hcl 20 Mg Cap) 20 mg PO DAILY [facility] Stop: 05/07/21 08:59 Last Admin: 04/14/21 08:13 Dose: 20 mg Documented by: [id number] Admin: 04/13/21 08:26 Dose: 20 mg Documented by: [id number] Admin: 04/12/21 08:29 Dose: 20 mg Documented by: [id number] Admin: 04/11/21 08:37 Dose: 20 mg Documented by: [id number] Admin: 04/10/21 08:04 Dose: 20 mg Documented by: [id number] Admin: 04/09/21 09:23 Dose: 20 mg Documented by: [id number] Admin: 04/08/21 08:21 Dose: 20 mg Documented by: [id number] Admin: 04/07/21 08:45 Dose: 20 mg Documented by: [id number] Folic Acid (Folic Acid 1 Mg Tab) 1 mg PO QAM JACQUELINE Stop: 05/09/21 08:59 Last Admin: 04/14/21 08:12 Dose: 1 mg Documented by: [id number] Admin: 04/13/21 08:27 Dose: 1 mg Documented by: [id number] Admin: 04/12/21 08:29 Dose: 1 mg Documented by: [id number] Admin: 04/11/21 08:37 Dose: 1 mg Documented by: [id number] Admin: 04/10/21 08:04 Dose: 1 mg Documented by: [id number] Admin: 04/09/21 09:24 Dose: 1 mg Documented by: [id number] Hydralazine HCl (Hydralazine Hcl 20 Mg/Ml Vial) 5 mg IV Q4H PRN PRN Reason: sBP > 180 Stop: 05/06/21 19:59 Last Admin: 04/11/21 07:47 Dose: 5 mg Documented by: [id number] Admin: 04/08/21 20:16 Dose: 5 mg Documented by: [id number] Admin: 04/08/21 08:37 Dose: 5 mg Documented by: [id number] Insulin Aspart (Insulin Aspart Per Unit) 0 units SC ACHS JACQUELINE Stop: 05/14/21 11:29 Last Admin: 04/14/21 12:48 Dose: 3 units Documented by: [id number] Cosigned by: [id number] Magnesium Oxide (Magnesium Oxide 400 Mg Tab) 400 mg PO BID JACQUELINE Stop: 05/06/21 20:59 Last Admin: 04/14/21 08:12 Dose: 400 mg Documented by: [id number] Admin: 04/13/21 21:27 Dose: 400 mg Documented by: [id number] Admin: 04/13/21 08:26 Dose: 400 mg Documented by: [id number] Admin: 04/12/21 21:17 Dose: 400 mg Documented by: [id number] Admin: 04/12/21 08:29 Dose: 400 mg Documented by: [id number] Admin: 04/11/21 20:25 Dose: 400 mg Documented by: [id number] Admin: 04/11/21 08:37 Dose: 400 mg Documented by: [id number] Admin: 04/10/21 21:00 Dose: 400 mg Documented by: [id number] Admin: 04/10/21 08:04 Dose: 400 mg Documented by: [id number] Admin: 04/09/21 20:56 Dose: 400 mg Documented by: [id number] Admin: 04/09/21 09:24 Dose: 400 mg Documented by: [id number] Admin: 04/08/21 21:17 Dose: 400 mg Documented by: [id number] Admin: 04/08/21 08:20 Dose: 400 mg Documented by: [id number] Admin: 04/07/21 20:48 Dose: 400 mg Documented by: [id number] Admin: 04/07/21 10:44 Dose: 400 mg Documented by: [id number] Admin: 04/06/21 21:28 Dose: 400 mg Documented by: [id number] Meclizine HCl (Meclizine Hcl 25 Mg Tab) 25 mg PO TID JACQUELINE Stop: 05/12/21 13:59 Last Admin: 04/14/21 08:12 Dose: 25 mg Documented by: [id number] Admin: 04/13/21 21:27 Dose: 25 mg Documented by: [id number] Admin: 04/13/21 14:17 Dose: 25 mg Documented by: [id number] Admin: 04/13/21 08:26 Dose: 25 mg Documented by: [id number] Admin: 04/12/21 21:17 Dose: 25 mg Documented by: [id number] Admin: 04/12/21 13:10 Dose: 25 mg Documented by: [id number] Metoprolol Tartrate (Metoprolol Tartrate 50 Mg Tab) 50 mg PO BID JACQUELINE Stop: 05/11/21 20:59 Last Admin: 04/14/21 08:13 Dose: 50 mg Documented by: [id number] Admin: 04/13/21 21:28 Dose: 50 mg Documented by: [id number] Admin: 04/13/21 08:26 Dose: 50 mg Documented by: [id number] Admin: 04/12/21 21:17 Dose: 50 mg Documented by: [id number] Admin: 04/12/21 08:31 Dose: 50 mg Documented by: [id number] Admin: 04/11/21 20:29 Dose: 50 mg Documented by: [id number] Oxycodone HCl (Oxycodone Hcl 10 Mg Tabcr (Oxycontin)) 30 mg PO BID JACQUELINE Stop: 04/20/21 20:59 Last Admin: 04/14/21 08:40 Dose: 30 mg Documented by: [id number] Admin: 04/13/21 21:27 Dose: 30 mg Documented by: [id number] Admin: 04/13/21 08:25 Dose: 30 mg Documented by: [id number] Admin: 04/12/21 21:16 Dose: 30 mg Documented by: [id number] Admin: 04/12/21 08:28 Dose: 30 mg Documented by: [id number] Admin: 04/11/21 20:29 Dose: 30 mg Documented by: [id number] Admin: 04/11/21 08:37 Dose: 30 mg Documented by: [id number] Admin: 04/10/21 20:57 Dose: 30 mg Documented by: [id number] Admin: 04/10/21 08:02 Dose: 30 mg Documented by: [id number] Admin: 04/09/21 20:56 Dose: 30 mg Documented by: [id number] Admin: 04/09/21 09:22 Dose: 30 mg Documented by: [id number] Admin: 04/08/21 21:17 Dose: 30 mg Documented by: [id number] Admin: 04/08/21 08:29 Dose: 30 mg Documented by: [id number] Admin: 04/07/21 20:47 Dose: 30 mg Documented by: [id number] Admin: 04/07/21 08:44 Dose: 30 mg Documented by: [id number] Admin: 04/06/21 21:30 Dose: 30 mg Documented by: [id number] Pantoprazole Sodium (Pantoprazole 40 Mg Tab) 40 mg PO BID JACQUELINE Stop: 05/06/21 20:59 Last Admin: 04/14/21 08:12 Dose: 40 mg Documented by: [id number] Admin: 04/13/21 21:27 Dose: 40 mg Documented by: [id number] Admin: 04/13/21 08:26 Dose: 40 mg Documented by: [id number] Admin: 04/12/21 21:17 Dose: 40 mg Documented by: [id number] Admin: 04/12/21 08:28 Dose: 40 mg Documented by: [id number] Admin: 04/11/21 20:26 Dose: 40 mg Documented by: [id number] Admin: 04/11/21 08:38 Dose: 40 mg Documented by: [id number] Admin: 04/10/21 20:59 Dose: 40 mg Documented by: [id number] Admin: 04/10/21 08:03 Dose: 40 mg Documented by: [id number] Admin: 04/09/21 20:55 Dose: 40 mg Documented by: [id number] Admin: 04/09/21 09:23 Dose: 40 mg Documented by: [id number] Admin: 04/08/21 21:17 Dose: 40 mg Documented by: [id number] Admin: 04/08/21 08:21 Dose: 40 mg Documented by: [id number] Admin: 04/07/21 20:47 Dose: 40 mg Documented by: [id number] Admin: 04/07/21 10:44 Dose: 40 mg Documented by: [id number] Admin: 04/06/21 21:31 Dose: 40 mg Documented by: [id number] Rivaroxaban (Rivaroxaban 20 Mg Tab) 20 mg PO QDB JACQUELINE Stop: 05/07/21 07:29 Last Admin: 04/14/21 08:13 Dose: 20 mg Documented by: [id number] Admin: 04/13/21 08:27 Dose: 20 mg Documented by: [id number] Admin: 04/12/21 08:29 Dose: 20 mg Documented by: [id number] Admin: 04/11/21 08:38 Dose: 20 mg Documented by: [id number] Admin: 04/10/21 08:04 Dose: 20 mg Documented by: [id number] Admin: 04/09/21 07:29 Dose: 20 mg Documented by: [id number] Admin: 04/08/21 08:21 Dose: 20 mg Documented by: [id number] Admin: 04/07/21 08:45 Dose: 20 mg Documented by: [id number] Thiamine HCl (Thiamine Hcl 100 Mg Tab) 200 mg PO BID [facility] Stop: 05/09/21 20:59 Last Admin: 04/14/21 08:12 Dose: 200 mg Documented by: [id number] Admin: 04/13/21 21:27 Dose: 200 mg Documented by: [id number] Admin: 04/13/21 08:26 Dose: 200 mg Documented by: [id number] Admin: 04/12/21 21:17 Dose: 200 mg Documented by: [id number] Admin: 04/12/21 08:29 Dose: 200 mg Documented by: [id number] Admin: 04/11/21 20:24 Dose: 200 mg Documented by: [id number] Admin: 04/11/21 08:38 Dose: 200 mg Documented by: [id number] Admin: 04/10/21 20:58 Dose: 200 mg Documented by: [id number] Admin: 04/10/21 08:03 Dose: 200 mg Documented by: [id number] Admin: 04/09/21 20:56 Dose: 200 mg Documented by: [id number] Vitamin D (Cholecalciferol 5,000 Units 125 Mcg Tab) 5,000 units PO QAM [facility] Stop: 05/10/21 08:59 Last Admin: 04/14/21 08:13 Dose: 5,000 units Documented by: [id number] Admin: 04/13/21 08:26 Dose: 5,000 units Documented by: [id number] Admin: 04/12/21 11:51 Dose: 5,000 units Documented by: [id number] Admin: 04/11/21 08:38 Dose: 5,000 units Documented by: [id number] Admin: 04/10/21 08:03 Dose: 5,000 units Documented by: [id number] Coding Level of Care Code 97694 Inpt Consult Level 3 Diagnoses MDD (major depressive disorder), recurrent episode, mild F33.0 PTSD (post-traumatic stress disorder) F43.10 RUMA (generalized anxiety disorder) F41.1
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
[2021-04-14] MEDS: DOXEPIN HCL 75 MG CAPSULE PO SCH (21:27)
[2021-04-15] MEDS: oxyCODONE HCL 10 MG TABCR (OxyCONTIN) PO SCH ×2 (07:39→20:46)
[2021-04-15] MEDS: ASPIRIN 81 MG ECTAB PO SCH (07:39)
[2021-04-15] MEDS: MECLIZINE HCL 25 MG TAB PO SCH ×2 (07:40→14:16)
[2021-04-15] MEDS: PANCREAZE (LIPASE 10,500U) CAP PO SCH ×3 (07:40→17:13)
[2021-04-15] MEDS: FLUoxetine HCL 10 MG CAP PO SCH (07:40)
[2021-04-15] MEDS: METOPROLOL TARTRATE 50 MG TAB PO SCH ×2 (07:40→20:42)
[2021-04-15] MEDS: RIVAROXABAN 20 MG TAB PO SCH (07:40)
[2021-04-15] MEDS: THIAMINE HCL 100 MG TAB PO SCH ×2 (07:40→20:41)
[2021-04-15] MEDS: MAGNESIUM OXIDE 400 MG TAB PO SCH ×2 (07:40→20:41)
[2021-04-15] MEDS: FOLIC ACID 1 MG TAB PO SCH (07:41)
[2021-04-15] MEDS: amLODIPine BESYLATE 5 MG TAB PO SCH (07:41)
[2021-04-15] MEDS: CHOLECALCIFEROL 5,000 UNITS 125 MCG TAB PO SCH (07:41)
[2021-04-15] MEDS: CYANOCOBALAMIN 1000 MCG/ML VIAL IM SCH (07:41)
[2021-04-15] MEDS: PANTOprazole 40 MG TAB PO SCH ×2 (07:41→20:43)
[2021-04-15] MEDS: INSULIN ASPART PER UNIT SC SCH ×4 (09:07→20:45)
[2021-04-15 18:53] LABS: Basophils # (auto) 0.04 K/uL (0-0.2); Basophils % (auto) 0.6 %; Eosinophils # (auto) 0.15 K/uL (0-0.5); Eosinophils % (auto) 2.1 %; Hematocrit (blood only) 35.4 % (37-47); Hemoglobin 11.5 g/dL (12.0-16.0); Immature Granulocytes # (auto) 0.03 K/uL (0.00-0.02); Immature Granulocytes % (auto) 0.4 %; Lymphocytes # (auto) 2.04 K/uL (1.2-3.4); Lymphocytes % (auto) 28.4 %; Mean Corpuscular Hemoglobin 28.8 pg (25-34); Mean Corpuscular Hgb Conc 32.5 g/dL (32-36); Mean Corpuscular Volume 88.7 fL (80-100); Mean Platelet Volume 10.3 fL (7.4-10.4); Monocytes % (auto) 8.4 %; Neutrophils # (auto) 4.32 K/uL (1.4-6.5); Neutrophils % (auto) 60.1 %; Platelet Count 252 K/uL (130-400); RDW Coefficient of Variation 14.3 % (11.5-14.5); RDW Standard Deviation 46.6 fL (36.4-46.3); Red Blood Count 3.99 M/uL (4.2-5.4); White Blood Count 7.18 K/uL (4.8-10.8)
[2021-04-15 19:20] LABS: Albumin Globulin Ratio 1.4 (0.9-2); Albumin Level 3.8 gm/dl (3.4-5.0); BUN Creatinine Ratio 14.5 (10-20); Bilirubin,Total 0.3 mg/dl (0.2-1.0); C Reactive Protein 0.74 mg/dl (0-0.5); Creatinine Clr Calc Pharmacy 28.8 ml/min; Est GFR (African American) 29.6 ml/min; Est GFR (Non-African American) 25.6 ml/min; Globulin 2.8 gm/dl (2.5-4.0); Potassium 4.1 mmol/L (3.5-5.1); Total Protein 6.6 gm/dl (6.0-8.3)
--- NOTE | 2021-04-15 20:04 | CT Scan Report ---
CT abd pelvis wo con CLINICAL HISTORY: abd pain, abnormal liver enzymes, biliary path? TECHNIQUE: Helical axial images of the abdomen and pelvis were obtained. Automated dose lowering tech niques and/or adjustment according to patient size were utilized for this exam. This exam was perfor med without intravenous contrast. COMPARISON: Comparison is made to CT abdomen pelvis 08/25/2020 FINDINGS: Lower chest: No acute abnormality Liver: Unremarkable. No focal lesions are seen. Gallbladder and biliary tree: Patient is status post cholecystectomy. Physiologic prominence of the b iliary ducts is noted. Pancreas: Fatty replacement of the pancreas is seen. Spleen: Unremarkable. Adrenals: Unremarkable. Kidneys and ureters: Unremarkable. Bladder: Unremarkable. Reproductive organs: Unremarkable. Bowel: Unremarkable appearance of the bowel. The appendix is normal. Lymph nodes Retroperitoneal: Unremarkable. Mesenteric: Unremarkable. Pelvic: Unremarkable. Peritoneum: Normal. Vessels: Unremarkable. Abdominal wall: Unremarkable. Bones: Degenerative changes in the visualized spine. IMPRESSION: No acute abnormality. Patient is status post cholecystectomy with physiologic biliary ductal dilation , unchanged from prior exam. ACT 112: Negative or not required by law. Electronically signed by: Diogo Leal M.D. 04/15/2021 8:03 PM
[2021-04-15] MEDS: DOXEPIN HCL 75 MG CAPSULE PO SCH (20:41)
[2021-04-15] MEDS: SODIUM CHLORIDE 0.9% 1000ML 1,000 ML IV SCH (20:42)
--- NOTE | 2021-04-15 20:55 | Hospitalist Progress Note ---
Date of Service April 15, 2021 Assessment & Plan (1) Abnormal LFTs: Plan: acute rise in ast/alt/alk phos with nl bilirubin along with acute abdominal pain. she is s/p cholecystectomy state. lipase wnl. CT a/p without acute findings. the clinical picture is concerning for ?CBD stone or passed CBD stone. repeat LFTs am. IV fluids overnight. If LFTs remain high - MRCP, possible GI consult, etc. (2) Abdominal pain: Plan: see above (3) Acute kidney injury: Plan: suspect pre-renal from volume depletion - did not eat/drink well today due to #2 IV fluids repeat BMP am recent u/a wnl (4) Diplopia: Plan: etiology uncertain. MRI brain negative for brainstem stroke. No signs of RAYSA from a Wernicke's state but still giving thiamine 200mg BID. Sed rate, lyme - both normal. PATSY returned positive - but no signs of a lupus cerebritis. Titer pending. Dr Painter saw in consult - sent myasthenia gravis labs. Those are pending. Following discharge will send to ophtho. I offered to patch one of her eyes to extinguish the diplopia - she has finally agreed to such - but she is not using it much. (5) Dizziness: Plan: Some of her symptoms are orthostatic in nature , and some of her symptoms are vertiginous. Remains on meclizine 25mg TID. Despite such she still has these complaints. PT completed a vestibular evaluation - BPV / peripheral vertigo could not be teased out; her symptoms during the eval did not match up with a specific etiology. 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 Random cortisol was only 6 but cosyntropin stimulation test was negative ruling out adrenal insufficiency. today her dizziness was worse despite using meclizine - clearly this med is not helping her - will stop it. (6) Hypomagnesemia: Plan: Mg 0.6 ml/dL on admission. Extensive repletion, now normal. Etiology -- poor oral intake (1 meal/day at home, food is not nutritious, etc). She is eating much better here. She is denying any alcohol abuse. Mag remains normal while here. (7) Hypocalcemia: Plan: Resolved. Was likely multifactorial. Low vitamin D. Low mag. Etc. (8) Metabolic encephalopathy: Plan: Resolved. 2nd to B12 deficiency? 2nd to BOAT DIESEL MOTOR MECHANIC disturbance (stroke, thiamine deficiency, etc)? Cont B12 supplementation. Cont B1 supplementation. MRI brain ordered due to ongoing diplopia, vertigo, other symptoms. MRI returned negative. Due to her diplopia, vertigo, etc I asked [facility] to evaluate - see their consult note. (9) Syncope: Plan: Suspect due to electrolyte abnormalities especially the low magnesium (critically low at presentation). Given the lack of prodrome would need to consider arrhythmia. STRONGLY consider 30-day event monitor post-d/c. (or loop recorder) (10) Hypertension associated with chronic kidney disease due to type 2 diabetes mellitus: Plan: Continue metoprolol BID. Continue amlodipine 5mg daily. BPs stable/controlled. (11) Generalized anxiety disorder with panic attacks: Plan: continue home fluoxetine but increase to 30mg/day as per psych recs change was indeed made appreciate psych consult (12) MDD (major depressive disorder), recurrent episode, moderate: Plan: Continue fluoxetine as above (13) Diabetes mellitus type 2, uncontrolled: Plan: HbA1C 7.6% in January Hold metformin Cont novolog Hba1c 6.7% this admission (14) Chronic kidney disease, stage 3: Plan: Cr baseline ~1.3. Cr today is 2 - suspect prerenal - volume depletion recent u/a was bland. BMP am for stability. IV fluids. (15) B12 deficiency: Plan: B12 level = 105. Cyanocobalamin 1,000 mcg IM daily while hospitalized. Would advise parenteral replacement as outpatient; uncertain if she is absorbing PO B12. Also concerned about compliance with PO meds at home. Folate is low-normal - replace 1mg daily x 30 days. (16) GERD (gastroesophageal reflux disease): Plan: Cont PPI (17) Pulmonary embolism: Plan: Diagnosed January 2021. Compliance with anticoagulation uncertain. Etiology of PE?? Concerning given her failure to thrive & weight loss. Continue Xarelto 20mg PO daily. (18) Pancreatic atrophy: Plan: as seen on CTs. pancreatic insufficiency as cause of diarrhea and weight loss?? started creon 1 capsule TID w/ meals. refer to GI post-d/c. symptoms seem better on creon. CT a/p today with fatty replacement of pancreas. lipase wnl today. (19) Severe protein-calorie malnutrition: Plan: 30+ pounds of weight loss last year. 2nd to #14? other GI malabsorptive issue given her numerous electrolyte issues and vitamin deficiencies?? creon trial. needs GI w/u. prior CT a/p normal except for pancreatic atrophy. send pancreatic elastace when able along with c diff and giardia testing. of note - she had been eating robustly here without GI intolerance nor any diarrhea until this afternoon - see above. (20) Vitamin D deficiency: Plan: vit D to 5000 IU daily. (21) Housing problems: Plan: much appreciation to social work for their assistance Plan: cancel dc to rehab today due to #1, #2, #3 Admission and Anticipated Discharge Date Admission Date: April 06, 2021 Subjective saw patient on AM rounds she was resting comfortably vertigo unchanged diplopia unchanged - not really using the eye patch regularly still dizzy with movements ate breakfast no N/V/Pain lengthy discussion about going home vs [facility] encouraged her to go to [facility] expressed my concerns about her going home alone, having more episodes of syncope, having lack of f/u, having lack of good nutrition, not enough family/friend support, etc I heard through nursing/health care social worker a couple hours later that she was finally agreeable to [facility] social work set up transport for 1700 about 1600 this afternoon Ms Méndez's nurse sent message to me that she wasn't feeling well had developed abdominal pain, more dizziness, "hot" feeling by report I called to Ms Méndez's room and spoke with her she did indeed endorse all of the above symptoms she did not eat lunch because of feeling poorly she stated "it feels like my pancreatic pain" I recommended canceling transport/discharge to [facility] ordered labs including LFTs/lipase also ordered CT a/p as LFTs returned high (previously were normal) IV fluids ordered Review of Systems Review of Systems: obtained on AM rounds - gen - fatigue eyes - ongoing double vision, no better/no worse neuro - no focal weakness cv - no cp pulm - no cough/dyspnea GI - no vomiting Physical Exam Physical Exam: gen - NAD, a/o x 3, anxious mouth - MM dry neck - no JVD heart - RRR, s1 s2, no murmur lungs - CTA b/l abd - soft NT ND BS+ ext - no edema, pulses 2+ b/l skin - turgor wnl neuro - strength x 4 exts wnl psych - anxious Results & Data Results & [facility] ([facility]) Vital Signs (Past 12 Hours) Vital Signs Temp Pulse Resp BP Pulse Ox 04/15/21 14:16 36.7 C 64 18 135/87 96 Laboratory Results Cr 2 CBC wnl crp largely normal LFTs elevated (previously normal) PG Care Time/CCT Total # of Minutes Spent Total Time Spent with Patient: Total time spent is greater than 50% in coordination of care (as documented) at patient's floor/unit and/or counseling patient: Coding Level of Care Code 65799 Subseq Hosp Care Lvl 3 Diagnoses Diplopia H53.2 Dizziness R42 Hypomagnesemia E83.42 Hypocalcemia E83.51 Metabolic encephalopathy G93.41 Syncope R55 Hypertension associated with chronic kidney disease due to type 2 diabetes mellitus E11.22; I12.9 Generalized anxiety disorder with panic attacks F41.1; F41.0 MDD (major depressive disorder), recurrent episode, moderate F33.1 Diabetes mellitus type 2, uncontrolled E11.65 Chronic kidney disease, stage 3 N18.30 B12 deficiency E53.8 GERD (gastroesophageal reflux disease) K21.9 Pulmonary embolism I26.99 Acute cor pulmonale presence: without acute cor pulmonale Chronicity: acute Pulmonary embolism type: unspecified Pancreatic atrophy K86.89 Severe protein-calorie malnutrition E43 Vitamin D deficiency E55.9 Housing problems Z59.9 Abnormal LFTs R79.89 Abdominal pain R10.9 Acute kidney injury N17.9 (1) Pulmonary embolism Acute cor pulmonale presence: without acute cor pulmonale Chronicity: acute Pulmonary embolism type: unspecified Qualified Code(s): I26.99 - Other pulmonary embolism without acute cor pulmonale
[2021-04-16] MEDS: SODIUM CHLORIDE 0.9% 1000ML 1,000 ML IV SCH ×2 (05:36→16:18)
[2021-04-16] MEDS: FOLIC ACID 1 MG TAB PO SCH (07:40)
[2021-04-16] MEDS: PANCREAZE (LIPASE 10,500U) CAP PO SCH ×2 (07:40→13:29)
[2021-04-16] MEDS: FLUoxetine HCL 10 MG CAP PO SCH (07:40)
[2021-04-16] MEDS: ASPIRIN 81 MG ECTAB PO SCH (07:41)
[2021-04-16] MEDS: oxyCODONE HCL 10 MG TABCR (OxyCONTIN) PO SCH ×2 (07:41→19:42)
[2021-04-16] MEDS: RIVAROXABAN 20 MG TAB PO SCH (07:41)
[2021-04-16] MEDS: PANTOprazole 40 MG TAB PO SCH ×2 (07:41→19:43)
[2021-04-16] MEDS: CHOLECALCIFEROL 5,000 UNITS 125 MCG TAB PO SCH (07:41)
[2021-04-16] MEDS: MAGNESIUM OXIDE 400 MG TAB PO SCH ×2 (07:41→19:44)
[2021-04-16] MEDS: THIAMINE HCL 100 MG TAB PO SCH ×2 (07:41→19:44)
[2021-04-16] MEDS: CYANOCOBALAMIN 1000 MCG/ML VIAL IM SCH (07:41)
[2021-04-16] MEDS: METOPROLOL TARTRATE 50 MG TAB PO SCH ×2 (07:41→19:43)
[2021-04-16 08:15] LABS: Albumin Globulin Ratio 1.3 (0.9-2); Albumin Level 3.4 gm/dl (3.4-5.0); BUN Creatinine Ratio 16.2 (10-20); Bilirubin,Total 0.3 mg/dl (0.2-1.0); Calcium 8.5 mg/dl (8.5-10.1); Creatinine Clr Calc Pharmacy 35.7 ml/min; Est GFR (African American) 38.4 ml/min; Est GFR (Non-African American) 33.1 ml/min; Globulin 2.6 gm/dl (2.5-4.0); Potassium 3.9 mmol/L (3.5-5.1)
[2021-04-16] MEDS: INSULIN ASPART PER UNIT SC SCH ×4 (09:22→20:47)
[2021-04-16] MEDS: amLODIPine BESYLATE 5 MG TAB PO SCH (09:44)
[2021-04-16] MEDS: MECLIZINE HCL 25 MG TAB PO PRN (13:29)
[2021-04-16] MEDS ORDERED: HYDROCORTISONE HC 2.5% CRM 30GM TUBE EXT SCH (15:30)
--- NOTE | 2021-04-16 15:46 | Magnetic Resonance Report ---
MR MRCP HISTORY: 60 years-old Female abd pain, abnl LFTs, r/o CBD stone etc. acutely elevated LFTs with abdo cayden pain COMPARISON: CT abdomen pelvis 04/15/2021, 08/25/2020 TECHNIQUE: MRCP without the use of IV contrast was obtained according to institutional protocol FINDINGS: Study is mildly motion degraded. The lung bases and imaged lower chest appear unremarkable. Moderatel y atrophic pancreas. The remaining solid abdominal organs appear unremarkable. Aorta and IVC are with in normal limits. No adenopathy. Moderate fecal retention. No abdominal free fluid. Cholecystectomy. Chronic intrahepatic and extrahepatic biliary ductal dilation redemonstrated with th e common bile duct measuring up to 1.4 cm. No obstructing biliary stone or lesion identified. No panc reatic ductal dilation. Pancreatic divisum is better seen on comparison study. IMPRESSION: 1. Status post cholecystectomy. 2. Chronic moderate intrahepatic and extrahepatic biliary ductal dilation is likely secondary to post cholecystectomy state. No evidence of choledocholithiasis. 3. Pancreatic atrophy. ACT 112: Negative or not required by law. The above report was generated using voice recognition software. It may contain grammatical, syntax o r spelling errors. Electronically signed by: Jackson Johnson M.D. 04/16/2021 3:45 PM
[2021-04-16] MEDS: SENNA 8.6 MG TAB PO SCH (16:22)
[2021-04-16] MEDS: POLYETHYLENE (MIRALAX) 17 GM PACK PO SCH ×2 (17:50→19:45)
[2021-04-16] MEDS ORDERED: HYDROCORTISONE ACETATE 25 MG SUPP PR PRN (19:32)
[2021-04-16] MEDS ORDERED: HYDROCORTISONE HC 2.5% CRM 30GM TUBE EXT PRN (19:32)
[2021-04-16] MEDS: DOXEPIN HCL 75 MG CAPSULE PO SCH (19:43)
--- NOTE | 2021-04-16 20:09 | Hospitalist Progress Note ---
Date of Service April 16, 2021 Assessment & Plan (1) Abnormal LFTs: Plan: acute rise in ast/alt/alk phos with nl bilirubin along with acute abdominal pain. this occurred yesterday afternoon. she is s/p cholecystectomy state. lipase wnl. CT a/p without acute findings. she reports "attacks" of upper abdominal pain off/on for many, many months - lasting hours or even a day. she states they feel very similar to when she had pancreatitis in 12/2019. interestingly - during her 12/2019 hospital admission - she had a similar episode in which she acutely developed severe abdominal pain/fever. During that spell her LFTs also acutely arose. She underwent extensive w/u without good etiology found. She was to have outpatient EUS by [facility] but never followed up for such. MRCP today without CBD stone. No pancreatitis seen on MRCP either. LFTs still remain elevated today, and they were clearly normal just a few days ago. She still has some residual pain from yesterday. Etiology - passed CBD stone? Sphincter of Oddi spasm/dysfunction? other? will consult GI for their opinion. EUS/ERCP needed? repeat LFTs and lipase in am. of note - she is not on statin agent. (2) Abdominal pain: Plan: see above in #1 (3) Acute kidney injury: Plan: several episodes of acute rise in creatinine since admission, typically pre- renal from periods of poor oral intake. she received IV fluids overnight with improvement in creatinine to 1.6. cont IVF, bmp in am. no urinary obstruction on last night's CT a/p. (4) Diplopia: Plan: etiology uncertain. MRI brain negative for brainstem stroke. No signs of RAYSA from a Wernicke's state but still giving thiamine 200mg BID. Sed rate, lyme - both normal. PATSY returned positive - but no signs of a lupus cerebritis. Titer pending. Dr Painter saw in consult - sent myasthenia gravis labs. Those are pending. Following discharge will send to ophtho. I offered to patch one of her eyes to extinguish the diplopia - she had finally agreed to such - but she is not using it much (?). (5) Dizziness: Plan: Some of her symptoms are orthostatic in nature , and some of her symptoms are vertiginous. Despite meclizine 25mg TID her vertigo/dizziness never significantly improved/resolved. PT completed a vestibular evaluation - BPV / peripheral vertigo could not be teased out; her symptoms during the eval did not match up with a specific etiology. Vertigo presumably is peripheral in origin; can't rule out [employer] cause but again MRI brain neg. Random cortisol was only 6 but cosyntropin stimulation test was negative ruling out adrenal insufficiency. Stopped meclizine since it wasn't helpful. (6) Hypomagnesemia: Plan: Mg 0.6 ml/dL on admission. Extensive repletion, now normal. Etiology -- poor oral intake (1 meal/day at home, food is not nutritious, etc). She is eating much better here. She is denying any alcohol abuse. Mag remains normal while here. (7) Hypocalcemia: Plan: Resolved. Was likely multifactorial. Low vitamin D. Low mag. Etc. (8) Metabolic encephalopathy: Plan: Resolved. 2nd to B12 deficiency? 2nd to [employer] disturbance (stroke, thiamine deficiency, etc)? Cont B12 supplementation. Cont B1 supplementation. MRI brain ordered due to ongoing diplopia, vertigo, other symptoms. MRI returned negative. Due to her diplopia, vertigo, etc I asked [facility] to evaluate - see their consult note. ETiology of diplopia uncertain - ophtho f/u post-discharge needed. (9) Syncope: Plan: Suspect due to electrolyte abnormalities especially the low magnesium (critically low at presentation). Given the lack of prodrome would need to consider arrhythmia. STRONGLY consider 30-day event monitor post-d/c. (or loop recorder) (10) Hypertension associated with chronic kidney disease due to type 2 diabetes mellitus: Plan: Continue metoprolol BID. Continue amlodipine 5mg daily. BPs stable/controlled. (11) Generalized anxiety disorder with panic attacks: Plan: continue home fluoxetine but increase to 30mg/day as per psych recs change was indeed made appreciate psych consult (12) MDD (major depressive disorder), recurrent episode, moderate: Plan: Continue fluoxetine as above (13) Diabetes mellitus type 2, uncontrolled: Plan: HbA1C 7.6% in January Hold metformin Cont novolog Hba1c 6.7% this admission (14) Chronic kidney disease, stage 3: Plan: Cr baseline ~1.3. multiple episodes of rise in Cr - yesterday was 2, improved to 1.6 with IV fluids overnight. bmp am. (15) B12 deficiency: Plan: B12 level = 105. Cyanocobalamin 1,000 mcg IM daily while hospitalized. Would advise parenteral replacement as outpatient; uncertain if she is absorbing PO B12. Also concerned about compliance with PO meds at home. Also concerned about overall adequate nutrition outside the hospital (eats 1x/day, etc). Folate is low-normal - replace 1mg daily x 30 days. (16) GERD (gastroesophageal reflux disease): Plan: Cont PPI (17) Pulmonary embolism: Plan: Diagnosed January 2021. Compliance with anticoagulation uncertain. Etiology of PE?? Concerning given her failure to thrive & weight loss. will hold Xarelto 20mg PO daily starting in am in the event she needs ERCP, EUS, etc. (18) Pancreatic atrophy: Plan: as seen on CTs. as seen on MRCP today. pancreatic insufficiency as cause of weight loss?? started creon 1 capsule TID w/ meals this admission but she has actually developed severe constipation while hospitalized. will hold creon due to severe constipation. no chemical or radiographic evidence of pancreatitis this admission. see #1 above. (19) Severe protein-calorie malnutrition: Plan: 30+ pounds of weight loss last year. etiology??? CTs of abdomen normal except for pancreatic atrophy. MRCP also with pancreatic atrophy. sent pancreatic elastase. sent giardia. c diff negative. of note - she had been eating robustly during this stay until her episode of abdominal pain last night. (20) Vitamin D deficiency: Plan: vit D to 5000 IU daily. (21) Housing problems: Plan: much appreciation to social work for their assistance (22) Constipation: Plan: senna + miralax for internal hemorrhoid - anusol suppos TID prn (23) Internal hemorrhoid: Plan: anusol suppos prn Plan: spoke with Dr Lau who will consult from GI Admission and Anticipated Discharge Date Admission Date: April 06, 2021 Subjective pt's upper abdominal pain improved through the night no vomiting she was able to tolerate breakfast this am no nausea reported she again endorses that she "gets these episodes every month" since her episode of pancreatitis last year she's had "maybe 30 episodes" of abd pain that last hours, sometimes even a day while straining at stool today she had a hard, firm, small BM following such had mild bright red blood dizziness remains diplopia unchanged Review of Systems Review of Systems: gen - no fever cv - no chest pain, no orthopnea pulm - no dyspnea GI - no lower abd pain, just upper neuro - no change in neuro symptoms Physical Exam Physical Exam: gen - NAD, a/o x 3, nontoxic mouth - MM more moist today neck - no JVD heart - RRR, s1 s2, no murmur lungs - CTA b/l abd - soft ND BS+; mild tenderness epigastric region and RUQ ext - no edema, pulses 2+ b/l skin - turgor wnl neuro - strength x 4 exts wnl psych - anxious CAIN - chaperoned by nursing staff -- internal hemorrhoids present; no gross blood; no mass appreciated Results & Data Results & Data ([facility]) Vital Signs (Past 12 Hours) Vital Signs Temp Pulse Resp BP BP Pulse Ox 04/16/21 15:22 36.6 C 74 18 125/90 97 04/16/21 09:44 124/83 Laboratory Results Cr improved to 1.6 Diagnostic Findings Cholangiopancreatography MRI 04/16/21 09:14 MR MRCP HISTORY: 60 years-old Female abd pain, abnl LFTs, r/o CBD stone etc. acutely elevated LFTs with abdominal pain COMPARISON: CT abdomen pelvis 04/15/2021, 08/25/2020 TECHNIQUE: MRCP without the use of IV contrast was obtained according to institutional protocol FINDINGS: Study is mildly motion degraded. The lung bases and imaged lower chest appear unremarkable. Moderately atrophic pancreas. The remaining solid abdominal organs appear unremarkable. Aorta and IVC are within normal limits. No adenopathy. Moderate fecal retention. No abdominal free fluid. Cholecystectomy. Chronic intrahepatic and extrahepatic biliary ductal dilation redemonstrated with the common bile duct measuring up to 1.4 cm. No obstructing biliary stone or lesion identified. No pancreatic ductal dilation. Pancreatic divisum is better seen on comparison study. IMPRESSION: 1. Status post cholecystectomy. 2. Chronic moderate intrahepatic and extrahepatic biliary ductal dilation is likely secondary to postcholecystectomy state. No evidence of choledocholithiasis. 3. Pancreatic atrophy. ACT 112: Negative or not required by law. The above report was generated using voice recognition software. It may contain grammatical, syntax or spelling errors. Electronically signed by: Jackson Johnson M.D. 04/16/2021 3:45 PM PG Care Time/CCT Total # of Minutes Spent Total Time Spent with Patient: Total time spent is greater than 50% in coordination of care (as documented) at patient's floor/unit and/or counseling patient: Coding Level of Care Code 12578 Subseq Hosp Care Lvl 3 Diagnoses Abnormal LFTs R79.89 Abdominal pain R10.9 Acute kidney injury N17.9 Diplopia H53.2 Dizziness R42 Hypomagnesemia E83.42 Hypocalcemia E83.51 Metabolic encephalopathy G93.41 Syncope R55 Hypertension associated with chronic kidney disease due to type 2 diabetes mellitus E11.22; I12.9 Generalized anxiety disorder with panic attacks F41.1; F41.0 MDD (major depressive disorder), recurrent episode, moderate F33.1 Diabetes mellitus type 2, uncontrolled E11.65 Chronic kidney disease, stage 3 N18.30 B12 deficiency E53.8 GERD (gastroesophageal reflux disease) K21.9 Pulmonary embolism I26.99 Acute cor pulmonale presence: without acute cor pulmonale Chronicity: acute Pulmonary embolism type: unspecified Pancreatic atrophy K86.89 Severe protein-calorie malnutrition E43 Vitamin D deficiency E55.9 Housing problems Z59.9 Constipation K59.00 Internal hemorrhoid K64.8 (1) Pulmonary embolism Acute cor pulmonale presence: without acute cor pulmonale Chronicity: acute Pulmonary embolism type: unspecified Qualified Code(s): I26.99 - Other pu lmonary embolism without acute cor pulmonale
[2021-04-17] MEDS: SODIUM CHLORIDE 0.9% 1000ML 1,000 ML IV SCH ×3 (01:17→19:44)
[2021-04-17 06:42] LABS: Albumin Globulin Ratio 1.4 (0.9-2); Albumin Level 3.2 gm/dl (3.4-5.0); BUN Creatinine Ratio 17.4 (10-20); Bilirubin,Total 0.2 mg/dl (0.2-1.0); Calcium 8.4 mg/dl (8.5-10.1); Creatinine Clr Calc Pharmacy 43.3 ml/min; Est GFR (African American) 48.4 ml/min; Est GFR (Non-African American) 41.7 ml/min; Globulin 2.3 gm/dl (2.5-4.0); Potassium 4.1 mmol/L (3.5-5.1); Total Protein 5.5 gm/dl (6.0-8.3)
[2021-04-17] MEDS: CHOLECALCIFEROL 5,000 UNITS 125 MCG TAB PO SCH (08:48)
[2021-04-17] MEDS: THIAMINE HCL 100 MG TAB PO SCH ×2 (08:49→19:43)
[2021-04-17] MEDS: METOPROLOL TARTRATE 50 MG TAB PO SCH ×2 (08:49→19:42)
[2021-04-17] MEDS: SENNA 8.6 MG TAB PO SCH (08:49)
[2021-04-17] MEDS: FOLIC ACID 1 MG TAB PO SCH (08:49)
[2021-04-17] MEDS: amLODIPine BESYLATE 5 MG TAB PO SCH (08:49)
[2021-04-17] MEDS: oxyCODONE HCL 10 MG TABCR (OxyCONTIN) PO SCH ×2 (08:49→19:41)
[2021-04-17] MEDS: PANTOprazole 40 MG TAB PO SCH ×2 (08:49→19:44)
[2021-04-17] MEDS: ASPIRIN 81 MG ECTAB PO SCH (08:49)
[2021-04-17] MEDS: CYANOCOBALAMIN 1000 MCG/ML VIAL IM SCH (08:50)
[2021-04-17] MEDS: MAGNESIUM OXIDE 400 MG TAB PO SCH ×2 (08:50→19:42)
[2021-04-17] MEDS: POLYETHYLENE (MIRALAX) 17 GM PACK PO SCH ×2 (08:50→19:44)
[2021-04-17] MEDS: FLUoxetine HCL 10 MG CAP PO SCH (08:50)
[2021-04-17] MEDS: INSULIN ASPART PER UNIT SC SCH ×4 (09:32→21:18)
--- NOTE | 2021-04-17 17:19 | Consultation Report ---
GASTROENTEROLOGY CONSULT DATE OF SERVICE: 04/17/2021 AGE: 60. SEX: Female. RACE: . ATTENDING PHYSICIAN: Dr. Pantoja. CONSULTING PHYSICIAN: Gab Lau DO. REASON FOR CONSULTATION: Elevated LFTs. HISTORY OF PRESENT ILLNESS: Adwoa Méndez is a 60-year-old female who presented to the [facility] on 04/06/2021 with metabolic encephalopathy due to hypocalcemia and hypomagne semia. She also had a syncopal event and has many chronic comorbid medical conditions. During the co urse of her hospitalization, she did mention periods of abdominal pain, which occur randomly and she associates these with symptoms consistent with those that she was having prior to her cholecystectomy in the past. Prior to discharge on this admission, she noted an "episode" and underwent lab testing and was noted to have elevations of her AST to 171, her ALT to 202 and her alkaline phosphatase to 20 0. Her total bilirubin was normal. She did undergo a CT scan of the abdomen and pelvis and was note d to have no acute abnormality, status post cholecystectomy with physiologic biliary ductal dilatatio n, unchanged from a prior exam. She also underwent an MRCP and was noted to have status post cholecy stectomy with chronic moderate intra and extrahepatic biliary ductal dilatation, likely secondary to post-cholecystectomy state. There was no evidence of choledocholithiasis. The common bile duct did m easure up to 1.4 cm. Of note, the patient was supposed to have an EUS with Dr. David at [facility] in the past for this, though did not follow up with this recommendation as she has had these "episodes" in the past. At the time that I saw her today, she states that her pain is improved . She denies any right upper quadrant abdominal pain at this time, but does state that it can occur intermittently in the bilateral upper quadrants, which she rates at 5-6/10 in intensity, nonradiating , without alleviating or exacerbating factors. She states that she does not drink alcohol and denies any history of chronic liver disease. She states that her gallbladder was [place] [address] Ra castillo. She denies any current fevers, chills, nausea, vomiting, hematemesis, melena, or hematoche amanda. She further denies any jaundice, dark urine, pruritus or parish-colored stools. She denies any f urther complaints. PAST MEDICAL HISTORY: Positive for acute pancreatitis, B12 deficiency, chronic pain, hyperlipidemia, metabolic encephalopathy, hypertension, chronic kidney disease, diabetes mellitus, obesity, history of pericarditis, diabetic neuropathy. PAST SURGICAL HISTORY: Includes a history of cervical spine surgery, , lumbar spine surgery for decompression and laparoscopic cholecystectomy. ALLERGIES: LISINOPRIL. MEDICATIONS: At present include Tylenol 650 mg p.o. q.4 p.r.n., amlodipine 5 mg p.o. q.a.m., aspirin 81 mg p.o. daily, vitamin D 5000 units p.o. q.a.m., vitamin B12 1000 mcg p.o. q.a.m., doxepin 150 mg p.o. at bedtime, Prozac 30 mg p.o. daily, folic acid 1 mg p.o. q.a.m., Anusol suppositories 25 mg pe r rectum every 8 hours as needed, hydrocortisone 2.5% cream to apply externally 3 times a day as need ed, magnesium oxide 400 mg p.o. b.i.d., sliding scale insulin, meclizine 25 mg p.o. t.i.d. p.r.n., me toprolol 50 mg p.o. b.i.d., oxycodone 30 mg p.o. b.i.d., Protonix 40 mg p.o. b.i.d., MiraLax 17 g p.o . twice daily in an 8 ounce glass of water, Senokot 17.2 mg p.o. q.a.m., thiamine 200 mg p.o. b.i.d. SOCIAL HISTORY: She lives alone. She denies any tobacco, alcohol, or illicit drug use. FAMILY HISTORY: Negative for GI malignancy or inflammatory bowel disease. REVIEW OF SYSTEMS: Negative x12 systems review other than pertinent positives listed in the HPI. PHYSICAL EXAMINATION: VITAL SIGNS: Temperature 36.6, pulse 64, respirations 18, blood pressure 153/88, pulse ox 97% on kizzy m air. GENERAL: She is awake and cooperative, in no acute distress. HEAD: Normocephalic, atraumatic. EYES: Pupils equal, round. Extraocular muscles are intact. Sclerae nonicteric. NECK: Soft, supple. No JVD or lymphadenopathy. CHEST: Clear to auscultation bilaterally. CARDIOVASCULAR: Regular rate and rhythm. ABDOMEN: Soft, nontender, nondistended, positive bowel sounds. There is no appreciable hepatospleno megaly. EXTREMITIES: No clubbing, cyanosis or edema. LABORATORY STUDIES: From today include an AST of 88, ALT of 129, alkaline phosphatase of 173, total bilirubin of 0.2. IMPRESSION: A 60-year-old female with intermittent episodes of abdominal pain and elevated liver panel with intra and extra hepatic biliary ductal dilatation on MRCP. PLAN: I would recommend that the patient undergo an EUS with Dr. David. I do not feel that this is urgent, though I do believe that she should have further workup for her history of elevated LFTs as w ell as intra and extrahepatic biliary ductal dilatation. I would recommend continuing her current th erapy. I would recommend continuing supportive care. I will follow her clinical course and will dis cuss this case with Dr. David in detail tomorrow and make further recommendations at that time. Once again, thanks for allowing me to participate in the care of this patient. If you have any furth er questions, please do not hesitate in contacting me. Job ID: [id number]
--- NOTE | 2021-04-17 18:04 | Hospitalist Progress Note ---
Date of Service April 17, 2021 Assessment & Plan (1) Abnormal LFTs: Plan: Recent acute abdominal pain 04/15 w/ acute elevation in aminotransferases (AST 171, ALT 202) & ALP (200) from normal baselines 1wk prior. Now downtrending and pain less severe/more vague S/p cholecystectomy 2017. H/o recurrent pancreatitis (most recently 12/2019) Lipase & Bili normal. CT a/p 04/15 without acute abnormality. MRCP 04/16 also w/o acute findings. Both imaging studies noted s/p ccx w/ physiologic biliary ductal dilation, fatty replacement/atrophy of pancreas. Reported prior episodes of pancreatitis Patient reports these attacks have occurred innumerable times w/ severe 12/26 pain without precipitant - sometimes in middle of night May be due to sphincter of Oddi spasm/dysfunction, less likely biliary colic given no stone visible on imaging. No new meds 04/15 to suggest DILI & that would not be expected to cause acute pain. Fluoxetine was uptitrated around that time. - GI consulted: planning for EGD/EUS w/ Dr David - possibly Tuesday 04/18 but may not be able to fit in. NPO AM in case (2) Abdominal pain: Plan: See above re LFTs (3) Acute kidney injury: Plan: Resolving MIS on CKD. Unclear baseline Cr 1.2-1.3? Last normal baseline 0.8-1 was 12/2019 Prerenal AKIs 2/2 poor PO intake w/ resolution following IVF Currently improving back toward baseline (4) Chronic kidney disease, stage 3: Plan: See above (5) Diplopia: Plan: Etiology uncertain. Resolves w/ near vision when using both eyes. Resolves at distance vision w/ eye patch MRI brain 04/10 negative for brainstem stroke. ESR, lyme normal. PATSY+ nuclear homogenous (unlikely relevant) No signs of RAYSA from a Wernicke's state but still giving thiamine 200mg BID. Neuro Dr Painter saw in consult - sent MG labs. Pending. Outpatient ophtho eval (6) Dizziness: Plan: Both orthostatic LH & vertigo Little/no improvement w/ meclizine PT completed a vestibular evaluation - BPV / peripheral vertigo could not be teased out; her symptoms during the eval did not match up with a specific etiology. Suspect BPPV. MRI brain negative. Consider vestibular PT to treat as presumed BPPV as this could also be contributing to visual disturbance (7) Hypomagnesemia: Plan: Due to poor oral intake at home. Mg 0.6 ml/dL on admission. Now normalized s/p significant repletion & improved oral intake Denies any alcohol abuse. (8) Hypocalcemia: Plan: Resolved. Multifactorial 2/2 low Vit D & mg (9) Metabolic encephalopathy: Plan: Resolved. 2/2 B12 deficiency/electrolyte abnormalities MRI brain negative Cont B12 supplementation. Cont B1 supplementation. Neuro consult 04/11 - working up diplopia as above (10) Syncope: Plan: Suspect due to electrolyte abnormalities especially the low magnesium (critically low at presentation). Given the lack of prodrome would need to consider arrhythmia. STRONGLY consider 30-day event monitor post-d/c. (or loop recorder) (11) Hypertension associated with chronic kidney disease due to type 2 diabetes mellitus: Plan: Continue metoprolol BID. Continue amlodipine 5mg daily. BPs stable/controlled. (12) Generalized anxiety disorder with panic attacks: Plan: Psych consult 04/14 - inc fluoxetine 20 -> 30mg Continue fluoxetine 30 (13) MDD (major depressive disorder), recurrent episode, moderate: Plan: Continue fluoxetine as above (14) Diabetes mellitus type 2, uncontrolled: Plan: HbA1C 7.6% in January Hold metformin Cont novolog Hba1c 6.7% this admission (15) B12 deficiency: Plan: B12 level = 105. Cyanocobalamin 1,000 mcg IM daily while hospitalized. Continue IM outpatient; uncertain if she is absorbing PO B12. (16) GERD (gastroesophageal reflux disease): Plan: Cont PPI (17) Pulmonary embolism: Plan: Diagnosed January 2021. Compliance with anticoagulation uncertain. Etiology of PE?? Concerning given her failure to thrive & weight loss. Xarelto 20mg PO daily held since 04/15 for EUS (18) Pancreatic atrophy: Plan: Noted on imaging. Suspect 2/2 recurrent pancreatitis Pancreatic insufficiency considered - creon started this admission then stopped due to concern that it was contributing to severe constipation (19) Severe protein-calorie malnutrition: Plan: 30+ pounds of weight loss with unclear etiology - most likely very poor PO intake? (20) Vitamin D deficiency: Plan: vit D to 5000 IU daily. (21) Housing problems: Plan: appreciate social work (22) Constipation: Plan: Improving. Continue senna + miralax (23) Internal hemorrhoid: Plan: anusol suppos prn Admission and Anticipated Discharge Date Admission Date: April 06, 2021 Subjective Vitals unremarkable Ongoing diplopia (not using eye patch as she has close up diplopia w/ it on, far away diplopia when patch off) Some vertiginous sensation w/ head movements Ongoing mild 5/10 abdominal discomfort. Vague across upper abdomen, not sharp/severe as it can be at times No alleviating or exacerbating factors No N/V, ate ok, constipation improving, no hematochezia. No dysuria. Review of Systems Review of Systems: No WOODWARD CP SOB Remainder as per HPI Physical Exam Physical Exam: General: Well appearing, lying in bed comfortably CV: Normal rate, regular rhythm. No murmurs. Resp: Breathing comfortably on room air. Lungs clear to auscultation bilaterally. No wheezes, crackles, or rhonchi Abd: Soft, mildly tender diffusely across upper abdomen w/o palpable hepatomegaly or focal tenderness Ext: Warm, well perfused. Trace edema Neuro: Alert & oriented. EOMI, no nystagmus Results & Data Results & Data ([facility]) Vital Signs (Past 12 Hours) Vital Signs Temp Pulse Resp BP Pulse Ox 04/17/21 16:00 98.4 F 68 16 125/80 94 04/17/21 07:40 97.9 F 64 18 153/88 H 97 PG Care Time/CCT Total # of Minutes Spent Total Time Spent with Patient: Total time spent is greater than 50% in coordination of care (as documented) at patient's floor/unit and/or counseling patient: Coding Level of Care Code 20433 Subseq Hosp Care Lvl 2 Diagnoses Abnormal LFTs R79.89 Abdominal pain R10.9 Acute kidney injury N17.9 Diplopia H53.2 Dizziness R42 Hypomagnesemia E83.42 Hypocalcemia E83.51 Metabolic encephalopathy G93.41 Syncope R55 Hypertension associated with chronic kidney disease due to type 2 diabetes mellitus E11.22; I12.9 Generalized anxiety disorder with panic attacks F41.1; F41.0 MDD (major depressive disorder), recurrent episode, moderate F33.1 Diabetes mellitus type 2, uncontrolled E11.65 Chronic kidney disease, stage 3 N18.30 B12 deficiency E53.8 GERD (gastroesophageal reflux disease) K21.9 Pulmonary embolism I26.99 Acute cor pulmonale presence: without acute cor pulmonale Chronicity: acute Pulmonary embolism type: unspecified Pancreatic atrophy K86.89 Severe protein-calorie malnutrition E43 Vitamin D deficiency E55.9 Housing problems Z59.9 Constipation K59.00 Internal hemorrhoid K64.8 (1) Pulmonary embolism Acute cor pulmonale presence: without acute cor pulmonale Chronicity: acute Pulmonary embolism type: unspecified Qualified Code(s): I26.99 - Other pulmonary embolism without acute cor pulmonale
[2021-04-17] MEDS: DOXEPIN HCL 75 MG CAPSULE PO SCH (19:44)
[2021-04-18] MEDS: SODIUM CHLORIDE 0.9% 1000ML 1,000 ML IV SCH (05:05)
[2021-04-18] MEDS ORDERED: INSULIN ASPART PER UNIT SC SCH (06:00)
[2021-04-18] MEDS: LACTATED RINGER'S 1,000 ML IV SCH ×2 (08:33→18:20)
[2021-04-18] MEDS: oxyCODONE HCL 10 MG TABCR (OxyCONTIN) PO SCH ×2 (08:33→20:47)
--- NOTE | 2021-04-18 09:53 | Gastroenterology Progress Note ---
Date of Service April 18, 2021 Assessment & Plan (1) Constipation: (2) Abdominal pain: (3) Abnormal LFTs: Plan: ? SOD Plan for EUS, possible ERCP if indicated tomorrow. Please keep NPO after midnight. Add miralax daily (currently ordered BID prn). Further recommendations to follow EUS/possible ERCP tomorrow. Admission and Anticipated Discharge Date Admission Date: April 06, 2021 Supervising Physician Co-Signing Physician Notes I saw and evaluated the patient. She notes a long hx of abdominla pain and had a cholecystectomy > 4 years ago due to biliary dyskinesia. She also has a long history of constipation despite use of Mirlax 17 gm bid. Impression: patient likely with 2 functional GI issues to include constipation predominant IBS and Sphincter of Oddi dysfunction. Given the elevated liver tests and biliary type pain she may benefit from ERCP with sphinctertotomy. Gvien the indication there is a higher than average incidence of post-ercp pancreatitis (> 20%). After discussion with the patient she has decided to proceed with EUS and ERCP intervention. Plan EUS with possible ERCP Trnasition from Mirlax to linzess 72 mcg per day Subjective 60 yr old admitted for altered mental status on 04/06, thought secondary to metabolic encephalopathy/hypoacalcemia/hypomagnesia which has been corrected. During admission upper abd pain and moderate transaminase elevation. Of note also an episode of acute pancreatitis in 2019. Reprorts other episodes of upper abd pain, for years, as well. MRCP on 04/16 with chronic intra/extra biliary ductal dilation, no stones. She is post distant choley. This morning is AAO, has mild upper abd pain. Transaminases and Alk Phos are mildly elevated, and slightly improving over the past 2 days. Also, CT films with some suggestion of constipation and pt passed on [facility] BM 2 days ago with small amt bright red blood rectally. Review of Systems Review of Systems: ROS: Gen: + mild weakness, no fevers, weight loss Eyes: No eye redness, or pain, no recent vision changes Resp: No SOB, no cough Cardio: No palpitations/irregular beats, no chest pain GI: See HPI, otherwise (-) : Denies pain on urination Skin: No jaundice, itching or new rashes Physical Exam Constitutional: well developed, + thin and cooperative Eyes: PERRL, conjunctivae normal, anicteric sclerae Respiratory: normal respiratory effort, lungs clear to auscultation Cardiovascular: RRR, no murmur, no edema Gastrointestinal (Abdomen): Inspection/Auscultation: abdomen normal to inspection and normal bowel sounds; abdomen not distended and no abdominal edema Percussion/Palpation: + abdomen tender (Mild diffuse adbdominal msk tenderness. No signs of acute abdomen.) and abdomen soft; no guarding and abdomen not rigid Skin: no rashes, warm and dry normal turgor Neurologic: PERRL, EOMI, accommodation nl, no face palsy, no dysarthria awake; not confused Psychiatric: A+Ox3, euthymic affect Orientation: cooperative Results & Data ([facility]) Vital Signs (Past 12 Hours) Vital Signs Temp Pulse Resp BP Pulse Ox 04/18/21 07:58 36.4 C L 68 14 156/88 H 94 04/17/21 22:21 36.6 C 62 16 117/80 93 Laboratory Results AST 166->88, ALT 202->129, Alk Phos 200->173 Glucose 115. Diagnostic Findings MRCP 04/16/20: 1. Status post cholecystectomy. 2. Chronic moderate intrahepatic and extrahepatic biliary ductal dilation is likely secondary to postcholecystectomy state. No evidence of choledocholithiasis. 3. Pancreatic atrophy. CTAP non constrast, 04/15: No acute abnormality. Patient is status post cholecystectomy with physiologic biliary ductal dilation, unchanged from prior exam.
[2021-04-18] MEDS: THIAMINE HCL 100 MG TAB PO SCH ×2 (10:34→20:07)
[2021-04-18] MEDS: MAGNESIUM OXIDE 400 MG TAB PO SCH ×2 (10:35→20:07)
[2021-04-18] MEDS: CYANOCOBALAMIN 1000 MCG/ML VIAL IM SCH (10:35)
[2021-04-18] MEDS: FLUoxetine HCL 10 MG CAP PO SCH (10:35)
[2021-04-18] MEDS: PANTOprazole 40 MG TAB PO SCH ×2 (10:35→20:07)
[2021-04-18] MEDS: METOPROLOL TARTRATE 50 MG TAB PO SCH ×2 (10:35→20:07)
[2021-04-18] MEDS: CHOLECALCIFEROL 5,000 UNITS 125 MCG TAB PO SCH (10:35)
[2021-04-18] MEDS: ASPIRIN 81 MG ECTAB PO SCH (10:35)
[2021-04-18] MEDS: FOLIC ACID 1 MG TAB PO SCH (10:35)
[2021-04-18] MEDS: amLODIPine BESYLATE 5 MG TAB PO SCH (10:36)
[2021-04-18] MEDS: SENNA 8.6 MG TAB PO SCH (10:36)
[2021-04-18] MEDS: POLYETHYLENE (MIRALAX) 17 GM PACK PO SCH ×2 (10:36→20:07)
[2021-04-18] MEDS ORDERED: Nursing to Pharmacy Communication SCH (11:00)
--- NOTE | 2021-04-18 12:33 | Hospitalist Progress Note ---
Date of Service April 18, 2021 Assessment & Plan (1) Abnormal LFTs: Plan: Recent acute abdominal pain 04/15 w/ acute elevation in aminotransferases (AST 171, ALT 202) & ALP (200) from normal baselines 1wk prior. Now downtrending and pain less severe/more vague S/p cholecystectomy 2017. H/o recurrent pancreatitis (most recently 12/2019) Lipase & Bili normal. CT a/p 04/15 without acute abnormality. MRCP 04/16 also w/o acute findings. Both imaging studies noted s/p ccx w/ physiologic biliary ductal dilation, fatty replacement/atrophy of pancreas. Reported prior episodes of pancreatitis Patient reports these attacks have occurred innumerable times w/ severe 12/26 pain without precipitant - sometimes in middle of night May be due to sphincter of Oddi spasm/dysfunction, less likely biliary colic given no stone visible on imaging. No new meds 04/15 to suggest DILI & that would not be expected to cause acute pain. Fluoxetine was uptitrated around that time. LFTs now improving - GI consulted: planning for EGD/EUS w/ Dr David - tomorrow (2) Abdominal pain: Plan: See above re LFTs (3) Acute kidney injury: Plan: Resolved on IV fluids MIS on CKD. Unclear baseline Cr 1.2-1.3? Last normal baseline 0.8-1 was 12/2019 Prerenal AKIs 2/2 poor PO intake w/ resolution following IVF Currently improving back toward baseline (4) Chronic kidney disease, stage 3: Plan: See above (5) Diplopia: Plan: Etiology uncertain. Resolves w/ near vision when using both eyes. Resolves at distance vision w/ eye patch. Unilateral therefore suspect more of visual acuity problem than brainstem. MRI brain 04/10 negative for brainstem stroke. ESR, lyme normal. PATSY+ nuclear homogenous (unlikely relevant) No signs of RAYSA from a Wernicke's state but still giving thiamine 200mg BID. Neuro Dr Painter saw in consult - sent MG labs. Pending. Outpatient ophtho eval (6) Dizziness: Plan: Both orthostatic LH & vertigo Little/no improvement w/ meclizine PT completed a vestibular evaluation - BPV / peripheral vertigo could not be teased out; her symptoms during the eval did not match up with a specific etiology. Suspect most likely secondary to her vision problems above (7) Hypomagnesemia: Plan: Due to poor oral intake at home. Mg 0.6 ml/dL on admission. Now normalized s/p significant repletion & improved oral intake Denies any alcohol abuse. Continue Mg Ox 400mg PO BID (8) Hypocalcemia: Plan: Resolved. Multifactorial 2/2 low Vit D & mg (9) Metabolic encephalopathy: Plan: Resolved. 2/2 B12 deficiency/electrolyte abnormalities MRI brain negative Cont B12 supplementation. Cont B1 supplementation. Neuro consult 04/11 (10) Syncope: Plan: Suspect due to electrolyte abnormalities especially the low magnesium (critically low at presentation). 30-day event monitor post-d/c, possible heart arrhythmia but likely due to electrolyte disturbances above, consider loop recorder if nothing on event monitor and recurrence. (11) Hypertension associated with chronic kidney disease due to type 2 diabetes mellitus: Plan: Continue metoprolol BID. Continue amlodipine 5mg daily. Suspect increasing BP due to IV fluids. Will continue to monitor for now. (12) Generalized anxiety disorder with panic attacks: Plan: Psych consult 04/14 - inc fluoxetine 20 -> 30mg Continue fluoxetine 30mg PO daily (13) MDD (major depressive disorder), recurrent episode, moderate: Plan: Continue fluoxetine as above (14) Diabetes mellitus type 2, uncontrolled: Plan: HbA1C 7.6% in January Hold metformin Cont novolog Hba1c 6.7% this admission (15) B12 deficiency: Plan: B12 level = 105. Cyanocobalamin 1,000 mcg IM daily while hospitalized. Continue IM outpatient; uncertain if she is absorbing PO B12. (16) GERD (gastroesophageal reflux disease): Plan: Cont PPI (17) Pulmonary embolism: Plan: Diagnosed January 2021. Compliance with anticoagulation uncertain. Etiology of PE?? Concerning given her failure to thrive & weight loss. Xarelto 20mg PO daily held since 04/15 for EUS (18) Pancreatic atrophy: Plan: Noted on imaging. Suspect 2/2 recurrent pancreatitis Pancreatic insufficiency considered - creon started this admission then stopped due to concern that it was contributing to severe constipation (19) Severe protein-calorie malnutrition: Plan: 30+ pounds of weight loss with unclear etiology - most likely very poor PO intake? (20) Vitamin D deficiency: Plan: vit D to 5000 IU daily. (21) Housing problems: Plan: appreciate social work (22) Constipation: Plan: Improving. Continue senna + miralax (23) Internal hemorrhoid: Plan: anusol suppos prn Admission and Anticipated Discharge Date Admission Date: April 06, 2021 Subjective Last saw patient when I admitted her and she has significantly improved since then. Much sharper to answer questions. No further tingling sensation or muscle. Major problem at the present time is her intermittent severe abdominal pain with associated increase in LFTs. She reports this has improved over the last couple of days with intravenous fluids. She is still eating poorly but this is a long standing issue. She denies any dysphagia or odynophagia or reflux. Discussed with gastroenterology and planning on EUS tomorrow. Review of Systems Review of Systems: All systems reviewed & are unremarkable except as noted in Subjective Physical Exam Constitutional: well developed; + not well nourished and no acute distress ENMT: external ear and nose normal, oropharynx normal Respiratory: normal respiratory effort, lungs clear to auscultation Cardiovascular: RRR, no murmur, no edema Extremities: normal capillary refill; no calf tenderness Gastrointestinal (Abdomen): Inspection/Auscultation: normal bowel sounds Percussion/Palpation: + abdomen tender (generalized, not specific to RUQ) and abdomen soft; no guarding and abdomen not rigid Musculoskeletal: no cyanosis or clubbing, extremities motor strength 5/5 Skin: no rashes, warm and dry Neurologic: moves all extremities, + focal motor deficit (no lateralizing weakness) and awake; not confused Speech / Cognition: normal speech Motor/Sensory: no tremor and no sensory deficit (Initial tingling resolved) Coordination: normal [id number] test Psychiatric: Orientation: alert, oriented to person, oriented to place and oriented to time Eye Contact: good eye contact Affect: euthymic affect Genitourinary: no CVA tenderness Results & Data Results & Data ([facility]) Vital Signs (Past 12 Hours) Vital Signs Temp Pulse Resp BP Pulse Ox 04/18/21 07:58 36.4 C L 68 14 156/88 H 94 PG Care Time/CCT Total # of Minutes Spent Total Time Spent with Patient: Total time spent is greater than 50% in coordination of care (as documented) at patient's floor/unit and/or counseling patient: Coding Level of Care Code 00574 Subseq Hosp Care Lvl 2 Diagnoses Abnormal LFTs R79.89 Abdominal pain R10.9 Acute kidney injury N17.9 Chronic kidney disease, stage 3 N18.30 Diplopia H53.2 Dizziness R42 Hypomagnesemia E83.42 Hypocalcemia E83.51 Metabolic encephalopathy G93.41 Syncope R55 Hypertension associated with chronic kidney disease due to type 2 diabetes mellitus E11.22; I12.9 Generalized anxiety disorder with panic attacks F41.1; F41.0 MDD (major depressive disorder), recurrent episode, moderate F33.1 Diabetes mellitus type 2, uncontrolled E11.65 B12 deficiency E53.8 GERD (gastroesophageal reflux disease) K21.9 Pulmonary embolism I26.99 Acute cor pulmonale presence: without acute cor pulmonale Chronicity: acute Pulmonary embolism type: unspecified Pancreatic atrophy K86.89 Severe protein-calorie malnutrition E43 Vitamin D deficiency E55.9 Housing problems Z59.9 Constipation K59.00 Internal hemorrhoid K64.8 (1) Pulmonary embolism Acute cor pulmonale presence: without acute cor pulmonale Chronicity: acute Pulmonary embolism type: unspecified Qualified Code(s): I26.99 - Other pulmonary embolism without acute cor pulmonale
[2021-04-18] MEDS: INSULIN ASPART PER UNIT SC SCH ×3 (13:18→20:46)
[2021-04-18 13:25] LABS: Hematocrit (blood only) 34.2 % (37-47); Hemoglobin 10.9 g/dL (12.0-16.0); Mean Corpuscular Hemoglobin 28.7 pg (25-34); Mean Corpuscular Hgb Conc 31.9 g/dL (32-36); Mean Platelet Volume 10.4 fL (7.4-10.4); Platelet Count 226 K/uL (130-400); RDW Coefficient of Variation 14.6 % (11.5-14.5); RDW Standard Deviation 47.7 fL (36.4-46.3); White Blood Count 6.26 K/uL (4.8-10.8)
[2021-04-18 14:08] LABS: Albumin Globulin Ratio 1.4 (0.9-2); Albumin Level 3.5 gm/dl (3.4-5.0); BUN Creatinine Ratio 13.2 (10-20); Bilirubin,Total 0.3 mg/dl (0.2-1.0); Calcium 8.8 mg/dl (8.5-10.1); Creatinine Clr Calc Pharmacy 43.9 ml/min; Est GFR (African American) 49.2 ml/min; Est GFR (Non-African American) 42.5 ml/min; Globulin 2.5 gm/dl (2.5-4.0); Potassium 4.3 mmol/L (3.5-5.1)
[2021-04-18] MEDS: DOXEPIN HCL 75 MG CAPSULE PO SCH (20:07)
[2021-04-19] MEDS ORDERED: Nursing to Pharmacy Communication SCH ×2 (01:00→13:45)
[2021-04-19] MEDS: ACETAMINOPHEN 325 MG TAB PO PRN (05:22)
[2021-04-19] MEDS: LACTATED RINGER'S 1,000 ML IV SCH (05:23)
[2021-04-19] MEDS: INSULIN ASPART PER UNIT SC SCH ×4 (05:47→21:32)
[2021-04-19] MEDS: THIAMINE HCL 100 MG TAB PO SCH ×2 (08:35→20:51)
[2021-04-19] MEDS: PANTOprazole 40 MG TAB PO SCH ×2 (08:35→20:52)
[2021-04-19] MEDS: oxyCODONE HCL 10 MG TABCR (OxyCONTIN) PO SCH ×2 (08:35→20:51)
[2021-04-19] MEDS: FOLIC ACID 1 MG TAB PO SCH (08:35)
[2021-04-19] MEDS: FLUoxetine HCL 10 MG CAP PO SCH (08:35)
[2021-04-19] MEDS: amLODIPine BESYLATE 5 MG TAB PO SCH (08:35)
[2021-04-19] MEDS: SENNA 8.6 MG TAB PO SCH (08:35)
[2021-04-19] MEDS: MAGNESIUM OXIDE 400 MG TAB PO SCH ×2 (08:35→20:52)
[2021-04-19] MEDS: CHOLECALCIFEROL 5,000 UNITS 125 MCG TAB PO SCH (08:35)
[2021-04-19] MEDS: CYANOCOBALAMIN 1000 MCG/ML VIAL IM SCH (08:36)
[2021-04-19] MEDS: METOPROLOL TARTRATE 50 MG TAB PO SCH ×2 (08:36→20:51)
[2021-04-19] MEDS: ASPIRIN 81 MG ECTAB PO SCH (08:36)
[2021-04-19] MEDS: POLYETHYLENE (MIRALAX) 17 GM PACK PO SCH ×3 (08:36→20:52)
--- NOTE | 2021-04-19 09:54 | Anesthesiology Consultation ---
Date of Service April 19, 2021 Assessment & Plan Chart Review Chart Review: Acceptable Risk for Surgery and Patient NOT seen in Pre Admission Testing Consults Requested none ASA ASA4 Proposed Anesthesia Anesthesia Type: General History Surgery Operation Date: 04/19/21 07:00 Proposed Procedures p Endoscopic Ultrasonography Upper - Sen David DO s Endoscopic Retrograde Cholangiopancreatogram - Sen David DO Height/Weight Height: 5 ft 4 in Weight: 74 kg Allergies Allergy/AdvReac Type Severity Reaction Status Date / Time lisinopril AdvReac Mild weight Verified 04/06/21 12:11 gain Medications Home Medications Medication Instructions Recorded Confirmed Last Taken doxepin 75 mg capsule 150 mg PO HS 02/23/18 04/06/21 12/23/19 metformin 1,000 mg tablet 1,000 mg PO BID 02/23/18 04/06/21 Unknown blood sugar diagnostic (OneTouch #10 ea 12/31/19 02/03/21 Unknown Verio test strips) lancets 33 gauge (OneTouch Delica #100 ea 12/31/19 02/03/21 Unknown Lancets) pen needle, diabetic 32 gauge x #100 ea 12/31/19 02/03/21 Unknown 5/32" (BD Nati 2nd Gen Pen Needle) polyethylene glycol 3350 17 gram 17 g PO DAILY #30 packet 12/31/19 04/06/21 Unknown oral powder packet (Miralax) aspirin 81 mg tablet,delayed 81 mg PO DAILY 02/03/21 04/06/21 Unknown release omeprazole 20 mg capsule,delayed 20 mg PO BID 02/03/21 04/06/21 Unknown release benazepril 5 mg tablet 0 mg PO DAILY 04/06/21 04/06/21 Unknown oxycodone 30 mg tablet,crush 30 mg PO Q12H 04/06/21 04/06/21 Unknown resistant,extended release 12 hr (OxyContin) fluoxetine 20 mg capsule 20 mg PO DAILY 04/07/21 04/07/21 Unknown metoprolol tartrate 25 mg tablet 25 mg PO BID 04/07/21 04/07/21 Unknown Active Medications Generic Name Dose Route Start Last Admin Trade Name Freq PRN Reason Stop Dose Admin Acetaminophen 650 mg 04/06/21 15:37 04/19/21 05:22 Acetaminophen 325 Mg Tab PO 05/06/21 15:36 650 mg Q4H PRN Administration Pain or Fever Amlodipine Besylate 5 mg 04/11/21 09:00 04/19/21 08:35 Amlodipine Besylate 5 Mg Tab PO 05/11/21 08:59 5 mg QAM JACQUELINE Administration Aspirin 81 mg 04/07/21 09:00 04/19/21 08:36 Aspirin 81 Mg Ectab PO 05/07/21 08:59 81 mg DAILY JACQUELINE Administration Cyanocobalamin 1,000 mcg 04/08/21 12:30 04/19/21 08:36 Cyanocobalamin 1000 Mcg/Ml Vial IM 05/08/21 12:29 1,000 mcg QAM JACQUELINE Administration Doxepin HCl 150 mg 04/06/21 21:00 04/18/21 20:07 Doxepin Hcl 75 Mg Capsule PO 05/06/21 20:59 150 mg HS JACQUELINE Administration Fluoxetine HCl 30 mg 04/15/21 09:00 04/19/21 08:35 Fluoxetine Hcl 10 Mg Cap PO 05/15/21 08:59 30 mg DAILY JACQUELINE Administration Folic Acid 1 mg 04/09/21 09:00 04/19/21 08:35 Folic Acid 1 Mg Tab PO 05/09/21 08:59 1 mg QAM JACQUELINE Administration Lactated Ringer's 1,000 mls @ 80 mls/hr 04/18/21 08:00 04/19/21 05:23 Lr IV 05/18/21 07:59 80 mls/hr .[id number] JACQUELINE Administration Insulin Aspart 0 units 04/19/21 06:00 04/19/21 05:47 Insulin Aspart Per Unit SC 05/19/21 05:59 Not Given Q6 JACQUELINE Magnesium Oxide 400 mg 04/06/21 21:00 04/19/21 08:35 Magnesium Oxide 400 Mg Tab PO 05/06/21 20:59 400 mg BID JACQUELINE Administration Meclizine HCl 25 mg 04/15/21 17:17 04/16/21 13:29 Meclizine Hcl 25 Mg Tab PO 05/12/21 13:59 25 mg TID PRN Administration vertigo Metoprolol Tartrate 50 mg 04/11/21 21:00 04/19/21 08:36 Metoprolol Tartrate 50 Mg Tab PO 05/11/21 20:59 50 mg BID JACQUELINE Administration Oxycodone HCl 30 mg 04/06/21 21:00 04/19/21 08:35 Oxycodone Hcl 10 Mg Tabcr (Oxycontin) PO 04/20/21 20:59 30 mg BID JACQUELINE Administration Pantoprazole Sodium 40 mg 04/06/21 21:00 04/19/21 08:35 Pantoprazole 40 Mg Tab PO 05/06/21 20:59 40 mg BID JACQUELINE Administration Polyethylene Glycol 17 gm 04/16/21 15:30 04/19/21 08:36 Polyethylene (Miralax) 17 Gm Pack PO 05/16/21 15:29 Not Given BID JACQUELINE Polyethylene Glycol 17 gm 04/19/21 09:00 04/19/21 08:36 Polyethylene (Miralax) 17 Gm Pack PO 05/19/21 08:59 Not Given DAILY JACQUELINE Rivaroxaban 20 mg 04/07/21 07:30 04/16/21 07:41 Rivaroxaban 20 Mg Tab PO 05/07/21 07:29 20 mg QDB JACQUELINE Administration Sennosides 17.2 mg 04/16/21 15:30 04/19/21 08:35 Senna 8.6 Mg Tab PO 05/16/21 15:29 17.2 mg QAM JACQUELINE Administration Thiamine HCl 200 mg 04/09/21 21:00 04/19/21 08:35 Thiamine Hcl 100 Mg Tab PO 05/09/21 20:59 200 mg BID JACQUELINE Administration Vitamin D 5,000 units 04/10/21 09:00 04/19/21 08:35 Cholecalciferol 5,000 Units 125 Mcg Tab PO 05/10/21 08:59 5,000 units QAM JACQUELINE Administration Past Medical History Medical History Abnormal LFTs Acute cholecystitis due to biliary calculus Acute pancreatitis Anemia B12 deficiency Chronic pain Hyperlipidemia Hypertension associated with chronic kidney disease due to type 2 diabetes mellitus MDD (major depressive disorder), recurrent episode, moderate Obesity Pericarditis Peripheral autonomic neuropathy due to diabetes mellitus Hx/o PE Exercise / Class Metabolic Activity III < 4 Walking/Shop/Light housework Past Family History Family History Other Family history non-contributory Past Surgical History Surgical History H/O cervical spine surgery Previous section Status post lumbar spine surgery for decompression of spinal cord Past Anesthesia History No Hx of Anesthesia Complications and No Family Hx of Anesthesia Complications History of PONV No Hx of PONV and No Hx of Motion Sickness Social History Smoking Status: Never smoker Hx Alcohol Use: No Hx Substance Use: No substance use type: does not use Physical Exam Vital Signs Last Vital Signs Temp 36.4 C L 04/19/21 07:35 Pulse 66 04/19/21 07:35 Resp 16 04/19/21 07:35 BP 156/89 H 04/19/21 07:35 Pulse Ox 98 04/19/21 07:35 Testing Laboratory Results 04/18/21 13:01 04/18/21 13:01 PT 11.5 Seconds (9.0-12.0) 04/06/21 10:52 INR 1.1 (0.9-1.1) 04/06/21 10:52 Hemoglobin A1c 6.7 % (4.5-5.6) H 04/08/21 07:10 Urine Color Yellow 04/13/21 16:33 Urine Appearance Clear (Clear) 04/13/21 16:33 Urine pH 6.5 (4.5-7.5) 04/13/21 16:33 Ur Specific [place] 1.009 (1.000-1.030) 04/13/21 16:33 Urine Protein Negative (Negative) 04/13/21 16:33 Urine Glucose (UA) Negative (Negative) 04/13/21 16:33 Urine Ketones Negative (Negative) 04/13/21 16:33 Urine Nitrite Negative (Negative) 04/13/21 16:33 Ur Leukocyte Esterase Trace (Negative) H 04/13/21 16:33 Urine WBC (Auto) 10-30 /hpf (0-5) H 04/13/21 16:33 Urine RBC (Auto) 0-4 /hpf (0-4) 04/13/21 16:33 U Hyaline Cast (Auto) 0 /lpf (0-5) 04/13/21 16:33 U Epithel Cells (Auto) 5-10 /lpf (0-5) H 04/13/21 16:33 Urine Bacteria (Auto) Negative (Negative) 04/13/21 16:33 02/01/22 02/01/22 08:17 05:44 POC Glucose 162 H 123 H Electrocardiogram Date: 04/06/21 Findings: + NSR @ (at 75) and + NSST changes Chest X-Ray Date: 04/06/21 Findings: + NAD Echocardiogram Date: 02/04/21 EF: 45% LV Function: dysfunctional (mildly decreased) RWMA: + akinetic (septal AK) Valvular Disease: + AI (mild) and + MR (mild)
--- NOTE | 2021-04-19 10:18 | Communication Note ---
Date of Service: April 19, 2021 The patient was to have EGD EUS and possible ERCP today. Unfortunately the examination is being postponed as she did have some cardiac changes noted on a previous admission in January. It appears that the patient never had her follow-up studies as recommended by her cardiology providers. Please obtain a cardiac consultation to determine if the patient should have further cardiac evaluation. Once cleared by cardiology we can then try and proceed with the exams as either inpatient or perhaps an outpatient over the next few weeks.
[2021-04-19] MEDS ORDERED: DOBUTamine HCL 12.5 MG/ML 20 ML VIAL IV ONE (10:59)
[2021-04-19] MEDS ORDERED: ATROPINE SULFATE 0.1 MG/ML 10ML SYR IV ONE (10:59)
[2021-04-19] MEDS ORDERED: METOPROLOL TARTRATE 1 MG/ML VIAL IV ONE (10:59)
--- NOTE | 2021-04-19 11:09 | Gastroenterology Progress Note ---
Date of Service April 19, 2021 Assessment & Plan (1) Abnormal LFTs: (2) Abdominal pain: Plan: ? SOD disorder. Will plan for EUS with ERCP if indicated after cardiology consult and w/u is complete. Possibly ? Will continue to follow LFTs periodically (improving today). For now, may have a full liquid diet if not contraindicated by need for other procedures. Admission and Anticipated Discharge Date Admission Date: April 06, 2021 Supervising Physician Co-Signing Physician Notes I saw and evaluated the patient. We are awaiting cardiac clearance prior to rescheduling her upper endoscopy endoscopic ultrasound and possible ERCP. Based on the patient's history we wonder if she may have sphincter of Oddi dysfunction as she has a dilated common bile duct and intermittent elevation of her liver associated enzymes. This is often seen in patients with functional gastrointestinal disorder such as irritable bowel syndrome. I would recommend that the patient begin Linzess to 72 mg daily for her constipation. Once the patient has been cleared by cardiology we would then be able to make arrangements for a repeat procedure. As the patient is presently doing well this would not necessarily need to be done as an inpatient. Subjective 60, female admitted on 04/06 for mental status changes. While here bump in LFTs. Has chronic biliary ductal dilation S/P distant choley. Hx of intermittent biliary colic type abd pain. Plan is for EUS and possible ERCP - but cancelled today as anesthesia suggests cardiac w/u prior. Review of Systems Review of Systems: ROS: Gen: Denies weakness, fevers, weight loss Eyes: No eye redness, or pain, no recent vision changes Resp: No SOB, no cough Cardio: No palpitations/irregular beats, no chest pain GI: See HPI, otherwise (-) : Denies pain on urination Skin: No jaundice, itching or new rashes Physical Exam Constitutional: well developed and cooperative Eyes: PERRL, conjunctivae normal, anicteric sclerae Respiratory: normal respiratory effort and able to speak in complete sentences; no respiratory distress, no labored breathing, does not use accessory muscles and no cough Cardiovascular: RRR, no murmur, no edema Gastrointestinal (Abdomen): Percussion/Palpation: + abdomen tender (Mild diffuse adbdominal msk tenderness. No signs of acute abdomen.) and abdomen soft; no guarding and abdomen not rigid Skin: no rashes, warm and dry normal turgor Neurologic: PERRL, EOMI, accommodation nl, no face palsy, no dysarthria awake; not confused Psychiatric: A+Ox3, euthymic affect Orientation: alert, oriented x 3 and cooperative Lymphatic: no cervical or axillary lymphadenopathy Results & Data ([facility]) Vital Signs (Past 12 Hours) Vital Signs Temp Pulse Pulse Resp BP BP Pulse Ox 04/19/21 10:08 37.1 C 71 20 141/99 H 97 04/19/21 07:35 36.4 C L 66 16 156/89 H 98 Laboratory Results WBC 6.26, Hb 10.9, Hct 34, Plts 226, Na 136, K 4.3, Cl 107, CO2 23, BUN 18, Cr 1.6. AST 90, ALT 157. Diagnostic Findings MRCP 04/16/21: 1. Status post cholecystectomy. 2. Chronic moderate intrahepatic and extrahepatic biliary ductal dilation is likely secondary to postcholecystectomy state. No evidence of choledocholithiasis. 3. Pancreatic atrophy. Non contrast CT 04/15/20: Liver: Unremarkable. No focal lesions are seen. Gallbladder and biliary tree: Patient is status post cholecystectomy. Physiologic prominence of the biliary ducts is noted. Pancreas: Fatty replacement of the pancreas is seen.
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
--- NOTE | 2021-04-19 13:31 | XCELERA ---
[id number] \\[id number]
--- NOTE | 2021-04-19 19:25 | Hospitalist Progress Note ---
Date of Service April 19, 2021 Assessment & Plan (1) Abnormal LFTs: Plan: Recent acute abdominal pain 04/15 w/ acute elevation in aminotransferases (AST 171, ALT 202) & ALP (200) from normal baselines 1wk prior. Now downtrending and pain less severe/more vague S/p cholecystectomy 2017. H/o recurrent pancreatitis (most recently 12/2019) Lipase & Bili normal. CT a/p 04/15 without acute abnormality. MRCP 04/16 also w/o acute findings. Both imaging studies noted s/p ccx w/ physiologic biliary ductal dilation, fatty replacement/atrophy of pancreas. Reported prior episodes of pancreatitis Patient reports these attacks have occurred innumerable times w/ severe 12/26 pain without precipitant - sometimes in middle of night May be due to sphincter of Oddi spasm/dysfunction, less likely biliary colic given no stone visible on imaging. No new meds 04/15 to suggest DILI & that would not be expected to cause acute pain. Fluoxetine was uptitrated around that time. LFTs now improving - GI consulted: planning for EGD/EUS w/ Dr David - cancelled today ? after cardiology workup. Subsequent dobutamine echo negative for inducible ischemia. Prior echo abnormality likely secondary to PE. Will continue off Xarelto pending EUS. (2) Abdominal pain: Plan: See above re LFTs (3) Acute kidney injury: Plan: Resolved on IV fluids. Can now discontinue. MIS on CKD. Unclear baseline Cr 1.2-1.3? Last normal baseline 0.8-1 was 12/2019 Prerenal AKIs 2/2 poor PO intake w/ resolution following IVF Currently improving back toward baseline (4) Chronic kidney disease, stage 3: Plan: See above (5) Diplopia: Plan: Etiology uncertain. Resolves w/ near vision when using both eyes. Resolves at distance vision w/ eye patch. Unilateral therefore suspect more of visual acuity problem than brainstem. MRI brain 04/10 negative for brainstem stroke. ESR, lyme normal. PATSY+ nuclear homogenous (unlikely relevant) No signs of RAYSA from a Wernicke's state but still giving thiamine 200mg BID. Neuro Dr Painter saw in consult - sent MG labs. Pending. Outpatient ophtho eval (6) Dizziness: Plan: Both orthostatic LH & vertigo Little/no improvement w/ meclizine PT completed a vestibular evaluation - BPV / peripheral vertigo could not be teased out; her symptoms during the eval did not match up with a specific etiology. Suspect most likely secondary to her vision problems above (7) Hypomagnesemia: Plan: Due to poor oral intake at home. Mg 0.6 ml/dL on admission. Now normalized s/p significant repletion & improved oral intake Denies any alcohol abuse. Continue Mg Ox 400mg PO BID (8) Hypocalcemia: Plan: Resolved. Multifactorial 2/2 low Vit D & mg (9) Metabolic encephalopathy: Plan: Resolved. 2/2 B12 deficiency/electrolyte abnormalities MRI brain negative Cont B12 supplementation. Cont B1 supplementation. Neuro consult 04/11 (10) Syncope: Plan: Suspect due to electrolyte abnormalities especially the low magnesium (critically low at presentation). 30-day event monitor post-d/c, possible heart arrhythmia but likely due to electrolyte disturbances above, consider loop recorder if nothing on event monitor and recurrence. (11) Hypertension associated with chronic kidney disease due to type 2 diabetes mellitus: Plan: Continue metoprolol BID. Continue amlodipine 5mg daily. Suspect increasing BP due to IV fluids. Will continue to monitor for now. (12) Generalized anxiety disorder with panic attacks: Plan: Psych consult 04/14 - inc fluoxetine 20 -> 30mg Continue fluoxetine 30mg PO daily (13) MDD (major depressive disorder), recurrent episode, moderate: Plan: Continue fluoxetine as above (14) Diabetes mellitus type 2, uncontrolled: Plan: HbA1C 7.6% in January Hold metformin Cont novolog Hba1c 6.7% this admission (15) B12 deficiency: Plan: B12 level = 105. Cyanocobalamin 1,000 mcg IM daily while hospitalized. Continue IM outpatient; uncertain if she is absorbing PO B12. (16) GERD (gastroesophageal reflux disease): Plan: Cont PPI (17) Pulmonary embolism: Plan: Diagnosed January 2021. Compliance with anticoagulation uncertain. Etiology of PE?? Concerning given her failure to thrive & weight loss. Xarelto 20mg PO daily held since 04/15 for EUS (18) Pancreatic atrophy: Plan: Noted on imaging. Suspect 2/2 recurrent pancreatitis Pancreatic insufficiency considered - creon started this admission then stopped due to concern that it was contributing to severe constipation (19) Severe protein-calorie malnutrition: Plan: 30+ pounds of weight loss with unclear etiology - most likely very poor PO intake? (20) Vitamin D deficiency: Plan: vit D to 5000 IU daily. (21) Housing problems: Plan: appreciate social work (22) Constipation: Plan: Improving. Continue senna + miralax (23) Internal hemorrhoid: Plan: anusol suppos prn Admission and Anticipated Discharge Date Admission Date: April 06, 2021 Subjective No change in symptoms. Continued generalized abdominal pain. No nausea or vomiting. EUS cancelled today due to prior recommendation from cardiology for cardiac workup which was never completed after prior hospitalization. No current symptoms to suggest angina. Review of Systems Review of Systems: All systems reviewed & are unremarkable except as noted in Subjective Physical Exam Constitutional: well developed; + not well nourished and no acute distress ENMT: external ear and nose normal, oropharynx normal Respiratory: normal respiratory effort Cardiovascular: RRR, no murmur, no edema Extremities: normal capillary refill; no calf tenderness Gastrointestinal (Abdomen): Inspection/Auscultation: normal bowel sounds Percussion/Palpation: + abdomen tender (generalized, not specific to RUQ) and abdomen soft; no guarding and abdomen not rigid Skin: no rashes, warm and dry Neurologic: moves all extremities, + focal motor deficit (no lateralizing weakness) and awake; not confused Speech / Cognition: normal speech Coordination: normal [id number] test Psychiatric: Orientation: alert, oriented to person, oriented to place and oriented to time Eye Contact: good eye contact Affect: euthymic affect Genitourinary: no CVA tenderness Results & Data Results & Data ([facility]) Vital Signs (Past 12 Hours) Vital Signs Temp Pulse Pulse Resp BP BP Pulse Ox 04/19/21 15:19 36.6 C 74 18 150/95 H 95 04/19/21 10:08 37.1 C 71 20 141/99 H 97 04/19/21 07:35 36.4 C L 66 16 156/89 H 98 PG Care Time/CCT Total # of Minutes Spent Total Time Spent with Patient: Total time spent is greater than 50% in coordination of care (as documented) at patient's floor/unit and/or counseling patient: Coding Level of Care Code 03572 Subseq Hosp Care Lvl 1 Diagnoses Abnormal LFTs R79.89 Abdominal pain R10.9 Acute kidney injury N17.9 Chronic kidney disease, stage 3 N18.30 Diplopia H53.2 Dizziness R42 Hypomagnesemia E83.42 Hypocalcemia E83.51 Metabolic encephalopathy G93.41 Syncope R55 Hypertension associated with chronic kidney disease due to type 2 diabetes mellitus E11.22; I12.9 Generalized anxiety disorder with panic attacks F41.1; F41.0 MDD (major depressive disorder), recurrent episode, moderate F33.1 Diabetes mellitus type 2, uncontrolled E11.65 B12 deficiency E53.8 GERD (gastroesophageal reflux disease) K21.9 Pulmonary embolism I26.99 Acute cor pulmonale presence: without acute cor pulmonale Chronicity: acute Pulmonary embolism type: unspecified Pancreatic atrophy K86.89 Severe protein-calorie malnutrition E43 Vitamin D deficiency E55.9 Housing problems Z59.9 Constipation K59.00 Internal hemorrhoid K64.8 (1) Pulmonary embolism Acute cor pulmonale presence: without acute cor pulmonale Chronicity: acute Pulmonary embolism type: unspecified Qualified Code(s): I26.99 - Other pulmonary embolism without acute cor pulmonale
[2021-04-19] MEDS: DOXEPIN HCL 75 MG CAPSULE PO SCH (20:53)
[2021-04-20] MEDS: MECLIZINE HCL 25 MG TAB PO PRN ×3 (00:15→21:26)
[2021-04-20] MEDS: METOPROLOL TARTRATE 50 MG TAB PO SCH ×2 (07:45→21:26)
[2021-04-20] MEDS: oxyCODONE HCL 10 MG TABCR (OxyCONTIN) PO SCH (07:45)
[2021-04-20] MEDS: MAGNESIUM OXIDE 400 MG TAB PO SCH ×2 (07:45→21:26)
[2021-04-20] MEDS: ASPIRIN 81 MG ECTAB PO SCH (07:46)
[2021-04-20] MEDS: CHOLECALCIFEROL 5,000 UNITS 125 MCG TAB PO SCH (07:46)
[2021-04-20] MEDS: FLUoxetine HCL 10 MG CAP PO SCH (07:46)
[2021-04-20] MEDS: FOLIC ACID 1 MG TAB PO SCH (07:46)
[2021-04-20] MEDS: SENNA 8.6 MG TAB PO SCH (07:46)
[2021-04-20] MEDS: CYANOCOBALAMIN 1000 MCG/ML VIAL IM SCH (07:46)
[2021-04-20] MEDS: THIAMINE HCL 100 MG TAB PO SCH ×2 (07:46→21:27)
[2021-04-20] MEDS: PANTOprazole 40 MG TAB PO SCH ×2 (07:46→21:27)
[2021-04-20] MEDS: amLODIPine BESYLATE 5 MG TAB PO SCH (07:46)
[2021-04-20] MEDS: POLYETHYLENE (MIRALAX) 17 GM PACK PO SCH ×3 (08:15→21:28)
[2021-04-20] MEDS: INSULIN ASPART PER UNIT SC SCH ×4 (09:04→21:48)
--- NOTE | 2021-04-20 10:51 | Gastroenterology Progress Note ---
Date of Service April 20, 2021 Assessment & Plan (1) Abnormal LFTs: (2) Abdominal pain: Plan: Abd pain, bump in LFTs and imaging with chronic bile duct dilation - suggestive of SOD. Planning for EUS, +/- ERCP tomorrow. NPO after midnight. Admission and Anticipated Discharge Date Admission Date: April 06, 2021 Supervising Physician Co-Signing Physician Notes I saw and evaluated the patient. We had planned on doing endoscopic ultrasound with possible ERCP yesterday but canceled to wait a cardiology evaluation. It appears the patient's cardiology evaluation has cleared her for exam. Would recommend the patient be n.p.o. for potential procedure tomorrow. Given the question of sphincter of Oddi dysfunction she does have a high probability of post ERCP pancreatitis, some estimates are up to 20 to 25% of cases. This was fully discussed with the patient at the initial encounter and subsequent encou nters. Subjective Continues with abdominal pain which she says is "always there," and describes having had increased pain a few days ago. No jaundice/icterus. Eating a regular diet. Review of Systems Review of Systems: ROS: Gen: + multiple episodes of double vision/tingling of peripheries/memory issues - working with cardiology and neuro. No fevers, no weight loss Eyes: No eye redness, or pain, no recent vision changes Resp: No SOB, no cough Cardio: No palpitations/irregular beats, no chest pain GI: See HPI, otherwise (-) : Denies pain on urination Skin: No jaundice, itching or new rashes Physical Exam Constitutional: well developed, cooperative and + overweight Eyes: PERRL, conjunctivae normal, anicteric sclerae Respiratory: normal respiratory effort, lungs clear to auscultation normal respiratory effort and able to speak in complete sentences; no respiratory distress, no labored breathing, does not use accessory muscles and no cough Cardiovascular: RRR, no murmur, no edema Gastrointestinal (Abdomen): Inspection/Auscultation: abdomen normal to inspection and normal bowel sounds; abdomen not distended and no abdominal edema Percussion/Palpation: + abdomen tender (Mild diffuse adbdominal msk tenderness. No signs of acute abdomen.) and abdomen soft; no guarding and abdomen not rigid Skin: no rashes, warm and dry normal turgor Neurologic: PERRL, EOMI, accommodation nl, no face palsy, no dysarthria awake; not confused Psychiatric: A+Ox3, euthymic affect Orientation: cooperative Lymphatic: no cervical or axillary lymphadenopathy Results & Data ([facility]) Vital Signs (Past 12 Hours) Vital Signs Temp Pulse Resp BP Pulse Ox 04/20/21 07:41 36.3 C L 69 16 159/90 H 95 04/20/21 00:12 70 16 115/74 95 Diagnostic Findings MRCP 04/16/21: 1. Status post cholecystectomy. 2. Chronic moderate intrahepatic and extrahepatic biliary ductal dilation is likely secondary to postcholecystectomy state. No evidence of choledocholithiasis. 3. Pancreatic atrophy. CTAP 04/15/21: No acute abnormality. Patient is status post cholecystectomy with physiologic biliary ductal dilation, unchanged from prior exam.
--- NOTE | 2021-04-20 15:51 | Anesthesiology Consultation ---
Date of Service April 20, 2021 Assessment & Plan (1) Encounter for pre-operative examination: Chart Review Chart Review: Acceptable Risk for Surgery and Patient NOT seen in Pre Admission Testing Consults Requested none Additional Notes Per Dr. Wheeler with Cardiology on 04/19/21 "Preop cardiovascular exam: -negative dobutamine stress echocardiogram for myocardial ischemia. -acceptable cardiac risk for endoscopic procedure without further testing." Pt ok to proceed with planned procedure from an anesthetic perspective. Of note, patient's myasthenia gravis labs from 04/11/21 are still pending at this time. History Surgery Operation Date: 04/19/21 07:00 Proposed Procedures p Endoscopic Ultrasonography Upper - Sen David, s Endoscopic Retrograde Cholangiopancreatogram - Sen David DO Operation Date: 04/21/21 07:00 Proposed Procedures p Endoscopic Ultrasonography Upper - Sen David, s Endoscopic Retrograde Cholangiopancreatogram - Sen David DO Height/Weight Height: 5 ft 4 in Weight: 74 kg Allergies Allergy/AdvReac Type Severity Reaction Status Date / Time lisinopril AdvReac Mild weight Verified 04/06/21 12:11 gain Medications Home Medications Medication Instructions Recorded Confirmed Last Taken doxepin 75 mg capsule 150 mg PO HS 02/23/18 04/06/21 12/23/19 metformin 1,000 mg tablet 1,000 mg PO BID 02/23/18 04/06/21 Unknown blood sugar diagnostic (OneTouch #10 ea 12/31/19 02/03/21 Unknown Verio test strips) lancets 33 gauge (OneTouch Delica #100 ea 12/31/19 02/03/21 Unknown Lancets) pen needle, diabetic 32 gauge x #100 ea 12/31/19 02/03/21 Unknown 5/32" (BD Nati 2nd Gen Pen Needle) polyethylene glycol 3350 17 gram 17 g PO DAILY #30 packet 12/31/19 04/06/21 Unknown oral powder packet (Miralax) aspirin 81 mg tablet,delayed 81 mg PO DAILY 02/03/21 04/06/21 Unknown release omeprazole 20 mg capsule,delayed 20 mg PO BID 02/03/21 04/06/21 Unknown release benazepril 5 mg tablet 0 mg PO DAILY 04/06/21 04/06/21 Unknown oxycodone 30 mg tablet,crush 30 mg PO Q12H 04/06/21 04/06/21 Unknown resistant,extended release 12 hr (OxyContin) fluoxetine 20 mg capsule 20 mg PO DAILY 04/07/21 04/07/21 Unknown metoprolol tartrate 25 mg tablet 25 mg PO BID 04/07/21 04/07/21 Unknown Active Medications Generic Name Dose Route Start Last Admin Trade Name Freq PRN Reason Stop Dose Admin Acetaminophen 650 mg 04/06/21 15:37 04/19/21 05:22 Acetaminophen 325 Mg Tab PO 05/06/21 15:36 650 mg Q4H PRN Administration Pain or Fever Amlodipine Besylate 5 mg 04/11/21 09:00 04/20/21 07:46 Amlodipine Besylate 5 Mg Tab PO 05/11/21 08:59 5 mg QAM JACQUELINE Administration Aspirin 81 mg 04/07/21 09:00 04/20/21 07:46 Aspirin 81 Mg Ectab PO 05/07/21 08:59 81 mg DAILY JACQUELINE Administration Cyanocobalamin 1,000 mcg 04/08/21 12:30 04/20/21 07:46 Cyanocobalamin 1000 Mcg/Ml Vial IM 05/08/21 12:29 1,000 mcg QAM JACQUELINE Administration Doxepin HCl 150 mg 04/06/21 21:00 04/19/21 20:53 Doxepin Hcl 75 Mg Capsule PO 05/06/21 20:59 150 mg HS JACQUELINE Administration Fluoxetine HCl 30 mg 04/15/21 09:00 04/20/21 07:46 Fluoxetine Hcl 10 Mg Cap PO 05/15/21 08:59 30 mg DAILY JACQUELINE Administration Folic Acid 1 mg 04/09/21 09:00 04/20/21 07:46 Folic Acid 1 Mg Tab PO 05/09/21 08:59 1 mg QAM JACQUELINE Administration Insulin Aspart 0 units 04/19/21 16:30 04/20/21 13:05 Insulin Aspart Per Unit SC 05/19/21 05:59 4 units ACHS JACQUELINE Administration Magnesium Oxide 400 mg 04/06/21 21:00 04/20/21 07:45 Magnesium Oxide 400 Mg Tab PO 05/06/21 20:59 400 mg BID JACQUELINE Administration Meclizine HCl 25 mg 04/15/21 17:17 04/20/21 14:37 Meclizine Hcl 25 Mg Tab PO 05/12/21 13:59 25 mg TID PRN Administration vertigo Metoprolol Tartrate 50 mg 04/11/21 21:00 04/20/21 07:45 Metoprolol Tartrate 50 Mg Tab PO 05/11/21 20:59 50 mg BID JACQUELINE Administration Oxycodone HCl 30 mg 04/06/21 21:00 04/20/21 07:45 Oxycodone Hcl 10 Mg Tabcr (Oxycontin) PO 04/20/21 20:59 30 mg BID JACQUELINE Administration Pantoprazole Sodium 40 mg 04/06/21 21:00 04/20/21 07:46 Pantoprazole 40 Mg Tab PO 05/06/21 20:59 40 mg BID JACQUELINE Administration Polyethylene Glycol 17 gm 04/16/21 15:30 04/20/21 08:15 Polyethylene (Miralax) 17 Gm Pack PO 05/16/21 15:29 Not Given BID JACQUELINE Polyethylene Glycol 17 gm 04/19/21 09:00 04/20/21 08:15 Polyethylene (Miralax) 17 Gm Pack PO 05/19/21 08:59 Not Given DAILY JACQUELINE Rivaroxaban 20 mg 04/07/21 07:30 04/16/21 07:41 Rivaroxaban 20 Mg Tab PO 05/07/21 07:29 20 mg QDB JACQUELINE Administration Sennosides 17.2 mg 04/16/21 15:30 04/20/21 07:46 Senna 8.6 Mg Tab PO 05/16/21 15:29 17.2 mg QAM JACQUELINE Administration Thiamine HCl 200 mg 04/09/21 21:00 04/20/21 07:46 Thiamine Hcl 100 Mg Tab PO 05/09/21 20:59 200 mg BID JACQUELINE Administration Vitamin D 5,000 units 04/10/21 09:00 04/20/21 07:46 Cholecalciferol 5,000 Units 125 Mcg Tab PO 05/10/21 08:59 5,000 units QAM JACQUELINE Administration NPO Date Last Intake of Fluids: 04/18/21 Time Last Intake of Fluids: 17:00 Last Intake of Fluids Comment: sip of water this am 0800 for meds Date Last Intake of Solids: 04/17/21 Time Last Intake of Solids: 17:00 Past Medical History Medical History Abnormal LFTs Acute cholecystitis due to biliary calculus Acute pancreatitis Anemia B12 deficiency Chronic pain Hyperlipidemia Hypertension associated with chronic kidney disease due to type 2 diabetes mellitus MDD (major depressive disorder), recurrent episode, moderate Obesity Pericarditis Peripheral autonomic neuropathy due to diabetes mellitus Past Family History Family History Other Family history non-contributory Past Surgical History Surgical History H/O cervical spine surgery Previous section Status post lumbar spine surgery for decompression of spinal cord Social History Smoking Status: Never smoker Hx Alcohol Use: No Hx Substance Use: No substance use type: does not use Physical Exam Vital Signs Last Vital Signs Temp 36.7 C 04/20/21 15:42 Pulse 65 04/20/21 15:42 Resp 16 04/20/21 15:42 BP 117/82 04/20/21 15:42 Pulse Ox 97 04/20/21 15:42 Testing Laboratory Results 04/18/21 13:01 04/18/21 13:01 PT 11.5 Seconds (9.0-12.0) 04/06/21 10:52 INR 1.1 (0.9-1.1) 04/06/21 10:52 Hemoglobin A1c 6.7 % (4.5-5.6) H 04/08/21 07:10 Urine Color Yellow 04/13/21 16:33 Urine Appearance Clear (Clear) 04/13/21 16:33 Urine pH 6.5 (4.5-7.5) 04/13/21 16:33 Ur Specific Magna 1.009 (1.000-1.030) 04/13/21 16:33 Urine Protein Negative (Negative) 04/13/21 16:33 Urine Glucose (UA) Negative (Negative) 04/13/21 16:33 Urine Ketones Negative (Negative) 04/13/21 16:33 Urine Nitrite Negative (Negative) 04/13/21 16:33 Ur Leukocyte Esterase Trace (Negative) H 04/13/21 16:33 Urine WBC (Auto) 10-30 /hpf (0-5) H 04/13/21 16:33 Urine RBC (Auto) 0-4 /hpf (0-4) 04/13/21 16:33 U Hyaline Cast (Auto) 0 /lpf (0-5) 04/13/21 16:33 U Epithel Cells (Auto) 5-10 /lpf (0-5) H 04/13/21 16:33 Urine Bacteria (Auto) Negative (Negative) 04/13/21 16:33 04/20/21 04/20/21 11:59 08:10 POC Glucose 180 H 128 H Electrocardiogram Date: 04/06/21 Findings: + NSR @ (at 75) and + NSST changes Chest X-Ray Date: 04/06/21 Findings: + NAD Echocardiogram Date: 02/04/21 EF: 45% LV Function: dysfunctional (mildly decreased) RWMA: + akinetic (septal AK) Valvular Disease: + AI (mild) and + MR (mild) Stress Test Date: 04/19/21 Type: DSE Findings: + WNL; no EKG changes Resting EF: 55-60% Resting LV Function: normal Resting RWMA: + none
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
[2021-04-20 18:37] LABS: Basophils # (auto) 0.03 K/uL (0-0.2); Basophils % (auto) 0.5 %; Eosinophils # (auto) 0.15 K/uL (0-0.5); Eosinophils % (auto) 2.3 %; Hematocrit (blood only) 35.9 % (37-47); Hemoglobin 11.5 g/dL (12.0-16.0); Immature Granulocytes # (auto) 0.01 K/uL (0.00-0.02); Immature Granulocytes % (auto) 0.2 %; Mean Corpuscular Hemoglobin 28.7 pg (25-34); Mean Corpuscular Volume 89.5 fL (80-100); Mean Platelet Volume 10.5 fL (7.4-10.4); Monocytes # (auto) 0.33 K/uL (0.11-0.59); Neutrophils # (auto) 3.37 K/uL (1.4-6.5); Platelet Count 246 K/uL (130-400); RDW Coefficient of Variation 14.6 % (11.5-14.5); RDW Standard Deviation 48.1 fL (36.4-46.3); Red Blood Count 4.01 M/uL (4.2-5.4); White Blood Count 6.59 K/uL (4.8-10.8)
[2021-04-20 19:01] LABS: Albumin Globulin Ratio 1.3 (0.9-2); Albumin Level 3.6 gm/dl (3.4-5.0); BUN Creatinine Ratio 12.6 (10-20); Bilirubin,Total 0.2 mg/dl (0.2-1.0); Calcium 8.8 mg/dl (8.5-10.1); Creatinine Clr Calc Pharmacy 34.3 ml/min; Est GFR (African American) 36.6 ml/min; Est GFR (Non-African American) 31.5 ml/min; Globulin 2.7 gm/dl (2.5-4.0); Magnesium 1.8 mg/dl (1.7-2.4); Phosphorus 4.2 mg/dl (2.5-4.9); Potassium 3.9 mmol/L (3.5-5.1); Total Protein 6.3 gm/dl (6.0-8.3)
[2021-04-20] MEDS: DOXEPIN HCL 75 MG CAPSULE PO SCH (21:25)
[2021-04-20] MEDS: oxyCODONE HCL 15 MG TABCR (OxyCONTIN) PO SCH (21:57)
[2021-04-20 22:37] LABS: Acetylcholine Recep Modulating 4; Acetylcholine Recept Blocking <15 (<15); Receptor Binding Ab <0.30 nmol/L
[2021-04-21] MEDS: INSULIN ASPART PER UNIT SC SCH ×4 (06:47→20:04)
[2021-04-21] MEDS: LACTATED RINGER'S 1,000 ML IV SCH ×2 (07:29→17:36)
[2021-04-21] MEDS: oxyCODONE HCL 15 MG TABCR (OxyCONTIN) PO SCH ×2 (08:44→20:16)
[2021-04-21] MEDS: MECLIZINE HCL 25 MG TAB PO PRN (08:44)
[2021-04-21] MEDS: THIAMINE HCL 100 MG TAB PO SCH ×2 (08:44→20:06)
[2021-04-21] MEDS: MAGNESIUM OXIDE 400 MG TAB PO SCH ×2 (08:45→20:06)
[2021-04-21] MEDS: ASPIRIN 81 MG ECTAB PO SCH (08:45)
[2021-04-21] MEDS: METOPROLOL TARTRATE 50 MG TAB PO SCH ×2 (08:45→20:06)
[2021-04-21] MEDS: PANTOprazole 40 MG TAB PO SCH ×2 (08:45→20:06)
[2021-04-21] MEDS: FOLIC ACID 1 MG TAB PO SCH (08:45)
[2021-04-21] MEDS: FLUoxetine HCL 10 MG CAP PO SCH (08:46)
[2021-04-21] MEDS: SENNA 8.6 MG TAB PO SCH (08:46)
[2021-04-21] MEDS: CHOLECALCIFEROL 5,000 UNITS 125 MCG TAB PO SCH (08:46)
[2021-04-21] MEDS: amLODIPine BESYLATE 5 MG TAB PO SCH (08:47)
[2021-04-21] MEDS: CYANOCOBALAMIN 1000 MCG/ML VIAL IM SCH (08:47)
[2021-04-21] MEDS ORDERED: PROPOFOL IV EMULSION 10 MG/ML 20 ML VIAL IV ONE (10:09)
[2021-04-21] MEDS ORDERED: LIDOCAINE 2% 2 ML VIAL/AMP(20MG/ML) INFIL ONE (10:09)
[2021-04-21] MEDS ORDERED: fentaNYL citrate 100 MCG/2 ML VIAL ONE ×2 (10:14→12:34)
[2021-04-21] MEDS ORDERED: CIPROFLOXACIN / D5W 400 MG/200 ML BAG IV SCH (11:00)
--- NOTE | 2021-04-21 11:05 | History & Physical Bridge Note ---
Date of Service April 21, 2021 History & Physical Bridge Note I have examined the patient, reviewed the History & Physical and in the interval since the performance of the History & Physical I have noted the following changes of clinical significance: no changes noted. The patient is to undergo further evaluation with upper endoscopy endoscopic ultrasound and probable ERCP today. The patient likely has sphincter of Oddi dysfunction as manifest by biliary colic, a dilated common bile duct and intermittent elevation of her liver associated enzymes. We have discussed the risks and benefits of biliary sphincterotomy and increased risk of post-ERCP pancreatitis, up to 20%. I have discussed the risks and benefits to include bleeding, infection, perforation, pain, post ERCP pancreatitis and the need for follow-up studies.
[2021-04-21] MEDS ORDERED: INDOMETHACIN 50 MG SUPP PR ONE (11:06)
--- NOTE | 2021-04-21 12:09 | GI REPORT ---
Patient Name: Adwoa Méndez Procedure Date: 04/21/2021 11:27 AM Date of : 1960 Admit Type: Inpatient Age: 60 Gender: Female Attending MD: Sen David DO Procedure: Upper GI endoscopy Providers: Sen David DO Referring MD: Jarred Feliz Indications: Epigastric abdominal pain, Abdominal pain in the right upper quadrant Medicines: General Anesthesia Complications: No immediate complications. Estimated blood loss: Minimal. Estimated Blood Loss: Estimated blood loss was minimal. Procedure: Pre-Anesthesia Assessment: - Prior to the procedure, a History and Physical was performed, and patient medications, allergies and sensitivities were reviewed. The patient's tolerance of previous anesthesia was reviewed. - The risks and benefits of the procedure and the sedation options and risks were discussed with the patient. All questions were answered and informed consent was obtained. - Patient identification and proposed procedure were verified prior to the procedure by the physician, the nurse and the anesthesiologist. The procedure was verified in the procedure room. - Pre-procedure physical examination revealed no contraindications to sedation. - ASA Grade Assessment: IV - A patient with severe systemic disease that is a constant threat to life. - After reviewing the risks and benefits, the patient was deemed in satisfactory condition to undergo the procedure. - The anesthesia plan was to use general anesthesia. - Immediately prior to administration of medications, the patient was re-assessed for adequacy to receive sedatives. - The heart rate, respiratory rate, oxygen saturations, blood pressure, adequacy of pulmonary ventilation, and response to care were monitored throughout the procedure. - The physical status of the patient was re-assessed after the procedure. After obtaining informed consent, the endoscope was passed under direct vision. Throughout the procedure, the patient's blood pressure, pulse, and oxygen saturations were monitored continuously. The Endoscope was introduced through the mouth, and advanced to the third part of duodenum. The upper GI endoscopy was accomplished without difficulty. The patient tolerated the procedure well. Findings: The examined esophagus was normal. The Z-line was regular and was found 36 cm from the incisors. Multiple 4 to 8 mm semi-sessile polyps with no bleeding and no stigmata of recent bleeding were found in the gastric body and fundus. Biopsies were taken with a cold forceps for histology. The pathology specimen was placed into Bottle B. Estimated blood loss was minimal. The incisura and gastric antrum were normal. The examined duodenum was normal. Biopsies were taken with a cold forceps for histology. The pathology specimen was placed into Bottle A. Estimated blood loss was minimal. Impression: - Normal esophagus. - Z-line regular, 36 cm from the incisors. - Multiple gastric polyps. Biopsied. - Normal incisura and antrum. - Normal examined duodenum. Biopsied. Recommendation: - Perform an upper endoscopic ultrasound (UEUS) today. - Await pathology results. Sen David D.O. Sen David, 04/21/2021 12:08:46 PM This report has been signed electronically. Note Initiated On: 04/21/2021 11:27 AM Number of Addenda: 0 I attest to the content of the Intraoperative Record and orders documented therein, exceptions below {[id number]}
--- NOTE | 2021-04-21 12:10 | GI REPORT ---
Patient Name: Adwoa Méndez Procedure Date: 04/21/2021 11:28 AM Date of : 1960 Admit Type: Inpatient Age: 60 Gender: Female Attending MD: Sen David DO Procedure: Upper EUS Providers: Sen David DO Referring MD: Jarred Feliz Indications: Common bile duct dilation (acquired) seen on CT scan, Common bile duct dilation (acquired) seen on MRCP, Elevated liver enzymes Medicines: Monitored Anesthesia Care Complications: No immediate complications. Estimated blood loss: Minimal. Estimated Blood Loss: Estimated blood loss was minimal. Procedure: Pre-Anesthesia Assessment: - Prior to the procedure, a History and Physical was performed, and patient medications, allergies and sensitivities were reviewed. The patient's tolerance of previous anesthesia was reviewed. - The risks and benefits of the procedure and the sedation options and risks were discussed with the patient. All questions were answered and informed consent was obtained. - Patient identification and proposed procedure were verified prior to the procedure by the physician, the nurse and the anesthesiologist. The procedure was verified in the procedure room. - Pre-procedure physical examination revealed no contraindications to sedation. - ASA Grade Assessment: III - A patient with severe systemic disease. - After reviewing the risks and benefits, the patient was deemed in satisfactory condition to undergo the procedure. - The anesthesia plan was to use general anesthesia. - Immediately prior to administration of medications, the patient was re-assessed for adequacy to receive sedatives. - The heart rate, respiratory rate, oxygen saturations, blood pressure, adequacy of pulmonary ventilation, and response to care were monitored throughout the procedure. - The physical status of the patient was re-assessed after the procedure. After obtaining informed consent, the endoscope was passed under direct vision. Throughout the procedure, the patient's blood pressure, pulse, and oxygen saturations were monitored continuously. The Endosonoscope was introduced through the mouth, and advanced to the third part of duodenum. The upper EUS was accomplished without difficulty. The patient tolerated the procedure well. Findings: ENDOSONOGRAPHIC FINDING: : There was no sign of significant endosonographic abnormality in the ampulla. No pathologic lymphadenopathy and no masses were identified. Evidence of a previous cholecystectomy was identified endosonographically. There was dilation in the common bile duct which measured up to 13 mm. There was abnormal echogenicity in the visualized portion of the liver. This area was hyperechoic. There was no sign of significant endosonographic abnormality in the entire pancreas. No masses, no cysts, no calcifications. No lymphadenopathy seen. There was no sign of significant endosonographic abnormality in the left adrenal gland. No adrenal gland enlargement was identified. Impression: - There was no sign of significant pathology in the ampulla. - Evidence of a cholecystectomy. - There was dilation in the common bile duct which measured up to 13 mm. - There was abnormal echogenicity in the visualized portion of the liver. This was hyperechoic. Tissue has not been obtained. However, the endosonographic appearance is suggestive of fatty infiltration. - There was no sign of significant pathology in the entire pancreas. - Endosonographic images of the left adrenal gland were unremarkable. - No specimens collected. Recommendation: - Perform an ERCP today. Sen David D.O. Sen David, 04/21/2021 12:09:54 PM This report has been signed electronically. Note Initiated On: 04/21/2021 11:28 AM Number of Addenda: 0 I attest to the content of the Intraoperative Record and orders documented therein, exceptions below {[id number]}
--- NOTE | 2021-04-21 12:17 | GI REPORT ---
Patient Name: Adwoa Méndez Procedure Date: 04/21/2021 11:30 AM Date of : 1960 Admit Type: Inpatient Age: 60 Gender: Female Attending MD: Sen Davdi DO Procedure: ERCP Providers: Sen David DO Referring MD: Jarred Feliz Indications: Abdominal pain of suspected biliary origin, Suspected Sphincter of Oddi dysfunction/spasm, Type 2 Sphincter of Oddi Dysfunction/Spasm Medicines: General Anesthesia Complications: No immediate complications. Estimated blood loss: Minimal. Estimated Blood Loss: Estimated blood loss was minimal. Procedure: Pre-Anesthesia Assessment: - Prior to the procedure, a History and Physical was performed, and patient medications, allergies and sensitivities were reviewed. The patient's tolerance of previous anesthesia was reviewed. - The risks and benefits of the procedure and the sedation options and risks were discussed with the patient. All questions were answered and informed consent was obtained. - Patient identification and proposed procedure were verified prior to the procedure by the physician, the nurse and the jack setter. The procedure was verified in the procedure room. - Pre-procedure physical examination revealed no contraindications to sedation. - ASA Grade Assessment: IV - A patient with severe systemic disease that is a constant threat to life. - After reviewing the risks and benefits, the patient was deemed in satisfactory condition to undergo the procedure. - The anesthesia plan was to use general anesthesia. - Immediately prior to administration of medications, the patient was re-assessed for adequacy to receive sedatives. - The heart rate, respiratory rate, oxygen saturations, blood pressure, adequacy of pulmonary ventilation, and response to care were monitored throughout the procedure. - The physical status of the patient was re-assessed after the procedure. After obtaining informed consent, the scope was passed under direct vision. Throughout the procedure, the patient's blood pressure, pulse, and oxygen saturations were monitored continuously. The Duodenoscope was introduced through the mouth, and advanced to the duodenum and used to inject contrast into the bile duct. The ERCP was accomplished without difficulty. The patient tolerated the procedure well. Findings: A job placement officer film of the abdomen was obtained. Surgical clips, consistent with a previous cholecystectomy, were seen in the area of the right upper quadrant of the abdomen. The esophagus was successfully intubated under direct vision without detailed examination of the pharynx, larynx, and associated structures, and upper GI tract. The upper GI tract was grossly normal. The major papilla was normal. The bile duct was deeply cannulated with the short-nosed traction sphincterotome a 0.035 in Angled [employer]ro[employer] 2 guidewire, PD not cannulated or injected. Contrast was injected. I personally interpreted the bile duct images. Contrast extended to the hepatic ducts. A cholecystectomy had been performed. The main bile duct was moderately dilated. The largest diameter was 14 mm. The biliary orifice was stenotic. This appeared benign. Biliary sphincterotomy was made with a monofilament Fusion OMNI sphincterotome using ERBE electrocautery. There was no post-sphincterotomy bleeding. To discover objects, the biliary tree was swept with a 15 mm balloon starting at the bifurcation. Sludge was swept from the duct. Indomethacin 100 mg was given via suppository to decrease the risk of post-ERCP pancreatitis (PEP). The endoscope was withdrawn from the patient. Impression: - The major papilla appeared normal. - Biliary papillary stenosis, benign. - The entire main bile duct was moderately dilated. - The patient has had a cholecystectomy. - A biliary sphincterotomy was performed. - The biliary tree was swept and sludge was found. - Indomethacin given to decrease risk of post-ERCP pancreatitis. Recommendation: - Avoid aspirin and nonsteroidal anti-inflammatory medicines for 1 week. - Clear liquid diet today. - Use broad spectrum antibiotics for 3 days. Sen David D.O. Sen David, 04/21/2021 12:17:01 PM This report has been signed electronically. Note Initiated On: 04/21/2021 11:30 AM Number of Addenda: 0 I attest to the content of the Intraoperative Record and orders documented therein, exceptions below {[id number]}
--- NOTE | 2021-04-21 12:25 | Fluoroscopy Report ---
INTRAOPERATIVE RADIOGRAPHS CLINICAL HISTORY: ERCP procedure. COMPARISON STUDY: Abdominal CT dated 04/15/2021. MRCP dated 04/16/2021. Fluoroscopy time: 53 seconds. FINDINGS: 7 spot fluoroscopic views of the right upper quadrant are presented. A statically clips are noted in the right upper quadrant. A wire is placed in the common bile duct which is opacified by co ntrast. The common bile duct appears dilated. Intraluminal filling defects may represent small stones /sludge versus gas bubbles. A balloon sweep is performed. The intrahepatic bile ducts were not opacif ied. IMPRESSION: Intraoperative ERCP images as above. See operative report for detailed findings. Electronically signed by: Austyn Neil M.D. 04/21/2021 12:23 PM
[2021-04-21] MEDS ORDERED: ATROPINE SULFATE 0.1 MG/ML 10ML SYR IV PRN (12:31)
[2021-04-21] MEDS ORDERED: ONDANSETRON INJ 2 MG/ML 2 ML VIAL IV PRN (12:31)
[2021-04-21] MEDS ORDERED: NALOXONE HCL 0.4 MG/1 ML VIAL/CARP IV PRN (12:31)
[2021-04-21] MEDS ORDERED: LABETALOL HCL IV 5 MG/ML 20ML IV PRN (12:31)
[2021-04-21] MEDS ORDERED: PROMETHAZINE HCL 12.5 MG in SODIUM CHLORIDE 0.9% 50 ML IV PRN (12:31)
[2021-04-21] MEDS ORDERED: LABETALOL HCL IV 5 MG/ML 20ML IV ONE (12:34)
[2021-04-21] MEDS: fentaNYL citrate 100 MCG/2 ML VIAL IV PRN ×4 (12:35→12:50)
--- NOTE | 2021-04-21 12:37 | Post Operative Brief Note ---
Immediate Post Op Note v1 Date of Surgery April 21, 2021 Pre & Post Diagnosis Operation Date: 04/19/21 07:00 <No data on this case meets the specified criteria> Operation Date: 04/21/21 07:00 Pre-Op Diagnosis: SEVERE HYPOCALCEMIA, HYPOMAGNESEMIA Post-Op Diagnosis: Gastric Polyp; Spincterotomy, Biliary Sludge. I identified the patient and participated in the time-out.: Yes Procedure Operation Date: 04/19/21 07:00 <No data on this case meets the specified criteria> Operation Date: 04/21/21 07:00 Actual Procedures p Endoscopic Ultrasonography Upper - DO alejandro Painting Endoscopic Retrograde Cholangiopancreato - DO alejandro Painting Esophagogastroduodenoscopy with biopsies - Sen David DO Surgeon Sen David DO Single Ending Machine Operator none Estimated Blood Loss 0 Findings Consistent with Post-Op Diagnosis
--- NOTE | 2021-04-21 12:42 | Communication Note ---
Date of Service: April 21, 2021 Patient underwent upper endoscopy, endoscopic ultrasound and ERCP today. The patient did have evidence of a dilated common bile duct, papillary stenosis and sludge within the common bile duct. Based on the presentation the patient's symptoms are most consistent with sphincter of Oddi dysfunction. Recommendations Continue IV hydration Clear liquid diet Avoid nonsteroidals for 1 week please Hold anticoagulation for 5 days please Ciprofloxacin 500 mg twice daily for 3 days
--- NOTE | 2021-04-21 13:36 | Anesthesiology Progress Note ---
Date of Service April 21, 2021 Anesthesia Post Procedure Vital Signs Vital Signs: Temp Pulse Pulse Pulse Pulse Resp BP 04/21/21 13:05 37.0 C 67 13 04/21/21 12:55 65 17 04/21/21 12:45 63 17 04/21/21 12:35 65 13 04/21/21 12:25 68 21 04/21/21 12:18 36.7 C 73 17 04/21/21 10:25 36.9 C 60 18 04/21/21 08:43 68 04/21/21 06:14 36.4 C L 68 16 111/54 L 04/20/21 22:26 36.7 C 63 16 132/88 04/20/21 15:42 36.7 C 65 16 117/82 BP Pulse Ox 04/21/21 13:05 156/97 H 94 04/21/21 12:55 159/100 H 91 04/21/21 12:45 177/101 H 95 04/21/21 12:35 166/103 H 93 04/21/21 12:25 164/94 H 95 04/21/21 12:18 182/89 H 97 04/21/21 10:25 146/90 H 97 04/21/21 08:43 143/84 H 04/21/21 06:14 97 04/20/21 22:26 96 04/20/21 15:42 97 Pain Intensity Generalized: Pain Intensity: 6 Head: Pain Intensity: 8 Transfer of Care Handoff Completed per policy
[2021-04-21] MEDS: POLYETHYLENE (MIRALAX) 17 GM PACK PO SCH ×3 (13:49→20:06)
--- NOTE | 2021-04-21 14:14 | Hospitalist Progress Note ---
Date of Service April 21, 2021 Assessment & Plan (1) Sphincter of Oddi dysfunction: Plan: Patient underwent EGD today demonstrating gastric polyps (biopsies done), endoscopic ultrasound and ERCP today. The patient did have evidence of a dilated common bile duct, papillary stenosis and sludge within the common bile duct. Based on the presentation the patient's symptoms are most consistent with sphincter of Oddi dysfunction -- sphincter was dilated today. Gastroenterology Recommendations: -- Continued IVF's. -- Clear liquid diet. -- Avoid NSAIDs for 1 week. -- Hold anticoagulation for 5 days. -- Ciprofloxacin 500 mg twice daily for 3 days. (2) Pancreatitis: Plan: History of recurrent pancreatitis which likely caused pancreatic atrophy on imaging. (3) Gastric polyps: Plan: -- Biopsies done, no report yet. -- Await results. -- Gastroenterology input appreciated. (4) Abnormal LFTs: Plan: -- Alkaline phosphatase is trending down. -- ALT/AST have normalized. (5) Metabolic encephalopathy: Plan: -- Resolved. (6) Chronic kidney disease, stage 3: Plan: -- Today's serum Creatinine is 1.74 mg/dL, baseline appears to be 1.3 mg/dL. -- Continue IVF's. -- Monitor daily labs. (7) Hypertension associated with chronic kidney disease due to type 2 diabetes mellitus: Plan: -- Continue Amlodipine 5 mg daily. -- Continue Lopressor 50 mg b.i.d.. -- Low sodium diet. (8) Diabetes mellitus type 2, uncontrolled: Plan: -- Metformin on hold. -- Continue SSI. -- Frequent BSG checks. (9) PE (pulmonary thromboembolism): Plan: -- Xarelto on hold due to GI procedures today. -- Restart Xarelto as of 04/27/21. Admission and Anticipated Discharge Date Admission Date: April 06, 2021 Nehemias Méndez is a 60 year old female with a history of Hypertension, Type 2 Diabetes Mellitus, Depression, Anxiety, GERD, Chronic Pain Syndrome, Opioid Dependence, s/p Cholecystectomy, Obesity, and recurrent Pancreatitis who underwent EGD today demonstrating gastric polyps (biopsies done), endoscopic ultrasound and ERCP today. The patient did have evidence of a dilated common bile duct, papillary stenosis and sludge within the common bile duct. Based on the presentation the patient's symptoms are most consistent with sphincter of Oddi dysfunction -- sphincter was dilated today. Gastroenterology Recommendations include continued IV hydration, clear liquid diet, avoid NSAIDs for 1 week, hold anticoagulation for 5 days, and Ciprofloxacin 500 mg twice daily for 3 days. Patient continues to have some upper abdominal discomfort but denies any fever, chills, nausea, or vomiting. Physical Exam Physical Exam: GENERAL: Patient in no acute distress, lying in bed flat on her back. HEENT: Head is atraumatic, normocephalic. Sclerae anicteric. EOM's intact. Facies symmetric. No perioral cyanosis. NECK: No JVD. JVP is not elevated. Carotid upstrokes are + 2 bilaterally. No bruits are noted. CHEST/LUNGS: Clear to auscultation throughout all lung [place]. No wheezes, rales, or crackles. CVS: S1 and S2 are regular without obvious murmurs, gallops, or rubs. PMI is nonpalpable. No lifts, heaves, or thrills. No abdominal aortic or renal bruits. Diffuse tenderness to palpation in the lower anterior chest. ABDOMINAL EXAM: Bowel sounds are present. Tenderness to palpation in the mid- epigastrium. EXTREMITIES: No clubbing or cyanosis. No edema. NEUROLOGIC EXAM: Patient is awake, alert, interactive, and oriented. Answers questions appropriately. Speech is clear. Results & Data Results & Data ([facility]) Vital Signs (Past 12 Hours) Vital Signs Temp Pulse Pulse Pulse Pulse Resp BP 04/21/21 13:45 60 16 04/21/21 13:15 37 C 66 16 04/21/21 13:05 37.0 C 67 13 04/21/21 12:55 65 17 04/21/21 12:45 63 17 04/21/21 12:35 65 13 04/21/21 12:25 68 21 04/21/21 12:18 36.7 C 73 17 04/21/21 10:25 36.9 C 60 18 04/21/21 08:43 68 04/21/21 06:14 36.4 C L 68 16 111/54 L BP Pulse Ox 04/21/21 13:45 152/100 H 95 04/21/21 13:15 161/91 H 92 04/21/21 13:05 156/97 H 94 04/21/21 12:55 159/100 H 91 04/21/21 12:45 177/101 H 95 04/21/21 12:35 166/103 H 93 04/21/21 12:25 164/94 H 95 04/21/21 12:18 182/89 H 97 04/21/21 10:25 146/90 H 97 04/21/21 08:43 143/84 H 04/21/21 06:14 97 Laboratory Results Laboratory Results - last 24 hr 04/11/21 04/20/21 04/20/21 10:20 17:09 18:23 WBC 6.59 RBC 4.01 L Hgb 11.5 L Hct 35.9 L MCV 89.5 MCH 28.7 MCHC 32.0 RDW Std Deviation 48.1 H RDW Coeff of Génesis 14.6 H Plt Count 246 MPV 10.5 H Immature Gran % (Auto) 0.2 Neut % (Auto) 51.0 Lymph % (Auto) 41.0 [place] % (Auto) 5.0 Eos % (Auto) 2.3 Baso % (Auto) 0.5 Neut # (Auto) 3.37 Lymph # (Auto) 2.70 [place] # (Auto) 0.33 Eos # (Auto) 0.15 Baso # (Auto) 0.03 Immature Gran # (Auto) 0.01 Sodium Potassium Chloride Carbon Dioxide Anion Gap BUN Creatinine Est Cr Clr Drug Dosing Est GFR ( Amer) Est GFR (Non-Af Amer) BUN/Creatinine Ratio Glucose POC Glucose 158 H Calcium Phosphorus Magnesium Total Bilirubin AST ALT Alkaline Phosphatase Total Protein Albumin Globulin Albumin/Globulin Ratio Acetylchol Rcpt Block Ab <15 Acetylchol Rcpt Bind Ab <0.30 Acetylchol Rcpt Modu Ab 4 04/20/21 04/20/21 04/21/21 18:23 20:36 06:12 WBC RBC Hgb Hct MCV MCH MCHC RDW Std Deviation RDW Coeff of Génesis Plt Count MPV Immature Gran % (Auto) Neut % (Auto) Lymph % (Auto) [place] % (Auto) Eos % (Auto) Baso % (Auto) Neut # (Auto) Lymph # (Auto) [place] # (Auto) Eos # (Auto) Baso # (Auto) Immature Gran # (Auto) Sodium 138 Potassium 3.9 Chloride 104 Carbon Dioxide 25 Anion Gap 9 BUN 22 Creatinine 1.74 H Est Cr Clr Drug Dosing 34.3 Est GFR ( Amer) 36.6 Est GFR (Non-Af Amer) 31.5 BUN/Creatinine Ratio 12.6 Glucose 146 H POC Glucose 208 H 133 H Calcium 8.8 Phosphorus 4.2 Magnesium 1.8 Total Bilirubin 0.2 AST 16 ALT 46 Alkaline Phosphatase 147 H Total Protein 6.3 Albumin 3.6 Globulin 2.7 Albumin/Globulin Ratio 1.3 Acetylchol Rcpt Block Ab Acetylchol Rcpt Bind Ab Acetylchol Rcpt Modu Ab 04/21/21 04/21/21 10:32 12:20 WBC RBC Hgb Hct MCV MCH MCHC RDW Std Deviation RDW Coeff of Génesis Plt Count MPV Immature Gran % (Auto) Neut % (Auto) Lymph % (Auto) [place] % (Auto) Eos % (Auto) Baso % (Auto) Neut # (Auto) Lymph # (Auto) [place] # (Auto) Eos # (Auto) Baso # (Auto) Immature Gran # (Auto) Sodium Potassium Chloride Carbon Dioxide Anion Gap BUN Creatinine Est Cr Clr Drug Dosing Est GFR ( Amer) Est GFR (Non-Af Amer) BUN/Creatinine Ratio Glucose POC Glucose 145 H 136 H Calcium Phosphorus Magnesium Total Bilirubin AST ALT Alkaline Phosphatase Total Protein Albumin Globulin Albumin/Globulin Ratio Acetylchol Rcpt Block Ab Acetylchol Rcpt Bind Ab Acetylchol Rcpt Modu Ab Diagnostic Findings MRCP 04/16/21: Study is mildly motion degraded. The lung bases and imaged lower chest appear unremarkable. Moderately atrophic pancreas. The remaining solid abdominal organs appear unremarkable. Aorta and IVC are within normal limits. No adenopathy. Moderate fecal retention. No abdominal free fluid. Cholecystectomy. Chronic intrahepatic and extrahepatic biliary ductal dilation redemonstrated with the common bile duct measuring up to 1.4 cm. No obstructing biliary stone or lesion identified. No pancreatic ductal dilation. Pancreatic divisum is better seen on comparison study. IMPRESSION: 1. Status post cholecystectomy. 2. Chronic moderate intrahepatic and extrahepatic biliary ductal dilation is likely secondary to postcholecystectomy state. No evidence of cho ledocholithiasis. 3. Pancreatic atrophy. Medications Administered Medications doxepin 75 mg capsule 150 mg PO HS 02/23/18 [History Confirmed 04/06/21] metformin 1,000 mg tablet 1,000 mg PO BID 02/23/18 [History Confirmed 04/06/21] blood sugar diagnostic ([employer] test strips) #10 ea 12/31/19 [Rx Confirmed 02/03/21] lancets 33 gauge (OneTouch Delica Lancets) #100 ea 12/31/19 [Rx Confirmed 02/03/21] pen needle, diabetic 32 gauge x 5/32" (BD Nati 2nd Gen Pen Needle) #100 ea 12/31/19 [Rx Confirmed 02/03/21] polyethylene glycol 3350 17 gram oral powder packet (Miralax) 17 g PO DAILY #30 packet 12/31/19 [Rx Confirmed 04/06/21] aspirin 81 mg tablet,delayed release 81 mg PO DAILY 02/03/21 [History Confirmed 04/06/21] omeprazole 20 mg capsule,delayed release 20 mg PO BID 02/03/21 [History Confirmed 04/06/21] benazepril 5 mg tablet 0 mg PO DAILY 04/06/21 [History Confirmed 04/06/21] oxycodone 30 mg tablet,crush resistant,extended release 12 hr (OxyContin) 30 mg PO Q12H 04/06/21 [History Confirmed 04/06/21] fluoxetine 20 mg capsule 20 mg PO DAILY 04/07/21 [History Confirmed 04/07/21] metoprolol tartrate 25 mg tablet 25 mg PO BID 04/07/21 [History Confirmed 04/07/21] Home Medications Acetaminophen (Acetaminophen 325 Mg Tab) 650 mg PO Q4H PRN PRN Reason: Pain or Fever Stop: 05/06/21 15:36 Last Admin: 04/19/21 05:22 Dose: 650 mg Documented by: Amlodipine Besylate (Amlodipine Besylate 5 Mg Tab) 5 mg PO QAM [facility] Stop: 05/11/21 08:59 Last Admin: 04/21/21 08:47 Dose: 5 mg Documented by: Aspirin (Aspirin 81 Mg Ectab) 81 mg PO DAILY [facility] Stop: 05/07/21 08:59 Last Admin: 04/21/21 08:45 Dose: 81 mg Documented by: Cyanocobalamin (Cyanocobalamin 1000 Mcg/Ml Vial) 1,000 mcg IM QAM [facility] Stop: 05/08/21 12:29 Last Admin: 04/21/21 08:47 Dose: 1,000 mcg Documented by: Dextrose (Dextrose 50% 50 Ml Syringe) 25 - 50 ml IV UD PRN; Protocol PRN Reason: Hypoglycemia Protocol Stop: 05/06/21 15:36 Doxepin HCl (Doxepin Hcl 75 Mg Capsule) 150 mg PO HS [facility] Stop: 05/06/21 20:59 Last Admin: 04/20/21 21:25 Dose: 150 mg Documented by: Fluoxetine HCl (Fluoxetine Hcl 10 Mg Cap) 30 mg PO DAILY JACQU[facility]INE Stop: 05/15/21 08:59 Last Admin: 04/21/21 08:46 Dose: 30 mg Documented by: Folic Acid (Folic Acid 1 Mg Tab) 1 mg PO QAM JACQUELINE Stop: 05/09/21 08:59 Last Admin: 04/21/21 08:45 Dose: 1 mg Documented by: Glucagon (Glucagon For Inj 1 Mg Vial) 1 mg SQ UD PRN; Protocol PRN Reason: Hypoglycemia Protocol Stop: 05/06/21 15:36 Glucose (Glucose 10 Tabs/Tube) 4 - 8 tabs PO UD PRN; Protocol PRN Reason: Hypoglycemia Protocol Stop: 05/06/21 15:36 Glucose (Glucose 40% Gel 15 Gm Tube) 15 - 30 gm PO UD PRN; Protocol PRN Reason: Hypoglycemia Protocol Stop: 05/06/21 15:36 Hydrocortisone (Hydrocortisone Hc 2.5% Crm 30gm Tube) 1 appln EXT TID PRN PRN Reason: hemorrhoids Stop: 05/16/21 15:29 Hydrocortisone (Hydrocortisone Acetate 25 Mg Supp) 25 mg [place] Q8H PRN PRN Reason: Hemorrhoids Stop: 05/16/21 19:31 Lactated Ringer's (Lr) 1,000 mls @ 80 mls/hr IV .[id number] [facility] Stop: 05/21/21 06:59 Last Admin: 04/21/21 07:29 Dose: 80 mls/hr Documented by: Ciprofloxacin (Cipro / D5w) 400 mg in 200 mls @ 100 mls/hr IV Q12H JACQUELINE; Protocol Stop: 04/24/21 00:00 Ciprofloxacin (Cipro / D5w) 400 mg in 200 mls @ 100 mls/hr IV PREOP@1100 JACQUELINE; Protocol Stop: 04/21/21 18:00 Last Admin: 04/21/21 12:45 Dose: 100 mls/hr Documented by: Insulin Aspart (Insulin Aspart Per Unit) 0 units SC Q6 [facility] Stop: 05/21/21 05:59 Last Admin: 04/21/21 13:54 Dose: Not Given Documented by: Magnesium Oxide (Magnesium Oxide 400 Mg Tab) 400 mg PO BID JACQUELINE Stop: 05/06/21 20:59 Last Admin: 04/21/21 08:45 Dose: 400 mg Documented by: Meclizine HCl (Meclizine Hcl 25 Mg Tab) 25 mg PO TID PRN PRN Reason: vertigo Stop: 05/12/21 13:59 Last Admin: 04/21/21 08:44 Dose: 25 mg Documented by: Metoprolol Tartrate (Metoprolol Tartrate 50 Mg Tab) 50 mg PO BID JACQUELINE Stop: 05/11/21 20:59 Last Admin: 04/21/21 08:45 Dose: 50 mg Documented by: Miscellaneous (Carbohydrates For Hypoglycemia ) 15 - 30 gm PO UD PRN PRN Reason: Hypoglycemia Protocol Stop: 05/06/21 15:36 Oxycodone HCl (Oxycodone Hcl 15 Mg Tabcr (Oxycontin)) 30 mg PO BID JACQUELINE Stop: 05/04/21 21:44 Last Admin: 04/21/21 08:44 Dose: 30 mg Documented by: Pantoprazole Sodium (Pantoprazole 40 Mg Tab) 40 mg PO BID JACQUELINE Stop: 05/06/21 20:59 Last Admin: 04/21/21 08:45 Dose: 40 mg Documented by: Polyethylene Glycol (Polyethylene (Miralax) 17 Gm Pack) 17 gm PO BID JACQUELINE Stop: 05/16/21 15:29 Last Admin: 04/21/21 13:49 Dose: Not Given Documented by: Sennosides (Senna 8.6 Mg Tab) 17.2 mg PO QAM [facility]QU[facility]INE Stop: 05/16/21 15:29 Last Admin: 04/21/21 08:46 Dose: 17.2 mg Documented by: Thiamine HCl (Thiamine Hcl 100 Mg Tab) 200 mg PO BID JACQUELINE Stop: 05/09/21 20:59 Last Admin: 04/21/21 08:44 Dose: 200 mg Documented by: Vitamin D (Cholecalciferol 5,000 Units 125 Mcg Tab) 5,000 units PO QAM [facility]ACQUELINE Stop: 05/10/21 08:59 Last Admin: 04/21/21 08:46 Dose: 5,000 units Documented by: PG Care Time/CCT Total # of Minutes Spent Total Time Spent with Patient: Total time spent is greater than 50% in coordination of care (as documented) at patient's floor/unit and/or counseling patient:30 Coding Level of Care Code 38561 Subseq Hosp Care Lvl 3 Diagnoses Sphincter of Oddi dysfunction K83.4 Pancreatitis K85.90 Gastric polyps K31.7 Abnormal LFTs R79.89 Metabolic encephalopathy G93.41 Chronic kidney disease, stage 3 N18.30 Hypertension associated with chronic kidney disease due to type 2 diabetes mellitus E11.22; I12.9 Diabetes mellitus type 2, uncontrolled E11.65 PE (pulmonary thromboembolism) I26.99 Time Spent (min) 55
[2021-04-21] MEDS ORDERED: Nursing to Pharmacy Communication SCH (16:00)
[2021-04-21] MEDS: DOXEPIN HCL 75 MG CAPSULE PO SCH (20:07)
[2021-04-22] MEDS: CIPROFLOXACIN / D5W 400 MG/200 ML BAG IV SCH ×3 (00:40→23:41)
[2021-04-22] MEDS: LACTATED RINGER'S 1,000 ML IV SCH (06:20)
[2021-04-22] MEDS: FOLIC ACID 1 MG TAB PO SCH (09:15)
[2021-04-22] MEDS: POLYETHYLENE (MIRALAX) 17 GM PACK PO SCH ×2 (09:15→21:38)
[2021-04-22] MEDS: ASPIRIN 81 MG ECTAB PO SCH (09:15)
[2021-04-22] MEDS: METOPROLOL TARTRATE 50 MG TAB PO SCH ×2 (09:15→21:43)
[2021-04-22] MEDS: PANTOprazole 40 MG TAB PO SCH ×2 (09:15→21:38)
[2021-04-22] MEDS: amLODIPine BESYLATE 5 MG TAB PO SCH (09:15)
[2021-04-22] MEDS: THIAMINE HCL 100 MG TAB PO SCH ×2 (09:16→21:39)
[2021-04-22] MEDS: MAGNESIUM OXIDE 400 MG TAB PO SCH ×2 (09:16→21:37)
[2021-04-22] MEDS: MECLIZINE HCL 25 MG TAB PO PRN ×2 (09:16→21:43)
[2021-04-22] MEDS: CHOLECALCIFEROL 5,000 UNITS 125 MCG TAB PO SCH (09:16)
[2021-04-22] MEDS: CYANOCOBALAMIN 1000 MCG/ML VIAL IM SCH (09:16)
[2021-04-22] MEDS: FLUoxetine HCL 10 MG CAP PO SCH (09:16)
[2021-04-22] MEDS: SENNA 8.6 MG TAB PO SCH (09:16)
[2021-04-22] MEDS: INSULIN ASPART PER UNIT SC SCH ×4 (09:30→21:37)
[2021-04-22] MEDS: oxyCODONE HCL 15 MG TABCR (OxyCONTIN) PO SCH ×2 (09:30→21:40)
--- NOTE | 2021-04-22 10:18 | Gastroenterology Progress Note ---
Date of Service April 22, 2021 Assessment & Plan (1) Abnormal LFTs: Plan: Resolved (2) Abdominal pain: Plan: Improved after ERCP, now back to chronic/baseline pain. Plan: Recommend broad spectrum antibiotics until 3 days after yesterday's ERCP (so through Sunday04/24/21). May advance diet to full liquids - then if tolerates well to regular consistency. No further GI procedures planned at this time. GI will sign off. Please notify us of new/worsening symptoms. Admission and Anticipated Discharge Date Admission Date: April 06, 2021 Supervising Physician Co-Signing Physician Notes I have discussed the patient's management with the advanced practitioner. Please refer to the nurse practitioner's note for the documented findings and plan of care. Subjective Ms. Méndez is a 60 year old female with a history of Hypertension, Type 2 Diabetes Mellitus, Depression, Anxiety, GERD, Chronic Pain Syndrome, Opioid Dependence, s/p Cholecystectomy, Obesity, and recurrent Pancreatitis who underwent EGD today demonstrating gastric polyps (biopsies done), endoscopic ultrasound and ERCP today. The patient did have evidence of a dilated common bile duct, papillary stenosis and sludge within the common bile duct. Based on the presentation the patient's symptoms are most consistent with sphincter of Oddi dysfunction -- sphincter was dilated today. Gastroenterology Recommendations include continued IV hydration, clear liquid diet, avoid NSAIDs for 1 week, hold anticoagulation for 5 days, and Ciprofloxacin 500 mg twice daily for 3 days. Patient continues to have some upper abdominal discomfort but denies any fever, chills, nausea, or vomiting. Review of Systems 2 Review of Systems: ROS: Gen: + multiple episodes of double vision/tingling of peripheries/memory issues - working with cardiology and neuro. No fevers, no weight loss Eyes: No eye redness, or pain, no recent vision changes Resp: No SOB, no cough Cardio: No palpitations/irregular beats, no chest pain GI: See HPI, otherwise (-) : Denies pain on urination Skin: No jaundice, itching or new rashes Physical Exam Constitutional: well developed, cooperative and + overweight Eyes: PERRL, conjunctivae normal, anicteric sclerae Respiratory: normal respiratory effort, lungs clear to auscultation normal respiratory effort and able to speak in complete sentences; no respiratory distress, no labored breathing, does not use accessory muscles and no cough Cardiovascular: RRR, no murmur, no edema Gastrointestinal (Abdomen): Inspection/Auscultation: abdomen normal to inspection and normal bowel sounds; abdomen not distended and no abdominal edema Percussion/Palpation: + abdomen tender (Mild diffuse adbdominal msk tenderness. No signs of acute abdomen.) and abdomen soft; no guarding and abdomen not rigid Skin: no rashes, warm and dry normal turgor Neurologic: PERRL, EOMI, accommodation nl, no face palsy, no dysarthria awake; not confused Psychiatric: A+Ox3, euthymic affect Orientation: cooperative Lymphatic: no cervical or axillary lymphadenopathy Results & Data ([facility]) Vital Signs (Past 12 Hours) Vital Signs Temp Pulse Resp BP BP Pulse Ox 04/22/21 07:30 36.4 C L 71 17 139/81 97 04/22/21 03:30 36.2 C L 58 L 16 130/79 99 04/21/21 22:58 168/97 H 04/21/21 22:57 36.4 C L 75 16 170/92 H 95 Diagnostic Findings ERCP04/21/21: - The major papilla appeared normal. - Biliary papillary stenosis, benign. - The entire main bile duct was moderately dilated. - The patient has had a cholecystectomy. - A biliary sphincterotomy was performed. - The biliary tree was swept and sludge was found. - Indomethacin given to decrease risk of post-ERCP pancreatitis. EUS 04/21/21: - There was no sign of significant pathology in the ampulla. - Evidence of a cholecystectomy. - There was dilation in the common bile duct which measured up to 13 mm. - There was abnormal echogenicity in the visualized portion of the liver. This was hyperechoic. Tissue has not been obtained. However, the endosonographic appearance is suggestive of fatty infiltration. - There was no sign of significant pathology in the entire pancreas. - Endosonographic images of the left adrenal gland were unremarkable. EGD 04/22/21: - Normal esophagus. - Z-line regular, 36 cm from the incisors. - Multiple gastric polyps. Biopsied. - Normal incisura and antrum. - Normal examined duodenum. Biopsied. A. Duodenum, biopsy: - No diagnostic abnormality. B. Stomach, gastric polyp, biopsy: - Fundic gland type polyp.
[2021-04-22 13:19] LABS: Creatinine Clr Calc Pharmacy 38.8 ml/min; Est GFR (African American) 42.4 ml/min; Est GFR (Non-African American) 36.6 ml/min
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
[2021-04-22] MEDS: DOXEPIN HCL 75 MG CAPSULE PO SCH (21:37)
[2021-04-23 06:49] LABS: Creatinine Clr Calc Pharmacy 35.7 ml/min; Est GFR (African American) 38.4 ml/min; Est GFR (Non-African American) 33.1 ml/min
[2021-04-23] MEDS: oxyCODONE HCL 15 MG TABCR (OxyCONTIN) PO SCH (08:45)
[2021-04-23] MEDS: FLUoxetine HCL 10 MG CAP PO SCH (08:46)
[2021-04-23] MEDS: ASPIRIN 81 MG ECTAB PO SCH (08:46)
[2021-04-23] MEDS: METOPROLOL TARTRATE 50 MG TAB PO SCH (08:46)
[2021-04-23] MEDS: CHOLECALCIFEROL 5,000 UNITS 125 MCG TAB PO SCH (08:46)
[2021-04-23] MEDS: MAGNESIUM OXIDE 400 MG TAB PO SCH (08:46)
[2021-04-23] MEDS: THIAMINE HCL 100 MG TAB PO SCH (08:46)
[2021-04-23] MEDS: SENNA 8.6 MG TAB PO SCH (08:46)
[2021-04-23] MEDS: amLODIPine BESYLATE 5 MG TAB PO SCH (08:47)
[2021-04-23] MEDS: CYANOCOBALAMIN 1000 MCG/ML VIAL IM SCH (08:47)
[2021-04-23] MEDS: POLYETHYLENE (MIRALAX) 17 GM PACK PO SCH (08:47)
[2021-04-23] MEDS: FOLIC ACID 1 MG TAB PO SCH (08:47)
[2021-04-23] MEDS: PANTOprazole 40 MG TAB PO SCH (08:47)
[2021-04-23] MEDS: MECLIZINE HCL 25 MG TAB PO PRN (08:47)
[2021-04-23] MEDS: INSULIN ASPART PER UNIT SC SCH (08:48)
--- NOTE | 2021-04-23 09:53 | Hospitalist Progress Note ---
Date of Service April 23, 2021 Assessment & Plan (1) Sphincter of Oddi dysfunction: Plan: Patient underwent EGD 04/21/21 demonstrating gastric polyps (biopsies done), endoscopic ultrasound and ERCP today. The patient did have evidence of a dilated common bile duct, papillary stenosis and sludge within the common bile duct. Based on the presentation the patient's symptoms are most consistent with sphincter of Oddi dysfunction -- sphincter was dilated today. Gastroenterology Recommendations: -- Continued oral hydration. -- Progress diet as tolerated, maintain a low fat diet. -- Avoid NSAIDs through 04/28/21. -- Resume Xarelto 20 mg daily starting on 04/27/21. -- Oral Ciprofloxacin 500 mg twice daily for 3 days. (2) Pancreatitis: Plan: History of recurrent pancreatitis which likely caused pancreatic atrophy on imaging. -- Tolerating diet without nausea or vomiting. -- Abdominal pain is at baseline. (3) Gastric polyps: Plan: FINAL DIAGNOSIS A. Duodenum, biopsy: - No diagnostic abnormality. B. Stomach, gastric polyp, biopsy: - Fundic gland type polyp. at 0958. Clinical History Severe hypocalcemia and hypomagnesemia. Gastric polyp and biliary sludge. Procedure performed: EGD. Gross Description A. DUODENUM BIOPSY The specimen is received in a container labeled duodenal bx with the patient name. The specimen consists of four pink and red irregular fragments of soft tissue. The fragments range from 0.1 - 0.3 cm in greatest dimension. The specimen is submitted entirely in a single cassette as A for levels. B. GASTRIC POLYP BIOPSY The specimen is received in a container labeled gastric polyp bx with the patient name. The specimen consists of three pink and hussein irregular to polypoid fragments of soft to rubbery tissue. The fragments range from 0.2 x 0.1 x 0.1 to 0.7 x 0.5 x 0.5 cm. The largest fragment is polypoid. The largest fragment has a pink, hussein, smooth and soft surface. The specimen is sectioned. Sectioning of the specimen reveals a pink, hussein, smooth, soft to rubbery cut surface. The specimen is submitted entirely in a single cassette as B. (4) Abnormal LFTs: Plan: -- Alkaline phosphatase is trending down. -- ALT/AST have normalized. (5) Metabolic encephalopathy: Plan: -- Resolved. (6) Chronic kidney disease, stage 3: Plan: -- Serum Creatinine is 1.54 mg/dL as of 04/22/21, baseline appears to be 1.3 mg/dL. -- Continue oral hydration. (7) Hypertension associated with chronic kidney disease due to type 2 diabetes mellitus: Plan: -- Continue Amlodipine 5 mg daily. -- Continue Lopressor 50 mg b.i.d.. -- Low sodium diet. (8) Diabetes mellitus type 2, uncontrolled: Plan: -- Resume Metformin upon discharge. -- Frequent BSG checks. (9) PE (pulmonary thromboembolism): Plan: -- Xarelto on hold due to GI procedures, resume Xarelto as of 04/27/21. Plan: 1. Follow-up with your PCP in 1 to 2 weeks. Check BMP at that visit. 2. Follow-up with [facility] [facility] in 2 weeks. Admission and Anticipated Discharge Date Admission Date: April 06, 2021 Subjective pt left before seen discharged previous day but no transportation, did review vital signs and charge check prior to d/c, no issues noted Results & Data Results & Data ([facility]) Vital Signs (Past 12 Hours) Vital Signs Temp Pulse Pulse Resp BP BP Pulse Ox 04/23/21 09:26 97.9 F 59 L 62 16 128/76 154/84 H 98 04/23/21 07:41 97.9 F 62 16 154/84 H 98 PG Care Time/CCT Total # of Minutes Spent Total Time Spent with Patient: Total time spent is greater than 50% in coordination of care (as documented) at patient's floor/unit and/or counseling patient: Coding Level of Care Code None Diagnoses Sphincter of Oddi dysfunction K83.4 Pancreatitis K85.90 Gastric polyps K31.7 Abnormal LFTs R79.89 Metabolic encephalopathy G93.41 Chronic kidney disease, stage 3 N18.30 Hypertension associated with chronic kidney disease due to type 2 diabetes mellitus E11.22; I12.9 Diabetes mellitus type 2, uncontrolled E11.65 PE (pulmonary thromboembolism) I26.99
--- NOTE | 2021-04-28 13:03 | Coding Query ---
PRESENT ON ADMISSION QUERY To promote full compliance with coding requirements relating to pateint care, physician participation is requested in all cases of gambling cashier uncertainty. Please assist us with the question(s) below: Please place an X within the parenthesis (x). The following diagnosis(es) listed in this patient's medical record require physician assistance to determine if they were present on admission (POA) or not. Please advise for each diagnosis whether it was present on admission, not present on admission, or if it was clinically undetermined. 1. SPHINCTER OF ODDI DYSFUNCTION (documentation of elevated LFT, abdominal pain began on PN 04/16 and Sphincter of Oddi Dysfunction began 04/21) ( x) Present On Admission ( ) Not Present On Admission ( ) Clinically Undetermined 2. GALL BLADDER SLUDGE/DISEASE and BILIARY DUCT STENOSIS (documentation began 04/21) ( x) Present On Admission ( ) Not Present On Admission ( ) Clinically Undetermined 3. PANCREATITIS (history of RCR Pancreatitis is documented, ER documents Lipase not elevated, H&P documents prior pancreatitis, PN's document history of rcr pancreatitis and DS documents Pancreatitis) ( x) Present On Admission ( ) Not Present On Admission ( ) Clinically Undetermined .PLEASE ALSO SPECIFY REGARDING PANCREATITIS, IN YOUR CLINICAL OPINION: ( x ) Acute Pancreatitis ( ) Chronic Pancreatitis ( ) History only of Pancreatitis ( ) Other: Please Specify Thank you Reba Selby *Definition of the present on admission (POA)-Present on admission is defined as present at the time the order for inpatient admission occurs. Conditions that develop during an outpatient encounter prior to a written order for inpatient admission (including emergency department, observation, or outpatient surgery) are considered present on admission. CROWD
--- NOTE | 2021-04-28 13:13 | Coding Query ---
CODING QUERY To promote full compliance with coding requirements relating to patient care, provider participation is requested in all cases of medical biller coder uncertainty. 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 Please specify below, in your clinical opinion, the diagnosis that was most responsible for occasioning the inpatient admission. (x ) Electrolyte abnormalities - ongoing management for hypocalcemia and hypomagnesemia. Please specify further below: ( ) unknown etiology ( x ) specified etiology - Please Specify likely related to pancreatitis and poor PO intake ( ) Sphincter of Oddi Dysfunction ( ) Other: Please Specify Physician's Response(s): Thank you Reba Selby Principal Diagnosis: "that condition established after study, to be chiefly responsible for occasioning the admission of the patient to the hospital for care." Co-Existing Principal Diagnosis: "when two or more diagnoses equally meet the criteria for principal diagnosis as determined by the circumstances of admission, diagnostic work up, and/or therapy provided, and the Alphabetic Index, Tabular List, or another coding guideline does not provide sequencing direction, any one of the diagnoses may be sequenced first." "When the physician has documented what appears to be a current diagnosis in the body of the record, but has not included the diagnosis in the final diagnostic statement, the physician should be asked whether the diagnosis should be added." (Source [facility] 2 QTR90. p3-4) MEKHI
== END 2021-04-23 10:12 | DRG 640 ==
LOC: ED 09:22 → SUATTDRO 13:13 → EDINP 13:13 → 2S 18:15 → 3N 04-08 19:38